=== PATIENT | male | born 1940 ===

== ENCOUNTER 2020-05-01 10:50 | Outpatient (REF) | payer MEDICARE, SELFPAY ==
--- NOTE | 2020-05-01 | US_ITS ---
EXAMINATION: US VENOUS ULTRASOUND WITH DOPPLER LOWER EXTREMITY, LEFT CLINICAL INFORMATION: Left lower extremity pain and edema. Assess for occult DVT. COMPARISON: None TECHNIQUE: Ultrasound of the deep veins is performed from the hip to the calf with compression sonography and color and pulse Doppler assessment. Spectral analysis with color-flow imaging is performed. FINDINGS: There is normal venous compression and respiratory variation and augmented flow. The visualized common femoral vein, superficial femoral vein, profunda femoral vein, popliteal vein, and the trifurcation region shows no evidence of deep venous thrombosis. No popliteal fossa cyst. US/US venous duplex LE LT IMPRESSION: No acute DVT demonstrated in the left lower extremity.
== END 2020-05-01 10:51 | disposition home or self-care (01) ==
LOC: HO.US 10:50
PROVIDERS: PCP Internal Medicine; Visit Provider Emergency Medicine
DX: R60.0 Localized edema (principal); M79.605 Pain in left leg
CPT/HCPCS: 93971

== ENCOUNTER 2020-09-22 10:42 | Day surgery (SDC) | payer MEDICARE, SELFPAY ==
[2020-09-17 10:53] VITALS: BMI 23.1
--- NOTE | 2020-09-17 16:52 | MHC.SHP ---
Pre-Procedural Eval Section A The patient is an INPATIENT: No The History & Physical has been completed within 30 days and I have reviewed it.: Yes Section B Chief Complaint: Cataract Left Eye Allergies: Allergies Allergy/AdvReac Type Severity Reaction Status Date / Time No Known Allergies Allergy Verified 09/17/20 10:51 Plan Diagnosis/Plan: Unchanged I have reviewed the history and physical and performed a pertinent physical examination on my patient. No changes have occurred unless specified.
--- NOTE | 2020-09-19 09:27 | HO.ANESPROP2 ---
Documented by User: Leesa Payne 09/19/20 09:27 HPI - Anesthesia Eval Consult details Narrative: 80yo M for Left Cataract Extraction IOL Insertion No prev cataract [facility] Past Medical History Medical History Arthritis Elevated cholesterol HTN (hypertension) S/P ORIF (open reduction internal fixation) fracture Social History Social History Smoking Status: Former smoker Smoking Quit Date: 2014 Use of substances other than those prescribed or required for medical reasons: No Advance Directives: No Advance Directives Information Provided: No Advance Directives on File: No Meds Allergies Allergy/AdvReac Type Severity Reaction Status Date / Time No Known Allergies Allergy Verified 09/17/20 10:51 Home Medications Medication Instructions Recorded Confirmed Last Taken Type atorvastatin 1 tab PO DAILY 09/17/20 09/17/20 Unknown History lisinopril-hydrochlorothiazide 1 tab PO DAILY 09/17/20 09/17/20 Unknown History tramadol 1 tab PO BID PRN 09/17/20 09/17/20 Unknown History Exam Exam Date and Time: September 19, 2020 0927 Height,Weight and Vital Signs: Height 5 ft 4 in Weight 61.235 kg Assessment and Plan Assessment Anesthesia Assessment: Chart Reviewed Documented by User: Bernice Johnson 09/22/20 12:35 [facility] Past Medical History Medical History Arthritis Elevated cholesterol HTN (hypertension) S/P ORIF (open reduction internal fixation) fracture Family History Family history of problems with anesthesia: No Surgical History History of Problems with Anesthesia: No Social History Social History Smoking Status: Former smoker Smoking Quit Date: 2014 Use of substances other than those prescribed or required for medical reasons: No Advance Directives: No Advance Directives Information Provided: No Advance Directives on File: No Meds Allergies Allergy/AdvReac Type Severity Reaction Status Date / Time No Known Allergies Allergy Verified 09/17/20 10:51 Home Medications Medication Instructions Recorded Confirmed Last Taken Type atorvastatin 1 tab PO DAILY 09/17/20 09/17/20 Unknown History lisinopril-hydrochlorothiazide 1 tab PO DAILY 09/17/20 09/17/20 Unknown History tramadol 1 tab PO BID PRN 09/17/20 09/17/20 Unknown History Exam Height,Weight and Vital Signs: Vital Signs Temp Pulse Resp BP Pulse Ox 09/22/20 12:11 97.5 F 52 18 181/74 H 97 Airway Mallampati Class: II TM Dist: >3cm Neck ROM: Full Denture: Upper and Lower Heart: RRR Lungs: CTAB Assessment and Plan Assessment Anesthesia Assessment: Anesthesia Plan Discussed and Chart Reviewed Final Anesthetic Review NPO: Yes ASA Class: II Final Preanesthetic Review: No Changes in Pt Med Stat, Meds/Allgs Chart Reviewed, Consent Obtained/Reviewed and Anes Risks/Benef Reviewed Patient Risk: Low Procedure Risk: Low Assessment/Block/Sedation in SS: Assess/Block/Sedation-SS Anesthetic Plan Anesthetic Plan: MAC: Disposition: Standard PACU
[2020-09-22 12:11] VITALS: BP 181/74; PULSE 52; RESP 18; TEMP 36.4; O2SAT 97
[2020-09-22] MEDS: Tetracaine HCl/PF 0.5% Oph Sol 4 ML DROPS 1 DROP EYE-LEFT (12:34)
[2020-09-22] MEDS: Lactated Ringers 500 ML 50 ML IV (12:34)
[2020-09-22] MEDS: Tropicamide 1 % Ophth Sol 3 ML BTL 1 DROP EYE-LEFT ×3 (12:36→12:42)
[2020-09-22] MEDS: Phenylephrine HCL 2.5% Oph SoL 2 ML BOTTLE 1 DROP EYE-LEFT ×3 (12:37→12:43)
--- NOTE | 2020-09-22 12:41 | P.PCNO_ITS ---
Ophthalmology Procedure Procedure Date of Service: 09/22/20 Ophthalmology Viscoelastic: Healon Duet Dual Pack Pro Ophthalmology Lenses: TECNIS [id number] (20.5) Procedure Notes: PREOPERATIVE DIAGNOSIS: Decreased visual acuity left eye secondary to cataract POSTOPERATIVE DIAGNOSIS: Same PROCEDURE: Left cataract extraction with intraocular lens insertion, Malyugin Ring SURGEON: Bear Mireles M.D. ANESTHESIA: Topical/MAC ESTIMATED BLOOD LOSS: None COMPLICATIONS: None After obtaining informed consent, the patient was brought to the operation room suite and placed in the supine position. After adequate sedation per anesthesia, topical drops of Tetracaine were given to the left eye. The eye was then prepped and draped in the usual sterile fashion. The operating room microscope was then positioned over the operative eye and a lid speculum placed. A paracentesis was created. Viscoelastic was then instilled into the anterior chamber. A three plane incision was then created temporally, utilizing a 2.85 mm keratome. Poor dilation required 0.5 ml of MPF Lidocaine followed by placement of a Malyugin Ring. Capsulotomy forceps were then utilized to create a circular tear capsulotomy. Hydrodissection and hydrodelineation were carried out until adequate mobilization of the nucleus occurred. Phacoemulsification was then utilized to remove the dense central nucleus followed by removal of the cortical material utilizing the automated aspiration irrigation unit. Viscoat elastic was instilled into the posterior capsular bag followed by placement of a posterior chamber intraocular lens without difficulty. Te Malyugin Ring was removed.The residual Viscoat elastic was then removed utilizing the automated IA machine. The wound was check and found to be watertight. The patient tolerated the procedure well and the lid speculum was removed. Intracameral injection of Vi gamox 0.1 mL followed by a subtenon injection of Kenalog-40 0.2 mL were administered. The patient will be seen in the a.m.
[2020-09-22 13:11] VITALS: BP 156/53; PULSE 53; RESP 16; TEMP 36.3; O2SAT 100
== END 2020-09-22 13:43 | disposition home or self-care (01) ==
PROVIDERS: PCP Internal Medicine; Visit Provider Ophthalmology
PROC: (CPT 66985; principal; 2020-09-22 13:00)
DX: H25.12 Age-related nuclear cataract, left eye (principal); H54.7 Unspecified visual loss; I10 Essential (primary) hypertension; Z79.899 Other long term (current) drug therapy; Z87.891 Personal history of nicotine dependence
CPT/HCPCS: 66982; J2250; J3300; V2632

== ENCOUNTER 2020-11-03 09:44 | Day surgery (SDC) | payer MEDICARE, SELFPAY ==
--- NOTE | 2020-10-29 12:30 | MHC.SHP ---
Pre-Procedural Eval Section A The patient is an INPATIENT: No The History & Physical has been completed within 30 days and I have reviewed it.: Yes Section B Chief Complaint: Right Eye Cataract Allergies: Allergies Allergy/AdvReac Type Severity Reaction Status Date / Time No Known Allergies Allergy Verified 09/22/20 12:45 Plan Diagnosis/Plan: Unchanged I have reviewed the history and physical and performed a pertinent physical examination on my patient. No changes have occurred unless specified.
--- NOTE | 2020-10-31 09:56 | HO.ANESPROP2 ---
Documented by User: Leesa Payne 10/31/20 09:57 HPI - Anesthesia Eval Consult details Narrative: 80yo M for Right Cataract Extraction IOL Insertion Left cataract 09/2020 with MAC: [facility] 2 PCP cleared [facility] Past Medical History Medical History Arthritis Elevated cholesterol HTN (hypertension) S/P ORIF (open reduction internal fixation) fracture Surgical History Surgical History History of cataract extraction Social History Social History Smoking Status: Former smoker Smoking Quit Date: 5 years ago Use of substances other than those prescribed or required for medical reasons: No Are you DNR?: No Advance Directives: No Advance Directives Information Provided: Yes Recently lost weight without trying: No Meds Allergies Allergy/AdvReac Type Severity Reaction Status Date / Time No Known Allergies Allergy Verified 09/22/20 12:45 Home Medications Medication Instructions Recorded Confirmed Last Taken Type atorvastatin 1 tab PO DAILY 09/17/20 09/17/20 Unknown History lisinopril-hydrochlorothiazide 1 tab PO DAILY 09/17/20 09/17/20 Unknown History tramadol 1 tab PO BID PRN 09/17/20 09/17/20 Unknown History Exam Exam Date and Time: October 31, 2020 0956 Assessment and Plan Assessment Anesthesia Assessment: Chart Reviewed Documented by User: Bernice Johnson 11/03/20 11:54 [facility] Past Medical History Medical History Arthritis Elevated cholesterol HTN (hypertension) S/P ORIF (open reduction internal fixation) fracture Family History Family history of problems with anesthesia: No Surgical History Surgical History History of cataract extraction History of Problems with Anesthesia: No Social History Social History (Reviewed 11/03/20 @ 11:05 by Bernice Cornell Smoking Status: Former smoker Smoking Quit Date: 5 years ago Use of substances other than those prescribed or required for medical reasons: No Are you DNR?: No Advance Directives: No Advance Directives Information Provided: Yes Recently lost weight without trying: No Meds Allergies Allergy/AdvReac Type Severity Reaction Status Date / Time No Known Allergies Allergy Verified 09/22/20 12:45 Home Medications Medication Instructions Recorded Confirmed Last Taken Type atorvastatin 1 tab PO DAILY 09/17/20 09/17/20 Unknown History lisinopril-hydrochlorothiazide 1 tab PO DAILY 09/17/20 09/17/20 Unknown History tramadol 1 tab PO BID PRN 09/17/20 09/17/20 Unknown History Exam Height,Weight and Vital Signs: Vital Signs Temp Pulse Resp BP Pulse Ox 11/03/20 11:17 98.5 F 62 16 177/50 H 98 Airway Mallampati Class: II TM Dist: >3cm Neck ROM: Full Denture: Upper and Lower Heart: RRR Lungs: CTAB Assessment and Plan Assessment Anesthesia Assessment: Anesthesia Plan Discussed and Chart Reviewed Final Anesthetic Review NPO: Yes ASA Class: II Final Preanesthetic Review: No Changes in Pt Med Stat, Meds/Allgs Chart Reviewed, Consent Obtained/Reviewed and Anes Risks/Benef Reviewed Patient Risk: Low Procedure Risk: Low Assessment/Block/Sedation in SS: Assess/Block/Sedation-SS Anesthetic Plan Anesthetic Plan: MAC: Disposition: Standard PACU
[2020-11-03 11:17] VITALS: BP 177/50; PULSE 62; RESP 16; TEMP 36.9; O2SAT 98; BMI 23.0
[2020-11-03] MEDS: Tetracaine HCl/PF 0.5% Oph Sol 4 ML DROPS 1 DROP EYE-RIGHT (11:26)
[2020-11-03] MEDS: Tropicamide 1 % Ophth Sol 3 ML BTL 1 DROP EYE-RIGHT ×3 (11:28→11:42)
[2020-11-03] MEDS: Phenylephrine HCL 2.5% Oph SoL 2 ML BOTTLE 1 DROP EYE-RIGHT ×3 (11:33→11:46)
[2020-11-03] MEDS: Lactated Ringers 500 ML 50 ML IV (11:51)
--- NOTE | 2020-11-03 12:45 | HO.PNOPHT ---
Ophthalmology Procedure Procedure Date of Service: 11/03/20 Ophthalmology Viscoelastic: Healon Duet Dual Pack Pro Ophthalmology Lenses: TECNIS [id number] (19.5) Procedure Notes: PREOPERATIVE DIAGNOSIS: Decreased visual acuity right eye secondary to cataract POSTOPERATIVE DIAGNOSIS: Same PROCEDURE: Right cataract extraction with intraocular lens insertion SURGEON: Bear Mireles M.D. ANESTHESIA: Topical/MAC ESTIMATED BLOOD LOSS: None COMPLICATIONS: None After obtaining informed consent, the patient was brought to the operating room suite and placed in the supine position. After adequate sedation per anesthesia, topical drops of Tetracaine were given to the right eye. The eye was then prepped and draped in the usual sterile fashion. The operating room microscope was then positioned over the operative eye and a lid speculum placed. A paracentesis was created. Viscoelastic was then instilled into the anterior chamber. A three plane incision was then created temporally, utilizing a 2.85 mm keratome. Capsulotomy forceps were then utilized to create a circular tear capsulotomy. Hydrodissection and hydrodelineation were carried out until adequate mobilization of the nucleus occurred. Phacoemulsification was then utilized to remove the dense central nucleus followed by removal of the cortical material utilizing the automated aspiration irrigation unit. Viscoelastic was instilled into the posterior capsular bag followed by placement of a posterior chamber intraocular lens without difficulty. The residual Viscoelastic was then removed utilizing the automated IA machine. The wound was checked and found to be watertight. The patient tolerated the procedure well and the lid speculum was removed. Intracameral injection of Vigamox 0.1 mL followed by a subtenon injection of Kenalog-40 0.2 mL were administered. The patient will be seen in the a.m.
[2020-11-03 12:47] VITALS: BP 159/54; PULSE 48; RESP 16; TEMP 36.8; O2SAT 97
== END 2020-11-03 13:29 | disposition home or self-care (01) ==
PROVIDERS: PCP Internal Medicine; Visit Provider Ophthalmology
PROC: (CPT 66985; principal; 2020-11-03 12:10)
DX: H25.11 Age-related nuclear cataract, right eye (principal); H52.4 Presbyopia; H40.013 Open angle with borderline findings, low risk, bilateral; Z96.1 Presence of intraocular lens; I10 Essential (primary) hypertension; Z79.899 Other long term (current) drug therapy; Z87.891 Personal history of nicotine dependence
CPT/HCPCS: 66984; J2250; J3010; J3300; V2632

== ENCOUNTER 2021-11-28 11:34 | Emergency (ER) | payer MEDICARE, SELFPAY ==
[2021-11-28] VITALS (8 sets, daily range): BP systolic 150–179; BP diastolic 52–67; PULSE 57–68; RESP 16–18; TEMP 36.8–37.1; O2SAT 97–98; BMI 21.0
--- NOTE | ~2021-11-28 | CT_ITS ---
EXAM: CT scan of the head and cervical spine. INDICATION: Reason for Exam fall TECHNIQUE: A noncontrast CT scan was performed from the skull base to the vertex. A noncontrast CT scan of the cervical spine was performed from the base of the skull through T1 at 2.5 mm and 1.25 mm collimation. Coronal and sagittal reformats were obtained at the acquisition workstation. This CT examination was performed using dose optimization techniques as appropriate, variously including the following: *Automated exposure control *Adjustment of mA and/or kV according to patient size (this includes techniques or standardized protocols for targeted exams where dose is matched to indication/reason for exam; i.e. extremities or head) *Use of iterative reconstruction technique DLP: 639 mGy-cm COMPARISON: 09/30/2014 FINDINGS: Head: There is no evidence of acute intracranial hemorrhage or territorial infarction. Robertson-white matter differentiation is preserved. No abnormal mass effect or midline shift. No extra-axial fluid collections. 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 Scattered periventricular and deep white matter hypodensities consistent with microangiopathy. The ventricles and sulcal spaces are proportional without hydrocephalus. Proportional prominence of the ventricles and sulcal spaces. No acute osseous or soft tissue abnormalities. The mastoid air cells and visualized portions of the paranasal sinuses are well aerated. Cervical Spine: The atlantooccipital and atlantoaxial articulations remain intact. Straightening of the normal cervical lordosis. Retrolisthesis likely degenerative 2 mm C3-C4 and minor anterolisthesis 1 mm C5-C6. The space narrowing noted throughout the mid cervical spine consistent advanced degenerative disc disease. Posterior elements appear intact but degenerated as well. Spinous processes intact. Minor scoliosis convex right. Extensive carotid bulb calcifications. No focal lesion. No evidence of acute fracture or subluxation. The vertebral body heights and disc spaces are otherwise maintained. There is no prevertebral soft tissue swelling. The thyroid gland and remaining cervical soft tissues are normal in appearance. The lung apices demonstrate no abnormalities. CT/CT cervical spine wo con IMPRESSION: No acute intracranial pathology. 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
--- NOTE | ~2021-11-28 | CT_ITS ---
EXAMINATION: CT CHEST WITHOUT IV CONTRAST CT ABDOMEN AND PELVIS WITHOUT IV CONTRAST CLINICAL INFORMATION: 81-year-old male with history of abdominal pain and bilateral rib pain after fall. COMPARISON: None TECHNIQUE: Noncontrast multidetector CT imaging examination of the chest, abdomen and pelvis was performed. Axial images are displayed at 0.6 mm and 5 mm slice thickness. Coronal and sagittal reformatted images were generated at the technologist's workstation and submitted for review. This CT examination was performed using dose optimization techniques as appropriate, variously including the following: *Automated exposure control *Adjustment of mA and/or kV according to patient size (this includes techniques or standardized protocols for targeted exams where dose is matched to indication/reason for exam; i.e. extremities or head) *Use of iterative reconstruction technique DLP: 628 mGy-cm FINDINGS: CHEST - LUNGS AND PLEURA: Trachea and central airways are widely patent and normal in caliber. Mild paraseptal emphysema of upper lobes and superior segment of left lower lobe. Mild centrilobular emphysema, as well. Mild, chronic scarring and intermixed calcifications at the lung apices. No pulmonary edema or consolidation. No pneumothorax or pleural effusion. MEDIASTINUM/LOWER NECK: The heart size is normal. Pulmonary arteries are normal in caliber. No pericardial effusion. Thoracic aorta atherosclerosis without aneurysm. The esophagus and thyroid gland are unremarkable. No pneumomediastinum. LYMPHATICS: No pathologic sized axillary, hilar or mediastinal lymph nodes. 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 Old, healed fractures of right anterior third rib and left posterolateral fifth rib. Minimal contour deformity of the right anterior fifth rib is of uncertain chronicity. There appears to be acute, minimally displaced fracture of the right anterior sixth and seventh ribs. Minimal posterior cortical buckling of the anterior right eighth and ninth ribs. Also, there appear to be acute, minimal fracture deformities of left anterior sixth and seventh ribs. The thoracic vertebra have well preserved height and alignment. Mild multilevel discovertebral degenerative change of the spine. ABDOMEN AND PELVIS - HEPATOBILIARY: Liver has normal size and contour. No acute findings. No noncontrast imaging evidence of liver laceration. No perihepatic fluid. Small, 0.6 cm cyst in the lateral hepatic segment. No dilated bile ducts. Gallbladder is unremarkable. PANCREAS: Mild diffuse atrophy of the pancreas. No edema, mass or pancreatic ductal dilatation. SPLEEN: Normal. ADRENAL GLANDS: Normal. KIDNEYS AND URETERS: 0.5 cm calyceal stone of the right lower pole is 8 cm deep from the skin surface at the posterior axillary line and has density of approximately 800 HU. The left kidney is unremarkable. No hydronephrosis. BOWEL AND PERITONEUM: No dilated bowel loops. No focal bowel wall thickening, mesenteric fat stranding or free fluid. No pneumoperitoneum. ABDOMINAL WALL: No abdominal wall hematoma. Mild protrusion of extraperitoneal fat into the left inguinal canal. VESSELS: Atherosclerotic calcification of the abdominal aorta, proximal SMA and renal arteries. The densely calcified plaque of the SMA and renal arteries appears to cause severe stenosis, although evaluation is limited for a noncontrast examination. No retroperitoneal hematoma. LYMPH NODES: No pathologic sized lymph nodes in the abdomen or pelvis. No inguinal lymphadenopathy. BLADDER AND PELVIC VISCERA: Urinary bladder wall is diffusely, mildly thickened and this could represent detrusor muscle hypertrophy. No focal mass. No bladder calculi. Prostate gland measures approximately 4 x 2.8 x 3.7 cm. MUSCULOSKELETAL: Chondrocalcinosis of the degenerated lumbar spine, pubic symphysis and left hip. 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 No evidence of hardware loosening. The visualized pelvic bones and proximal femurs are intact. CT/CT abdomen pelvis wo con IMPRESSION: * Mild pulmonary emphysema. * There are several acute fractures of right and left anterior ribs as well as a few old healed rib fractures. * 0.5 cm nonobstructing stone in the lower pole of the right kidney. * No evidence of hepatic or splenic injury. * Atherosclerotic disease of abdominal aorta, proximal SMA and renal arteries. No aortic aneurysm.
--- NOTE | 2021-11-28 11:49 | ECG_ITS ---
Test Reason : FALL Blood Pressure : / mmHG Vent. Rate : 055 BPM Atrial Rate : 055 BPM P-R Int : 138 ms QRS Dur : 084 ms QT Int : 450 ms P-R-T Axes : 041 011 059 degrees QTc Int : 430 ms Sinus bradycardia Otherwise normal ECG When compared to the previous EKG of No significant changes seen Referred By: Shanice Thomas Electronically Signed By:Les Carlson
--- NOTE | 2021-11-28 12:06 | ED.FALL ---
HPI - Fall General Chief Complaint: Fall Stated Complaint: fall last night - rib pain Time Seen by Provider: 11/28/21 11:41 Source: patient and EMS Mode of arrival: EMS History of Present Illness HPI Narrative: 81-year-old male with a past medical history of arthritis, HLD, HTN, presenting to the ED complaining of bilateral rib, abdominal, and back pain s/p mechanical fall last night. Patient admits to having a couple beers and then falling, denies symptoms prior to fall including CP/SOB, headache, lightheadedness/dizziness. Unknown head trauma or LOC. patient is poor historian. Denies nausea/vomiting or taking anticoagulation MD complaint: fall Onset (ago): hour(s) Fall from: standing Fall witnessed: no Related Data Home Medications Medication Instructions Recorded Confirmed atorvastatin 40 mg tablet 1 tab PO DAILY 09/17/20 09/17/20 lisinopril 20 1 tab PO DAILY 09/17/20 09/17/20 mg-hydrochlorothiazide 12.5 mg tablet tramadol 50 mg tablet 1 tab PO BID PRN 09/17/20 09/17/20 Allergies Allergy/AdvReac Type Severity Reaction Status Date / Time No Known Allergies Allergy Verified 09/22/20 12:45 Review of Systems Review of Systems: Constitutional: No Fever, No Chills, No Night Sweats, No Fatigue, No Malaise ENT/Mouth: No Ear Pain, No Nasal Congestion, No sore throat, No Rhinorrhea, No Swallowing Difficulty Eyes: No Eye Pain, No Swelling, No Redness, No Vision Changes Cardiovascular: + Chest Wall Pain, No SOB, No Edema, No Palpitations Respiratory: No Cough, No Dyspnea Gastrointestinal: No Nausea, No Vomiting, No Diarrhea, No Constipation, No Abdominal pain Genitourinary: No Dysuria, No Urinary Frequency, No Hematuria, No Urinary Incontinence/retention,No Flank Pain Musculoskeletal: No joint pain, No Myalgias, No Joint Swelling Skin: No Skin Lesions, No rash Neuro: No Weakness, No Numbness, No Paresthesias, Unknown Loss of Consciousness, No Dizziness, No Headache Yes all other systems are reviewed and are negative [facility] Past Medical History Attestation statement: The following information was validated with the patient. Medical History Arthritis Elevated cholesterol HTN (hypertension) Surgical History History of cataract extraction S/P ORIF (open reduction internal fixation) fracture Social History Social History Advance Directives: No Advance Directives Information Provided: Yes Physical Exam Vital Signs: Vital Signs: Last Vital Signs Temp 98.7 F 11/28/21 12:22 Pulse 67 11/28/21 12:41 Resp 18 11/28/21 12:22 BP 171/57 H 11/28/21 12:41 Pulse Ox 98 11/28/21 12:22 BMI result Body Mass Index 21.0 Const: General: cooperative and no acute distress Orientation/consciousness: patient oriented x3 Limitations: no limitations HEENT: Head: Yes normal to inspection, Yes atraumatic, No Mcclure's sign and No raccoon eyes Ears: hearing grossly normal bilaterally General nose exam: Normal external nose present Face and sinus: Yes normal facial exam Throat: Yes posterior oropharynx normal Eyes: General: appearance normal, both eyes and all related structures Pupils: Equal, round and reactive pupils present EOM: EOMs intact bilaterally Neck: Other: No midline cervical spinous tenderness/step-off or deformity Neck: Yes normal visual inspection and Yes no meningeal signs Chest: Other: Bilateral lower anterior lateral chest wall tenderness, no flail chest. No ecchymosis/erythema. Chest palpation & inspection: tenderness Resp: Effort & Inspection: normal respiratory effort and no respiratory distress Auscultation: clear to auscultation bilaterally, no rales, no rhonchi and no wheezes Cardio: Rate: regular rate Heart sounds: S1 normal heart sound present and S2 normal heart sound present GI: Inspection: Yes normal to inspection Palpation (GI): Soft to palpation, Tenderness to palpation present (GI) in the LUQ and in the RUQ, no guarding and not rigid : General: Yes no CVA tenderness Back/Spine/Pelvis: Other: No midline thoracic/lumbar spinous tenderness/step-off or deformity Back: no CVA tenderness Skin: Rashes: no rashes Wounds: no wounds Neuro: General: patient oriented x3, gait normal, tone normal, moves all extremities, no meningeal signs, no focal motor deficits and CN's II-XI intact bilaterally Cranial nerves: Yes CN's II-XII intact bilaterally, Yes Equal, round and reactive pupils present and Yes Bilaterally intact EOM present Cognition (Neuro): normal cognition Gait exam (Neuro): Normal gait present Motor exam (neuro): 5/5 motor strength present throughout Extrem: Other: Pelvis stable General: Yes normal to inspection and Yes full ROM Course Course Course Narrative: -1308--no leukocytosis. Troponin elevated to 42.5 > will obtain 3hr repeat -Ethanol 95 -COVID-19 positive 1434--CT head/brain wo con/CT cervical spine wo con IMPRESSION: No acute intracranial pathology. 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 CT chest wo con/CT abdomen pelvis wo con IMPRESSION: *? Mild pulmonary emphysema. *? There are several acute fractures of right and left anterior ribs as well as a few old healed rib fractures. *? 0.5 cm nonobstructing stone in the lower pole of the right kidney.? *? No evidence of hepatic or splenic injury. *? Atherosclerotic disease of abdominal aorta, proximal SMA and renal arteries. No aortic aneurysm. 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 Old, healed fractures of right anterior third rib and left posterolateral fifth rib. Minimal contour deformity of the right anterior fifth rib is of uncertain chronicity. There appears to be acute, minimally displaced fracture of the right anterior sixth and seventh ribs. Minimal posterior cortical buckling of the anterior right eighth and ninth ribs. Also, there appear to be acute, minimal fracture deformities of left anterior sixth and seventh ribs. The thoracic vertebra have well preserved height and alignment. Mild multilevel discovertebral degenerative change of the spine.] >1440--plan for trauma transfer. [facility] consulted -1450--spoke to trauma surgeon Dr. Hernandes at [facility], accepted transfer direct admission to surgical floor ? MDM - Fall MDM Narrative Medical decision making narrative: 81-year-old male with a past medical history of arthritis, HLD, HTN, presenting to the ED complaining of bilateral rib, abdominal, and back pain s/p mechanical fall last night. On exam vital signs stable, NAD, A&O x3 however poor historian, no midline spinous tenderness throughout, no focal neuro deficits. Concern for ICH/fractures vs intra-abdominal injury. Rule out metabolic/infectious etiologies plan: EKG, labs, UA, CT head/C-spine/chest/abdomen/pelvis, orthostatics, re-evaluated Differential Diagnosis Differential diagnosis: Likely fracture, compression fracture, concussion with loss of consciousness and concussion without loss of consciousness Medical Records Attestation: I reviewed the patient's medical records. Lab Data Attestation: I reviewed the patient's lab results. Result diagrams: 11/28/21 12:11/28/21 12: Labs: Lab Results 11/28/21 11/28/21 11/28/21 Range/Units 12: 12: 12: WBC 5.0 (4.8-10.8) X10*3/uL RBC 3.92 L (4.60-5.80) X10*6/uL Hgb 12.9 L (14.0-18.0) g/dl Hct 36.7 L (42.0-52.0) % MCV 93.6 (80.0-98.0) fL MCH 32.9 (27.0-33.0) pg MCHC 35.1 (31.0-36.0) g/dl RDW 12.8 (11.0-16.0) % Plt Count 163 (160-400) X10*3/uL MPV 10.8 (9.4-12.4) fL Immature Gran % (Auto) 0.4 (0.0-0.4) % Neut % (Auto) 66.6 (45-73) % Lymph % (Auto) 21.3 (20-40) % [place] % (Auto) 9.7 (2-11) % Eos % (Auto) 1.4 (0-4) % Baso % (Auto) 0.6 (0-2) % Lymph # (Auto) 1.1 L (1.2-4.9) X10*3/uL [place] # (Auto) 0.5 (0.1-1.2) X10*3/uL Eos # (Auto) 0.1 (0.0-0.4) X10*3/uL Baso # (Auto) 0.0 (0.0-0.2) X10*3/uL Abs Immat Gran (auto) 0.02 (0.00-0.03) X10*3/uL Absolute Neuts (auto) 3.3 (2.0-8.3) x10*3/uL Absolute Nucleated RBC 0.000 (0.0-0.012) X10*3/uL Nucleated RBC % (auto) 0.0 (0.0-0.2) /100WBC PT 11.1 (9.9-13.0) SEC INR 1.0 (0.9-1.1) APTT 32.1 (24.1-38.0) SEC Sodium 141 (135-145) mmol/L Potassium 3.9 (3.3-5.1) mmol/L Chloride 108 (96-108) mmol/L Carbon Dioxide 24 (22-29) mmol/L Anion Gap 13 (12-20) BUN 6 L (9-16) mg/dL Creatinine 0.85 (0.5-1.4) mg/dL Estim Creat Clear Calc 60.8 Estimated GFR > 60 Random Glucose 170 H (60-115) mg/dL Calcium 9.2 (8.4-10.2) mg/dL Magnesium 1.9 (1.6-2.6) mg/dL Total Bilirubin 0.6 (0.0-1.0) mg/dL Direct Bilirubin 0.2 (0.0-0.5) mg/dL AST 17 (5-37) U/L ALT 13 (0-40) U/L Alkaline Phosphatase 67 (39-117) U/L Troponin I High Sens (<3.5-35.0) ng/L Total Protein 6.6 (6.5-8.0) g/dL Albumin 3.9 (3.5-5.0) g/dL Ethyl Alcohol mg/dL COVID-19 ([facility]) (Negative) COVID-19 Clin Com 11/28/21 11/28/21 11/28/21 Range/Units 12:27 12:27 12:27 WBC (4.8-10.8) X10*3/uL RBC (4.60-5.80) X10*6/uL Hgb (14.0-18.0) g/dl Hct (42.0-52.0) % MCV (80.0-98.0) fL MCH (27.0-33.0) pg MCHC (31.0-36.0) g/dl RDW (11.0-16.0) % Plt Count (160-400) X10*3/uL MPV (9.4-12.4) fL Immature Gran % (Auto) (0.0-0.4) % Neut % (Auto) (45-73) % Lymph % (Auto) (20-40) % [place] % (Auto) (2-11) % Eos % (Auto) (0-4) % Baso % (Auto) (0-2) % Lymph # (Auto) (1.2-4.9) X10*3/uL [place] # (Auto) (0.1-1.2) X10*3/uL Eos # (Auto) (0.0-0.4) X10*3/uL Baso # (Auto) (0.0-0.2) X10*3/uL Abs Immat Gran (auto) (0.00-0.03) X10*3/uL Absolute Neuts (auto) (2.0-8.3) x10*3/uL Absolute Nucleated RBC (0.0-0.012) X10*3/uL Nucleated RBC % (auto) (0.0-0.2) /100WBC PT (9.9-13.0) SEC INR (0.9-1.1) APTT (24.1-38.0) SEC Sodium (135-145) mmol/L Potassium (3.3-5.1) mmol/L Chloride (96-108) mmol/L Carbon Dioxide (22-29) mmol/L Anion Gap (12-20) BUN (9-16) mg/dL Creatinine (0.5-1.4) mg/dL Estim Creat Clear Calc Estimated GFR Random Glucose (60-115) mg/dL Calcium (8.4-10.2) mg/dL Magnesium (1.6-2.6) mg/dL Total Bilirubin (0.0-1.0) mg/dL Direct Bilirubin (0.0-0.5) mg/dL AST (5-37) U/L ALT (0-40) U/L Alkaline Phosphatase (39-117) U/L Troponin I High Sens 42.5 H (<3.5-35.0) ng/L Total Protein (6.5-8.0) g/dL Albumin (3.5-5.0) g/dL Ethyl Alcohol 95 mg/dL COVID-19 ([facility]) Positive A (Negative) COVID-19 Clin Com See Note Critical Care Time Critical Care Time Critical Care Time: Yes Total Critical Care Time: 40 Attestation: I have personally provided critical care time exclusive of time spent on separately billable procedures. Time includes review of lab data, radiology results, discussion with consultants, and monitoring for potential decompensation. Intervention performed as documented. Discharge Plan Discharge Clinical Impression: Multiple fractures of ribs of both sides, COVID-19, Fall Patient Disposition: [facility] Hospital Transfer Details: [facility] Trauma Prescriptions: No Action atorvastatin 40 mg tablet 1 tab PO DAILY 0RF lisinopril-hydrochlorothiazide 20-12.5 mg tablet 1 tab PO DAILY 0RF tramadol 50 mg tablet 1 tab PO BID PRN (Reason: pain) 0RF
[2021-11-28 12:31] LABS: MANUAL DIFF FLAG NO
[2021-11-28 12:36] LABS: Basophils Percent Auto 0.6 % (0-2); Eosinophils Absolute Auto 0.1 X10*3/uL (0.0-0.4); Eosinophils Percent Auto 1.4 % (0-4); Hematocrit 36.7 % (42.0-52.0); Hemoglobin 12.9 g/dl (14.0-18.0); Imm Gran Abs Auto 0.02 X10*3/uL (0.00-0.03); Imm Gran Pct Auto 0.4 % (0.0-0.4); Lymphocytes Absolute Auto 1.1 X10*3/uL (1.2-4.9); Lymphocytes Percent Auto 21.3 % (20-40); Mean Corpuscular HGB Conc 35.1 g/dl (31.0-36.0); Mean Corpuscular Hemoglobin 32.9 pg (27.0-33.0); Mean Corpuscular Volume 93.6 fL (80.0-98.0); Mean Platelet Volume 10.8 fL (9.4-12.4); Monocytes Absolute Auto 0.5 X10*3/uL (0.1-1.2); Monocytes Percent Auto 9.7 % (2-11); Neutrophils Absolute Auto 3.3 x10*3/uL (2.0-8.3); Neutrophils Percent Auto 66.6 % (45-73); Platelet Count 163 X10*3/uL (160-400); Red Blood Count 3.92 X10*6/uL (4.60-5.80); Red Cell Distribution Width 12.8 % (11.0-16.0)
[2021-11-28 12:40] LABS: COVID-19 Test Positive (Negative); IDNOW Serial# 9DB6401D
[2021-11-28 12:45] LABS: Prothrombin Time 11.1 SEC (9.9-13.0)
[2021-11-28 12:48] LABS: Partial Thromboplastin Time 32.1 SEC (24.1-38.0)
[2021-11-28 12:49] LABS: Ethanol 95 mg/dL
[2021-11-28 12:52] LABS: Alanine Aminotransferase 13 U/L (0-40); Albumin Level 3.9 g/dL (3.5-5.0); Alkaline Phosphatase 67 U/L (39-117); Anion Gap 13 (12-20); Aspartate Amino Transferase 17 U/L (5-37); Bilirubin Direct 0.2 mg/dL (0.0-0.5); Bilirubin Total 0.6 mg/dL (0.0-1.0); Blood Urea Nitrogen 6 mg/dL (9-16); Calcium 9.2 mg/dL (8.4-10.2); Carbon Dioxide 24 mmol/L (22-29); Chloride 108 mmol/L (96-108); Creatinine Clr Calc Pharmacy 60.8; Estimated Glomerular Filt Rate > 60; Glucose Random 170 mg/dL (60-115); Magnesium 1.9 mg/dL (1.6-2.6); Potassium 3.9 mmol/L (3.3-5.1); Sodium 141 mmol/L (135-145); Total Protein 6.6 g/dL (6.5-8.0)
[2021-11-28 12:54] LABS: Troponin-I High Sensitivity 42.5 ng/L (<3.5-35.0)
--- NOTE | 2021-11-28 15:29 | PC.NURSE ---
pt accepted [place] [id number] room [id number] nurse - nurse [phone]
[2021-11-28] MEDS: 0.9 % Sodium Chloride 1,000 ML 999 ML IV (15:30)
[2021-11-28 15:40] LABS: Appearance Urine CLEAR; Color Urine YELLOW; Glucose Urine UA NEG (NEG); Leukocyte Esterase Urine NEG (NEG); Nitrite Urine NEG (NEG); Specific Gravity - Urine <= 1.005 (1.005-1.025); Urine Blood NEG (NEG); Urine Ketones NEG (NEG); Urine Protein NEG (NEG-TRACE)
[2021-11-28 15:52] LABS: Amphetamine Screen Urine Not Detected (Not Detect); Barbiturates, Urine Not Detected (Not Detect); Benzodiazepines Screen Urine Not Detected (Not Detect); Cannabinoid Screen Urine Not Detected (Not Detect); Cocaine Screen Urine Not Detected (Not Detect); Fentanyl, urine Not Detected (Not Detect); Opiate Screen Urine Not Detected (Not Detect); Phencyclidine Screen Urine Not Detected (Not Detect)
[2021-11-28 15:57] LABS: Troponin-I High Sensitivity 37.4 ng/L (<3.5-35.0)
== END 2021-11-28 17:14 | disposition short-term general hospital (02) ==
PROVIDERS: Physician Assistant; Emergency Provider Emergency Medicine; PCP Internal Medicine
DX: S22.43XA Multiple fractures of ribs, bilateral, initial encounter for closed fracture (principal); U07.1 COVID-19; S09.90XA Unspecified injury of head, initial encounter; F10.129 Alcohol abuse with intoxication, unspecified; M54.2 Cervicalgia; W01.0XXA Fall on same level from slipping, tripping and stumbling without subsequent striking against object, initial encounter; R51.9 Headache, unspecified; Y90.4 Blood alcohol level of 80-99 mg/100 ml; M54.6 Pain in thoracic spine; Y93.9 Activity, unspecified; Y92.9 Unspecified place or not applicable; Y99.9 Unspecified external cause status; Z79.899 Other long term (current) drug therapy
CPT/HCPCS: 36415; 70450; 71250; 72125; 74176; 80048; 80076; 80307; 81003; 82077; 83735; 84484; 85025; 85610; 85730; 87635; 93005; 99285

== ENCOUNTER 2022-03-01 13:07 | Outpatient (REF) | payer MEDICARE, SELFPAY ==
--- NOTE | ~2022-03-01 | US_ITS ---
EXAMINATION: US VENOUS ULTRASOUND WITH DOPPLER LOWER EXTREMITY, RIGHT CLINICAL INFORMATION: Right leg swelling COMPARISON: None TECHNIQUE: Ultrasound of the deep veins is performed from the hip to the calf with compression sonography and color and pulse Doppler assessment. Spectral analysis with color-flow imaging is performed. FINDINGS: There is normal venous compression and respiratory variation and augmented flow. The visualized common femoral vein, superficial femoral vein, profunda femoral vein, popliteal vein, and the trifurcation region shows no evidence of deep venous thrombosis. There is no significant popliteal fossa cyst. A prominent right groin lymph node present measuring 3.9 x 1.0 x 2.4 cm. This has a normal fatty isamar. If the patient's symptoms persist, followup ultrasound in 5 days 7 days might be of value to exclude proximal propagation from a non-visualized calf vein. US/US venous duplex LE RT IMPRESSION: No DVT demonstrated in the right lower extremity.
== END 2022-03-01 13:08 | disposition home or self-care (01) ==
LOC: HO.US 13:07
PROVIDERS: PCP Internal Medicine; Visit Provider Family Medicine
DX: M79.604 Pain in right leg (principal); R60.0 Localized edema; M79.89 Other specified soft tissue disorders
CPT/HCPCS: 93971

== ENCOUNTER → 2022-06-10 10:51 | Outpatient (BNVA) | payer MEDICARE, SELFPAY | PROVIDERS: PCP Internal Medicine; Visit Provider Surgery Vascular Surgery | DX: I83.11 Varicose veins of right lower extremity with inflammation (principal); I10 Essential (primary) hypertension; E78.00 Pure hypercholesterolemia, unspecified | CPT/HCPCS: 99212 ==

== ENCOUNTER 2022-07-21 10:11 | Outpatient (REF) | payer MEDICARE, SELFPAY ==
--- NOTE | ~2022-07-21 | US_ITS ---
EXAMINATION: US LOWER EXTREMITY VENOUS (REFLUX EXAM), BILATERAL CLINICAL INDICATION: Chronic venous insufficiency with lower extremity swelling COMPARISON: None. TECHNIQUE: Color flow triplex imaging and compression Doppler was performed to evaluate both the deep and the superficial systems bilaterally. To evaluate the superficial system, the examination was performed in the upright position. Color-flow Doppler ultrasound and compression ultrasound were utilized. In addition, maneuvers were utilized to demonstrate reflux. FINDINGS: 1. DEEP VENOUS ULTRASOUND OF THE RIGHT LOWER EXTREMITY: Common Femoral Vein: Compressible, normal respiratory variation and augmented flow. Femoral Vein: Compressible, normal color flow and augmentation. Popliteal Vein: Compressible, normal augmentation. Deep Reflux: There is no evidence of reflux in the deep system in either the common femoral vein or the popliteal vein. There is no evidence of a Palumbo's cyst. 2. SUPERFICIAL ULTRASOUND WITH DOPPLER OF RIGHT LOWER EXTREMITY: GREAT SAPHENOUS VEIN: Saphenofemoral Junction: 0.5 cm; Reflux: 0 ms Proximal Thigh: 0.3 cm; Reflux: 0 ms Mid Thigh: 0.1 cm; Reflux: 0 ms Above Knee: 0.1 cm; Reflux: 0 ms At Knee: 0.1 cm; Reflux: 0 ms Below Knee: 0.1 cm; Reflux: 0 ms Mid Calf: 0.1 cm; Reflux: 0 ms Ankle: 0.1 cm; Reflux: 0 ms DUPLICATED MEDIAL GREAT SAPHENOUS VEIN: Diameter: None Imaged Reflux: NA DUPLICATED LATERAL GREAT SAPHENOUS VEIN: Diameter: 0.3 cm Reflux: None SMALL SAPHENOUS VEIN: Proximal: 0.1 cm; Reflux: 0 ms Distal: 0.1 cm; Reflux: 0 ms VEIN OF GIACOMINI: None Imaged. PERFORATORS: Location: None Imaged Size: NA Reflux: NA VARICOSITIES: Location: None Imaged Size: NA Reflux: NA 3. DEEP VENOUS ULTRASOUND OF THE LEFT LOWER EXTREMITY: Common Femoral Vein: Compressible, normal respiratory variation and augmented flow. Femoral Vein: Compressible, normal color flow and augmentation. Popliteal Vein: Compressible, normal augmentation. Deep Reflux: There is no evidence of reflux in the deep system in either the common femoral vein or the popliteal vein. There is no evidence of a Palumbo's cyst. 4. SUPERFICIAL ULTRASOUND WITH DOPPLER OF LEFT LOWER EXTREMITY: GREAT SAPHENOUS VEIN: Saphenofemoral Junction: 0.4 cm; Reflux: 0 ms Proximal Thigh: 0.1 cm; Reflux: 0 ms Mid Thigh: 0.1 cm; Reflux: 0 ms Above Knee: 0.2 cm; Reflux: 0 ms At Knee: 0.2 cm; Reflux: 0 ms Below Knee: 0.2 cm; Reflux: 0 ms Mid Calf: 0.1 cm; Reflux: 0 ms Ankle: 0.2 cm; Reflux: 0 ms DUPLICATED MEDIAL GREAT SAPHENOUS VEIN: Diameter: None Imaged Reflux: NA DUPLICATED LATERAL GREAT SAPHENOUS VEIN: Diameter: 0.4 cm Reflux: None SMALL SAPHENOUS VEIN: Proximal: 0.1 cm; Reflux: 0 ms Distal: 0.1 cm; Reflux: 0 ms VEIN OF GIACOMINI: None Imaged. PERFORATORS: Location: None Imaged Size: NA Reflux: NA VARICOSITIES: Location: None Imaged Size: NA Reflux: NA US/US venous duplex LE BI IMPRESSION: Right: Normal examination. No significant reflux in the great saphenous or small saphenous veins Left: Normal examination. No significant reflux in the great saphenous or small saphenous veins
== END 2022-07-21 10:12 | disposition home or self-care (01) ==
LOC: HO.US 10:11
PROVIDERS: PCP Internal Medicine; Visit Provider Surgery Vascular Surgery
DX: I83.11 Varicose veins of right lower extremity with inflammation (principal)
CPT/HCPCS: 93970

== ENCOUNTER 2022-09-06 08:30 | Emergency (ER) | payer OTHER, SELFPAY ==
[2022-09-06 08:36] VITALS: BP 158/58; PULSE 60; O2SAT 99
[2022-09-06 08:42] VITALS: BP 166/71; PULSE 70; RESP 16; TEMP 36.8; O2SAT 99; BMI 23.1
--- NOTE | 2022-09-06 10:15 | ED_ITS ---
HPI - General Adult General Chief complaint: Skin/Abscess/Foreign Body Stated complaint: SKIN RASH R SIDE OF BODY ALL WEEKEND Time Seen by Provider: 09/06/22 09:16 Source: patient Mode of arrival: ambulatory Limitations: no limitations History of Present Illness HPI narrative: 82-year-old male presents to ED for HE right-sided rash for the past 2 weeks. Patient denies any lip swelling, chest pain, shortness of breath, rash being vesicular, fever, chills, recent long travel, watery eyes, abdominal pain, diarrhea, chest pain, shortness of breath, or visual changes. Related Data Home Medications Medication Instructions Recorded Confirmed atorvastatin 40 mg tablet 1 tab PO DAILY 09/17/20 09/17/20 lisinopril 20 1 tab PO DAILY 09/17/20 09/17/20 mg-hydrochlorothiazide 12.5 mg tablet betamethasone dipropionate 0.05 % topical 06/10/22 topical ointment Previous Rx's Medication Instructions Recorded diphenhydramine HCl 25 mg capsule 25 mg PO TID PRN itching 7 days 09/06/22 (Benadryl) #21 caps famotidine 20 mg tablet (Pepcid) 20 mg PO BID 7 days #14 tabs 09/06/22 triamcinolone acetonide 0.5 % 1 appl topical BID 2 weeks #15 09/06/22 topical ointment grams Allergies Allergy/AdvReac Type Severity Reaction Status Date / Time No Known Allergies Allergy Verified 06/10/22 10:55 Review of Systems Review of Systems: Itchy rash that Yes all other systems are reviewed and are negative PMFSH Past Medical History Medical History Arthritis Elevated cholesterol HTN (hypertension) Surgical History History of cataract extraction S/P ORIF (open reduction internal fixation) fracture Social History Social History Advance Directives: No Advance Directives Information Provided: Yes Physical Exam ED Vital Signs: Vital Signs - 24 hr 09/06/22 08:42 Temperature 98.3 F Pulse Rate 70 Respiratory Rate 16 Blood Pressure 166/71 H Pulse Oximetry 99 Oxygen Delivery Method Room Air BMI result Body Mass Index 23.1 Const General: cooperative, healthy appearing, comfortable, no acute distress, well developed, alert, awake and Physically active Orientation/consciousness: oriented to person, oriented to place, oriented to time and patient oriented x3 HENMT Other: Negative for swelling of lips, tongue, or uvula Head: Yes normal to inspection, Yes No palpable skull fracture present, Yes normocephalic and Yes atraumatic Eyes General: appearance normal, both eyes and all related structures Neck Neck: Yes normal visual inspection, Yes full ROM, Yes no lymphadenopathy, Yes no meningeal signs, Yes trachea midline, Yes supple, No anterior neck swelling and No tender Chest Chest palpation & inspection: normal inspection of the chest and normal palpation of entire chest wall Chest/axillae images: 1. Severe contact dermatitis rash Resp Effort & Inspection: normal respiratory effort and able to speak in complete sentences Auscultation: clear to auscultation bilaterally Cardio Jugular venous distension: no JVD GI Inspection: Yes normal to inspection and No abdominal wall ecchymosis Palpation (GI): not soft, not firm, nontender, no guarding and not rigid General: No CVA tenderness and Yes no CVA tenderness Back/Spine/Pelvis Back: no CVA tenderness, No CVA tenderness and No back tenderness Back/spine/pelvis image: 1. Chronic severe dermatitis rash Skin Other: Severe dermatitis rash Full body images: 1. Severe dermatitis rash 2. Severe contact dermatitis rash Neuro General: oriented to person, oriented to place, oriented to time, patient oriented x3, gait normal, tone normal, moves all extremities, Normal light touch and pain sensation, no meningeal signs, no focal motor deficits, CN's II-XI intact bilaterally and normal sensation to monofilament Extrem Other: Dermatitis rash General: Yes normal to inspection and Yes full ROM Psych Appearance: grossly normal, well kempt and not disheveled Course Course Course Narrative: Itchy rash for the past 2 weeks. Reevaluation(s) Reevaluation #1: History physical exam indicate eczema versus severe dermatitis rash. Negative for signs of angioedema. History physical exam does not indicate cellulitis or fungal rash. History and physical exam does not indicate Jan Alfredo syndrome. Patient stable well appearing. Time: 10:19 Medical Decision Making Medical Decision Making MDM Narrative: 82-year-old male with itchy rash for the past 2 weeks. Negative signs for angioedema. Denies any chest pain shortness of breath or fever or chills. Diagnosis severe eczema versus contact dermatitis. Will discharge with Benadryl, Pepcid and steroid cream. Patient already on prednisone with no relief Differential Diagnosis Differential Diagnoses: The differential diagnosis associated with the presentation includes (Cellulitis, eczema, dermatitis, fungal rash,) Prescription Management I considered prescription management with: Other (Steroid cream, Benadryl, and Pepcid) Discharge Plan Discharge Clinical Impression: Dermatitis Patient Disposition: Home, Self-Care Instructions: Dermatitis (ED), Cold Compress or Soak (ED) Additional Instructions: Para eczema versus dermatitis de contacto severa. Ser? dado de elise con crema de esteroides y pastillas para ayudar con la picaz?n. Mireille un seguimiento con el proveedor de atenci?n primaria para derivarlo a un dermat?logo. Regrese a la roxane de urgencias por cualquier hinchaz?n de los labios, hinchaz?n de la lengua, dificultad para respirar, dolor de pecho, sarpullido que empeora, fiebre, escalofr?os, incapacidad para alimentos s?lidos/l?quidos, sarpullido que empeora o cualquier otro s?ntoma preocupante. [facility]. [phone] [facility], [id number] Prescriptions: New triamcinolone acetonide 0.5 % ointment 1 appl topical BID 14 Days Qty: 15 0RF Rx Instructions: do not take with any other steroid cream famotidine [Pepcid] 20 mg tablet 20 mg PO BID 7 Days Qty: 14 0RF diphenhydramine HCl [Benadryl] 25 mg capsule 25 mg PO TID PRN (Reason: itching) 7 Days Qty: 21 0RF Rx Instructions: side effect is drowsiness. No Action atorvastatin 40 mg tablet 1 tab PO DAILY lisinopril-hydrochlorothiazide 20-12.5 mg tablet 1 tab PO DAILY betamethasone dipropionate 0.05 % ointment topical Interventions: ED Discharge Assessment Last Done: 09/06/22 10:33 Discharge Date/Time: 09/06/22 10:34 Print Language: Guinean
== END 2022-09-06 10:34 | disposition home or self-care (01) ==
PROVIDERS: Emergency Provider Emergency Medicine; PCP Internal Medicine
DX: L30.9 Dermatitis, unspecified (principal); I10 Essential (primary) hypertension; E78.5 Hyperlipidemia, unspecified; Z79.02 Long term (current) use of antithrombotics/antiplatelets; Z79.899 Other long term (current) drug therapy
CPT/HCPCS: 99282; 99283

== ENCOUNTER 2022-10-29 08:16 | Emergency (ER) | payer OTHER, SELFPAY ==
--- NOTE | ~2022-10-29 | US_ITS ---
EXAMINATION: US VENOUS ULTRASOUND WITH DOPPLER LOWER EXTREMITY, LEFT CLINICAL INFORMATION: Swelling. COMPARISON: None available. TECHNIQUE: Ultrasound of the deep veins is performed from the hip to the calf with compression sonography and color and pulse Doppler assessment. Spectral analysis with color-flow imaging is performed. FINDINGS: There is normal venous compression and respiratory variation and augmented flow. The visualized common femoral vein, superficial femoral vein, profunda femoral vein, popliteal vein, and the trifurcation region shows no evidence of deep venous thrombosis. There is no significant popliteal fossa cyst. There is mild calf edema. If the patient's symptoms persist, followup ultrasound in 5 days 7 days might be of value to exclude proximal propagation from a non-visualized calf vein. US/US venous duplex LE LT IMPRESSION: No DVT demonstrated in the left lower extremity. There is mild calf edema
[2022-10-29 08:21] VITALS: BP 110/82; BP 178/47; PULSE 68; PULSE 76; RESP 17; TEMP 36.9; O2SAT 96; O2SAT 98; BMI 23.0
--- NOTE | 2022-10-29 09:05 | ED.GENADULT ---
HPI - General Adult General Chief complaint: Skin/Abscess/Foreign Body Stated complaint: Rash/pain/itching on legs per EMS Time Seen by Provider: 10/29/22 08:59 Source: patient and family Limitations: no limitations History of Present Illness HPI narrative: Patient presents with complaining of a rash to the lower and upper extremities. Patient has been evaluated in the past for this with minimal relief with medications prescribed. Patient has longstanding history of hypertension hypercholesterolemia. Patient's states blood pressure medication has recently changed and seems at the rash has worsened since. On the last visit patient was diagnosed with dermatitis question eczema. In prescribed oral diphenhydramine in topical steroid cream with minimal relief. Patient had a duplex of the bilateral lower extremities back in July 2022 that were negative for DVT at that time. Patient has a history of varicose veins in the right and been seen by vascular surgery. Patient denies any pain shortness of breath fever chills. Symptoms mild to moderate. Related Data Home Medications Medication Instructions Recorded Confirmed atorvastatin 40 mg tablet 1 tab PO DAILY 09/17/20 09/17/20 lisinopril 20 1 tab PO DAILY 09/17/20 09/17/20 mg-hydrochlorothiazide 12.5 mg tablet betamethasone dipropionate 0.05 % topical 06/10/22 topical ointment Previous Rx's Medication Instructions Recorded diphenhydramine HCl 25 mg capsule 25 mg PO TID PRN itching 7 days 09/06/22 (Benadryl) #21 caps famotidine 20 mg tablet (Pepcid) 20 mg PO BID 7 days #14 tabs 09/06/22 triamcinolone acetonide 0.5 % 1 appl topical BID 2 weeks #15 09/06/22 topical ointment grams dexamethasone 4 mg tablet 4 mg PO BID 5 days #10 tabs 10/29/22 hydroxyzine pamoate 25 mg capsule 25 mg PO TID PRN itching #20 caps 10/29/22 Allergies Allergy/AdvReac Type Severity Reaction Status Date / Time No Known Allergies Allergy Verified 06/10/22 10:55 Review of Systems Review of Systems: Constitutional : No Weight loss, No Fever, No Chills, No Night Sweats, No Fatigue, No Malaise ENT/Mouth : No Hearing loss, No Ear Pain, No Nasal Congestion, No Sinus Pain Eyes: No Eye Pain, No Swelling, No Redness Cardiovascular : No Chest Pain, No SOB, No Dyspnea on Exertion Respiratory : No Cough, No Sputum, No Wheezing, No Smoke Exposure, No Dyspnea Gastrointestinal : No Nausea, No Vomiting, No Diarrhea, no abdominal pain Musculoskeletal : Positive rash lower and upper extremities. Neuro : No Weakness, No Numbness, No Paresthesias, No Loss of Consciousness, No Dizziness, No Headache Psych : No Anxiety/Panic, No Depression, No SI/HI/AH/VH, No Social Issues, Heme/Lymph: No Bruising, No Bleeding,No Lymphadenopathy Endocrine : No Polyuria, No Polydipsia, No Temperature Intolerance [facility] Past Medical History Attestation statement: The following information was validated with the patient. Medical History Arthritis Elevated cholesterol HTN (hypertension) Surgical History History of cataract extraction S/P ORIF (open reduction internal fixation) fracture Social History Social History Advance Directives: No Advance Directives Information Provided: Yes Physical Exam ED Vital Signs: Vital Signs - 24 hr 10/29/22 08:21 Temperature 98.4 F Pulse Rate 68 Respiratory Rate 17 Blood Pressure 178/47 H Pulse Oximetry 96 Oxygen Delivery Method Room Air BMI result Body Mass Index 23.0 vital signs have been reviewed as normal and appeared to be correct. Blood pressure normal. Heart rate normal. Respiration rate normal. Temperature normal. Oxygen saturation normal. Appearance: Alert. Oriented X3. No acute distress. Head: Normal external exam. Normocephalic. Atraumatic. Eyes: PERRLA. EOMI. Conjunctiva and sclera normal. Eyelids normal. ENT: Pharynx normal. Uvula midline. Moist mucous membranes. Neck: Soft full range of motion, no JVD CVS: Heart regular rate and rhythm no murmurs and rubs Respiratory: Breath sounds are clear to auscultation bilaterally. No accessory muscle use noted. Abdomen: Soft nontender no rebound or guarding positive bowel sounds Back: No CVA tenderness. Full range of motion noted. Skin: Maculopapular rash to the lower extremities in upper extremities. Some excoriation and erythema noted. No lymphangitis purulent or pustulant discharge. Sensations intact pulses are intact Extremities: Bilateral lower leg edema left greater than right. Nontender full range of motion of lower extremities. 1+ pulses bilateral lower extremities Neuro: Oriented X 3. No motor deficit. No sensory deficit. Reflexes normal. Course Course Course Narrative: The left leg DVT Right leg venous stasis Contact dermatitis Urticaria Allergic reaction Medications reaction At this time will check a CBC CMP duplex of the left lower extremity. Symptoms seem consistent with potentially topical dermatitis versus a medication reaction. 25 mg diphenhydramine 40 mg prednisone 10:31 a.m. Duplex it of the left lower extremities negative for DVT Lab results were reviewed with and patient. Patient advised to have kidney function test repeated and to call PCP today to plan for that. Case discussed with Dr. Jim who agrees with treatment and plan Symptoms seem secondary to dermatitis. Will place patient on short course of Decadron that will start tomorrow and Atarax for itching. Also recommend patient follow-up with Dermatology Medications Administered Discontinued Medications Generic Name Dose Route Start Last Admin Trade Name Freq PRN Reason Stop Dose Admin Diphenhydramine HCl 25 mg 10/29/22 09:12 10/29/22 09:25 Diphenhydramine Hcl 25 Mg Capsule PO 10/29/22 09:13 25 mg ONCE ONE Administration Prednisone 40 mg 10/29/22 09:12 10/29/22 09:25 Prednisone 20 Mg Tablet PO 10/29/22 09:13 40 mg ONCE ONE Administration Medical Decision Making Lab Data 10/29/22 09:11 10/29/22 09:11 Labs: Lab Results 10/29/22 10/29/22 Range/Units 09:11 09:11 WBC 5.2 (4.8-10.8) X10*3/uL RBC 3.53 L (4.60-5.80) X10*6/uL Hgb 11.3 L (14.0-18.0) g/dl Hct 34.4 L (42.0-52.0) % MCV 97.5 (80.0-98.0) fL MCH 32.0 (27.0-33.0) pg MCHC 32.8 (31.0-36.0) g/dl RDW 12.9 (11.0-16.0) % Plt Count 221 D (160-400) X10*3/uL MPV 10.8 (9.4-12.4) fL Immature Gran % (Auto) 0.2 (0.0-0.4) % Neut % (Auto) 58.7 (45-73) % Lymph % (Auto) 18.2 L (20-40) % [place] % (Auto) 10.0 (2-11) % Eos % (Auto) 12.3 H (0-4) % Baso % (Auto) 0.6 (0-2) % Lymph # (Auto) 1.0 L (1.2-4.9) X10*3/uL [place] # (Auto) 0.5 (0.1-1.2) X10*3/uL Eos # (Auto) 0.6 H (0.0-0.4) X10*3/uL Baso # (Auto) 0.0 (0.0-0.2) X10*3/uL Abs Immat Gran (auto) 0.01 (0.00-0.03) X10*3/uL Absolute Neuts (auto) 3.1 (2.0-8.3) x10*3/uL Absolute Nucleated RBC 0.000 (0.0-0.012) X10*3/uL Nucleated RBC % (auto) 0.0 (0.0-0.2) /100WBC Sodium 141 (135-145) mmol/L Potassium 4.4 (3.3-5.1) mmol/L Chloride 107 (96-108) mmol/L Carbon Dioxide 27 (22-29) mmol/L Anion Gap 11 L (12-20) BUN 24 H (9-16) mg/dL Creatinine 1.56 H (0.5-1.4) mg/dL Estim Creat Clear Calc 31.6 Estimated GFR 43 Random Glucose 160 H (60-115) mg/dL Calcium 8.8 (8.4-10.2) mg/dL Total Bilirubin 0.4 (0.0-1.0) mg/dL AST 14 (5-37) U/L ALT 14 (0-40) U/L Alkaline Phosphatase 94 (39-117) U/L Total Protein 6.2 L (6.5-8.0) g/dL Albumin 3.9 (3.5-5.0) g/dL Radiology Impression Radiologist Impression: 3 Tank Zelaya [facility] Find Patient My List THOMAS To Be Seen ED [facility]/Mary BishopsnahanCarmita [facility] Bed 1 - EMC1 Skin/Abscess/Foreign Body 28 F Ready for Discharge 4 1h 13m REG ER I-Signed Franco Jim Michael Cameron, James B Cyst? 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 BeverlyReese Fly EM Bed 4 - EMC4 General Medical 64 M Ready for Discharge 4 1h 29m REG ER I-Signed Franco Jim Michael Cameron, James B Lower back/Pain when breathing Dante Khan [facility] Bed 5 - EMC5 Skin/Abscess/Foreign Body 82 M With Doctor 4 1h 58m REG ER Draft Franco Jim Michael Cameron, James B Rash/pain/itching on legs per EMS Carmella Bedolla M Pivot EX2 - PVE02 Urogenital-Female 89 F With Doctor 3 1h 25m REG ER Draft Franco Jim Michael Cameron, James B UTI Ultrasound - US venous duplex LE LT Dante Khan 82 M 1940 Allergy/Adv: No Known Allergies ACTIVITY DATE EXAM STATUS AUTHOR 10/29/22 09:26 Signed Yanna,Sha Imaging Reports [facility] [place], [place] [address]Xuklklzins ReportSigned Patient: Dante KhanMR#: [id number]: 1940cct:[id number]/Sex: 82 / MADM Date: 10/29/22Loc: EDAttending Dr: Ordering Physician: Tank Zelaya Date of Service: 10/29/22 Procedure(s): US venous duplex LE LT Accession Number(s): [id number] cc: Tank Zelaya ~ EXAMINATION: US VENOUS ULTRASOUND WITH DOPPLER LOWER EXTREMITY, LEFT CLINICAL INFORMATION: Swelling. COMPARISON: None available. TECHNIQUE: Ultrasound of the deep veins is performed from the hip to the calf with compression sonography and color and pulse Doppler assessment. Spectral analysis with color-flow imaging is performed. FINDINGS: There is normal venous compression and respiratory variation and augmented flow. The visualized common femoral vein, superficial femoral vein, profunda femoral vein, popliteal vein, and the trifurcation region shows no evidence of deep venous thrombosis. There is no significant popliteal fossa cyst. There is mild calf edema. If the patient's symptoms persist, followup ultrasound in 5 days 7 days might be of value to exclude proximal propagation from a non-visualized calf vein. US/US venous duplex LE LT IMPRESSION: No DVT demonstrated in the left lower extremity. 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 extremities. extremities. prednisone moderate. leg left. pending chills. daughter affect Discharge Plan Discharge Clinical Impression: Dermatitis Patient Disposition: Home, Self-Care Instructions: Dermatitis (ED) Additional Instructions: It is important you call PCP today for follow-up blood test to evaluate kidney function as your kidney function is slightly elevated today. Medications as directed free of symptoms of dermatitis. Follow-up with Dermatology as recommended Return if symptoms worsen Prescriptions: New dexamethasone 4 mg tablet 4 mg PO BID 5 Days Qty: 10 0RF Rx Instructions: Start this medication 10/30/2022 hydroxyzine pamoate 25 mg capsule 25 mg PO TID PRN (Reason: itching) Qty: 20 0RF No Action atorvastatin 40 mg tablet 1 tab PO DAILY lisinopril-hydrochlorothiazide 20-12.5 mg tablet 1 tab PO DAILY triamcinolone acetonide 0.5 % ointment 1 appl topical BID 14 Days Qty: 15 0RF Rx Instructions: do not take with any other steroid cream famotidine [Pepcid] 20 mg tablet 20 mg PO BID 7 Days Qty: 14 0RF diphenhydramine HCl [Benadryl] 25 mg capsule 25 mg PO TID PRN (Reason: itching) 7 Days Qty: 21 0RF Rx Instructions: side effect is drowsiness. betamethasone dipropionate 0.05 % ointment topical Print Language: Slovenian
--- NOTE | 2022-10-29 09:13 | PC.NURSE ---
pt w b/l lower leg rash worse on thighs, b/l foot/ankle swelling worse on l, c/o itchiness, alert, aware of care plan
[2022-10-29 09:15] LABS: MANUAL DIFF FLAG NO
[2022-10-29 09:16] LABS: Basophils Percent Auto 0.6 % (0-2); Eosinophils Absolute Auto 0.6 X10*3/uL (0.0-0.4); Eosinophils Percent Auto 12.3 % (0-4); Hematocrit 34.4 % (42.0-52.0); Hemoglobin 11.3 g/dl (14.0-18.0); Imm Gran Abs Auto 0.01 X10*3/uL (0.00-0.03); Imm Gran Pct Auto 0.2 % (0.0-0.4); Lymphocytes Percent Auto 18.2 % (20-40); Mean Corpuscular HGB Conc 32.8 g/dl (31.0-36.0); Mean Corpuscular Volume 97.5 fL (80.0-98.0); Mean Platelet Volume 10.8 fL (9.4-12.4); Monocytes Absolute Auto 0.5 X10*3/uL (0.1-1.2); Neutrophils Absolute Auto 3.1 x10*3/uL (2.0-8.3); Neutrophils Percent Auto 58.7 % (45-73); Platelet Count 221 X10*3/uL (160-400); Red Blood Count 3.53 X10*6/uL (4.60-5.80); Red Cell Distribution Width 12.9 % (11.0-16.0); White Blood Count 5.2 X10*3/uL (4.8-10.8)
[2022-10-29] MEDS: predniSONE 20 MG TABLET 40 MG PO (09:25)
[2022-10-29] MEDS: diphenhydrAMINE HCL 25 MG CAPSULE PO (09:25)
[2022-10-29 09:47] LABS: Alanine Aminotransferase 14 U/L (0-40); Albumin Level 3.9 g/dL (3.5-5.0); Alkaline Phosphatase 94 U/L (39-117); Anion Gap 11 (12-20); Aspartate Amino Transferase 14 U/L (5-37); Bilirubin Total 0.4 mg/dL (0.0-1.0); Blood Urea Nitrogen 24 mg/dL (9-16); Calcium 8.8 mg/dL (8.4-10.2); Carbon Dioxide 27 mmol/L (22-29); Chloride 107 mmol/L (96-108); Creatinine Clr Calc Pharmacy 31.6; Estimated Glomerular Filt Rate 43; Glucose Random 160 mg/dL (60-115); Potassium 4.4 mmol/L (3.3-5.1); Sodium 141 mmol/L (135-145); Total Protein 6.2 g/dL (6.5-8.0)
== END 2022-10-29 10:50 | disposition home or self-care (01) ==
PROVIDERS: Physician Assistant; Emergency Provider Emergency Medicine; PCP Internal Medicine
DX: L30.9 Dermatitis, unspecified (principal); R60.0 Localized edema; I10 Essential (primary) hypertension; E78.00 Pure hypercholesterolemia, unspecified; I83.11 Varicose veins of right lower extremity with inflammation; Z79.02 Long term (current) use of antithrombotics/antiplatelets
CPT/HCPCS: 36415; 80053; 85025; 93971; 99282; 99284

== ENCOUNTER 2023-02-21 12:50 | Outpatient (AMB) | payer OTHER, SELFPAY ==
--- NOTE | 2023-02-21 13:22 | A.OFFPC_ITS ---
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 Accompanied by: Self / Same As Patient Allergies No Known Allergies Allergy (Verified 02/21/23 14:23) Medication List - Last Reconciled 02/21/23 by Evan Ford MD atorvastatin 40 mg PO DAILY betamethasone dipropionate 0.05% topical diphenhydramine HCl (Benadryl) 25 mg PO TID PRN 7 days famotidine (Pepcid) 20 mg PO BID 7 days furosemide 20 mg PO DAILY hydroxyzine pamoate 25 mg PO TID PRN losartan 100 mg PO DAILY triamcinolone acetonide 0.5% 1 appl topical BID 2 weeks Tobacco use date assessed: 02/21/23 Fall risk assessment: No Falls in past year Last assessed Fall Risk: 02/21/23 Dental Screening Dental Screen Date: 02/21/23 Did you have a dental visit in the last 12 months?: No Did you have a dental problem in the last 6 months where you did not have access to dental care?: No Was dental information given to patient?: No HPI New patient-High BP HPI Details Patient comes in today to establish care - is a new patient to the practice He reportedly has had elevated/high blood pressure readings over the past couple of years now and that they have never been properly controlled States that he currently feels okay and denies any headaches or dizziness although his family feels that his cognition and memory seem to have changed/declined significantly lately and they would like for him to get checked out further Denies any chest pains, no SOB No nausea/vomiting, no abdominal pain No change in bowel habits noted Patient needs his topical steroid cream for his recurrent dermatitis refilled [facility] Medical History (Updated 06/28/23 @ 12:50 by Evan Ford MD) Hearing loss of both ears Chronic kidney disease, stage III (moderate) GERD without esophagitis Benign essential hypertension Pure hypercholesterolemia Varicose veins of right lower extremity with inflammation Arthritis HTN (hypertension) Surgical History History of cataract extraction S/P ORIF (open reduction internal fixation) fracture Social History Housing: Apartment Patient Tobacco Use Status: Never used Tobacco e-Cigarette/Vaping Use: Never Used service: No Current occupational status: retired Cognitive needs: No Hearing needs: No Vision needs: No Questionnaire PHQ-9 Over the last 2 weeks, how often have you been bothered by any of the following problems? 1. Little interest or pleasure in doing things: not at all 2. Feeling down, depressed, or hopeless: not at all 3. Trouble falling or staying asleep, or sleeping too much: not at all 4. Feeling tired or having little energy: not at all 5. Poor appetite or overeating: not at all 6. Feeling bad about yourself - or that you are a failure or have let yourself or your family down: not at all 7. Trouble concentrating on things, such as reading the newspaper or watching television: not at all 8. Moving or speaking so slowly that other people could have noticed. Or the opposite - being so fidgety or restless that you have been moving around a lot more than usual: not at all 9. Thoughts that you would be better off or of hurting yourself in some way: not at all Total score: 0 Depression Screening Interpretation: Negative 14530 - PHQ-9 Billing: Yes Source: Developed by Drs. Justo Wilder, Terrie Sheridan, Ray Clinton and colleagues, with an educational isaac from [employer]. Thrive Questionnaire Date Thrive assessed: 02/21/23 I am a: Patient What is your living situation today?: I have a steady place to live Within the past 12 months, did the food you bought not last and you didn't have the money to get more?: Never true Within the past 12 months, did you worry whether your food would run out before you got money to buy more?: Never true Do you have trouble paying for medicines?: No Do you have trouble getting transportation to medical appointments?: No Do you have trouble paying your heating and electricity bill?: No Do you have trouble taking care of your child, family member or friend?: No Do you have trouble with day-to-day activities such as bathing, preparing meals, shopping, managing finances, etc.?: No Are you currently unemployed and looking for a job?: No Are you interested in more education?: No Please select the resources that you would like help with: None Currently or been in a relationship where the following occur: no concerns reported AUDIT C Alcohol Use Questionnaire (AUDIT-C) 1. How often do you have a drink containing alcohol?: Never Total Score: 0 Score Reviewed/Action Taken: Yes JARVIS-7 AMB Questionnaire JARVIS-7 Date JARVIS - 7 assessed: 02/21/23 Feeling nervous, anxious, or on edge: 0 = Not at all Not being able to stop or control worryin = Not at all Worrying too much about different things: 0 = Not at all Trouble relaxin = Not at all Being so restless that it is hard to sit still: 0 = Not at all Becoming easily annoyed or irritable: 0 = Not at all Feeling afraid as if something awful might happen: 0 = Not at all Total JARVIS-7 score (0-4 normal; 5-9 mild; 10-14 moderate; 15-21 severe): 0 Source: Developed by Drs. Justo Wilder, Terrie Sheridan, Ray Clinton and colleagues, with an educational isaac from [employer]. Review of Systems Const Denies chills, Denies fatigue, Denies fever(s) and Denies headache(s) Eyes Denies blurry vision ENT Denies dysphagia, Denies dizziness, Denies otalgia, Denies headache(s), Denies neck pain, Denies odynophagia and Denies sore throat Card Denies chest pain, Denies palpitations and Denies dyspnea Resp Denies cough and Denies dyspnea GI Denies abdominal pain, Denies constipation, Denies dysphagia, Denies heartburn, Denies diarrhea, Denies nausea, Denies odynophagia and Denies vomiting Denies dysuria, Denies nocturia and Denies urinary frequency Musc Denies neck pain Skin/Breast Denies rash Neuro Reports confusion (at times), Denies dizziness, Denies headache(s) and Reports memory loss (on and off lately) Psych Reports confusion (at times) and Reports memory loss (on and off lately) Endo Denies fatigue and Denies palpitations Physical exam (Primary Care) Vital Signs: Last Vital Signs Pulse 71 02/21/23 13:23 BP 118/80 02/21/23 13:23 Pulse Ox 96 02/21/23 13:23 Oxygen Delivery Method Room Air 02/21/23 13:23 BMI result Body Mass Index 22.9 Tobacco/Smoking Status: Tobacco use Status Tobacco use date assessed 02/21/23 02/21/23 13:34 Patient Tobacco Use Status Never used Tobacco 02/21/23 13:34 e-Cigarette/Vaping Use Never Used 02/21/23 13:34 PHQ-9: PHQ-9 Score PHQ-9: Total score 0 02/21/23 14:30 Depression Screening Interpretation: Negative Thrive Assessment: Date of Thrive Assessment Date Thrive assessed 02/21/23 02/21/23 13:34 Currently or been in a relationship where the following occur: no concerns reported Const General: no acute distress, alert and confusion (at times) Orientation/consciousness: confusion (at times) HENMT Ears: TM's normal bilaterally and EAC's normal Throat: Yes posterior oropharynx normal and Yes tonsils normal (no TP congestion) Neck Neck: Yes no lymphadenopathy and Yes supple Resp Auscultation: clear to auscultation bilaterally, no rales and no wheezes Cardio Rate: regular rate Rhythm: regular rhythm Heart sounds: no murmurs GI Palpation (GI): Soft to palpation and nontender Auscultation: normal bowel sounds Skin Rashes: no rashes Neuro General: confusion (at times) Extrem General: Yes no clubbing, cyanosis or edema Assessment and Plan Assessment & Plan (1) Pure hypercholesterolemia: Code(s): E78.00 - Pure hypercholesterolemia, unspecified Plan: Reinforced low cholesterol diet Continue Atorvastatin 40 mg QD Will recheck his labs and fasting lipids REINIER for follow up (2) Benign essential hypertension: Code(s): I10 - Essential (primary) hypertension Plan: Reinforced low sodium diet - goal is systolic BP of at least 130 to 140 mm or less His BP in the office today appears well-controlled Continue Losartan 100 mg QD and Furosemide 20 mg QD (3) Chronic kidney disease, stage III (moderate): Code(s): N18.30 - Chronic kidney disease, stage 3 unspecified Qualifiers: Chronic kidney disease stage 3 subtype: stage 3b (GFR 30-44) Qualified Code(s): N18.32 - Chronic kidney disease, stage 3b Plan: His GFR was at 43 when last checked in October 2022 Will send patient for repeat labs REINIER for follow up (4) GERD without esophagitis: Code(s): K21.9 - Gastro-esophageal reflux disease without esophagitis Plan: Discussed dietary restrictions in GERD Continue Famotidine 20 mg BID PRN (5) Dermatitis: Code(s): L30.9 - Dermatitis, unspecified Plan: Continue Triamcinolone acetonide 0.5% cream apply to rash BID PRN - Rx refilled (6) Cognitive decline: Code(s): R41.89 - Other symptoms and signs involving cognitive functions and awareness Plan: Will refer patient to neurology for further evaluation and management (7) Varicose veins of right lower extremity with inflammation: Code(s): I83.11 - Varicose veins of right lower extremity with inflammation Plan: Follow up with vascular surgery as scheduled (8) Hearing loss of both ears: Code(s): H91.93 - Unspecified hearing loss, bilateral Qualifiers: Hearing loss type: unspecified Qualified Code(s): H91.93 - Unspecified hearing loss, bilateral Plan: He was seen by Dr. Tomas for this a couple of months ago and was recommended to use hearing aids in both ears Follow up with ENT as scheduled Plan Follow up in 3 months Orders: Orders Complete Blood Count Auto Diff 02/21/23 I10 - Essential (primary) hypertension Lipid Panel 02/21/23 E78.00 - Pure hypercholesterolemia, unspecified Vitamin B12 and Folate 02/21/23 E53.8 - Deficiency of other specified B group vitamins Comprehensive [place]. Panel Fast 02/21/23 E78.00 - Pure hypercholesterolemia, unspecified TSH reflex Free T4 02/21/23 E78.00 - Pure hypercholesterolemia, unspecified UA CC w/rflx Micro + Cult 02/21/23 R30.0 - Dysuria Vitamin D 25-OH Total 02/21/23 E55.9 - Vitamin D deficiency, unspecified Hemoglobin A1c 02/21/23 R73.9 - Hyperglycemia, unspecified Referrals Neurology Referral R41.89 - Other symptoms and signs involving cognitive functions and awareness Medications: Changed From betamethasone dipropionate 0.05% topical To betamethasone dipropionate 0.05% 1 appl topical BID PRN 15 grams 1RF rash Coding Level of Care Code New Pt Level 4 (05673) Diagnoses Pure hypercholesterolemia E78.00 Benign essential hypertension I10 Stage 3b chronic kidney disease N18.32 Chronic kidney disease stage 3 subtype: stage 3b (GFR 30-44) GERD without esophagitis K21.9 Dermatitis L30.9 Cognitive decline R41.89 Varicose veins of right lower extremity with inflammation I83.11 Bilateral hearing loss, unspecified hearing loss type H91.93 Hearing loss type: unspecified
[2023-02-21 13:23] VITALS: BP 118/80; PULSE 71; O2SAT 96; BMI 22.9
== END 2023-02-21 14:36 | disposition home or self-care (01) ==
PROVIDERS: Visit Provider Internal Medicine
DX: I12.9 Hypertensive chronic kidney disease with stage 1 through stage 4 chronic kidney disease, or unspecified chronic kidney disease (principal); N18.32 Chronic kidney disease, stage 3b; E78.00 Pure hypercholesterolemia, unspecified; K21.9 Gastro-esophageal reflux disease without esophagitis; L30.9 Dermatitis, unspecified; R41.89 Other symptoms and signs involving cognitive functions and awareness; I83.11 Varicose veins of right lower extremity with inflammation; H91.93 Unspecified hearing loss, bilateral
CPT/HCPCS: 99204

== ENCOUNTER 2023-08-02 11:25 | Outpatient (AMB) | payer OTHER, SELFPAY ==
[2023-08-02 12:39] VITALS: BP 132/80; PULSE 57; O2SAT 98; BMI 24.3
--- NOTE | 2023-08-02 12:39 | A.OFFPC_ITS ---
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 Accompanied by: Spouse Allergies No Known Allergies Allergy (Verified 02/01/24 11:19) Medication List - Last Reconciled 08/02/23 by Evan Ford MD atorvastatin 40 mg PO DAILY betamethasone dipropionate 0.05% 1 appl topical BID PRN diphenhydramine HCl (Benadryl) 25 mg PO TID PRN 7 days famotidine (Pepcid) 20 mg PO BID 7 days furosemide 20 mg PO DAILY 90 days hydroxyzine pamoate 25 mg PO TID PRN losartan 100 mg PO DAILY 90 days triamcinolone acetonide 0.5% 1 appl topical BID 2 weeks Tobacco use date assessed: 08/02/23 Fall risk assessment: No Falls in past year Last assessed Fall Risk: 08/02/23 Dental Screening Dental Screen Date: 08/02/23 Did you have a dental visit in the last 12 months?: No Did you have a dental problem in the last 6 months where you did not have access to dental care?: No Was dental information given to patient?: No HPI PE HPI Details Patient comes in today for his annual physical examination States that he feels okay He denies any headaches or dizziness Denies any chest pains, no SOB No nausea/vomiting, no abdominal pain No change in bowel habits noted Denies any acute urinary symptoms He is unclear whether he ever had a screening colonoscopy done (thinks he did not); family is also unclear if he had one done in the past or not [facility] Medical History Hearing loss of both ears Chronic kidney disease, stage III (moderate) GERD without esophagitis Benign essential hypertension Pure hypercholesterolemia Varicose veins of right lower extremity with inflammation Arthritis HTN (hypertension) Surgical History History of cataract extraction S/P ORIF (open reduction internal fixation) fracture Family History Other Family history non-contributory Social History Housing: Apartment Patient Tobacco Use Status: Never used Tobacco e-Cigarette/Vaping Use: Never Used service: No Current occupational status: retired Cognitive needs: No Hearing needs: No Vision needs: No Questionnaire PHQ-9 Over the last 2 weeks, how often have you been bothered by any of the following problems? 1. Little interest or pleasure in doing things: not at all 2. Feeling down, depressed, or hopeless: not at all 3. Trouble falling or staying asleep, or sleeping too much: not at all 4. Feeling tired or having little energy: not at all 5. Poor appetite or overeating: not at all 6. Feeling bad about yourself - or that you are a failure or have let yourself or your family down: not at all 7. Trouble concentrating on things, such as reading the newspaper or watching television: not at all 8. Moving or speaking so slowly that other people could have noticed. Or the opposite - being so fidgety or restless that you have been moving around a lot more than usual: not at all 9. Thoughts that you would be better off or of hurting yourself in some way: not at all Total score: 0 Depression Screening Interpretation: Negative Depression Screening Done: Yes 86189 - PHQ-9 Billing: Yes Source: Developed by Drs. Justo Wilder, Terrie Sheridan, Ray Clinton and colleagues, with an educational isaac from [employer]. Thrive Questionnaire Date Thrive assessed: 08/02/23 I am a: Patient What is your living situation today?: I have a steady place to live Within the past 12 months, did the food you bought not last and you didn't have the money to get more?: Never true Within the past 12 months, did you worry whether your food would run out before you got money to buy more?: Never true Do you have trouble paying for medicines?: No Do you have trouble getting transportation to medical appointments?: No Do you have trouble paying your heating and electricity bill?: No Do you have trouble taking care of your child, family member or friend?: No Do you have trouble with day-to-day activities such as bathing, preparing meals, shopping, managing finances, etc.?: No Are you currently unemployed and looking for a job?: No Are you interested in more education?: No Please select the resources that you would like help with: None Currently or been in a relationship where the following occur: no concerns reported THRIVE Score: 0 AUDIT C Alcohol Use Questionnaire (AUDIT-C) 1. How often do you have a drink containing alcohol?: Never 3. How often do you have six or more drinks on one occasion?: Never Total Score: 0 Score Reviewed/Action Taken: Yes JARVIS-7 AMB Questionnaire JARVIS-7 Date JARVIS - 7 assessed: 08/02/23 Feeling nervous, anxious, or on edge: 0 = Not at all Not being able to stop or control worryin = Not at all Worrying too much about different things: 0 = Not at all Trouble relaxin = Not at all Being so restless that it is hard to sit still: 0 = Not at all Becoming easily annoyed or irritable: 0 = Not at all Feeling afraid as if something awful might happen: 0 = Not at all Total JARVIS-7 score (0-4 normal; 5-9 mild; 10-14 moderate; 15-21 severe): 0 Source: Developed by Drs. Justo Wilder, Terrie Sheridan, Ray Clinton and colleagues, with an educational isaac from [employer]. Review of Systems Const Denies chills, Denies fatigue, Denies fever(s), Denies headache(s), Denies malaise and Denies weakness Eyes Denies blurry vision, Denies change in vision, Denies irritation and Denies itchy eyes ENT Denies dysphagia, Denies dizziness, Denies otalgia, Denies headache(s), Denies nasal congestion, Denies neck pain, Denies odynophagia and Denies sore throat Card Denies chest pain, Denies rapid heart rate, Denies irregular heart rhythm, Denies palpitations and Denies dyspnea Resp Denies chest congestion, Denies cough, Denies dyspnea and Denies wheezing GI Denies abdominal pain, Denies bloating, Denies constipation, Denies dysphagia, Denies heartburn, Denies diarrhea, Denies nausea, Denies odynophagia and Denies vomiting Denies hematuria, Denies difficulty urinating, Denies dysuria, Denies urinary frequency and Denies urinary urgency Musc Denies back pain, Denies arthralgias, Denies joint swelling, Denies muscle weakness and Denies neck pain Skin/Breast Denies change in pigmentation, Denies lesions, Denies rash and Denies unusual bruising Neuro Details: family feels that his cognitive and memory recall have been slowly declining over the past few years Denies behavioral changes, Denies dizziness, Denies headache(s), Reports memory loss, Denies paresthesias and Denies weakness Psych Denies behavioral changes and Reports memory loss Endo Denies fatigue and Denies palpitations Aller/Immun Denies itchy eyes and Denies wheezing Physical exam (Primary Care) Vital Signs: Last Vital Signs Pulse 57 08/02/23 12:39 BP 132/80 08/02/23 12:39 Pulse Ox 98 08/02/23 12:39 Oxygen Delivery Method Room Air 08/02/23 12:39 BMI result Body Mass Index 24.3 Tobacco/Smoking Status: Tobacco use Status Tobacco use date assessed 08/02/23 08/02/23 12:44 Patient Tobacco Use Status Never used Tobacco 08/02/23 12:44 e-Cigarette/Vaping Use Never Used 08/02/23 12:44 PHQ-9: PHQ-9 Score PHQ-9: Total score 0 08/02/23 13:26 Depression Screening Interpretation: Negative Thrive Assessment: Date of Thrive Assessment Date Thrive assessed 08/02/23 08/02/23 12:44 Currently or been in a relationship where the following occur: no concerns reported Const General: no acute distress, alert and awake Orientation/consciousness: patient oriented x3 HENMT Head: Yes normocephalic and Yes atraumatic Ears: external ears normal, TM's normal bilaterally and EAC's normal General nose exam: No nasal discharge present Face and sinus: Yes normal facial exam and Yes sinuses nontender Teeth and gingiva: dentition normal Throat: Yes posterior oropharynx normal and Yes tonsils normal (no TP congesti on) Eyes Eyelids: Yes eyelids normal Conjunctivae: conjunctivae normal Pupils: Equal, round and reactive pupils present EOM: EOMs intact bilaterally Neck Neck: Yes no lymphadenopathy and Yes supple Thyroid: Thyroid normal Resp Auscultation: clear to auscultation bilaterally, no rales and no wheezes Cardio Rate: regular rate Rhythm: regular rhythm Heart sounds: no murmurs GI Palpation (GI): Soft to palpation, nontender and No hepatosplenomegaly present Auscultation: normal bowel sounds General: Yes no CVA tenderness Back/Spine/Pelvis Back: no CVA tenderness Thoracic/Lumbar Spine: thoracic and lumbar spine normal to inspection Skin Lesions: no lesions Rashes: no rashes Neuro General: patient oriented x3, moves all extremities, no focal motor deficits and CN's II-XI intact bilaterally Cranial nerves: Yes Equal, round and reactive pupils present Cognition (Neuro): normal cognition Gait exam (Neuro): Normal gait present Extrem Other: (+) healed scar with extensive scarring on the left forearm; the left hand is permanently maimed and contracted, with the hand in an opened and contracted position with no functionality present General: Yes no clubbing, cyanosis or edema Assessment and Plan Assessment & Plan (1) Annual physical exam: Code(s): Z00.00 - Encounter for general adult medical examination without abnormal findings Plan: Check labs He has not had any follow up labs done since October 2022 He is unclear whether he ever had a screening colonoscopy done in the past (thinks he did not); family is also unclear if he had one done previously At his current age, colonoscopy would be riskier than usual and it would be preferable to avoid this unless there is a clear need to get this done; have discussed that as he has never had an actual colonoscopy done, he should at least try to get a Cologuard test done once and if this comes out negative, he should not need to have this repeated again in a few years, based on his age (2) Pure hypercholesterolemia: Code(s): E78.00 - Pure hypercholesterolemia, unspecified Plan: Will recheck his fasting lipids REINIER for follow up Reinforced low cholesterol diet Continue Atorvastatin 40 mg QD Will recheck his labs and fasting lipids in 4 months for follow up - is again advised that if his cholesterol numbers are still high, we will need to consider increasing his Atorvastatin dosage (3) Benign essential hypertension: Code(s): I10 - Essential (primary) hypertension Plan: Reinforced low sodium diet - goal is systolic BP of at least 130 to 140 mm or less Continue Losartan 100 mg QD and Furosemide 20 mg QD (4) Chronic kidney disease, stage III (moderate): Code(s): N18.30 - Chronic kidney disease, stage 3 unspecified Qualifiers: Chronic kidney disease stage 3 subtype: stage 3b (GFR 30-44) Qualified Code(s): N18.32 - Chronic kidney disease, stage 3b Plan: His GFR was at 43 when previously checked in October 2022 Will continue to monitor his renal function regularly (5) GERD without esophagitis: Code(s): K21.9 - Gastro-esophageal reflux disease without esophagitis Plan: Reinforced dietary restrictions in GERD Continue Famotidine 20 mg BID PRN (6) Dermatitis: Code(s): L30.9 - Dermatitis, unspecified Plan: Continue Triamcinolone acetonide 0.5% cream apply to rash BID PRN (7) Cognitive decline: Code(s): R41.89 - Other symptoms and signs involving cognitive functions and awareness Plan: He was referred to neurology for further evaluation and management last year but it looks like he was never seen and evaluated Patient asked to have this out on hold for now (8) Varicose veins of right lower extremity with inflammation: Code(s): I83.11 - Varicose veins of right lower extremity with inflammation Plan: Follow up with vascular surgery as scheduled (9) Hearing loss of both ears: Code(s): H91.93 - Unspecified hearing loss, bilateral Qualifiers: Hearing loss type: unspecified Qualified Code(s): H91.93 - Unspecified hearing loss, bilateral Plan: He was seen by Dr. Tomas for this last year and was recommended to use hearing aids in both ears Follow up with ENT as scheduled (10) Colon cancer screening: Code(s): Z12.11 - Encounter for screening for malignant neoplasm of colon Plan: Patient is unclear whether he ever had a screening colonoscopy done in the past (thinks he did not); family is also unclear if he had one done previously At his current age, a colonoscopy would be riskier than usual and it would be preferable to avoid this unless there is a clear need to get this done; have discussed that as he has never had an actual colonoscopy done, he should at least try to get a Cologuard test done once (ordered) and if this comes out negative, he should not need to have this repeated again in a few years, based on his age Plan Follow up in 4 months Orders: Orders Complete Blood Count Auto Diff 08/02/23 D64.9 - Anemia, unspecified, Z00.00 - Encounter for general adult medical examination without abnormal findings Lipid Panel 08/02/23 E78.00 - Pure hypercholesterolemia, unspecified, Z00.00 - Encounter for general adult medical examination without abnormal findings TSH reflex Free T4 08/02/23 E78.00 - Pure hypercholesterolemia, unspecified, Z00.00 - Encounter for general adult medical examination without abnormal findings UA CC w/rflx Micro + Cult 08/02/23 R30.0 - Dysuria, Z00.00 - Encounter for general adult medical examination without abnormal findings Vitamin D 25-OH Total 08/02/23 E55.9 - Vitamin D deficiency, unspecified, Z00.00 - Encounter for general adult medical examination without abnormal findings Vitamin B12 and Folate 08/02/23 E53.8 - Deficiency of other specified B group vitamins, Z00.00 - Encounter for general adult medical examination without abnormal findings Prostate Specific Antigen 08/02/23 N40.0 - Benign prostatic hyperplasia without lower urinary tract symptoms, Z00.00 - Encounter for general adult medical examination without abnormal findings Hemoglobin A1c 08/02/23 Z00.00 - Encounter for general adult medical examination without abnormal findings, R73.01 - Impaired fasting glucose Comprehensive [place]. Panel Fast 08/02/23 E78.00 - Pure hypercholesterolemia, unspecified, Z00.00 - Encounter for general adult medical examination without abnormal findings Referrals Cologuard Test Z12.11 - Encounter for screening for malignant neoplasm of colon, Z12.12 - Encounter for screening for malignant neoplasm of rectum Coding Level of Care Code Est Pt Prev Care >65y(93150) Diagnoses Annual physical exam Z00.00 Pure hypercholesterolemia E78.00 Benign essential hypertension I10 Stage 3b chronic kidney disease N18.32 Chronic kidney disease stage 3 subtype: stage 3b (GFR 30-44) GERD without esophagitis K21.9 Dermatitis L30.9 Cognitive decline R41.89 Varicose veins of right lower extremity with inflammation I83.11 Bilateral hearing loss, unspecified hearing loss type H91.93 Hearing loss type: unspecified Colon cancer screening Z12.11
== END 2023-08-02 13:38 | disposition home or self-care (01) ==
PROVIDERS: PCP Internal Medicine; Visit Provider Internal Medicine
DX: Z00.00 Encounter for general adult medical examination without abnormal findings (principal); E78.00 Pure hypercholesterolemia, unspecified; I10 Essential (primary) hypertension; N18.32 Chronic kidney disease, stage 3b; K21.9 Gastro-esophageal reflux disease without esophagitis; L30.9 Dermatitis, unspecified; R41.89 Other symptoms and signs involving cognitive functions and awareness; I83.11 Varicose veins of right lower extremity with inflammation; H91.93 Unspecified hearing loss, bilateral; Z12.11 Encounter for screening for malignant neoplasm of colon
CPT/HCPCS: 99499

== ENCOUNTER 2023-08-24 07:54 | Outpatient (REF) | payer OTHER, SELFPAY ==
[2023-08-24 08:13] LABS: MANUAL DIFF FLAG NO
[2023-08-24 08:45] LABS: Basophils Absolute Auto 0.1 X10*3/uL (0.0-0.2); Basophils Percent Auto 1.1 % (0-2); Eosinophils Absolute Auto 0.2 X10*3/uL (0.0-0.4); Eosinophils Percent Auto 4.3 % (0-4); Hematocrit 40.1 % (42.0-52.0); Hemoglobin 13.7 g/dl (14.0-18.0); Imm Gran Abs Auto 0.01 X10*3/uL (0.00-0.03); Imm Gran Pct Auto 0.2 % (0.0-0.4); Lymphocytes Absolute Auto 1.3 X10*3/uL (1.2-4.9); Lymphocytes Percent Auto 29.3 % (20-40); Mean Corpuscular HGB Conc 34.2 g/dl (31.0-36.0); Mean Corpuscular Hemoglobin 31.1 pg (27.0-33.0); Mean Corpuscular Volume 90.9 fL (80.0-98.0); Mean Platelet Volume 11.8 fL (9.4-12.4); Monocytes Absolute Auto 0.3 X10*3/uL (0.1-1.2); Monocytes Percent Auto 7.3 % (2-11); Neutrophils Absolute Auto 2.5 x10*3/uL (2.0-8.3); Neutrophils Percent Auto 57.8 % (45-73); Platelet Count 190 X10*3/uL (160-400); Red Blood Count 4.41 X10*6/uL (4.60-5.80); Red Cell Distribution Width 12.8 % (11.0-16.0); White Blood Count 4.4 X10*3/uL (4.8-10.8)
[2023-08-24 08:49] LABS: Appearance Urine Clear; Color Urine Yellow; Glucose Urine UA Negative (Negative); Leukocyte Esterase Urine Small (1+) (Negative); Nitrite Urine Negative (Negative); PH 5.5 (5.0-9.0); UMIC TRIGGER UACC YES; Urine Blood Negative (Negative); Urine Ketones Negative (Negative); Urine Protein Negative (Neg-Trace)
[2023-08-24 09:00] LABS: Bacteria Urine None Seen (None Seen); Hyaline Casts Urine 0-2 /LPF (0-2); RBC Urine 0-2 /HPF (0-2); Squamous Epithelial Cell Urine 0-2 /HPF (0-2); UACC Culture Trigger YES
[2023-08-24 09:08] LABS: Estimated Average Glucose 117 mg/dL; Hemoglobin A1c % 5.7 % (<6.0)
[2023-08-24 09:19] LABS: Alanine Aminotransferase 11 U/L (0-40); Albumin Level 4.4 g/dL (3.5-5.0); Alkaline Phosphatase 127 U/L (39-117); Anion Gap 13 (12-20); Aspartate Amino Transferase 17 U/L (5-37); Bilirubin Total 0.6 mg/dL (0.0-1.0); Blood Urea Nitrogen 18 mg/dL (9-16); Calcium 9.3 mg/dL (8.4-10.2); Carbon Dioxide 27 mmol/L (22-29); Chloride 110 mmol/L (96-108); Cholesterol 220 mg/dL (<200); Estimated Glomerular Filt Rate 53; Glucose Fasting 117 mg/dL (60-99); HDL Cholesterol 49 mg/dL (>40); LDL Cholesterol Calculated 154 mg/dL (<100); Potassium 3.6 mmol/L (3.3-5.1); Sodium 146 mmol/L (135-145); Total Protein 7.7 g/dL (6.5-8.0); Triglycerides 89 mg/dL (<150)
[2023-08-24 09:36] LABS: TSH reflex Free T4 3.44 uIU/mL (0.32-4.0); Vitamin D 25-OH Total 14.5 ng/mL (>30)
[2023-08-24 09:52] LABS: Folate 6.3 ng/mL (> or = 4.0); Prostate Specific Antigen 26.26 ng/mL (<0.05-4.0); Vitamin B12 315 pg/mL (200-900)
== END 2023-08-24 07:55 | disposition home or self-care (01) ==
LOC: HO.LAB 07:54
PROVIDERS: PCP Internal Medicine; Visit Provider Internal Medicine
DX: Z00.00 Encounter for general adult medical examination without abnormal findings (principal); I10 Essential (primary) hypertension; R73.01 Impaired fasting glucose; N40.0 Benign prostatic hyperplasia without lower urinary tract symptoms; E78.00 Pure hypercholesterolemia, unspecified; E55.9 Vitamin D deficiency, unspecified; E53.8 Deficiency of other specified B group vitamins; Z12.5 Encounter for screening for malignant neoplasm of prostate
CPT/HCPCS: 36415; 80053; 80061; 81001; 82306; 82607; 82746; 83036; 84153; 84443; 85025; 87086

== ENCOUNTER 2023-12-01 09:20 | Outpatient (AMB) | payer OTHER, SELFPAY ==
--- NOTE | 2023-12-01 09:23 | A.OFFPC_ITS ---
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 Accompanied by: Self / Same As Patient Allergies No Known Allergies Allergy (Verified 12/01/23 10:14) Medication List - Last Reconciled 12/01/23 by Evan Ford MD atorvastatin 40 mg PO DAILY betamethasone dipropionate 0.05% 1 appl topical BID PRN diphenhydramine HCl (Benadryl) 25 mg PO TID PRN 7 days famotidine (Pepcid) 20 mg PO BID 7 days furosemide 20 mg PO DAILY 90 days hydroxyzine pamoate 25 mg PO TID PRN losartan 100 mg PO DAILY 90 days triamcinolone acetonide 0.5% 1 appl topical BID 2 weeks Tobacco use date assessed: 08/02/23 Fall risk assessment: No Falls in past year Last assessed Fall Risk: 12/01/23 Dental Screening Dental Screen Date: 08/02/23 HPI hyperlipidemia, HTN, CKD HPI Details Patient comes in today for his follow up visit States that he feels okay He denies any headaches or dizziness Denies any chest pains, no SOB No nausea/vomiting, no abdominal pain No change in bowel habits noted Had some follow up labs done back in August 2023 and he would like to know how he did on his labs back then [facility] Medical History Hearing loss of both ears Chronic kidney disease, stage III (moderate) GERD without esophagitis Benign essential hypertension Pure hypercholesterolemia Varicose veins of right lower extremity with inflammation Arthritis HTN (hypertension) Surgical History History of cataract extraction S/P ORIF (open reduction internal fixation) fracture Family History (Updated 12/01/23 @ 10:19 by Evan Ford MD) Other Family history non-contributory Social History Housing: Apartment Patient Tobacco Use Status: Never used Tobacco e-Cigarette/Vaping Use: Never Used service: No Current occupational status: retired Cognitive needs: No Hearing needs: No Vision needs: No Questionnaire PHQ-9 Over the last 2 weeks, how often have you been bothered by any of the following problems? Depression Screening Interpretation: Negative Depression Screening Done: Yes Source: Developed by Drs. Justo Wilder, Terrie Sheridan, Ray Clinton and colleagues, with an educational isaac from [employer]. Thrive Questionnaire Date Thrive assessed: 08/02/23 Currently or been in a relationship where the following occur: no concerns repo rted THRIVE Score: 0 JARVIS-7 AMB Questionnaire JARVIS-7 Date JARVIS - 7 assessed: 08/02/23 Source: Developed by Drs. Justo Wilder, Terrie Sheridan, Ray Clinton and colleagues, with an educational isaac from [employer]. Review of Systems Const Denies chills, Denies fatigue, Denies fever(s) and Denies headache(s) ENT Denies dysphagia, Denies dizziness, Denies otalgia, Denies headache(s), Denies neck pain, Denies odynophagia and Denies sore throat Card Denies chest pain, Denies palpitations and Denies dyspnea Resp Denies cough and Denies dyspnea GI Denies abdominal pain, Denies constipation, Denies dysphagia, Denies heartburn, Denies diarrhea, Denies nausea, Denies odynophagia and Denies vomiting Denies dysuria, Denies nocturia and Denies urinary frequency Musc Denies back pain and Denies neck pain Skin/Breast Denies rash Neuro Denies dizziness and Denies headache(s) Endo Denies fatigue and Denies palpitations Physical exam (Primary Care) Vital Signs: Last Vital Signs Pulse 53 12/01/23 09:24 BP 156/80 H 12/01/23 09:24 Pulse Ox 98 12/01/23 09:24 Oxygen Delivery Method Room Air 12/01/23 09:24 BMI result Body Mass Index 24.4 Tobacco/Smoking Status: Tobacco use Status Tobacco use date assessed 08/02/23 12/01/23 09:25 Patient Tobacco Use Status Never used Tobacco 12/01/23 09:25 e-Cigarette/Vaping Use Never Used 12/01/23 09:25 Depression Screening Interpretation: Negative Thrive Assessment: Date of Thrive Assessment Date Thrive assessed 08/02/23 12/01/23 09:25 Currently or been in a relationship where the following occur: no concerns reported Const General: no acute distress and alert HENMT Ears: TM's normal bilaterally and EAC's normal Throat: Yes posterior oropharynx normal and Yes tonsils normal (no TP congestion) Neck Neck: Yes no lymphadenopathy and Yes supple Thyroid: Thyroid normal Resp Auscultation: clear to auscultation bilaterally, no rales and no wheezes Cardio Rate: regular rate Rhythm: regular rhythm Heart sounds: no murmurs GI Palpation (GI): Soft to palpation and nontender Auscultation: normal bowel sounds General: Yes no CVA tenderness Back/Spine/Pelvis Back: no CVA tenderness Skin Rashes: no rashes Extrem General: Yes no clubbing, cyanosis or edema Results Reviewed Results Reviewed: Laboratory Tests 08/24/23 08/24/23 08:05 08:11 WBC 4.4 L Hgb 13.7 L D Hct 40.1 L Plt Count 190 Sodium 146 H Potassium 3.6 Creatinine 1.30 Estimated GFR 53 Fasting Glucose 117 H Hemoglobin A1c % 5.7 Calcium 9.3 AST 17 ALT 11 Triglycerides 89 Cholesterol 220 H LDL Cholesterol, Calc 154 H HDL Cholesterol 49 Prostate Specific Ag 26.26 H Vitamin B12 315 25-OH Vitamin D Total 14.5 L TSH 3.44 Ur Specific [place] 1.020 Urine Protein Negative Urine Glucose (UA) Negative Urine Blood Negative Urine Nitrite Negative Ur Leukocyte Esterase Small (1+) H Assessment and Plan Assessment & Plan (1) Elevated PSA, greater than or equal to 20 ng/ml: Code(s): R97.20 - Elevated prostate specific antigen [PSA] Plan: Will refer him to urology for further evaluation and management (2) Pure hypercholesterolemia: Code(s): E78.00 - Pure hypercholesterolemia, unspecified Plan: Results of his labs done back in August 2023 reviewed and discussed with patient - is advised that his cholesterol levels were still elevated back then Reinforced low cholesterol diet Continue Atorvastatin 40 mg QD Will recheck his labs and fasting lipids in 4 months for follow up and is advi sed that if his cholesterol numbers are still high, we will need to consider increasing his Atorvastatin dosage (3) Benign essential hypertension: Code(s): I10 - Essential (primary) hypertension Plan: Reinforced low sodium diet - goal is systolic BP of at least 130 to 140 mm or less Continue Losartan 100 mg QD and Furosemide 20 mg QD (4) Chronic kidney disease, stage III (moderate): Code(s): N18.30 - Chronic kidney disease, stage 3 unspecified Qualifiers: Chronic kidney disease stage 3 subtype: stage 3b (GFR 30-44) Qualified Code(s): N18.32 - Chronic kidney disease, stage 3b Plan: His GFR appears to have improved to 53 back in August 2023; was at 43 when pr eviously checked in October 2022 Will continue to monitor his renal function regularly (5) GERD without esophagitis: Code(s): K21.9 - Gastro-esophageal reflux disease without esophagitis Plan: Reinforced dietary restrictions in GERD Continue Famotidine 20 mg BID PRN (6) Dermatitis: Code(s): L30.9 - Dermatitis, unspecified Plan: Continue Triamcinolone acetonide 0.5% cream apply to rash BID PRN (7) Cognitive decline: Code(s): R41.89 - Other symptoms and signs involving cognitive functions and awareness Plan: He was referred to neurology for further evaluation and management last year but it looks like he was never seen and evaluated (8) Varicose veins of right lower extremity with inflammation: Code(s): I83.11 - Varicose veins of right lower extremity with inflammation Plan: Follow up with vascular surgery as scheduled (9) Hearing loss of both ears: Code(s): H91.93 - Unspecified hearing loss, bilateral Qualifiers: Hearing loss type: unspecified Qualified Code(s): H91.93 - Unspecified hearing loss, bilateral Plan: He was seen by Dr. Tomas for this last year and was recommended to use hearing aids in both ears Follow up with ENT as scheduled Plan Follow up in 4 months Orders: Orders Complete Blood Count Auto Diff 4 Months D64.9 - Anemia, unspecified Comprehensive [place]. Panel Fast 4 Months E78.00 - Pure hypercholesterolemia, unspecified Lipid Panel 4 Months E78.00 - Pure hypercholesterolemia, unspecified Referrals Urology Referral R97.20 - Elevated prostate specific antigen [PSA] Coding Level of Care Code Est Pt Level 4 (31190) Complex EM visit Add On G2211 Diagnoses Elevated PSA, greater than or equal to 20 ng/ml R97.20 Pure hypercholesterolemia E78.00 Benign essential hypertension I10 Stage 3b chronic kidney disease N18.32 Chronic kidney disease stage 3 subtype: stage 3b (GFR 30-44) GERD without esophagitis K21.9 Dermatitis L30.9 Cognitive decline R41.89 Varicose veins of right lower extremity with inflammation I83.11 Bilateral hearing loss, unspecified hearing loss type H91.93 Hearing loss type: unspecified
[2023-12-01 09:24] VITALS: BP 156/80; PULSE 53; O2SAT 98; BMI 24.4
== END 2023-12-01 10:18 | disposition home or self-care (01) ==
PROVIDERS: PCP Internal Medicine; Visit Provider Internal Medicine
DX: I12.9 Hypertensive chronic kidney disease with stage 1 through stage 4 chronic kidney disease, or unspecified chronic kidney disease (principal); N18.32 Chronic kidney disease, stage 3b; R97.20 Elevated prostate specific antigen [PSA]; E78.00 Pure hypercholesterolemia, unspecified; K21.9 Gastro-esophageal reflux disease without esophagitis; L30.9 Dermatitis, unspecified; R41.89 Other symptoms and signs involving cognitive functions and awareness; I83.11 Varicose veins of right lower extremity with inflammation; H91.93 Unspecified hearing loss, bilateral
CPT/HCPCS: 99214; G2211

== ENCOUNTER 2024-02-01 10:50 | Outpatient (AMB) | payer OTHER, SELFPAY ==
--- NOTE | 2024-02-01 11:16 | MHC.OFFVIS ---
Intake Visit Reasons: elevated PSA Intake Note: New patient is present for Elevated PSA Patient had PSA lab Aug 2023 26.26 Patient's Bun/Creatinine was elevated as well Attraction Attendant Required: No Allergies No Known Allergies Allergy (Verified 02/01/24 11:19) HPI Comments Details: Dante is a pleasant male. He is a patient of Dr. Ford. He seen for the following urologic conditions - elevated PSA Discussion about significance of elevated PSA with patient today Recommend OCTAVIO OCTAVIO offered but refused by patient He understands that we cannot be held responsible for any delay in diagnosis and treatment of potential prostate cancer Initiate finasteride 4 month follow-up PSA check with nurse practitioner and possible discussion for prostate biopsy [facility] Medical History Hearing loss of both ears Chronic kidney disease, stage III (moderate) GERD without esophagitis Benign essential hypertension Pure hypercholesterolemia Varicose veins of right lower extremity with inflammation Arthritis HTN (hypertension) Surgical History History of cataract extraction S/P ORIF (open reduction internal fixation) fracture Family History Other Family history non-contributory Social History Housing: Apartment Patient Tobacco Use Status: Never used Tobacco e-Cigarette/Vaping Use: Never Used service: No Current occupational status: retired Cognitive needs: No Hearing needs: No Vision needs: No Review of Systems Const Denies chills and Denies fever(s) Card Reports no additional complaints and Denies syncope Resp Denies cough GI Denies abdominal pain and Denies heartburn Reports as per HPI and Denies change in libido Neuro Denies syncope Psych Denies change in libido Endo Denies change in libido Physical Exam Const General: cooperative, healthy appearing, comfortable and no acute distress Orientation/consciousness: patient oriented x3 HEENT Face and sinus: Yes normal facial exam Mouth: moist mucous membranes Neck Neck: Yes normal visual inspection, Yes full ROM and Yes trachea midline Chest Chest palpation & inspection: normal inspection of the chest Resp Effort & Inspection: normal respiratory effort, able to speak in complete sentences and no respiratory distress GI Inspection: Yes normal to inspection Back/Spine/Pelvis Cervical Spine: normal cervical lordosis Thoracic/Lumbar Spine: thoracic and lumbar spine normal to inspection Skin General skin exam: no rashes or lesions noted Neuro General: patient oriented x3, gait normal, tone normal and moves all extremities Extrem General: Yes normal to inspection and Yes capillary refill normal Assessment & Plan Assessment & Plan (1) Elevated PSA, greater than or equal to 20 ng/ml: Code(s): R97.20 - Elevated prostate specific antigen [PSA] Category: Medical Plan Four month follow-up Stat finasteride Orders: Orders PSA,Total (Free>4and<10) 4 Months R97.20 - Elevated prostate specific antigen [PSA] Medications: New finasteride 5 mg PO DAILY 90 days 90 tabs 1RF N13.8 - Other obstructive and reflux uropathy, N40.1 - Benign prostatic hyperplasia with lower urinary tract symptoms, R33.9 - Retention of urine, unspecified, R97.20 - Elevated prostate specific antigen [PSA] Patient Instructions: Imaging studies, laboratory and physical exam results were discussed and reviewed in detail. No major barriers to patient understanding were identified. An opportunity to ask questions regarding the treatment plan was provided. All questions were answered. The patient expressed understanding and agreement with the above treatment plan. The patient is aware they should contact our office by phone for worsening of their current condition or the appearance of new urologic symptoms. Compliance is encouraged with any medications and followup testing that is ordered. It is a privilege to participate in the urologic care of your patient. If you have any questions or concerns regarding treatment for the above conditions, or other urologic issues, please do not hesitate to contact me. The office telephone contact is [phone]. This note is constructed using voice recognition software. While every effort has been made to ensure accuracy a p manager errors may have been included. Yours sincerely, Dr Jerson Jordan MD, [facility] - Urology Providers of Expert, Compassionate Care for the Genitourinary System Coding Level of Care Code New Pt Level 4 (30957) Diagnoses Elevated PSA, greater than or equal to 20 ng/ml R97.20
== END 2024-02-01 11:34 | disposition home or self-care (01) ==
PROVIDERS: PCP Internal Medicine; Visit Provider Urology
DX: R97.20 Elevated prostate specific antigen [PSA] (principal)
CPT/HCPCS: 99204

== ENCOUNTER → 2024-02-01 10:50 | Outpatient (BNVA) | payer OTHER, SELFPAY | PROVIDERS: PCP Internal Medicine; Visit Provider Urology | DX: R97.20 Elevated prostate specific antigen [PSA] (principal) | CPT/HCPCS: 99202 ==

== ENCOUNTER 2024-03-22 08:58 | Emergency (ER) | payer OTHER, SELFPAY ==
--- NOTE | ~2024-03-22 | XR_ITS ---
EXAMINATION: XR LUMBOSACRAL SPINE CLINICAL INFORMATION: Back pain COMPARISON: CT abdomen and pelvis 11/28/2021 TECHNIQUE: Three views of the lumbosacral spine. FINDINGS: There is mild biconvex thoracolumbar scoliosis. Degenerative changes are present in the spine most marked at L4-L5. Partially visualized degenerative changes are seen in the lower thoracic spine. No fractures or bony destructive lesions. A right total hip prosthesis is present. Extensive vascular calcifications are seen in the aorta as well as the origins of the SMA and celiac. Similar findings can be seen on the prior CT scan. XR/XR lumbar spine 2-3V IMPRESSION: Mild biconvex thoracolumbar scoliosis with associated degenerative changes as described above. Electronically signed by: Jan Flores MD 03/22/2024 12:18 PM EDT
--- NOTE | ~2024-03-22 | CT_ITS ---
EXAMINATION: CT CERVICAL SPINE WITHOUT CONTRAST CLINICAL INFORMATION: Neck pain COMPARISON: CT cervical spine 09/28/2021 TECHNIQUE: Contiguous axial imaging was performed from the upper chest through the skull base without intravenous administration of contrast. Coronal and sagittal reformats were obtained at the acquisition workstation. This CT examination was performed using dose optimization techniques as appropriate, variously including the following: *Automated exposure control *Adjustment of mA and/or kV according to patient size (this includes techniques or standardized protocols for targeted exams where dose is matched to indication/reason for exam; i.e. extremities or head) *Use of iterative reconstruction technique DLP: 280 mGy-cm FINDINGS: The atlantooccipital and atlantoaxial articulations remain well aligned. Degenerative changes at the atlantodental articulations. The cervical vertebral bodies demonstrate normal height. 4 mm retrolisthesis of C3 over C4. Minimal anterolisthesis of C7 over T1. Multilevel cervical spondylosis with marginal osteophytes, end plate sclerosis and intervertebral disc space narrowing ,most pronounced at C3-C4 and C4-C5. Multilevel facet arthropathy with severe left facet arthropathy at C4-C5 through C7-T1. No evidence of acute fracture or subluxation. There is no prevertebral soft tissue swelling. The thyroid gland and remaining cervical soft tissues are within normal limits. The lung apices demonstrate biapical scarring, right greater than left. CT/CT cervical spine wo IV con IMPRESSION: No acute fracture involving the cervical spine. Advanced multilevel cervical spondylosis as detailed. Electronically signed by: Nicholas Rico MD 03/22/2024 12:24 PM EDT
[2024-03-22 09:13] VITALS: BP 136/68; BP 153/61; PULSE 88; PULSE 89; RESP 16; TEMP 37.1; O2SAT 98; BMI 22.2
[2024-03-22 09:17] VITALS: BP 153/61; PULSE 88; RESP 16; TEMP 37.1; O2SAT 98
--- NOTE | 2024-03-22 09:20 | PC.NURSE ---
Pt comes to ED today with c/o back pain x3 days. Pain 10/10 and is causing him to have difficulty sleeping. Pt states he has been taking Tylenol with no relief. VSS, afebrile, A&Ox3
[2024-03-22] MEDS: Cyclobenzaprine HCl 10 MG TABLET PO (10:04)
[2024-03-22] MEDS: Acetaminophen 325 MG TABLET 975 MG PO (10:04)
--- NOTE | 2024-03-22 11:14 | ED.BACK ---
HPI - Back Pain/Injury General Chief Complaint: Back Pain/Injury Stated Complaint: BACK PAIN X3W PER EMS Time Seen by Provider: 03/22/24 09:05 Source: patient, EMS, RN notes reviewed and old records reviewed Mode of arrival: EMS History of Present Illness ED Provider: Shanice Thomas PA-C HPI Narrative: 83-year-old male with past medical history of CKD, GERD, HTN, arthritis, HLD, presenting to the ED complaining of acute on chronic neck and low back pain x1 month. Reports intermittent radiation down bilateral LE. Denies known injury/trauma or fall, numbness/tingling, weakness, incontinence/retention, headache abdominal pain, hematuria/dysuria. Has been taking OTC medications without relief Related Data Home Medications ?Medication ?Instructions ?Recorded ?Confirmed atorvastatin 40 mg tablet 40 mg PO DAILY 02/21/23 12/01/23 Previous Rx's ?Medication ?Instructions ?Recorded diphenhydramine HCl 25 mg capsule 25 mg PO TID PRN itching 7 days 09/06/22 (Benadryl) #21 caps famotidine 20 mg tablet (Pepcid) 20 mg PO BID 7 days #14 tabs 09/06/22 triamcinolone acetonide 0.5 % 1 appl topical BID 2 weeks #15 09/06/22 topical ointment grams losartan 100 mg tablet 100 mg PO DAILY 90 days #90 tabs 01/11/24 finasteride 5 mg tablet 5 mg PO DAILY 90 days #90 tabs 02/01/24 furosemide 20 mg tablet 20 mg PO DAILY 90 days #90 tabs 02/08/24 hydroxyzine pamoate 25 mg capsule 25 mg PO TID PRN itching #90 caps 03/07/24 betamethasone dipropionate 0.05 % 1 appl topical BID PRN rash #15 03/18/24 topical ointment grams acetaminophen 500 mg tablet 500 mg PO Q6H PRN fever or pain 03/22/24 (Tylenol Extra Strength) #14 tabs cyclobenzaprine 5 mg tablet 5 mg PO Q8H PRN pain (scale score 03/22/24 7-10) 5 days #14 tabs lidocaine 5 % topical patch 1 patch topical DAILY PRN pain #30 03/22/24 (Lidoderm) ea Allergies Allergy/AdvReac Type Severity Reaction Status Date / Time No Known Allergies Allergy Verified 03/22/24 09:16 Review of Systems Review of Systems: Yes all other systems are reviewed and are negative Constitutional: Constitutional: Reports as per HPI Neurologic: Denies Sensory deficit (Neuro) COUNTS INCLUDE 234 BEDS AT THE [facility] Past Medical History Attestation statement: The following information was validated with the patient. Source: old records reviewed Medical History Hearing loss of both ears Chronic kidney disease, stage III (moderate) GERD without esophagitis Benign essential hypertension Pure hypercholesterolemia Varicose veins of right lower extremity with inflammation Arthritis HTN (hypertension) Surgical History History of cataract extraction S/P ORIF (open reduction internal fixation) fracture Family History Family History Other Family history non-contributory Social History Social History Housing: Apartment Patient Tobacco Use Status: Never used Tobacco Smoked in Last 30 Days: No e-Cigarette/Vaping Use: Never Used Use of substances other than those prescribed or required for medical reasons: No Advance Directives: No Advance Directives Information Provided: No Do you have a plan to hurt others: No Plan service: No Current occupational status: retired Cognitive needs: No Hearing needs: No Vision needs: No Physical Exam Vital Signs: Vital Signs: Last Vital Signs Temp 98 F 03/22/24 13:10 Pulse 88 03/22/24 13:10 Resp 16 03/22/24 13:10 BP 148/52 H 03/22/24 13:10 Pulse Ox 98 03/22/24 13:10 O2 Del Method Room Air 03/22/24 13:10 BMI result Body Mass Index 22.2 Const: General: cooperative, healthy appearing and no acute distress Orientation/consciousness: patient oriented x3 Limitations: no limitations HEENT: Head: Yes normal to inspection and Yes atraumatic Ears: hearing grossly normal bilaterally General nose exam: Normal external nose present Face and sinus: Yes normal facial exam Eyes: General: appearance normal, both eyes and all related structures EOM: EOMs intact bilaterally Neck: Other: No midline cervical spinous tenderness. No reproducible neck tenderness or trapezius muscle tenderness Neck: Yes normal visual inspection, Yes no meningeal signs, Yes supple and No anterior neck swelling Resp: Effort & Inspection: normal respiratory effort and no respiratory distress Auscultation: clear to auscultation bilaterally Cardio: Rate: regular rate Heart sounds: S1 normal heart sound present and S2 normal heart sound present GI: Inspection: Yes normal to inspection Palpation (GI): Soft to palpation, nontender, no guarding and not rigid : General: Yes no CVA tenderness Back/Spine/Pelvis: Other: No midline cervical/thoracic/lumbar spinous tenderness/step-off or deformity. + left-sided lower lumbar MSK reproducible tenderness. No rash/erythema or ecchymosis Back: no CVA tenderness Skin: Rashes: no rashes Wounds: no wounds Neuro: Other: Strength intact throughout. No saddle anesthesia. Sensation intact to light touch. Neurovascular intact distally General: patient oriented x3, tone normal, moves all extremities and no meningeal signs Cranial nerves: Yes CN's II-XII intact bilaterally Motor exam (neuro): 5/5 motor strength present throughout Sensory Exam: No Sensory deficit (Neuro) Extrem: General: Yes normal to inspection and Yes no pedal edema Course Course Course Narrative: XR lumbar spine 2-3V IMPRESSION: Mild biconvex thoracolumbar scoliosis with associated degenerative changes as described above. CT cervical spine wo IV con IMPRESSION: No acute fracture involving the cervical spine. Advanced multilevel cervical spondylosis as detailed. > patient reports symptomatic improvement in the emergency department, is ambulating with steady gait. Requesting discharge at this time. Results discussed with patient including worrisome signs and symptoms and strict return precautions, and when to return to the emergency department. They verbalized understanding and feel safe for discharge at this time. Medications Administered Discontinued Medications Generic Name Dose Route Start Last Admin Trade Name Freq PRN Reason Stop Dose Admin Acetaminophen 975 mg 03/22/24 09:24 03/22/24 10:04 Acetaminophen 325 Mg Tablet PO 03/22/24 09:25 975 mg ONCE ONE Administration Cyclobenzaprine HCl 10 mg 03/22/24 09:24 03/22/24 10:04 Cyclobenzaprine Hcl 10 Mg Tablet PO 03/22/24 09:25 10 mg ONCE ONE Administration Medical Decision Making Medical Decision Making MDM Narrative: 83-year-old male with past medical history of CKD, GERD, HTN, arthritis, HLD, presenting to the ED complaining of acute on chronic neck and low back pain x1 month. On exam vital signs stable, NAD, nontoxic appearing, no midline spinous tenderness throughout. Physical exam as above. No red flag symptoms or focal weakness. Concern for osteoarthritis vs MSK pain/strain vs sciatica vs herniated disc. Low suspicion of cauda equina, cord compression, epidural abscess, pyelo/stone or cervical dissection Plan: X-ray, CT, UA, pain control, re-evaluate Please refer to course for remaining clinical decision making, interpretation of labs/imaging results, and discussions with consultants and/or family members. Differential Diagnosis Differential Diagnoses: The differential diagnosis associated with the presentation includes As above Admission/Observation Consideration of admission/observation: Escalation of care including admission/observation considered Lab Data MDM Lab Attestation statement: I reviewed the patient's lab results. Independent Interpretation I performed an independent interpretation of an: Plain X-Ray and CT Scan Radiology Impression Discussion of test interpretation with radiology: I have reviewed the radiologist's reading. Independent Historian Clinical information obtained from an independent historian. History obtained from or confirmed by: EMS External Record Review External record reviewed: Inpatient record, Office record, Outpatient record, Prior outpatient labs, Prior outpatient radiology, Primary care record and Outside ED record Tests considered The following testing was considered but not selected: As above Prescription Management I considered prescription management with: Pain Medication Chronic Conditions Patient?s care impacted by: Hypertension Discharge Plan Discharge Clinical Impression: Degenerative arthritis, Back pain, Neck pain Patient Disposition: Home, Self-Care Instructions: Chronic Back Pain (DC) Additional Instructions: Your CT scan and x-ray showed degenerative disc disease arthritis Please have close follow-up with your primary care doctor Flexeril is a muscle relaxer, take at night as it makes you drowsy, do not drive, drink alcohol, or operate machinery while taking it Lidoderm patches are numbing patches, apply to painful area In addition take Tylenol at home If symptoms persist or worsen, pain becomes unbearable, you developed urinary retention or incontinence, or weakness return to the ED Prescriptions: New acetaminophen [Tylenol Extra Strength] 500 mg tablet 500 mg PO Q6H PRN (Reason: fever or pain) Qty: 14 0RF lidocaine [Lidoderm] 5 % adhesive patch,medicated 1 patch topical DAILY MDD remove after 12 hours PRN (Reason: pain) Qty: 30 0RF Rx Instructions: leave on most painful area for up to 12 hrs cyclobenzaprine 5 mg tablet 5 mg PO Q8H PRN (Reason: pain (scale score 7-10)) 5 Days Qty: 14 0RF No Action losartan 100 mg tablet 100 mg PO DAILY 90 Days Qty: 90 1RF furosemide 20 mg tablet 20 mg PO DAILY 90 Days Qty: 90 1RF hydroxyzine pamoate 25 mg capsule 25 mg PO TID PRN (Reason: itching) Qty: 90 0RF betamethasone dipropionate 0.05 % ointment 1 appl topical BID PRN (Reason: rash) Qty: 15 1RF atorvastatin 40 mg tablet 40 mg PO DAILY triamcinolone acetonide 0.5 % ointment 1 appl topical BID 14 Days Qty: 15 0RF Rx Instructions: do not take with any other steroid cream famotidine [Pepcid] 20 mg tablet 20 mg PO BID 7 Days Qty: 14 0RF diphenhydramine HCl [Benadryl] 25 mg capsule 25 mg PO TID PRN (Reason: itching) 7 Days Qty: 21 0RF Rx Instructions: side effect is drowsiness. finasteride 5 mg tablet 5 mg PO DAILY 90 Days Qty: 90 1RF Referrals: Evan Ford MD [Primary Care Provider] - 5 days Interventions: ED Discharge Assessment Last Done: 03/22/24 13:10 Discharge Date/Time: 03/22/24 13:11 Print Language: Yakut
[2024-03-22 12:28] VITALS: BP 140/57; PULSE 80; RESP 16; TEMP 37.1; O2SAT 98
[2024-03-22 13:10] VITALS: BP 148/52; PULSE 88; RESP 16; TEMP 36.6; O2SAT 98
== END 2024-03-22 13:11 | disposition home or self-care (01) ==
PROVIDERS: Emergency Provider Emergency Medicine; PCP Internal Medicine
DX: M15.9 Polyosteoarthritis, unspecified (principal); M54.2 Cervicalgia; M54.50 Low back pain, unspecified; I12.9 Hypertensive chronic kidney disease with stage 1 through stage 4 chronic kidney disease, or unspecified chronic kidney disease; N18.30 Chronic kidney disease, stage 3 unspecified; E78.00 Pure hypercholesterolemia, unspecified; Z79.02 Long term (current) use of antithrombotics/antiplatelets; Z79.899 Other long term (current) drug therapy
CPT/HCPCS: 72100; 72125; 99284

== ENCOUNTER 2024-03-31 15:05 | Observation (INO) | payer OTHER, SELFPAY ==
--- NOTE | ~2024-03-31 | CT_ITS ---
EXAMINATION: CT ABDOMEN AND PELVIS WITHOUT CONTRAST CLINICAL INFORMATION: Back and right flank pain COMPARISON: CT abdomen and pelvis 11/28/2021 TECHNIQUE: Multidetector volumetric imaging was performed from the superior aspect of the liver through the pubic symphysis. Sagittal and coronal reformatted images were obtained on the technologist's workstation. This CT examination was performed using dose optimization techniques as appropriate, variously including the following: *Automated exposure control *Adjustment of mA and/or kV according to patient size (this includes techniques or standardized protocols for targeted exams where dose is matched to indication/reason for exam; i.e. extremities or head) *Use of iterative reconstruction technique DLP: 309 mGy-cm FINDINGS: LUNG BASES: The visualized lung bases are unremarkable. LIVER, GALLBLADDER, AND BILIARY TREE: The liver is normal in size, shape, and attenuation. No focal hepatic lesion or biliary ductal dilatation is present. The gallbladder is unremarkable with no evidence of radiopaque gallstones, gallbladder wall thickening, or obvious pericholecystic inflammatory changes. PANCREAS: Unremarkable. SPLEEN: Unremarkable. ADRENAL GLANDS: Unremarkable. KIDNEYS AND URETERS: The right kidney is significantly smaller than the left.. There is a nonobstructing pole 6 mm calculus. This measures about 630 Hounsfield units and is 6.3 cm from the posterior axillary line. No hydronephrosis, hydroureter, or additional calculi seen. No perinephric stranding. No renal masses. BLADDER: Unremarkable. GASTROINTESTINAL TRACT: The small and large bowel are unremarkable. The appendix is unremarkable. ABDOMINAL WALL: No significant hernia is appreciated. LYMPH NODES: There is new retroperitoneal lymphadenopathy seen since the prior study with para-aortic and aortocaval and bilateral iliac nodes. The largest nodes measure about 1.2 cm, but they are all new when compared to prior (see saved cardoso images). VASCULAR: Extensive atherosclerotic change present in the aorta. There are bilateral renal artery stenoses present as calcium fills much of the proximal lumen bilaterally. Probable marked stenoses involving the celiac and SMA ostia as well. A fusiform right hypogastric aneurysm has increased from 0.9 cm PELVIC VISCERA: Mild to moderate BPH. Seminal vesicles appear normal. OSSEOUS STRUCTURES: Right total hip prosthesis is present along with plate and screw laterally the cerclage suture. Mild to moderate degenerative changes are seen in the spine. Mild right convex thoracolumbar scoliosis. CT/CT abdomen pelvis wo IV con IMPRESSION: 1. New retroperitoneal lymphadenopathy. 2. Nonobstructing 6 mm right renal calculus. 3. 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 4. 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 5. Other incidental findings as described above. Fleischner guidelines were followed. Electronically signed by: Jan Flores MD 03/31/2024 07:01 PM EDT
[2024-03-31 15:17] VITALS: BP 132/64; BP 151/55; PULSE 73; PULSE 90; RESP 18; TEMP 36.7; O2SAT 97; O2SAT 98; BMI 22.6
--- NOTE | 2024-03-31 16:15 | PC.NURSE ---
sitting on side of bed for comfort
--- NOTE | 2024-03-31 16:56 | ED_ITS ---
HPI - Back Pain/Injury General Chief Complaint: Back Pain/Injury Stated Complaint: LOWER BACK PAIN Time Seen by Provider: 03/31/24 16:51 Source: patient, EMS and old records reviewed Mode of arrival: EMS Limitations: no limitations History of Present Illness ED Provider: DR. Mccurdy HPI Narrative: 83-year-old male with past medical history of CKD, GERD, HTN, arthritis, HLD, presenting to the ED by EMS complaining of acute on chronic neck and low back pain x1 month. Patient had a prior ED evaluation for similar presentation 9 days ago that revealed degenerative change on the lumbar spine x-ray Patient was discharged on Tylenol, Lidoderm 5%, cyclobenzaprine , patient also had head CT in 2021 without aortic aneurysm, no fall or back injury, no heavy lifting, no weakness, no numbness, no urinary or stool incontinence. No urinary frequency, no dysuria, no hematuria. No dizziness, no chest pain, no LOC, no abdominal pain, no rectal bleeding, no blood in the urine , not taking anticoagulation. Related Data Home Medications ?Medication ?Instructions ?Recorded ?Confirmed atorvastatin 40 mg tablet 40 mg PO DAILY 02/21/23 12/01/23 Previous Rx's ?Medication ?Instructions ?Recorded diphenhydramine HCl 25 mg capsule 25 mg PO TID PRN itching 7 days 09/06/22 (Benadryl) #21 caps famotidine 20 mg tablet (Pepcid) 20 mg PO BID 7 days #14 tabs 09/06/22 triamcinolone acetonide 0.5 % 1 appl topical BID 2 weeks #15 09/06/22 topical ointment grams finasteride 5 mg tablet 5 mg PO DAILY 90 days #90 tabs 02/01/24 furosemide 20 mg tablet 20 mg PO DAILY 90 days #90 tabs 02/08/24 betamethasone dipropionate 0.05 % 1 appl topical BID PRN rash #15 03/18/24 topical ointment grams acetaminophen 500 mg tablet 500 mg PO Q6H PRN fever or pain 03/22/24 (Tylenol Extra Strength) #14 tabs cyclobenzaprine 5 mg tablet 5 mg PO Q8H PRN pain (scale score 03/22/24 7-10) 5 days #14 tabs lidocaine 5 % topical patch 1 patch topical DAILY PRN pain #30 03/22/24 (Lidoderm) ea hydroxyzine pamoate 25 mg capsule 25 mg PO TID PRN itching #90 caps 03/26/24 losartan 100 mg tablet 100 mg PO DAILY 90 days #90 tabs 03/28/24 acetaminophen 500 mg tablet 500 mg PO Q6H PRN pain #20 tabs 03/31/24 (Tylenol Extra Strength) cyclobenzaprine 10 mg tablet 10 mg PO TID PRN muscle spasm #20 03/31/24 tabs lidocaine 5 % topical patch 1 patch topical DAILY #15 ea 03/31/24 (Lidoderm) Allergies Allergy/AdvReac Type Severity Reaction Status Date / Time No Known Allergies Allergy Verified 03/31/24 15:20 Review of Systems 2 Review of Systems: All other systems are reviewed and are negative Constitutional: Reports as per HPI and Reports no additional constitutional complaints Eyes: Reports as per HPI and Reports no additional eye complaints Reports system reviewed and no additional complaints, except as documented Cardiovascular: Reports as per HPI and Reports no additional cardiovascular complaints Respiratory: Reports as per HPI and Reports no additional respiratory complaints Gastrointestinal: Reports as per HPI and Reports no additional gastrointestinal complaints Genitourinary: Reports no additional female genitourinary complaints Musculoskeletal: Reports no additional musculoskeletal complaints Skin/Breast: Reports system reviewed and no additional complaints, except as docu Psychiatric: Reports no additional psychiatric complaints Endocrine: Reports no additional endocrine complaints Hematologic/Lymphatic: Reports no additional hematologic/lymphatic complaints Allergic/Immunologic: Reports no additional allergic/immunologic complaints Reports system reviewed and no additional complaints, except as documented and Reports Abnormal speech present [facility] Past Medical History Medical History Hearing loss of both ears Chronic kidney disease, stage III (moderate) GERD without esophagitis Benign essential hypertension Pure hypercholesterolemia Varicose veins of right lower extremity with inflammation Arthritis HTN (hypertension) Surgical History History of cataract extraction S/P ORIF (open reduction internal fixation) fracture Family History Family History Other Family history non-contributory Social History Social History Housing: Apartment Patient Tobacco Use Status: Never used Tobacco Smoked in Last 30 Days: No e-Cigarette/Vaping Use: Never Used Advance Directives: No Advance Directives Information Provided: No service: No Current occupational status: retired Cognitive needs: No Hearing needs: No Vision needs: No Physical Exam 2 Vital Signs: Vital Signs: Last Vital Signs Temp 98.1 F 03/31/24 15:17 Pulse 73 03/31/24 18:15 Resp 18 03/31/24 18:15 BP 157/38 H 03/31/24 18:15 Pulse Ox 98 03/31/24 18:15 O2 Del Method Room Air 03/31/24 18:15 BMI result Body Mass Index 22.6 Vital signs have been reviewed and appear to be correct. Blood pressure elevated. Heart rate normal. Respiratory rate normal. Temperature normal. Oxygen saturation normal. Appearance: Alert. Oriented X3. No acute distress. Head: Normal external exam. Normocephalic. Atraumatic. No Mcclure signs noted. No raccoon eyes noted Eyes: PERRLA. EOMI. Conjunctiva and sclera normal. Eyelids normal. ENT: TM's Normal. Pharynx normal. Uvula midline. Moist mucous membranes. No trismus noted. No drooling noted. No muffled voice noted. Neck: Normal inspection. Neck supple. FROM. No adenopathy. Thyroid Normal. No meningeal signs. No neck mass noted. CVS: Normal heart rate and rhythm. Heart sound normal. No murmurs noted. Pulses normal throughout. Respiratory: No respiratory distress. Painless inspiration. Breath sounds normal. No wheezes/rales/rhonchi noted. Chest nontender. No accessory muscle usage noted or decreased air movement noted. Abdomen: Soft and nontender. Bowel sounds normal in all 4 quadrants. No distention noted. No organomegaly noted. No visible injury noted. Rectal exam: Brown stool mixed with mucus bloody stool, guaiac positive. Back: No CVA tenderness. Full range of motion noted. Skin: Skin warm and dry. Normal skin color. Normal skin turgor. No rashes/lesions/lacerations noted. Extremities: No lower extremity edema. Extremities exhibit normal range of motion. Extremities nontender. Neuro: Oriented X 3. Cranial nerve exam: II-XII are grossly intact No motor deficit. No sensory deficit. Reflexes normal. Course Reevaluation(s) Reevaluation #1: 84-year-old with chronic back pain x-ray is showing degenerative arthritis and scoliosis of the lumbar spine, no history of trauma or injury, patient did well with Tylenol, lidocaine ( Lidoderm ) and cyclobenzaprine. will represcribe, bed rest, heating pad. CT abdomen and pelvis showed no kidney stone, no AAA, no any other intra- abdominal emergency. Incidental finding of severe anemia compared with baseline hemoglobin 6 months ago, despite patient declined visible bleeding patient was positive for blood in the stool. also CT of the abdomen pelvis is showing retroperitoneal lymphadenopathy. No chest pain, hemodynamically stable. Time: 20:00 Medications Administered Discontinued Medications Generic Name Dose Route Start Last Admin Trade Name Freq PRN Reason Stop Dose Admin Oxycodone HCl 5 mg 03/31/24 18:14 03/31/24 19:18 Oxycodone Hcl Immed Release 5 Mg Tablet PO 03/31/24 18:15 5 mg ONCE ONE Administration Medical Decision Making Differential Diagnosis Differential Diagnoses: The differential diagnosis associated with the presentation includes ( Cauda equina syndrome, lumbar radiculopathy, obstructive uropathy, UTI, pyelonephritis, arthritis, electrolyte derangement, severe anemia , acute on chronic kidney injury, muscular pain, GI bleed.) Admission/Observation Consideration of admission/observation: Escalation of care including admission/observation considered Lab Data MDM Lab Attestation statement: I reviewed the patient's lab results. 03/31/24 17:23 03/31/24 17:23 Labs: Lab Results 03/31/24 03/31/24 Range/Units 17:23 18:17 WBC 4.9 (4.8-10.8) X10*3/uL RBC 3.13 L D (4.60-5.80) X10*6/uL Hgb 9.5 L D (14.0-18.0) g/dl Hct 27.6 L D (42.0-52.0) % MCV 88.2 (80.0-98.0) fL MCH 30.4 (27.0-33.0) pg MCHC 34.4 (31.0-36.0) g/dl RDW 14.4 (11.0-16.0) % Plt Count 150 L (160-400) X10*3/uL MPV 11.3 (9.4-12.4) fL Immature Gran % (Auto) Cancelled Neut % (Auto) Cancelled Lymph % (Auto) Cancelled [place] % (Auto) Cancelled Eos % (Auto) Cancelled Baso % (Auto) Cancelled Lymph # (Auto) Cancelled [place] # (Auto) Cancelled Eos # (Auto) Cancelled Baso # (Auto) Cancelled Abs Immat Gran (auto) Cancelled Absolute Neuts (auto) Cancelled Absolute Nucleated RBC 0.040 H (0.0-0.012) X10*3/uL Nucleated RBC % (auto) 0.8 H (0.0-0.2) /100WBC Neutrophils % (Manual) 72 (45-73) % Band Neutrophils % 3 (3-5) % Lymphocytes % (Manual) 18 L (20-40) % Monocytes % (Manual) 1 L (2-11) % Eosinophils % (Manual) 1 (0-4) % Basophils % (Manual) 2 (0-2) % Metamyelocytes % 1 % Myelocytes % 2 % Abs Neuts (Manual) 3.7 (2.0-8.3) X10*3/uL Lymphocytes # (Manual) 0.9 L (1.2-4.9) X10*3/uL Basophils # (Manual) 0.1 (0.0-0.2) X10*3/uL Myelocytes # 0.1 X10*/uL Nucleated RBCs 2 H (0-0) /100WBC Platelet Estimate NORMAL (NORMAL) Plt Morphology Comment NORMAL RBC Morphology NOTED Polychromasia 1+ (0-2) /OIF Ovalocytes 1+ (5-14) /OIF Rouleaux PRESENT Schistocytes 1+ (0-2) /OIF Sodium 134 L (135-145) mmol/L Potassium 4.1 (3.3-5.1) mmol/L Chloride 101 (96-108) mmol/L Carbon Dioxide 22 (22-29) mmol/L Anion Gap 15 (12-20) BUN 15 (9-16) mg/dL Creatinine 1.19 (0.5-1.4) mg/dL Estim Creat Clear Calc 40.0 Estimated GFR 59 Random Glucose 144 H (60-115) mg/dL Calcium 9.5 (8.4-10.2) mg/dL Urine Color Dark Yellow Urine Appearance Clear Urine pH 5.5 (5.0-9.0) Ur Specific [place] 1.020 (1.005-1.025) Urine Protein 30 (1+) H (Neg-Trace) mg/dL Urine Glucose (UA) Negative (Negative) mg/dL Urine Ketones 15 (Negative) mg/dL Urine Blood Negative (Negative) Urine Nitrite Negative (Negative) Ur Leukocyte Esterase Trace H (Negative) Urine RBC 0-2 (0-2) /HPF Urine WBC 0-5 (0-5) /HPF Ur Squamous Epith Cells 0-2 (0-2) /HPF Urine Bacteria None Seen (None Seen) Hyaline Casts 6-10 (0-2) /LPF Stool Occult Blood POSITIVE (NEGATIVE) Independent Interpretation I performed an independent interpretation of an: CT Scan ( abdomen pelvis:) Radiology Impression Discussion of test interpretation with radiology: I have reviewed the radiologist's reading. Chronic Conditions Patient?s care impacted by: Other ( [facility]) Discharge Plan Discharge Clinical Impression: Degenerative arthritis of lumbar spine, Back pain, Severe anemia, Rectal bleed Instructions: Osteoarthritis (ED) Prescriptions: New lidocaine [Lidoderm] 5 % adhesive patch,medicated 1 patch topical DAILY Qty: 15 0RF Rx Instructions: leave on most painful area for up to 12 hrs acetaminophen [Tylenol Extra Strength] 500 mg tablet 500 mg PO Q6H PRN (Reason: pain) Qty: 20 0RF cyclobenzaprine 10 mg tablet 10 mg PO TID PRN (Reason: muscle spasm) Qty: 20 0RF No Action furosemide 20 mg tablet 20 mg PO DAILY 90 Days Qty: 90 1RF betamethasone dipropionate 0.05 % ointment 1 appl topical BID PRN (Reason: rash) Qty: 15 1RF hydroxyzine pamoate 25 mg capsule 25 mg PO TID PRN (Reason: itching) Qty: 90 0RF losartan 100 mg tablet 100 mg PO DAILY 90 Days Qty: 90 1RF atorvastatin 40 mg tablet 40 mg PO DAILY triamcinolone acetonide 0.5 % ointment 1 appl topical BID 14 Days Qty: 15 0RF Rx Instructions: do not take with any other steroid cream famotidine [Pepcid] 20 mg tablet 20 mg PO BID 7 Days Qty: 14 0RF diphenhydramine HCl [Benadryl] 25 mg capsule 25 mg PO TID PRN (Reason: itching) 7 Days Qty: 21 0RF Rx Instructions: side effect is drowsiness. acetaminophen [Tylenol Extra Strength] 500 mg tablet 500 mg PO Q6H PRN (Reason: fever or pain) Qty: 14 0RF lidocaine [Lidoderm] 5 % adhesive patch,medicated 1 patch topical DAILY MDD remove after 12 hours PRN (Reason: pain) Qty: 30 0RF Rx Instructions: leave on most painful area for up to 12 hrs cyclobenzaprine 5 mg tablet 5 mg PO Q8H PRN (Reason: pain (scale score 7-10)) 5 Days Qty: 14 0RF finasteride 5 mg tablet 5 mg PO DAILY 90 Days Qty: 90 1RF Print Language: Pakistani
[2024-03-31 17:36] LABS: Hematocrit 27.6 % (42.0-52.0); Hemoglobin 9.5 g/dl (14.0-18.0); Mean Corpuscular HGB Conc 34.4 g/dl (31.0-36.0); Mean Corpuscular Hemoglobin 30.4 pg (27.0-33.0); Mean Corpuscular Volume 88.2 fL (80.0-98.0); Mean Platelet Volume 11.3 fL (9.4-12.4); NRBC Pct Auto 0.8 /100WBC (0.0-0.2); Platelet Count 150 X10*3/uL (160-400); Red Blood Count 3.13 X10*6/uL (4.60-5.80); Red Cell Distribution Width 14.4 % (11.0-16.0); White Blood Count 4.9 X10*3/uL (4.8-10.8)
[2024-03-31 17:42] LABS: Anion Gap 15 (12-20); Blood Urea Nitrogen 15 mg/dL (9-16); Calcium 9.5 mg/dL (8.4-10.2); Carbon Dioxide 22 mmol/L (22-29); Chloride 101 mmol/L (96-108); Estimated Glomerular Filt Rate 59; Glucose Random 144 mg/dL (60-115); Potassium 4.1 mmol/L (3.3-5.1); Sodium 134 mmol/L (135-145)
[2024-03-31 18:11] LABS: Band Neutrophils Percent 3 % (3-5); Basophils Abs Manual 0.1 X10*3/uL (0.0-0.2); Basophils Percent Manual 2 % (0-2); Eosinophils Percent Manual 1 % (0-4); Lymphocytes Absolute Manual 0.9 X10*3/uL (1.2-4.9); Lymphocytes Percent Manual 18 % (20-40); Metamyelocytes Percent 1 %; Monocytes Percent Manual 1 % (2-11); Myelocytes Absolute 0.1 X10*/uL; Myelocytes Percent 2 %; Neutrophils Absolute Manual 3.7 X10*3/uL (2.0-8.3); Neutrophils Percent Manual 72 % (45-73); Nucleated Red Blood Cells 2 /100WBC (0-0)
[2024-03-31 18:15] VITALS: BP 157/38; PULSE 73; RESP 18; O2SAT 98
[2024-03-31 18:19] LABS: RBC Morphology NOTED
[2024-03-31 18:20] LABS: Ovalocytes 1+ (5-14) /OIF; Polychromasia 1+ (0-2) /OIF; Schistocytes 1+ (0-2) /OIF
[2024-03-31 18:24] LABS: Platelet Estimate NORMAL (NORMAL); Platelet Morphology Comment NORMAL; Rouleau PRESENT
[2024-03-31 18:30] LABS: Appearance Urine Clear; Color Urine Dark Yellow; Glucose Urine UA Negative (Negative); Leukocyte Esterase Urine Trace (Negative); Nitrite Urine Negative (Negative); PH 5.5 (5.0-9.0); UMIC TRIGGER UACC YES; Urine Blood Negative (Negative); Urine Ketones 15 mg/dL (Negative); Urine Protein 30 (1+) mg/dL (Neg-Trace)
[2024-03-31 18:52] LABS: Bacteria Urine None Seen (None Seen); RBC Urine 0-2 /HPF (0-2); Squamous Epithelial Cell Urine 0-2 /HPF (0-2); WBC Urine 0-5 /HPF (0-5)
[2024-03-31] MEDS: oxyCODONE HCl Immed Release 5 MG TABLET PO (19:18)
[2024-03-31 20:17] LABS: OBS1 POSITIVE (NEGATIVE)
[2024-03-31 20:18] LABS: OBS Int Ctl Valid YES
--- NOTE | 2024-03-31 21:27 | P.HPHOSP_ITS ---
History of Present Illness Date of Service: 03/31/24 Chief Complaint: Weakness, back pain This is a 84-year-old male with pertinent history of hypertension, CKD stage 3, mixed hyperlipidemia, gastroesophageal reflux disease, BPH, hypertension who presents to the emergency department for evaluation of weakness and low back pain. Patient states he was seen in the ER 9 days ago for low back pain and discharged home. INTERNET MARKETING DIRECTOR at bedside states that the patient continues to complain of low back pain. Also has been weak with easy fatigability. Also with poor p.o. intake. Unclear if patient is having dark stools or blood in stools. No fever, chills, chest discomfort, palpitations, shortness of breath, abdominal pain, changes in urinary habits. Patient is Korean speaking and history obtained with the help of vibratory pile driver. In the emergency department, hemoglobin was found to be low at 9.5. Stool occult positive blood. Imaging with new retroperitoneal lymphadenopathy. Review of Systems 2 Constitutional: Constitutional: Reports fatigue, Reports malaise, Reports poor appetite and Reports weakness Cardiovascular: Cardiovascular: Reports no additional cardiovascular complaints Respiratory: Respiratory: Reports no additional respiratory complaints Gastrointestinal: Gastrointestinal: Reports no additional gastrointestinal complaints Genitourinary: Genitourinary: Reports no additional male genitourinary complaints Neurologic: Reports weakness Endocrine: Endocrine: Reports fatigue [facility] Medical History Hearing loss of both ears Chronic kidney disease, stage III (moderate) GERD without esophagitis Benign essential hypertension Pure hypercholesterolemia Varicose veins of right lower extremity with inflammation Arthritis HTN (hypertension) Family History Other Family history non-contributory Surgical History History of cataract extraction S/P ORIF (open reduction internal fixation) fracture Social History Housing: Apartment Patient Tobacco Use Status: Never used Tobacco Smoked in Last 30 Days: No e-Cigarette/Vaping Use: Never Used Advance Directives: No Advance Directives Information Provided: No service: No Current occupational status: retired Cognitive needs: No Hearing needs: No Vision needs: No Meds Allergies Allergy/AdvReac Type Severity Reaction Status Date / Time No Known Allergies Allergy Verified 03/31/24 15:20 Home Medications ?Medication ?Instructions ?Recorded ?Confirmed ?Last Taken ?Type atorvastatin 40 mg tablet 40 mg PO DAILY 02/21/23 12/01/23 Unknown History Physical Exam 2 Vital Signs and Narrative: Vital Signs: Last Vital Signs Temp 98.1 F 03/31/24 15:17 Pulse 73 03/31/24 18:15 Resp 18 03/31/24 18:15 BP 157/38 H 03/31/24 18:15 Pulse Ox 98 03/31/24 18:15 O2 Del Method Room Air 03/31/24 18:15 BMI result Body Mass Index 22.6 Elderly male lying in bed in no distress Neck supple, no JVD Regular rate and rhythm, S1-S2 heard Regular breath sounds bilaterally, no wheezing or crackles appreciated Abdomen soft nontender, no guarding, no rigidity Patient is awake, alert and oriented to self, place, time and person ; no focal motor deficit Psych: Normal mood No pedal edema Results Labs 03/31/24 17:23 03/31/24 17:23 Labs: Laboratory Results - last 24 hr 03/31/24 03/31/24 17:23 18:17 MCV 88.2 MCH 30.4 MCHC 34.4 RDW 14.4 Plt Count 150 L MPV 11.3 Immature Gran % (Auto) Cancelled Neut % (Auto) Cancelled Lymph % (Auto) Cancelled [place] % (Auto) Cancelled Eos % (Auto) Cancelled Baso % (Auto) Cancelled Lymph # (Auto) Cancelled [place] # (Auto) Cancelled Eos # (Auto) Cancelled Baso # (Auto) Cancelled Abs Immat Gran (auto) Cancelled Absolute Neuts (auto) Cancelled Absolute Nucleated RBC 0.040 H Nucleated RBC % (auto) 0.8 H Neutrophils % (Manual) 72 Band Neutrophils % 3 Lymphocytes % (Manual) 18 L Monocytes % (Manual) 1 L Eosinophils % (Manual) 1 Basophils % (Manual) 2 Metamyelocytes % 1 Myelocytes % 2 Abs Neuts (Manual) 3.7 Lymphocytes # (Manual) 0.9 L Basophils # (Manual) 0.1 Myelocytes # 0.1 Nucleated RBCs 2 H Platelet Estimate NORMAL Plt Morphology Comment NORMAL RBC Morphology NOTED Polychromasia 1+ (0-2) Ovalocytes 1+ (5-14) Rouleaux PRESENT Schistocytes 1+ (0-2) Anion Gap 15 Estim Creat Clear Calc 40.0 Estimated GFR 59 Random Glucose 144 H Calcium 9.5 Urine Color Dark Yellow Urine Appearance Clear Urine pH 5.5 Ur Specific [place] 1.020 Urine Protein 30 (1+) H Urine Glucose (UA) Negative Urine Ketones 15 Urine Blood Negative Urine Nitrite Negative Ur Leukocyte Esterase Trace H Urine RBC 0-2 Urine WBC 0-5 Ur Squamous Epith Cells 0-2 Urine Bacteria None Seen Hyaline Casts 6-10 Stool Occult Blood POSITIVE Imaging Radiologist's Impressions: Impressions Abdomen/Pelvis CT 03/31/24 17:00 IMPRESSION: 1. New retroperitoneal lymphadenopathy. 2. Nonobstructing 6 mm right renal calculus. 3. 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 4. 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 5. Other incidental findings as described above. Fleischner guidelines were followed. Electronically signed by: Jan Flores MD 03/31/2024 07:01 PM EDT RP Assessment and Plan (1) Anemia: Status: Acute (2) Generalized weakness: Status: Acute Plan This is a 84-year-old male with pertinent history of hypertension, CKD stage 3, mixed hyperlipidemia, gastroesophageal reflux disease, BPH, hypertension who presents to the emergency department for evaluation of weakness and low back pain. #. Acute normocytic anemia: Hemoglobin dropped 4 points from around 6 months ago. Stool occult positive for blood. Will admit patient with cardiac monitoring and initiate IV Protonix. GI consult if H&H drops further #. Generalized weakness: Likely in the setting of above. PT to evaluate and treat #. Back pain: Has degenerative arthritis and new retroperitoneal lymphadenopathy on imaging. Outpatient follow-up, may require further imaging. Conservative management. Also has extensive atherosclerotic disease, defer antiplatelet agent in the setting of likely GI bleed as above #. Mixed hyperlipidemia: On statin #. Gastroesophageal reflux disease: Initiated IV Protonix as above #. BPH: On finasteride Med rec pending DVT prophylaxis: Mechanical Full code. Discussed with patient at bedside Quality Stroke Does the patient have a stroke diagnosis?: No VTE Prior VTE?: No VTE Risk Level:: Medical - moderate - high VTE Device Contraindication: N/A - Device Ordered VTE Drug Contraindication: Treatment Not Indicated
[2024-03-31] MEDS: Pantoprazole Sodium 40 MG/10 ML VIAL 80 MG IVPUSH (22:03)
--- NOTE | 2024-03-31 22:24 | PC.NURSE ---
22 iv to R. forearm. pt medicated per sep. pt requested food, had one small bite, chewed multiple times and stated cannot swallow it. spit out food. made aware. to keep npo now and plan for speech eval. pt is axox4 speaking full clear sentences. reports 9/10 back pain, MD aware. daughter at bedside. call hernandez within reach.
[2024-03-31 23:49] VITALS: BP 156/60; PULSE 67; RESP 16; TEMP 36.7; O2SAT 95
[2024-04-01] VITALS (8 sets, daily range): BP systolic 145–170; BP diastolic 55–70; PULSE 76–110; RESP 14–21; TEMP 36.5–38; O2SAT 88–99
[2024-04-01] MEDS: Lidocaine 4 % Patch ADH..PATCH 1 PATCH TRANSDERMA ×2 (00:21→10:28)
[2024-04-01] MEDS: 0.9 % Sodium Chloride 500 ML IV (00:23)
[2024-04-01] MEDS: Morphine Sulfate 2 MG/ML CARTRIDGE IVPUSH ×2 (00:23→04:02)
--- NOTE | 2024-04-01 05:20 | PC.NURSE ---
patient previously medicated per the MAR w/ prn pain medication d/t 04/12 back pain. remains on 2L nasal cannula, removed and was found to be 86% - back to 97% on 2L.
[2024-04-01 05:48] LABS: Hemoglobin 8.5 g/dl (14.0-18.0); Mean Corpuscular Hemoglobin 30.1 pg (27.0-33.0); Mean Corpuscular Volume 88.7 fL (80.0-98.0); Mean Platelet Volume 11.4 fL (9.4-12.4); Platelet Count 136 X10*3/uL (160-400); Red Blood Count 2.82 X10*6/uL (4.60-5.80); Red Cell Distribution Width 14.1 % (11.0-16.0); White Blood Count 3.7 X10*3/uL (4.8-10.8)
[2024-04-01 05:54] LABS: NRBC Pct Auto 1.4 /100WBC (0.0-0.2)
[2024-04-01] MEDS: Pantoprazole Sodium 40 MG/10 ML VIAL IVPUSH ×2 (05:57→16:21)
[2024-04-01 06:05] LABS: Anion Gap 15 (12-20); Blood Urea Nitrogen 13 mg/dL (9-16); Carbon Dioxide 21 mmol/L (22-29); Chloride 105 mmol/L (96-108); Creatinine Clr Calc Pharmacy 47.6; Estimated Glomerular Filt Rate > 60; Glucose Random 91 mg/dL (60-115); Potassium 3.9 mmol/L (3.3-5.1); Sodium 137 mmol/L (135-145)
--- NOTE | 2024-04-01 06:05 | PC.NURSE ---
patient aware of awaiting swallow eval by speech therapy and remaining npo at this time.
[2024-04-01 07:25] LABS: Band Neutrophils Percent 10 % (3-5); Basophils Percent Manual 1 % (0-2); Lymphocytes Absolute Manual 0.7 X10*3/uL (1.2-4.9); Lymphocytes Percent Manual 19 % (20-40); Metamyelocytes Absolute 0.1 X10*3/uL; Metamyelocytes Percent 4 %; Monocytes Absolute Manual 0.2 X10*3/uL (0.1-1.2); Monocytes Percent Manual 5 % (2-11); Myelocytes Percent 1 %; Neutrophils Absolute Manual 2.6 X10*3/uL (2.0-8.3); Neutrophils Percent Manual 60 % (45-73); Nucleated Red Blood Cells 1 /100WBC (0-0)
[2024-04-01 07:30] LABS: Hypochromasia 1+ (5-14) /OIF; Platelet Estimate DECREASED (NORMAL); Platelet Morphology Comment NORMAL; Polychromasia 1+ (0-2) /OIF; RBC Morphology NOTED; Schistocytes 1+ (0-2) /OIF
--- NOTE | 2024-04-01 08:20 | PM.GICN ---
History of Present Illness Data of Consult Service Date: 04/01/24 Requesting physician: Rosi Redmond Primary Care Provider: Unknown Physician HPI Reason for consult: weakness, anemia, heme pos 84 year old Yoruba speaking male (can converse in Indonesian) with hypertension, CKD stage 3, mixed hyperlipidemia, gastroesophageal reflux disease, BPH seen at [facility] ED on 03/31/24 for evaluation of weakness and low back pain. Patient stated he was seen in the ER 9 days ago for low back pain and discharged home. History obtained with the help o [facility] behavioral interventionist, Camryn. Pt also complained of feeling weak with easy fatigability and decreased p.o. intake (has been taking soups) and wt loss. Patient complains of dysphagia to solids and liquids for the past 1 month and denies heartburn or abdominal pain. Sometimes he has to regurgitate the food for relief of dysphagia. Patient denies recent change in bowel habits and unclear if he is having dark stools or blood in stools. No fever, chills, chest discomfort, palpitations, shortness of breath, abdominal pain, changes in urinary habits. Pt denies smoking or ETOH or drug abuse. Pt lives with a partner and has 4 children. He denies having an EGD or colonoscopy in the past. In the emergency department, hemoglobin was found to be low at 9.5. Stool occult positive blood. 03/30/[address] SCAN SHOWED: 1. New retroperitoneal lymphadenopathy. 2. Nonobstructing 6 mm right renal calculus. 3. 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 4. 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 5. Other incidental findings as described above. 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 Chronic kidney disease, stage III (moderate) GERD without esophagitis Benign essential hypertension Pure hypercholesterolemia Varicose veins of right lower extremity with inflammation Arthritis HTN (hypertension) Family History Family History Other Family history non-contributory Surgical History Surgical History History of cataract extraction S/P ORIF (open reduction internal fixation) fracture Social History Social History Household Members: Other Housing: [facility] Housing Other:: [facility] Are you a primary career services representative to a significant other at home: No Do you presently have visiting nurse or other home services: No Patient Tobacco Use Status: Former Tobacco user Tobacco use type: Cigarette e-Cigarette/Vaping Use: Never Used Advance Directives Date on File: 05/02/24 service: No Current occupational status: retired Cognitive needs: No Hearing needs: No Vision needs: No Meds Allergies Allergy/AdvReac Type Severity Reaction Status Date / Time No Known Allergies Allergy Verified 05/04/24 15:42 Active Medications: Current Medications Acetaminophen (Acetaminophen 325 Mg Tablet) 650 mg PO Q6H PRN PRN Reason: Pain, Mild (Pain Scale 1-3), fever or headache Calcium Carbonate (Calcium Carbonate 750 Mg Tab.Chew) 750 mg PO Q4H PRN PRN Reason: Heartburn Lidocaine (Lidocaine 4 % Patch Adh..Patch) 1 patch TRANSDERMA DAILY [facility]; Protocol Last Admin: 04/01/24 00:21 Dose: 1 patch Magnesium Hydroxide (Milk Of Magnesia 30 Ml Oral.Susp) 30 ml PO DAILY PRN PRN Reason: Constipation Melatonin (Melatonin 3 Mg Tablet) 6 mg PO BEDTIME PRN PRN Reason: Insomnia Morphine Sulfate (Morphine Sulfate 2 Mg/Ml Cartridge) 2 mg IVPUSH Q4H PRN; Protocol PRN Reason: Pain, Severe (Pain Scale 7-10) Last Admin: 04/01/24 04:02 Dose: 2 mg Ondansetron HCl (Ondansetron Hcl 4 Mg/2 Ml Vial) 4 mg IVPUSH Q8H PRN PRN Reason: Nausea and Vomiting Pantoprazole Sodium (Pantoprazole Sodium 40 Mg/10 Ml Vial) 40 mg IVPUSH BID@0630,1630 [facility] Last Admin: 04/01/24 05:57 Dose: 40 mg Sodium Chloride (0.9 % Sodium Chloride Flush 3 Ml Syringe) 3 ml IVFLUSH QSHIFT [facility] Last Admin: 04/01/24 00:23 Dose: Not Given Home Medications ?Medication ?Instructions ?Recorded ?Confirmed ?Last Taken ?Type furosemide 20 mg tablet 20 mg PO DAILY 04/14/24 05/02/24 Unknown History lidocaine 5 % topical patch 1 patch topical DAILY Pain 04/14/24 05/02/24 Unknown History (Lidoderm) omeprazole 20 mg capsule,delayed 40 mg PO DAILY@0630 04/14/24 05/02/24 Unknown History release acetaminophen 325 mg tablet 650 mg PO Q4H PRN Pain/Discomfort 05/02/24 05/02/24 Unknown History (Tylenol) acetaminophen 650 mg rectal 650 mg ME Q4H PRN Pain/Fever 05/02/24 05/02/24 Unknown History suppository bisacodyl 10 mg rectal suppository 10 mg ME DAILY PRN bowel movement 05/02/24 05/02/24 Unknown History cyclobenzaprine 10 mg tablet 10 mg PO Q8H PRN muscle spasm 05/02/24 05/02/24 Unknown History diclofenac sodium 1 % topical gel 1 g topical BID 05/02/24 05/02/24 Unknown History diphenhydramine HCl 25 mg capsule 25 mg PO Q8H PRN itching 05/02/24 05/02/24 Unknown History (Benadryl) famotidine 20 mg tablet 20 mg PO DAILY@1200 05/02/24 05/02/24 Unknown History finasteride 5 mg tablet 5 mg PO DAILY 05/02/24 05/02/24 Unknown History magnesium hydroxide 400 mg/5 mL 30 ml PO DAILY PRN Bowel Movement 05/02/24 05/02/24 Unknown History oral suspension (Milk of Magnesia) mirtazapine 15 mg tablet 15 mg PO DAILY 05/02/24 05/02/24 Unknown History multivitamin with minerals 1 tab PO DAILY 05/02/24 05/02/24 Unknown History (Multiple Vitamin-Minerals tablet) naloxone 0.4 mg/mL injection 0.4 mg subcut Q3M PRN Opioid 05/02/24 05/02/24 Unknown History solution Overdose ondansetron HCl 4 mg tablet 4 mg PO DAILY Nausea/Vomiting 05/02/24 05/02/24 Unknown History sennosides 8.6 mg tablet (senna) 17.2 mg PO BEDTIME 05/02/24 05/02/24 Unknown History sodium phosphates 19 gram-7 118 ml ME DAILY PRN Constipation 05/02/24 05/02/24 Unknown History gram/118 mL enema (Fleet Enema) Physical Exam Vital Signs: Vital Signs: Last Vital Signs Temp 98.6 F 04/01/24 05:33 Pulse 76 04/01/24 05:33 Resp 16 04/01/24 05:33 BP 145/55 H 04/01/24 05:33 Pulse Ox 99 04/01/24 05:33 O2 Del Method Nasal Cannula 04/01/24 05:33 O2 Flow Rate 2 04/01/24 05:33 BMI result Body Mass Index 22.6 Appearing in no acute distress lung sounds are clear to auscultation heart regular rate rhythm, clear S1, S2 positive bowel sounds, abdomen is soft, nontender neuro patient is alert x3, no focal deficits Results Labs 04/02/24 07:29 04/03/24 08:54 Labs: Short CBC 03/31/24 04/01/24 Range/Units 17:23 05:01 WBC 4.9 3.7 L (4.8-10.8) X10*3/uL Hgb 9.5 L D 8.5 L (14.0-18.0) g/dl Hct 27.6 L D 25.0 L (42.0-52.0) % Plt Count 150 L 136 L (160-400) X10*3/uL BMP 03/31/24 04/01/24 17:23 05:01 Sodium 134 L 137 Potassium 4.1 3.9 Chloride 101 105 Carbon Dioxide 22 21 L BUN 15 13 Creatinine 1.19 1.00 Calcium 9.5 9.0 Urine 03/31/24 Range/Units 18:17 Urine Color Dark Yellow Urine Appearance Clear Urine pH 5.5 (5.0-9.0) Ur Specific [place] 1.020 (1.005-1.025) Urine Protein 30 (1+) H (Neg-Trace) mg/dL Urine Glucose (UA) Negative (Negative) mg/dL Assessment and Plan (1) Anemia: Status: Inactive (2) Generalized weakness: Status: Resolved Plan 84 year old Yoruba speaking male (can converse in Indonesian) with hypertension, CKD stage 3, mixed hyperlipidemia, gastroesophageal reflux disease, BPH admitted to [facility] on 03/31/24 with weakness and low back pain. Patient complains of dysphagia to solids and liquids for the past 1 month and denies heartburn or abdominal pain. Sometimes he has to regurgitate the food for relief of dysphagia. He denies having an EGD or colonoscopy in the past. In the emergency department, hemoglobin was found to be low at 9.5. Stool occult positive blood. Abd CT scan showed new retroperitoneal lymphadenopathy Of note stool Cologuard test was negative in 08/23/2023 RECOMMENDATIONS:. 1. Agree with IV PPI and antiemetics 2. Check iron studes and daily CBC. 3. Pt was advised further evaluation with an EGD and colonoscopy. He agreed to having the EGD and wants to hold off on the colonoscopy. Pt will be scheduled for an EGD with possible dilation. Procedures Date of Service Date of Service: 06/19/24
--- NOTE | 2024-04-01 10:26 | HO.PM.IMPN ---
Subjective Subjective Date of Service: 04/01/24 Review of Systems Follow up weakness, anemia chronic back pain no abdominal pain, nausea or vomiting Physical Exam Vital Signs: Vital Signs: Last Vital Signs Temp 97.8 F 04/01/24 08:28 Pulse 79 04/01/24 08:28 Resp 14 04/01/24 08:28 BP 162/61 H 04/01/24 08:28 Pulse Ox 99 04/01/24 08:28 O2 Del Method Nasal Cannula 04/01/24 08:28 O2 Flow Rate 2 04/01/24 08:28 BMI result Body Mass Index 22.6 Appearing in no acute distress lung sounds are clear to auscultation heart regular rate rhythm, clear S1, S2 positive bowel sounds, abdomen is soft, nontender neuro patient is alert x3, no focal deficits Objective Data Active Medications Acetaminophen (Acetaminophen 325 Mg Tablet) 650 mg PO Q6H PRN PRN Reason: Pain, Mild (Pain Scale 1-3), fever or headache Calcium Carbonate (Calcium Carbonate 750 Mg Tab.Chew) 750 mg PO Q4H PRN PRN Reason: Heartburn Lidocaine (Lidocaine 4 % Patch Adh..Patch) 1 patch TRANSDERMA DAILY [facility]; Protocol Last Admin: 04/01/24 00:21 Dose: 1 patch Documented By: IRMA Magnesium Hydroxide (Milk Of Magnesia 30 Ml Oral.Susp) 30 ml PO DAILY PRN PRN Reason: Constipation Melatonin (Melatonin 3 Mg Tablet) 6 mg PO BEDTIME PRN PRN Reason: Insomnia Morphine Sulfate (Morphine Sulfate 2 Mg/Ml Cartridge) 2 mg IVPUSH Q4H PRN; Protocol PRN Reason: Pain, Severe (Pain Scale 7-10) Last Admin: 04/01/24 04:02 Dose: 2 mg Documented By: SIERRA Ondansetron HCl (Ondansetron Hcl 4 Mg/2 Ml Vial) 4 mg IVPUSH Q8H PRN PRN Reason: Nausea and Vomiting Pantoprazole Sodium (Pantoprazole Sodium 40 Mg/10 Ml Vial) 40 mg IVPUSH BID@0630,1630 [facility] Last Admin: 04/01/24 05:57 Dose: 40 mg Documented By: SIERRA Sodium Chloride (0.9 % Sodium Chloride Flush 3 Ml Syringe) 3 ml IVFLUSH QSHIFT [facility] Last Admin: 04/01/24 00:23 Dose: Not Given Documented By: IRMA Non-Admin Reason: IV Running Labs 04/01/24 05:01 04/01/24 05:01 Labs: Laboratory Results - last 24 hr 03/31/24 03/31/24 04/01/24 17:23 18:17 05:01 MCV 88.2 88.7 MCH 30.4 30.1 MCHC 34.4 34.0 RDW 14.4 14.1 Plt Count 150 L 136 L MPV 11.3 11.4 Immature Gran % (Auto) Cancelled Cancelled Neut % (Auto) Cancelled Cancelled Lymph % (Auto) Cancelled Cancelled Sampson % (Auto) Cancelled Cancelled Eos % (Auto) Cancelled Cancelled Baso % (Auto) Cancelled Cancelled Lymph # (Auto) Cancelled Cancelled Sampson # (Auto) Cancelled Cancelled Eos # (Auto) Cancelled Cancelled Baso # (Auto) Cancelled Cancelled Abs Immat Gran (auto) Cancelled Cancelled Absolute Neuts (auto) Cancelled Cancelled Absolute Nucleated RBC 0.040 H 0.050 H Nucleated RBC % (auto) 0.8 H 1.4 H Neutrophils % (Manual) 72 60 Band Neutrophils % 3 10 H Lymphocytes % (Manual) 18 L 19 L Monocytes % (Manual) 1 L 5 Eosinophils % (Manual) 1 Basophils % (Manual) 2 1 Metamyelocytes % 1 4 Myelocytes % 2 1 Abs Neuts (Manual) 3.7 2.6 Lymphocytes # (Manual) 0.9 L 0.7 L Monocytes # (Manual) 0.2 Basophils # (Manual) 0.1 Metamyelocytes # 0.1 Myelocytes # 0.1 Nucleated RBCs 2 H 1 H Platelet Estimate NORMAL DECREASED Plt Morphology Comment NORMAL NORMAL RBC Morphology NOTED NOTED Polychromasia 1+ (0-2) 1+ (0-2) Hypochromasia 1+ (5-14) Ovalocytes 1+ (5-14) Rouleaux PRESENT Schistocytes 1+ (0-2) 1+ (0-2) Anion Gap 15 15 Estim Creat Clear Calc 40.0 47.6 Estimated GFR 59 > 60 Random Glucose 144 H 91 Calcium 9.5 9.0 Urine Color Dark Yellow Urine Appearance Clear Urine pH 5.5 Ur Specific [place] 1.020 Urine Protein 30 (1+) H Urine Glucose (UA) Negative Urine Ketones 15 Urine Blood Negative Urine Nitrite Negative Ur Leukocyte Esterase Trace H Urine RBC 0-2 Urine WBC 0-5 Ur Squamous Epith Cells 0-2 Urine Bacteria None Seen Hyaline Casts 6-10 Stool Occult Blood POSITIVE Assessment and Plan (1) Generalized weakness: Status: Acute (2) Rectal bleed: Status: Acute (3) Severe anemia: Status: Acute Plan This is a 84-year-old male with pertinent history of hypertension, CKD stage 3, mixed hyperlipidemia, gastroesophageal reflux disease, BPH, hypertension who presents to the emergency department for evaluation of weakness and low back pain. Acute normocytic anemia Hemoglobin dropped 4 points from around 6 months ago. Stool occult positive for blood. IV Protonix. GI consult> EGD, NPO after midnight Also has extensive atherosclerotic disease, defer antiplatelet agent in the setting of likely GI bleed as above Generalized weakness: Likely in the setting of above. PT to evaluate and treat Back pain Has degenerative arthritis and new retroperitoneal lymphadenopathy on imaging. Outpatient follow-up, may require further imaging. Conservative management. Mixed hyperlipidemia On statin Gastroesophageal reflux disease IV Protonix as above BPH On finasteride Med rec pending DVT prophylaxis: Mechanical attending Dr. Leach Full code. Quality Stroke Does the patient have a stroke diagnosis?: No VTE Prior VTE?: No VTE Risk Level:: Medical - moderate - high VTE Device Contraindication: N/A - Device Ordered VTE Drug Contraindication: Treatment Not Indicated
[2024-04-01] MEDS: 0.9 % Sodium Chloride Flush 3 ML SYRINGE IVFLUSH ×2 (10:29→16:21)
--- NOTE | 2024-04-01 11:36 | PHA.MEDREC ---
Pharmacy Consult ? Medication Reconciliation Pharmacy has completed the medication reconciliation. Spoke with patient and over the phone to confirm medications. He reports he takes hydroxyzine BID scheduled.
--- NOTE | 2024-04-01 15:23 | PC.NURSE ---
ambulated independently to the bathroom with steady gait
[2024-04-02] VITALS (10 sets, daily range): BP systolic 103–162; BP diastolic 54–72; PULSE 77–97; RESP 15–20; TEMP 36.3–37.1; O2SAT 92–99
[2024-04-02] MEDS: 0.9 % Sodium Chloride Flush 3 ML SYRINGE IVFLUSH ×3 (00:50→21:20)
[2024-04-02] MEDS: Pantoprazole Sodium 40 MG/10 ML VIAL IVPUSH (05:42)
[2024-04-02 07:46] LABS: Hematocrit 26.9 % (42.0-52.0); Hemoglobin 9.3 g/dl (14.0-18.0); Mean Corpuscular HGB Conc 34.6 g/dl (31.0-36.0); Mean Corpuscular Hemoglobin 30.4 pg (27.0-33.0); Mean Corpuscular Volume 87.9 fL (80.0-98.0); Mean Platelet Volume 11.3 fL (9.4-12.4); Platelet Count 120 X10*3/uL (160-400); Red Blood Count 3.06 X10*6/uL (4.60-5.80); Red Cell Distribution Width 14.4 % (11.0-16.0); White Blood Count 4.7 X10*3/uL (4.8-10.8)
[2024-04-02 07:47] LABS: NRBC Pct Auto 1.1 /100WBC (0.0-0.2)
[2024-04-02 08:02] LABS: INTERNATIONAL NORM RATIO 1.3 (0.9-1.1)
[2024-04-02 08:06] LABS: Alanine Aminotransferase 14 U/L (0-40); Albumin Level 3.3 g/dL (3.5-5.0); Alkaline Phosphatase 494 U/L (39-117); Anion Gap 17 (12-20); Aspartate Amino Transferase 232 U/L (5-37); Bilirubin Total 1.1 mg/dL (0.0-1.0); Blood Urea Nitrogen 12 mg/dL (9-16); Carbon Dioxide 21 mmol/L (22-29); Chloride 103 mmol/L (96-108); Creatinine Clr Calc Pharmacy 45.8; Estimated Glomerular Filt Rate > 60; Glucose Random 111 mg/dL (60-115); Iron 119 mcg/dL (45-160); Percent Iron Saturation 67 % (15-50); Sodium 137 mmol/L (135-145); Total Iron Binding Capacity 177 mcg/dL (228-428); Total Protein 6.3 g/dL (6.5-8.0); Unsaturated Iron Binding 58 ug/dL
[2024-04-02 08:51] LABS: Ferritin 24206 ng/mL (20-250)
--- NOTE | 2024-04-02 09:23 | MHC.CM.PN ---
CHANEL 04/02. This CM met with pt with the assistance of a deckhand maintenance. Pt self-care, lives with a friend, uses a cane, and has [employer] services 16.5hrs/week. Pt educated on HCP, declined at this time. Pt will need assistance with transportation home at discharge. PCP: Dr. Neena Maguire
[2024-04-02] MEDS: Lidocaine 4 % Patch ADH..PATCH 1 PATCH TRANSDERMA (09:47)
--- NOTE | 2024-04-02 10:41 | MHC.SLORD ---
Speech Language Pathology Order Status: Pt NPO for GI procedure, ST to evaluate when indicated, RN consulted.
--- NOTE | 2024-04-02 11:00 | HO.PM.IMPN ---
Subjective Subjective Date of Service: 04/02/24 Review of Systems Follow up weakness, anemia chronic back pain no abdominal pain, nausea or vomiting Physical Exam Vital Signs: Vital Signs: Last Vital Signs Temp 98.1 F 04/02/24 07:37 Pulse 93 04/02/24 07:37 Resp 20 04/02/24 07:37 BP 137/63 04/02/24 07:37 Pulse Ox 94 04/02/24 07:37 O2 Del Method Room Air 04/02/24 07:37 O2 Flow Rate 2 04/01/24 12:31 BMI result Body Mass Index 22.6 Appearing in no acute distress lung sounds are clear to auscultation heart regular rate rhythm, clear S1, S2 positive bowel sounds, abdomen is soft, nontender neuro patient is alert x3, no focal deficits Objective Data Active Medications Acetaminophen (Acetaminophen 325 Mg Tablet) 650 mg PO Q6H PRN PRN Reason: Pain, Mild (Pain Scale 1-3), fever or headache Calcium Carbonate (Calcium Carbonate 750 Mg Tab.Chew) 750 mg PO Q4H PRN PRN Reason: Heartburn Lidocaine (Lidocaine 4 % Patch Adh..Patch) 1 patch TRANSDERMA DAILY [facility]; Protocol Last Admin: 04/02/24 09:47 Dose: 1 patch Documented By: RADHA Magnesium Hydroxide (Milk Of Magnesia 30 Ml Oral.Susp) 30 ml PO DAILY PRN PRN Reason: Constipation Melatonin (Melatonin 3 Mg Tablet) 6 mg PO BEDTIME PRN PRN Reason: Insomnia Morphine Sulfate (Morphine Sulfate 2 Mg/Ml Cartridge) 2 mg IVPUSH Q4H PRN; Protocol PRN Reason: Pain, Severe (Pain Scale 7-10) Last Admin: 04/01/24 04:02 Dose: 2 mg Documented By: SIERRA Ondansetron HCl (Ondansetron Hcl 4 Mg/2 Ml Vial) 4 mg IVPUSH Q8H PRN PRN Reason: Nausea and Vomiting Pantoprazole Sodium (Pantoprazole Sodium 40 Mg/10 Ml Vial) 40 mg IVPUSH BID@0630,1630 [facility] Last Admin: 04/02/24 05:42 Dose: 40 mg Documented By: ANTOIC Sodium Chloride (0.9 % Sodium Chloride Flush 3 Ml Syringe) 3 ml IVFLUSH QSHIFT [facility] Last Admin: 04/02/24 09:48 Dose: 3 ml Documented By: ALEKSANDERAC Labs 04/02/24 07:29 04/02/24 07:29 Labs: Laboratory Results - last 24 hr 03/31/24 04/02/24 17:23 07:29 MCV 87.9 MCH 30.4 MCHC 34.6 RDW 14.4 Plt Count 120 L MPV 11.3 Absolute Nucleated RBC 0.050 H Nucleated RBC % (auto) 1.1 H Smear Path Review SEE NOTE PT 15.0 H INR 1.3 H Anion Gap 17 Estim Creat Clear Calc 45.8 Estimated GFR > 60 Random Glucose 111 Calcium 9.0 Iron 119 TIBC 177 L % Saturation 67 H Unsat Iron Binding 58 Ferritin 54190 H Total Bilirubin 1.1 H AST 232 H ALT 14 Alkaline Phosphatase 494 H Total Protein 6.3 L Albumin 3.3 L Assessment and Plan (1) Generalized weakness: Status: Acute (2) Rectal bleed: Status: Acute (3) Severe anemia: Status: Acute Plan This is a 84-year-old male with pertinent history of hypertension, CKD stage 3, mixed hyperlipidemia, gastroesophageal reflux disease, BPH, hypertension who presents to the emergency department for evaluation of weakness and low back pain. Acute normocytic anemia Hemoglobin dropped 4 points from around 6 months ago. Stool occult positive for blood. IV Protonix. GI consult> EGD today Also has extensive atherosclerotic disease, defer antiplatelet agent in the setting of likely GI bleed as above Generalized weakness: Likely in the setting of above. PT to evaluate and treat Back pain Has degenerative arthritis and new retroperitoneal lymphadenopathy on imaging. Outpatient follow-up, may require further imaging. Conservative management. Mixed hyperlipidemia On statin Gastroesophageal reflux disease IV Protonix as above BPH On finasteride DVT prophylaxis: Mechanical attending Dr. Leach Full code. Quality Stroke Does the patient have a stroke diagnosis?: No VTE Prior VTE?: No VTE Risk Level:: Medical - moderate - high VTE Device Contraindication: N/A - Device Ordered VTE Drug Contraindication: Treatment Not Indicated
--- NOTE | 2024-04-02 15:20 | HO.ANESPROP2 ---
HPI - Anesthesia Eval Consult details Narrative: For EGD PMFSH Active Problems Active Problems: All Active Problems Generalized weakness (Acute) Anemia (Acute) Rectal bleed (Acute) Severe anemia (Acute) Back pain (Acute) Degenerative arthritis of lumbar spine (Acute) Colon cancer screening (Acute) Elevated PSA, greater than or equal to 20 ng/ml (Acute) Annual physical exam (Acute) Hearing loss of both ears (Acute) Chronic kidney disease, stage III (moderate) (Acute) Varicose veins of right lower extremity with inflammation (Acute) GERD without esophagitis (Acute) Benign essential hypertension (Acute) Pure hypercholesterolemia (Acute) Cognitive decline (Acute) COVID-19 (Acute) Past Medical History Medical History Hearing loss of both ears Chronic kidney disease, stage III (moderate) GERD without esophagitis Benign essential hypertension Pure hypercholesterolemia Varicose veins of right lower extremity with inflammation Arthritis HTN (hypertension) Family History Family History Other Family history non-contributory Family history of problems with anesthesia: No Surgical History Surgical History History of cataract extraction S/P ORIF (open reduction internal fixation) fracture History of Problems with Anesthesia: No Social History Social History Household Members: Friend(s) Housing: Apartment Are you a primary childcare aide to a significant other at home: No Do you presently have visiting nurse or other home services: Yes ([employer] services) Patient Tobacco Use Status: Former Tobacco user Tobacco use type: Cigarette e-Cigarette/Vaping Use: Never Used service: No Current occupational status: retired Cognitive needs: No Hearing needs: No Vision needs: No Meds Allergies Allergy/AdvReac Type Severity Reaction Status Date / Time No Known Allergies Allergy Verified 03/31/24 15:20 Active Medications: Current Medications Acetaminophen (Acetaminophen 325 Mg Tablet) 650 mg PO Q6H PRN PRN Reason: Pain, Mild (Pain Scale 1-3), fever or headache Calcium Carbonate (Calcium Carbonate 750 Mg Tab.Chew) 750 mg PO Q4H PRN PRN Reason: Heartburn Finasteride (Finasteride 5 Mg Tablet) 5 mg PO DAILY [facility] Furosemide (Furosemide 20 Mg Tablet) 20 mg PO DAILY [facility]; Protocol Hydroxyzine HCl (Hydroxyzine Hcl 25 Mg Tablet) 25 mg PO BID [facility] Lidocaine (Lidocaine 4 % Patch Adh..Patch) 1 patch TRANSDERMA DAILY [facility]; Protocol Last Admin: 04/02/24 09:47 Dose: 1 patch Losartan Potassium (Losartan Potassium 50 Mg Tablet) 100 mg PO DAILY [facility]; Protocol Magnesium Hydroxide (Milk Of Magnesia 30 Ml Oral.Susp) 30 ml PO DAILY PRN PRN Reason: Constipation Melatonin (Melatonin 3 Mg Tablet) 6 mg PO BEDTIME PRN PRN Reason: Insomnia Morphine Sulfate (Morphine Sulfate 2 Mg/Ml Cartridge) 2 mg IVPUSH Q4H PRN; Protocol PRN Reason: Pain, Severe (Pain Scale 7-10) Last Admin: 04/01/24 04:02 Dose: 2 mg Ondansetron HCl (Ondansetron Hcl 4 Mg/2 Ml Vial) 4 mg IVPUSH Q8H PRN PRN Reason: Nausea and Vomiting Pantoprazole Sodium (Pantoprazole Sodium 40 Mg/10 Ml Vial) 40 mg IVPUSH BID@0630,1630 [facility] Last Admin: 04/02/24 05:42 Dose: 40 mg Sodium Chloride (0.9 % Sodium Chloride Flush 3 Ml Syringe) 3 [facility] Last Admin: 04/02/24 09:48 Dose: 3 ml Home Medications ?Medication ?Instructions ?Recorded ?Confirmed ?Last Taken ?Type hydroxyzine pamoate 25 mg capsule 25 mg PO BID itching 04/01/24 04/01/24 Unknown History Exam Height,Weight and Vital Signs: Height 5 ft 4 in Weight 59.6 kg Last Vital Signs Temp 98.1 F 04/02/24 13:55 Pulse 87 04/02/24 13:55 Resp 16 04/02/24 13:55 BP 155/62 H 04/02/24 13:55 Pulse Ox 93 04/02/24 13:55 O2 Del Method Room Air 04/02/24 13:55 O2 Flow Rate 2 04/01/24 12:31 Pertinent Lab Results Pertinent Lab Results: Laboratory Tests 03/31/24 03/31/24 04/01/24 17:23 18:17 05:01 WBC 4.9 3.7 L RBC 3.13 L D 2.82 L Hgb 9.5 L D 8.5 L Hct 27.6 L D 25.0 L MCV 88.2 88.7 MCH 30.4 30.1 MCHC 34.4 34.0 RDW 14.4 14.1 Plt Count 150 L 136 L MPV 11.3 11.4 Immature Gran % (Auto) Cancelled Cancelled Neut % (Auto) Cancelled Cancelled Lymph % (Auto) Cancelled Cancelled Burt % (Auto) Cancelled Cancelled Eos % (Auto) Cancelled Cancelled Baso % (Auto) Cancelled Cancelled Lymph # (Auto) Cancelled Cancelled Burt # (Auto) Cancelled Cancelled Eos # (Auto) Cancelled Cancelled Baso # (Auto) Cancelled Cancelled Abs Immat Gran (auto) Cancelled Cancelled Absolute Neuts (auto) Cancelled Cancelled Absolute Nucleated RBC 0.040 H 0.050 H Nucleated RBC % (auto) 0.8 H 1.4 H Neutrophils % (Manual) 72 60 Band Neutrophils % 3 10 H Lymphocytes % (Manual) 18 L 19 L Monocytes % (Manual) 1 L 5 Eosinophils % (Manual) 1 Basophils % (Manual) 2 1 Metamyelocytes % 1 4 Myelocytes % 2 1 Abs Neuts (Manual) 3.7 2.6 Lymphocytes # (Manual) 0.9 L 0.7 L Monocytes # (Manual) 0.2 Basophils # (Manual) 0.1 Metamyelocytes # 0.1 Myelocytes # 0.1 Nucleated RBCs 2 H 1 H Platelet Estimate NORMAL DECREASED Plt Morphology Comment NORMAL NORMAL RBC Morphology NOTED NOTED Polychromasia 1+ (0-2) 1+ (0-2) Hypochromasia 1+ (5-14) Ovalocytes 1+ (5-14) Rouleaux PRESENT Schistocytes 1+ (0-2) 1+ (0-2) Smear Path Review SEE NOTE PT INR Sodium 134 L 137 Potassium 4.1 3.9 Chloride 101 105 Carbon Dioxide 22 21 L Anion Gap 15 15 BUN 15 13 Creatinine 1.19 1.00 Estim Creat Clear Calc 40.0 47.6 Estimated GFR 59 > 60 Random Glucose 144 H 91 Calcium 9.5 9.0 Iron TIBC % Saturation Unsat Iron Binding Ferritin Total Bilirubin AST ALT Alkaline Phosphatase Total Protein Albumin Urine Color Dark Yellow Urine Appearance Clear Urine pH 5.5 Ur Specific [place] 1.020 Urine Protein 30 (1+) H Urine Glucose (UA) Negative Urine Ketones 15 Urine Blood Negative Urine Nitrite Negative Ur Leukocyte Esterase Trace H Urine RBC 0-2 Urine WBC 0-5 Ur Squamous Epith Cells 0-2 Urine Bacteria None Seen Hyaline Casts 6-10 Stool Occult Blood POSITIVE 04/02/24 07:29 WBC 4.7 L RBC 3.06 L Hgb 9.3 L Hct 26.9 L MCV 87.9 MCH 30.4 MCHC 34.6 RDW 14.4 Plt Count 120 L MPV 11.3 Immature Gran % (Auto) Neut % (Auto) Lymph % (Auto) Burt % (Auto) Eos % (Auto) Baso % (Auto) Lymph # (Auto) Burt # (Auto) Eos # (Auto) Baso # (Auto) Abs Immat Gran (auto) Absolute Neuts (auto) Absolute Nucleated RBC 0.050 H Nucleated RBC % (auto) 1.1 H Neutrophils % (Manual) Band Neutrophils % Lymphocytes % (Manual) Monocytes % (Manual) Eosinophils % (Manual) Basophils % (Manual) Metamyelocytes % Myelocytes % Abs Neuts (Manual) Lymphocytes # (Manual) Monocytes # (Manual) Basophils # (Manual) Metamyelocytes # Myelocytes # Nucleated RBCs Platelet Estimate Plt Morphology Comment RBC Morphology Polychromasia Hypochromasia Ovalocytes Rouleaux Schistocytes Smear Path Review PT 15.0 H INR 1.3 H Sodium 137 Potassium 4.0 Chloride 103 Carbon Dioxide 21 L Anion Gap 17 BUN 12 Creatinine 1.04 Estim Creat Clear Calc 45.8 Estimated GFR > 60 Random Glucose 111 Calcium 9.0 Iron 119 TIBC 177 L % Saturation 67 H Unsat Iron Binding 58 Ferritin 78601 H Total Bilirubin 1.1 H AST 232 H ALT 14 Alkaline Phosphatase 494 H Total Protein 6.3 L Albumin 3.3 L Urine Color Urine Appearance Urine pH Ur Specific [place] Urine Protein Urine Glucose (UA) Urine Ketones Urine Blood Urine Nitrite Ur Leukocyte Esterase Urine RBC Urine WBC Ur Squamous Epith Cells Urine Bacteria Hyaline Casts Stool Occult Blood Airway Mallampati Class: II TM Dist: >3cm Neck ROM: Full Denture: Upper and Lower Heart: ok Lungs: Spo2 89-91% on room air, 97% on 2L NC. Chest is CTA. No CXR in chart. Abd CT showed clear lung bases. Assessment and Plan Assessment Anesthesia Assessment: Anesthesia Plan Discussed and Chart Reviewed Final Anesthetic Review Family History of Problems with Anesthesia: No History of Problems with Anesthesia: No NPO: Yes ASA Class: IV Final Preanesthetic Review: No Changes in Pt Med Stat, Meds/Allgs Chart Reviewed, Consent Obtained/Reviewed and Anes Risks/Benef Reviewed Patient Risk: High Procedure Risk: Intermediate Anesthetic Plan Anesthetic Plan: Agree w/ Assess. and Plan and TIVA Disposition: Standard PACU
--- NOTE | 2024-04-02 15:59 | MHC.SHP ---
Pre-Procedural Eval Section A - 24 Hr Update-Section A only Date of Service: 04/02/24 The patient is an INPATIENT: Yes Changes since office visit: Yes New Medical Problems, Yes Changes in Medication and Yes Patient answered all questions; No Cold of Flu in the past 2 weeks The patient has been examined within 24 hours of the surgical procedure. The History & Physical has been completed within 30 days and I have reviewed it.: Yes Section B - Complete if H&P > 30 days Chief Complaint: low back pain Allergies: Allergies Allergy/AdvReac Type Severity Reaction Status Date / Time No Known Allergies Allergy Verified 03/31/24 15:20 Plan Diagnosis/Plan: Unchanged I have reviewed the history and physical and performed a pertinent physical examination on my patient. No changes have occurred unless specified. Time Spent With Patient Time: Total time managing care of this patient today ____ minutes.
--- NOTE | 2024-04-02 16:34 | W.PM.OPN ---
Operative Note Operative Note Date of Service: 04/02/24 Narrative: FLEXIBLE TRANSORAL UPPER GASTROINTESTINAL ENDOSCOPY WITH BIOPSIES AND ESOPHAGEAL BALLOON DILATION Pre-op diagnosis: Dysphagia, anemia Post-op diagnosis: Dysphagia, Gastritis, Endoscopist:? Elmer Marr MD Anesthesia:?MAC UPPER ENDOSCOPY Consent: Indications for the procedure and potential complications of bleeding, perforation, reaction to medications and missed diagnosis were discussed with the patient's daughter and HCP (Rosi - [phone]) and informed verbal consent was obtained over the telephone. Instrument: Olympus GIF H 190 mid size upper endoscope Monitoring: Vital signs and clinical assessment, continuous EKG monitoring, Pulse oximetry, Carbon Dioxide monitoring and blood pressure monitoring were done throughout the procedure. Procedure: The patient was placed in the left lateral decubitis position and pre-procedure medications were administered and a bite block was placed. The endoscope was inserted into the mouth and advanced under direct vision to the third part of duodenum. A careful inspection was made as the upper endoscope was withdrawn including a retroflexed examination of the proximal stomach; Findings and interventions are described below. Findings: Larynx: Normal Esophagus: GE junction at 36 cms. Mildly tortuous esophagus without stricture or ring. Empiric balloon dilation of distal esophagus was performed with a 19 mm (51 F) CRE balloon x 60 seconds Stomach: Moderate diffuse gastric erythema - biopsies were obtained from the gastric body and antrum Grade 2 flap valve on retroflexed examination of the cardia. Duodenum: Normal bulb and descending duodenum. Biopsies were obtained from 3rd part of the duodenum to check for celiac sprue Intervention: Biopsies as noted above Impression and Post Procedure Diagnosis: Endoscopy Findings: ESOPHAGUS: Mildly tortuous esophagus without stricture or ring. Empiric balloon dilation of distal esophagus was performed to 51 F STOMACH: Moderate diffuse gastric erythema - biopsies were obtained from the gastric body and antrum. DUODENUM: Normal - biopsied to check for celiac sprue Plan: 1. Follow CBC 2. Resume a soft diet 3. Order placed for genetic testing for hemochromatosis given elevated ferritin level 4. No clear etiology found for dysphagia - pt may have esophageal motility disorder A barium swallow can be considered for further evaluation if dysphagia persists. Above findings were reviewed with the patient and his daughter BIOPSIES SHOWED: A. Small bowel, biopsy: Duodenal mucosa with increased intraepithelial lymphocytes and preserved villous architecture. See comment. B. Stomach, antrum, biopsy: - Antral-type mucosa with moderate chronic, focally active, inflammation and intestinal metaplasia; negative for dysplasia. - Positive for H. pylori. C. Stomach, body, biopsy: - Oxyntic mucosa with moderate chronic inactive inflammation, atrophy and intestinal metaplasia; negative for dysplasia. - Positive for H. pylori. COMMENT: The findings in the duodenum may be, at least in part, secondary to the H. pylori infection. The differential diagnosis, however, is broad and also includes medication/drugs (e.g. NSAIDs), gluten sensitivity/celiac disease, bacterial overgrowth, tropical sprue, immunodeficiency syndromes (e.g. IgA deficiency, CVID), autoimmune enteropathy, Crohns and collagen vascular disease, among others. Please correlate with clinical and other laboratory findings
[2024-04-02] MEDS: hydrOXYzine HCL 25 MG TABLET PO (21:16)
[2024-04-03] VITALS: BP 130/58; PULSE 93; RESP 20; TEMP 36.7; O2SAT 92
[2024-04-03 03:14] VITALS: BP 141/63; PULSE 97; RESP 18; TEMP 37.2; O2SAT 95
[2024-04-03] MEDS: Pantoprazole Sodium 40 MG/10 ML VIAL IVPUSH (06:30)
[2024-04-03 07:56] VITALS: BP 155/67; PULSE 88; RESP 20; TEMP 36.1; O2SAT 100
[2024-04-03] MEDS: Losartan Potassium 50 MG TABLET 100 MG PO (08:09)
[2024-04-03] MEDS: Furosemide 20 MG TABLET PO (08:09)
[2024-04-03] MEDS: Finasteride 5 MG TABLET PO (08:10)
[2024-04-03] MEDS: Lidocaine 4 % Patch ADH..PATCH 1 PATCH TRANSDERMA (08:10)
[2024-04-03] MEDS: hydrOXYzine HCL 25 MG TABLET PO (08:10)
[2024-04-03] MEDS: Acetaminophen 325 MG TABLET 650 MG PO (08:12)
[2024-04-03] MEDS: 0.9 % Sodium Chloride Flush 3 ML SYRINGE IVFLUSH (08:14)
[2024-04-03 08:35] LABS: HBS Num1 2.23 mIU/mL (0-7.99); HBc Num1 0.04 S/CO (0.00-0.79); HBsAGNum1 0.24 S/CO (0.00-0.99); Hepatitis B Core Antibody Nonreactive (Nonreactive); Hepatitis B Surface Antigen Negative (Negative); ~HepC Num1 0.17 S/CO (0.00-0.79); ~Hepatitis B Surface Antibody NONREACTIVE (Nonreactive); ~Hepatitis C Antibody Nonreactive (Nonreactive)
--- NOTE | 2024-04-03 09:04 | PM.DS ---
DS: Providers Provider Date of Service: 04/03/24 Date of admission: 03/31/24 21:26 Primary care physician: Neena Maguire MD Consults: 04/01/24 07:35 Consult to Gastroenterology Routine Consulting Provider: Elmer Marr Reason for consultation: drop in HH, weakness, heme pos DS: Diagnosis Discharge Diagnosis (1) Generalized weakness: Status: Acute (2) Rectal bleed: Status: Acute (3) Severe anemia: Status: Acute DS: Summary Hospital Course Hospital Course: History and physical as per admitting provider. This is a 84-year-old male with pertinent history of hypertension, CKD stage 3, mixed hyperlipidemia, gastroesophageal reflux disease, BPH, hypertension who presents to the emergency department for evaluation of weakness and low back pain. Patient states he was seen in the ER 9 days ago for low back pain and discharged home. IT SYSTEMS ANALYST CONSULTANT at bedside states that the patient continues to complain of low back pain. Also has been weak with easy fatigability. Also with poor p.o. intake. Unclear if patient is having dark stools or blood in stools. No fever, chills, chest discomfort, palpitations, shortness of breath, abdominal pain, changes in urinary habits. Patient is Stateless speaking and history obtained with the help of digital ad trafficker. In the emergency department, hemoglobin was found to be low at 9.5. Stool occult positive blood. Imaging with new retroperitoneal lymphadenopathy. 84-year-old man treated for acute normocytic anemia. He had a 4 point drop of his hemoglobin in 6 months. Stool occult was positive. He was started on IV Protonix. He was seen by Gastroenterology and underwent endoscopy. He was noted to have mild tortuous esophagus without stricture, empiric balloon dilation and distal esophagus was performed. He also had moderate diffuse gastric erythema, biopsies obtained, normal bulb and descending duodenum. Plan is to treat with PPI. Orders placed for genetic testing for hemochromatosis given elevated ferritin levels. Plan is to send patient home and he can follow up with his primary care provider or senior pensions administrator. He also had generalized weakness likely in the setting of anemia. He was seen evaluated by Physical therapy who recommended home with physical therapy. History of chronic back pain with degenerative arthritis, outpatient follow-up, conservative management Hyperlipidemia. Continue statin Alcohol abuse. Discussed importance of alcohol cessation. Did have some mild elevation in his LFTs but trended down. Time Attestation Discharge Coordination Time (in mins): 35 Quality: Safe Use of Opioids Does Pt have an Active Cancer Diagnosis on the Problem List?: No Quality: Stroke Does the patient have a stroke diagnosis?: No Physical Exam Vital Signs: Vital Signs: Last Vital Signs Temp 96.9 F 04/03/24 07:56 Pulse 88 04/03/24 07:56 Resp 20 04/03/24 07:56 BP 155/67 H 04/03/24 07:56 Pulse Ox 100 04/03/24 07:56 O2 Del Method Room Air 04/03/24 07:56 O2 Flow Rate 3 04/02/24 16:55 BMI result Body Mass Index 22.6 Appearing in no acute distress head is normocephalic atraumatic eyes pupils are PERRLA sclera is anicteric mouth throat mucous membranes are intact and moist neck is supple no lymphadenopathy, no JVD noted lung sounds are clear to auscultation heart regular rate rhythm, clear S1, S2 positive bowel sounds, abdomen is soft, nontender neuro patient is alert x3, no focal deficits DS: Data Data Completed and Pending Pending studies at discharge: Pending at discharge 04/02/24 16:21 Surgical [PTH] Routine Labs on day of discharge: Laboratory Results - last 24 hr 03/31/24 04/03/24 17:23 06:02 Smear Path Review SEE NOTE Hep Bs Antigen Negative Hep Bs Antibody NONREACTIVE Hep B Core Total Ab Nonreactive Hepatitis C Ab (EIA) Nonreactive Discharge Plan Discharge Anticipated Discharge Date/Time: 04/03/24 09:02 Patient Disposition: Home Health Service Discharge Diagnosis: Acute normocytic anemia Generalized weakness Elevated ferritin Referrals: Elmer Marr MD [Physician] - None Discharge Medications: New lidocaine [Lidoderm] 5 % adhesive patch,medicated 1 patch topical DAILY Qty: 15 0RF Rx Instructions: leave on most painful area for up to 12 hrs acetaminophen [Tylenol Extra Strength] 500 mg tablet 500 mg PO Q6H PRN (Reason: pain) Qty: 20 0RF cyclobenzaprine 10 mg tablet 10 mg PO TID PRN (Reason: muscle spasm) Qty: 20 0RF omeprazole 20 mg capsule,delayed release(DR/EC) 20 mg PO DAILY Qty: 30 0RF Continued furosemide 20 mg tablet 20 mg PO DAILY 90 Days Qty: 90 1RF losartan 100 mg tablet 100 mg PO DAILY 90 Days Qty: 90 1RF diphenhydramine HCl [Benadryl] 25 mg capsule 25 mg PO TID PRN (Reason: itching) 7 Days Qty: 21 0RF Rx Instructions: side effect is drowsiness. hydroxyzine pamoate 25 mg capsule 25 mg PO BID finasteride 5 mg tablet 5 mg PO DAILY 90 Days Qty: 90 1RF Discharge Orders: Discharge Order (Routine); Ordered 04/03/24 Ordered By: Rosi Redmond Diet: Advance to usual diet Activity on Discharge: As tolerated Stand Alone Forms: Patient Portal Discharge page Print Language: Stateless Care Plan Goals: Follow-up with primary care provider for results of hemochromatosis labs Stopped drinking alcohol Health Concerns: Acute normocytic anemia Generalized weakness Elevated ferritin Alcohol abuse Plan of Treatment: Follow-up with primary care provider as needed Take all medications as prescribed Assessment: See discharge summary Patient Instructions: Osteoarthritis (ED)
[2024-04-03 09:20] LABS: Alanine Aminotransferase 11 U/L (0-40); Albumin Level 3.1 g/dL (3.5-5.0); Alkaline Phosphatase 402 U/L (39-117); Anion Gap 17 (12-20); Aspartate Amino Transferase 91 U/L (5-37); Bilirubin Direct 0.5 mg/dL (0.0-0.5); Bilirubin Total 1.1 mg/dL (0.0-1.0); Blood Urea Nitrogen 13 mg/dL (9-16); Carbon Dioxide 19 mmol/L (22-29); Chloride 105 mmol/L (96-108); Creatinine Clr Calc Pharmacy 50.7; Estimated Glomerular Filt Rate > 60; Glucose Random 165 mg/dL (60-115); Potassium 3.7 mmol/L (3.3-5.1); Sodium 137 mmol/L (135-145); Total Protein 5.9 g/dL (6.5-8.0)
--- NOTE | 2024-04-03 09:30 | P.F2F_ITS ---
Service Date Service Date: 04/03/24 Encounter Date of encounter: 04/03/24 Reasons for Services Signs and symptoms assessed: Anemia Weakness Reason for retirement: CV/CP assess and/or care Reason for physical therapy: home safety and mobility Homebound: Leaving the home is medically contraindicated at this time without the asist of a device and/or another person due th the listed conditions above and below. Reason homebound: weakness related to hospital stay Certification: Based on the above findings, I certify that this patient is confined to the home and needs intermittent retirement care, physical therapy and/or speech ther apy, or continues to need occupational therapy. The patient is under my care, and I have initiated the establishment of the plan of care. The patient will be followed by a physician who will periodically review the plan of care. Time Spent With Patient Time: Total time managing care of this patient today ____ minutes.
--- NOTE | 2024-04-03 10:22 | HO.POSTANES ---
Post Anesthesia Evaluation Post Anesthesia Evaluation Date of Service: 04/02/24 Vital Signs: Vital Signs Temp Pulse Resp BP Pulse Ox O2 Del Method 04/03/24 07:56 96.9 F 88 20 155/67 H 100 Room Air 04/03/24 03:14 98.9 F 97 18 141/63 H 95 Room Air 04/03/24 00:00 98.0 F 93 20 130/58 L 92 Room Air Anesthesia: Monitored Mental Status: Awake Pain Control: Satisfactory Nausea/Vomiting: None Hydration: Adequate Anesthesia-Related Issues: No Anes. Related Issues
--- NOTE | 2024-04-03 10:22 | MHC.CM.PN ---
Pt is medically cleared for discharge home with new [facility] services, pt will transport [place] via [facility].
[2024-04-09 12:04] LABS: Mitochondrial Antibodies NEGATIVE (NEGATIVE)
== END 2024-04-03 10:45 | disposition home health service (06) ==
LOC: HO.ED 21:25 → HO.EDOVER 21:34 → HO.IMC 04-01 17:27
PROVIDERS: Internal Medicine Gastroenterology; Admitting Provider Student in an Organized Health Care Education/Training Program; Emergency Provider Emergency Medicine; PCP Internal Medicine; Visit Provider Nurse Practitioner Acute Care
PROC: 0DJ08ZZ Inspection of Upper Intestinal Tract, Via Natural or Artificial Opening Endoscopic (ICD-10-PCS; CPT 43235; principal; 2024-04-02 15:10)
DX: D64.9 Anemia, unspecified (principal); R53.1 Weakness; K25.9 Gastric ulcer, unspecified as acute or chronic, without hemorrhage or perforation; R19.5 Other fecal abnormalities; R79.89 Other specified abnormal findings of blood chemistry; M54.50 Low back pain, unspecified; I12.9 Hypertensive chronic kidney disease with stage 1 through stage 4 chronic kidney disease, or unspecified chronic kidney disease; N18.30 Chronic kidney disease, stage 3 unspecified; E78.2 Mixed hyperlipidemia; K21.9 Gastro-esophageal reflux disease without esophagitis; R13.10 Dysphagia, unspecified; M47.9 Spondylosis, unspecified; Z79.899 Other long term (current) drug therapy
CPT/HCPCS: 43239; 43249; 36415; 74176; 80048; 80053; 80076; 81001; 81256; 82272; 82728; 83540; 85007; 85027; 85610; 86381; 86704; 86706; 86803; 87340; 88305; 88313; 88342; 96361; 96374; 96375; 96376; 97161; 99222; 99285; C1726; J2270; J2470; J2704

== ENCOUNTER → 2024-03-31 21:26 | Outpatient (BNV) | payer OTHER, SELFPAY | PROVIDERS: Admitting Provider Student in an Organized Health Care Education/Training Program; Emergency Provider Emergency Medicine; PCP Internal Medicine; Visit Provider Internal Medicine Gastroenterology | DX: R13.10 Dysphagia, unspecified (principal); D64.9 Anemia, unspecified; K29.70 Gastritis, unspecified, without bleeding | CPT/HCPCS: 43239; 43249 ==

== ENCOUNTER → 2024-03-31 21:26 | Outpatient (BNV) | payer OTHER, SELFPAY | PROVIDERS: Admitting Provider Student in an Organized Health Care Education/Training Program; Emergency Provider Emergency Medicine; Visit Provider Student in an Organized Health Care Education/Training Program | DX: K62.5 Hemorrhage of anus and rectum (principal); D62 Acute posthemorrhagic anemia; R53.1 Weakness | CPT/HCPCS: 99222; 99232; 99239; G0180 ==

== ENCOUNTER 2024-04-04 12:56 | Inpatient (IN) | payer OTHER, SELFPAY ==
--- NOTE | ~2024-04-04 | US_ITS ---
EXAMINATION: US RETROPERITONEAL LIMITED (RENAL ONLY) CLINICAL INFORMATION: Acute kidney injury (BRENDA). COMPARISON: CT abdomen and pelvis 03/31/2024. TECHNIQUE: Real-time imaging of the kidneys. FINDINGS: RIGHT KIDNEY: 6.8 x 4.9 x 3.9 cm (SAG x AP x TRV). The kidney is normal in contour. Echogenic renal cortex suggest chronic medical renal disease. No calculi or focal parenchymal lesions. No hydronephrosis. Small atrophic right kidney. LEFT KIDNEY: 9.9 x 5.1 x 4.4 cm (SAG x AP x TRV). The kidney is normal in size, contour, and echogenicity. Renal cortical thickness is normal. No calculi or focal parenchymal lesions. No hydronephrosis. US/US renal BI IMPRESSION: * Small atrophic right kidney. * Echogenic right renal cortex suggest chronic medical renal disease, commonly sequela of chronic renal artery stenosis or congenital developmental. * No ultrasound evidence of renal obstruction or hydronephrosis. Electronically signed by: Manoj Mei MD 05/17/2024 07:54 AM EST
[2024-04-04 12:59] VITALS: BP 118/58; PULSE 90; O2SAT 98; BMI 21.6
--- NOTE | 2024-04-04 13:03 | ED.GENADULT ---
HPI - General Adult General Chief complaint: Recheck/Abnormal Lab/Rx Stated complaint: ABN LAB RESULTS,LOW BACK PAIN PER EMS Source: patient Mode of arrival: ambulatory Limitations: no limitations History of Present Illness HPI narrative: This is an 84-year-old man with a past medical history of hypertension, hyperlipidemia, CKD, GERD, BPH, back pain (degenerative arthritis/retroperitoneal lymphadenopathy), recent admission 03/31-04/03 for anemia with positive stool occult blood status post endoscopy 04/02 demonstrating moderate diffuse gastric erythema who presents by EMS for evaluation of abnormal blood work. EMS states that patient was recently here for a GI bleed and had an endoscopy. EMS states that patient was notified today low hemoglobin of 8.6 and was recommended to come to the emergency room. EMS reports that patient has been complaining of lower back pain for the last month. EMS states that patient vomited once this morning. EMS states no hematemesis or bloody stools. Patient states having lower back pain. He states that he was feeling sick earlier this morning held with nausea and vomited once, but states that this has since resolved. He states no hematemesis. He states no abdominal pain, melena or hematochezia. He States no lightheadedness, palpitations or syncope. He states no chest pain or difficulty breathing. He states his low back pain is unchanged. He states no radiation of his pain into his legs. He states no lower extremity paresthesias. He states no incontinence of urine or stool. He states no obstipation or urinary retention. Related Data Home Medications ?Medication ?Instructions ?Recorded ?Confirmed hydroxyzine pamoate 25 mg capsule 25 mg PO BID itching 04/01/24 04/01/24 Previous Rx's ?Medication ?Instructions ?Recorded diphenhydramine HCl 25 mg capsule 25 mg PO TID PRN itching 7 days 09/06/22 (Benadryl) #21 caps finasteride 5 mg tablet 5 mg PO DAILY 90 days #90 tabs 02/01/24 furosemide 20 mg tablet 20 mg PO DAILY 90 days #90 tabs 02/08/24 losartan 100 mg tablet 100 mg PO DAILY 90 days #90 tabs 03/28/24 acetaminophen 500 mg tablet 500 mg PO Q6H PRN pain #20 tabs 03/31/24 (Tylenol Extra Strength) cyclobenzaprine 10 mg tablet 10 mg PO TID PRN muscle spasm #20 03/31/24 tabs lidocaine 5 % topical patch 1 patch topical DAILY #15 ea 03/31/24 (Lidoderm) omeprazole 20 mg capsule,delayed 20 mg PO DAILY #30 caps 04/03/24 release Allergies Allergy/AdvReac Type Severity Reaction Status Date / Time No Known Allergies Allergy Verified 04/04/24 12:59 Review of Systems Review of Systems: ROS as per HPI [facility] Past Medical History Medical History Hearing loss of both ears Chronic kidney disease, stage III (moderate) GERD without esophagitis Benign essential hypertension Pure hypercholesterolemia Varicose veins of right lower extremity with inflammation Arthritis HTN (hypertension) Surgical History History of cataract extraction S/P ORIF (open reduction internal fixation) fracture Family History Family History Other Family history non-contributory Social History Social History Household Members: Friend(s) Housing: Apartment Are you a primary child care centre director to a significant other at home: No Do you presently have visiting nurse or other home services: Yes (EDUCATION COORDINATOR services) Patient Tobacco Use Status: Former Tobacco user Tobacco use type: Cigarette Smoked in Last 30 Days: No e-Cigarette/Vaping Use: Never Used Use of substances other than those prescribed or required for medical reasons: No Advance Directives: No Do you have a plan to hurt others: No Plan service: No Current occupational status: retired Cognitive needs: No Hearing needs: No Vision needs: No Physical Exam ED Vital Signs: Vital Signs - 24 hr 04/04/24 13:07 Temperature 98.3 F Pulse Rate 86 Respiratory Rate 16 Blood Pressure 133/57 L Pulse Oximetry 97 Oxygen Delivery Method Room Air BMI result Body Mass Index 21.6 Gen: NAD, AOx3 HEENT: NCAT, EOMI, normal conjunctiva CV: RRR Pulm: CTAB, no increased work of breathing GI: Soft, NTND, no rebound, guarding or rigidity MSK: No midline vertebral tenderness to palpation, palpable step-offs or overlying skin changes Neuro: Grossly non focal, equal strength in bilateral lower extremities, sensation intact to light touch in bilateral lower extremities Medications Administered Generic Name Dose Route Start Last Admin Trade Name Jerad PRN Reason Stop Dose Admin Lactated Ringer's 1,000 mls @ 999 mls/hr 04/04/24 13:50 04/04/24 13:55 Lr IV 04/04/24 14:50 999 mls/hr .Q1H1M ONE Administration Medical Decision Making Medical Decision Making [facility] Narrative: Differential diagnosis includes, but is not limited to back pain secondary to retroperitoneal lymphadenopathy, lumbar strain, herniated disc, upper GI bleed, gastritis, gastroenteritis, chronic anemia, electrolyte abnormality, acute kidney injury, dehydration. Patient is afebrile and hemodynamically stable on room air. Exam is benign and reassuring. Patient has no focal neurological deficits to suggest need for emergent MRI given low clinical suspicion for cauda equina or other emergent process such as epidural abscess or osteomyelitis. I reviewed and interpreted labs, which is notable for pancytopenia with stable chronic anemia with hemoglobin of 8.9 (previous 9.3 on 04/02/2024), WBC 3.5 (previous 4.7) Plt 100 (previous 120), BUN 23 and Cr 3.40 (previous 13 and 0.94). Patient is provided 1 L IV LR. There is no indication for transfusion of PRBC at this time given that hemoglobin is not less than 7.0. I discussed patient's case and management with admitting hospitalist, Dr. London, and patient is admitted in stable condition for further workup and management. Admission/Observation Consideration of admission/observation: Escalation of care including admission/observation considered Consult Healthcare Provider Management of the patient was discussed with: Hospitalist Lab Data [facility] Lab Attestation statement: I reviewed the patient's lab results. 04/04/24 13:20 04/04/24 13:20 Labs: Lab Results 04/04/24 04/04/24 Range/Units 13:20 13:24 WBC 3.5 L (4.8-10.8) X10*3/uL RBC 2.96 L (4.60-5.80) X10*6/uL Hgb 8.9 L (14.0-18.0) g/dl Hct 26.3 L (42.0-52.0) % MCV 88.9 (80.0-98.0) fL MCH 30.1 (27.0-33.0) pg MCHC 33.8 (31.0-36.0) g/dl RDW 14.6 (11.0-16.0) % Plt Count 100 L (160-400) X10*3/uL MPV 12.2 (9.4-12.4) fL Immature Gran % (Auto) 4.5 H (0.0-0.4) % Neut % (Auto) 63.2 (45-73) % Lymph % (Auto) 21.3 (20-40) % [place] % (Auto) 8.5 (2-11) % Eos % (Auto) 1.4 (0-4) % Baso % (Auto) 1.1 (0-2) % Lymph # (Auto) 0.8 L (1.2-4.9) X10*3/uL [place] # (Auto) 0.3 (0.1-1.2) X10*3/uL Eos # (Auto) 0.1 (0.0-0.4) X10*3/uL Baso # (Auto) 0.0 (0.0-0.2) X10*3/uL Abs Immat Gran (auto) 0.16 H (0.00-0.03) X10*3/uL Absolute Neuts (auto) 2.2 (2.0-8.3) x10*3/uL Absolute Nucleated RBC 0.060 H (0.0-0.012) X10*3/uL Nucleated RBC % (auto) 1.7 H (0.0-0.2) /100WBC Sodium 138 (135-145) mmol/L Potassium 4.4 (3.3-5.1) mmol/L Chloride 104 (96-108) mmol/L Carbon Dioxide 19 L (22-29) mmol/L Anion Gap 19 (12-20) BUN 23 H (9-16) mg/dL Creatinine 3.40 H (0.5-1.4) mg/dL Estim Creat Clear Calc 13.5 Estimated GFR 17 Random Glucose 117 H (60-115) mg/dL Calcium 9.0 (8.4-10.2) mg/dL Blood Type A Negative Antibody Screen NEGATIVE Discharge Plan Discharge Clinical Impression: Anemia, Acute kidney injury Patient Disposition: Admitted As Inpatient Print Language: Nigerien
--- NOTE | 2024-04-04 13:05 | PC.NURSE ---
renuka from home after having endoscopy on 03/31. pt found to have GI bleed during endoscopy. pt received lab results [employer] - stating that H&H was low. specifics in ED triage comment. pt c/o nausea vomiting x this am. denies visual blood in stool/vomit. pt denies any dizziness/lightheadedness. pt also c/o lower back pain/weakness. upon ED arrival - a&ox4. vss and up to date. nsr on the elevator repairer. pt has no complaints aside from c/o lower back pain d/t previous disc dislocation. pt verbalizes slight weakness recently. 20gIV placed in the right wrist/forearm. patent/intact. no sob/wob noted. respirations even/unlabored. plan of care ongoing. call hernandez placed within reach.
[2024-04-04 13:07] VITALS: BP 133/57; PULSE 86; RESP 16; TEMP 36.8; O2SAT 97
[2024-04-04 13:24] LABS: MANUAL DIFF FLAG NO
[2024-04-04 13:26] LABS: Basophils Percent Auto 1.1 % (0-2); Eosinophils Absolute Auto 0.1 X10*3/uL (0.0-0.4); Eosinophils Percent Auto 1.4 % (0-4); Hematocrit 26.3 % (42.0-52.0); Hemoglobin 8.9 g/dl (14.0-18.0); Imm Gran Abs Auto 0.16 X10*3/uL (0.00-0.03); Imm Gran Pct Auto 4.5 % (0.0-0.4); Lymphocytes Absolute Auto 0.8 X10*3/uL (1.2-4.9); Lymphocytes Percent Auto 21.3 % (20-40); Mean Corpuscular HGB Conc 33.8 g/dl (31.0-36.0); Mean Corpuscular Hemoglobin 30.1 pg (27.0-33.0); Mean Corpuscular Volume 88.9 fL (80.0-98.0); Mean Platelet Volume 12.2 fL (9.4-12.4); Monocytes Absolute Auto 0.3 X10*3/uL (0.1-1.2); Monocytes Percent Auto 8.5 % (2-11); NRBC Pct Auto 1.7 /100WBC (0.0-0.2); Neutrophils Absolute Auto 2.2 x10*3/uL (2.0-8.3); Neutrophils Percent Auto 63.2 % (45-73); Platelet Count 100 X10*3/uL (160-400); Red Blood Count 2.96 X10*6/uL (4.60-5.80); Red Cell Distribution Width 14.6 % (11.0-16.0); White Blood Count 3.5 X10*3/uL (4.8-10.8)
[2024-04-04 13:40] LABS: Anion Gap 19 (12-20); Blood Urea Nitrogen 23 mg/dL (9-16); Carbon Dioxide 19 mmol/L (22-29); Chloride 104 mmol/L (96-108); Creatinine Clr Calc Pharmacy 13.5; Estimated Glomerular Filt Rate 17; Glucose Random 117 mg/dL (60-115); Potassium 4.4 mmol/L (3.3-5.1); Sodium 138 mmol/L (135-145)
[2024-04-04] MEDS: Lactated Ringers 1,000 ML 999 ML IV (13:55)
--- NOTE | 2024-04-04 13:56 | PC.NURSE ---
IVF infusing per provider order. respirations remain even/unlabored. plan of care ongoing.
--- NOTE | 2024-04-04 13:58 | MHC.CM.ED ---
Patient dc'd from [facility] on 04[place]03. [facility] was supposed to start service. However patient returned to ER. Return referral made in [facility] so [facility] can follow for d/c needs.
--- NOTE | 2024-04-04 14:41 | P.HPHOSP_ITS ---
History of Present Illness Date of Service: 04/04/24 Attending physician on admission: Jaleel London Chief Complaint: Back pain Pt is an 84-year-old primarily [place] Islander-speaking male with a PMH significant for?HTN, HLD, CKD 3, BPH, chronic back pain with degenerative arthritis, and GERD who presents to the ED from home with back pain. Patient was just discharged from the hospital yesterday after being admitted on 03/31 for generalized weakness in the setting of acute normocytic anemia with stool positive for occult blood. Experienced a 4 point drop in hemoglobin in the past 6 months. Was seen by GI and underwent endoscopy which found mild tortuous esophagitis without stricture; empirirc balloon dilation was performed. Was also found to have moderate diffuse gastric erythema and treated with PPI. Also noted to have elevated ferritin and orders were placed for testing for hemochromatosis. Pt is a rather poor historian and it is unclear exactly what prompted re-presentation today, though he believes his partner called EMS due to continued back pain. Reports lower back pain has been ongoing x1 month, seemingly at current baseline without worsening in the past 2 days. Patient denies fall at home or known trauma to the area. Denies numbness or tingling in extremities. Patient states since discharge has only eaten a little which he vomited back up. Denies abdominal pain or hematemesis. Also reports drinking very little and only urinating once since he has been home. Reports continued weakness, ambulates at home with use of walker and/or cane. Denies chest pain/pressure, palpitations. No shortness a breath or difficulty breathing. In the ED pt with slightly soft BP of 133/57, vitals otherwise WNL. Labs were significant for pancytopenia of WBCs 3.5, H&H 9.8/26.3, platelets 100, similar to previous. BUN elevated at 23 in creatinine 3.40 (elevated from 0.94 yesterday). Pt was treated with 1L IVF. Pt will be admitted to the hospital for treatment and further evaluation of BRENDA likely secondary to dehydration from reduced p.o. intake, GI losses from vomiting, and continue diuretic use. Review of Systems 2 Review of Systems: Lower back pain x1 month Generalized weakness N/V x2 episodes Reduced p.o. intake Reduced urination No diarrhea or abdominal pain Denies chest pain/pressure, palpitations No fever, chills Denies hematemesis, hemoptysis, hematochezia, melena [facility] Medical History Hearing loss of both ears Chronic kidney disease, stage III (moderate) GERD without esophagitis Benign essential hypertension Pure hypercholesterolemia Varicose veins of right lower extremity with inflammation Arthritis HTN (hypertension) Family History Other Family history non-contributory Surgical History History of cataract extraction S/P ORIF (open reduction internal fixation) fracture Social History Household Members: Friend(s) Housing: Apartment Are you a primary manager medicare to a significant other at home: No Do you presently have visiting nurse or other home services: Yes (COVERER services) Patient Tobacco Use Status: Former Tobacco user Tobacco use type: Cigarette Smoked in Last 30 Days: No e-Cigarette/Vaping Use: Never Used Use of substances other than those prescribed or required for medical reasons: No Advance Directives: No Do you have a plan to hurt others: No Plan Nutrition Risks: No Nutritional Risk service: No Current occupational status: retired Cognitive needs: No Hearing needs: No Vision needs: No Meds Allergies Allergy/AdvReac Type Severity Reaction Status Date / Time No Known Allergies Allergy Verified 04/04/24 12:59 Active Medications: Current Medications Lactated Ringer's (Lr) 1,000 mls @ 999 mls/hr IV .Q1H1M ONE Stop: 04/04/24 14:50 Last Admin: 04/04/24 13:55 Dose: 999 mls/hr Home Medications ?Medication ?Instructions ?Recorded ?Confirmed ?Last Taken ?Type hydroxyzine pamoate 25 mg capsule 25 mg PO BID itching 04/01/24 04/04/24 Unknown History Physical Exam 2 Vital Signs and Narrative: Vital Signs: Last Vital Signs Temp 98.3 F 04/04/24 13:07 Pulse 86 04/04/24 13:07 Resp 16 04/04/24 13:07 BP 133/57 L 04/04/24 13:07 Pulse Ox 97 04/04/24 13:07 O2 Del Method Room Air 04/04/24 13:07 BMI result Body Mass Index 21.6 General: AOx3, frail-looking, in no acute distress Resp: CTA bilaterally CVS: S1, S2, RRR GI: +BS, NT, no distention Skin: Warm, dry Neuro: Cranial nerves II-XII grossly intact bilaterally. Motor grossly intact bilaterally. Global generalized weakness, especially in lower extremities bilaterally Extremities: No edema. Chronic left hand contracture. Psych: Appropriate affect Results Labs 04/04/24 13:20 04/04/24 13:20 Labs: Laboratory Results - last 24 hr 04/04/24 04/04/24 13:20 13:24 MCV 88.9 MCH 30.1 MCHC 33.8 RDW 14.6 Plt Count 100 L MPV 12.2 Immature Gran % (Auto) 4.5 H Neut % (Auto) 63.2 Lymph % (Auto) 21.3 [place] % (Auto) 8.5 Eos % (Auto) 1.4 Baso % (Auto) 1.1 Lymph # (Auto) 0.8 L [place] # (Auto) 0.3 Eos # (Auto) 0.1 Baso # (Auto) 0.0 Abs Immat Gran (auto) 0.16 H Absolute Neuts (auto) 2.2 Absolute Nucleated RBC 0.060 H Nucleated RBC % (auto) 1.7 H Anion Gap 19 Estim Creat Clear Calc 13.5 Estimated GFR 17 Random Glucose 117 H Calcium 9.0 Blood Type A Negative Antibody Screen NEGATIVE Assessment and Plan (1) Acute kidney injury: Status: Acute Plan Pt is an 84-year-old primarily [place] Islander-speaking male with a PMH significant for?HTN, HLD, CKD 3, BPH, chronic back pain with degenerative arthritis, and GERD who presents to the ED from home with back pain. Patient was just discharged from the hospital yesterday after being admitted on 03/31 for generalized weakness in the setting of acute normocytic anemia with stool positive for occult blood. Pt will be admitted to the hospital for treatment and further evaluation of BRENDA likely secondary to dehydration from reduced p.o. intake, GI losses from vomiting, and continue diuretic use. BRENDA Creatinine 3.40, elevated from 0.94 yesterday Likely multifactorial: dehydration due to reduced p.o. intake, vomiting, and continuing home Lasix Received 1L IVF in the ED Will place on maintenance fluids Bladder scan, straight cath as necessary Hold losartan, Lasix Will check urine creatinine, microalbumin, urine protein to creatinine ratio, and UA Follow creatinine Lower back pain with generalized weakness Ongoing x1 month CT of cervical spine and x-ray of lumbar spine on 03/22 showing new retroperitoneal lymphadenopathy, as well as degenerative arthritis Acetaminophen, cyclobenzaprine lidocaine patch PT consult for possible STR placement; pt discharged previously on home services Pancytopenia WBCs 3 point, H&H 25643, platelets 100 Stable, similar to previous on 03/31 Denies any acute bleeding: No hemoptysis, hematochezia Follow CBC HTN Hold losartan, Lasix due to BRENDA Resume as warranted Atherosclerotic disease CT from 03/22 showed extensive atherosclerotic disease, 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 London DVT Prophylaxis: Heparin Pt will require a hospitalization of at least two nights for treatment of?BRENDA likely secondary to dehydration from reduced p.o. intake, GI losses from vomiting, and continued diuretic use that will require IVF and close monitoring of labs. Quality Stroke Does the patient have a stroke diagnosis?: No VTE Prior VTE?: No VTE Risk Level:: Medical - moderate - high VTE Device Contraindication: Treatment Not Indicated VTE Drug Contraindication: N/A - Med Ordered
--- NOTE | 2024-04-04 15:15 | PHA.MEDREC ---
Addendum entered by Reese Ortega RPh 04/04/24 15:21: MED REC CHECKED BY [facility] Original Note: Pharmacy Consult ? Medication Reconciliation Pharmacy has completed the medication reconciliation. Utilized Discharge Packet from 04/03/24. I tried talking to patient about some medications and patient was confused and was not able to answer what I was asking him.
--- NOTE | 2024-04-04 15:20 | PC.NURSE ---
admitting provider's bedside speaking w/ pt in regards to plan of care at this time. pt aware of plan of care in regards to being admitted. ambulation trial assessed - 2:1 assist needed to get out bed/use walker. once pt was up on feet, he was able to ambulate independently. stand by assist needed as pt was c/o lower back pain/feeling weak. pt repositioned back into bed to promote comfort. no sob/wob noted. respirations even/unlabored. plan of care ongoing. call hernandez placed within reach.
--- NOTE | 2024-04-04 15:36 | PC.NURSE ---
bladder scan performed - no anatomy/amount of urine noted to be found on scan. provider notified/aware.
[2024-04-04] MEDS: Lactated Ringers 1,000 ML 100 ML IVCONT (16:14)
[2024-04-04] MEDS: Heparin Sodium,Porcine 5,000 UNIT/ML VIAL 5000 UNIT SUBCUT (16:17)
[2024-04-04 16:21] VITALS: BP 166/70; PULSE 86; RESP 16; TEMP 37.1; O2SAT 96
[2024-04-04 17:48] VITALS: BMI 22.0
[2024-04-04 17:54] VITALS: BMI 21.9
[2024-04-04] MEDS: Acetaminophen 325 MG TABLET 650 MG PO (18:01)
[2024-04-04 18:51] VITALS: BP 148/72; PULSE 95; RESP 16; TEMP 36.8; O2SAT 95
[2024-04-04 19:56] LABS: Appearance Urine Cloudy; Color Urine Dark Yellow; Glucose Urine UA Negative (Negative); Leukocyte Esterase Urine Moderate (2+) (Negative); Nitrite Urine Negative (Negative); PH 5.5 (5.0-9.0); Specific Gravity - Urine 1.015 (1.005-1.025); UMIC TRIGGER UACC YES; Urine Blood Trace (Negative); Urine Ketones Trace mg/dL (Negative); Urine Protein 100 (2+) mg/dL (Neg-Trace)
[2024-04-04 20:25] LABS: Creatinine Urine 100.03 mg/dL; Microalbum/Creatinine Ratio Ur 109.9 ug/mg cr (<30); Protein/Creatinine Ratio, Ur 0.88 (<0.2); Total Protein Urine Random 88 mg/dL (<12)
[2024-04-04] MEDS: hydrOXYzine HCL 25 MG TABLET PO (20:25)
[2024-04-04] MEDS: Cyclobenzaprine HCl 10 MG TABLET PO (20:25)
[2024-04-04 21:16] LABS: Bacteria Urine 1+ (None Seen); Granular Casts Urine Present; Hyaline Casts Urine >20 /LPF (0-2); RBC Urine 0-2 /HPF (0-2); UACC Culture Trigger YES
[2024-04-05] MEDS: 0.9 % Sodium Chloride Flush 3 ML SYRINGE IVFLUSH ×3 (00:47→16:02)
[2024-04-05] MEDS: Lactated Ringers 1,000 ML 100 ML IVCONT ×2 (02:06→13:53)
[2024-04-05] MEDS: Heparin Sodium,Porcine 5,000 UNIT/ML VIAL 5000 UNIT SUBCUT (03:38)
[2024-04-05 04:00] VITALS: BP 149/66; PULSE 87; RESP 16; TEMP 36.4; O2SAT 93
[2024-04-05] MEDS: Omeprazole 20 MG CAPSULE.DR PO (06:16)
[2024-04-05 07:06] LABS: Hematocrit 24.2 % (42.0-52.0); Hemoglobin 8.2 g/dl (14.0-18.0); Mean Corpuscular HGB Conc 33.9 g/dl (31.0-36.0); Mean Corpuscular Hemoglobin 30.4 pg (27.0-33.0); Mean Corpuscular Volume 89.6 fL (80.0-98.0); Mean Platelet Volume 12.4 fL (9.4-12.4); NRBC Pct Auto 0.8 /100WBC (0.0-0.2); Red Cell Distribution Width 14.9 % (11.0-16.0); White Blood Count 3.9 X10*3/uL (4.8-10.8)
[2024-04-05 07:07] LABS: Platelet Count 91 X10*3/uL (160-400)
[2024-04-05 07:18] LABS: Anion Gap 17 (12-20); Blood Urea Nitrogen 24 mg/dL (9-16); Calcium 8.8 mg/dL (8.4-10.2); Carbon Dioxide 21 mmol/L (22-29); Chloride 107 mmol/L (96-108); Cholesterol 128 mg/dL (<200); Creatinine Clr Calc Pharmacy 16.8; Estimated Glomerular Filt Rate 22; Glucose Random 91 mg/dL (60-115); HDL Cholesterol 27 mg/dL (>40); LDL Cholesterol Calculated 76 mg/dL (<100); Potassium 4.5 mmol/L (3.3-5.1); Sodium 140 mmol/L (135-145); Triglycerides 126 mg/dL (<150)
[2024-04-05] MEDS: Pantoprazole Sodium 40 MG/10 ML VIAL IVPUSH ×2 (07:58→16:02)
[2024-04-05] MEDS: Finasteride 5 MG TABLET PO (07:59)
[2024-04-05] MEDS: Lidocaine 4 % Patch ADH..PATCH 1 PATCH TRANSDERMA (07:59)
[2024-04-05] MEDS: hydrOXYzine HCL 25 MG TABLET PO ×2 (07:59→20:23)
[2024-04-05 08:00] VITALS: BP 150/65; PULSE 98; RESP 16; TEMP 36.9; O2SAT 94
[2024-04-05 08:01] LABS: Immature Retic Fraction 29.8 % (2.3-13.4); Retic HGB Equivalent 32.5 pg (30.0-35.0); Reticulocytes Absolute 0.053 X10*6/uL (0.026-0.095)
[2024-04-05 08:35] LABS: Lactate Dehydrogenase 8320 U/L (118-273)
[2024-04-05 08:59] LABS: Atypical Lymph Absolute Manual 0.1 x10*3/uL; Atypical Lymphs Percent Manual 3 % (0-6); Band Neutrophils Percent 10 % (3-5); Basophils Abs Manual 0.1 X10*3/uL (0.0-0.2); Basophils Percent Manual 2 % (0-2); Eosinophils Percent Manual 1 % (0-4); Lymphocytes Absolute Manual 0.5 X10*3/uL (1.2-4.9); Lymphocytes Percent Manual 12 % (20-40); Monocytes Absolute Manual 0.1 X10*3/uL (0.1-1.2); Monocytes Percent Manual 2 % (2-11); Myelocytes Percent 1 %; Neutrophils Absolute Manual 3.1 X10*3/uL (2.0-8.3); Neutrophils Percent Manual 69 % (45-73); Nucleated Red Blood Cells 3 /100WBC (0-0)
[2024-04-05 09:02] LABS: RBC Morphology NOTED
[2024-04-05 09:03] LABS: Polychromasia 1+ (0-2) /OIF; Schistocytes 1+ (0-2) /OIF; Spherocytes 2+ (3-5) /OIF
[2024-04-05 09:04] LABS: Platelet Estimate DECREASED (NORMAL); Platelet Morphology Comment NORMAL
--- NOTE | 2024-04-05 11:17 | P.CONNP_ITS ---
History of Present Illness Reason for Consult Consult date: 04/05/24 Chief Complaint Chief complaint: BRENDA History of Present Illness Narrative: Pt is an 84-year-old male (Slovenian-speaking) with a medical history of HTN, HLD, CKD 3, BPH, chronic back pain with degenerative arthritis, and GERD who presented to the ED from home with back pain. Patient was just discharged from the hospital yesterday after being admitted on 03/31 for generalized weakness in the setting of acute normocytic anemia with stool positive for occult blood. He returned the following day and is being treated for evaluation of BRENDA pt reports he vomited yesterday x1 after drinking coffee. He states he had poor fluid intake after his lsat discharge from the hospital. He reports he continued to take his regular home medications, including lasix and losartan. He also reports having to urinate only once prior to coming back to the hospital. He states his back pain is in the middle of his lower spine and has been ongoing for at least a few weeks now he denies increased back pain with urination he denies pain with urination, denies difficulty emptying his bladder states he is passing urine (urinal) Creatinine on arrival was 3.4, which increased from 0.94 the day prior. He has been receiving hydration and his creatinine has improved to 2.77 today anemia with thrombocytopenia schistocyte checked, were negative LDH elevated, haptoglobin pending renal ultrasound was done today, results pending Review of Systems Constitutional: Denies anorexia, Denies fever(s) and Denies weakness Cardiovascular: Denies no additional cardiovascular complaints and Denies dyspnea Respiratory: Reports no additional respiratory complaints, Reports cough and Denies dyspnea Gastrointestinal: Denies diarrhea Genitourinary: Denies hematuria, Denies difficulty urinating, Denies dysuria, Denies flank pain and Denies urinary frequency Musculoskeletal: Denies tingling Skin/Breast: Denies rash Denies focal weakness, Denies tingling, Denies tremor(s) and Denies weakness [facility] Past Medical History Medical History (Updated 04/05/24 @ 11:29 by Radha Dewey DNP, HIGH [employer] OPERATOR-BC) Hearing loss of both ears Chronic kidney disease, stage III (moderate) GERD without esophagitis Benign essential hypertension Pure hypercholesterolemia Varicose veins of right lower extremity with inflammation Arthritis HTN (hypertension) Family History Family History Other Family history non-contributory Surgical History Surgical History History of cataract extraction S/P ORIF (open reduction internal fixation) fracture Social History Social History Household Members: Friend(s) Housing: Apartment Are you a primary healthcare facility administrator to a significant other at home: No Do you presently have visiting nurse or other home services: Yes ([facility]) Patient Tobacco Use Status: Never used Tobacco Tobacco use type: Cigarette Smoked in Last 30 Days: No e-Cigarette/Vaping Use: Never Used Use of substances other than those prescribed or required for medical reasons: No Currently Displaying Signs/Symptoms of Drug Intoxication Withdrawal: No Have you been hit, kicked, punched, or otherwise hurt by someone within the past year? If so, by whom?: No Do you feel safe in your current relationship?: No Current Relationship Is there a partner from a previous relationship who is making you feel unsafe now?: No Are you made to feel afraid or neglected: No Advance Directives: No Do you have a plan to hurt others: No Plan Recently lost weight without trying: No How much weight loss: 2-13 pounds Eating poorly because of decreased appetite: No Nutrition screen score: 1 Nutrition Risks: No Nutritional Risk Poor oral hygiene: No service: No Current occupational status: retired Cognitive needs: No Hearing needs: No Vision needs: No Meds Allergies Allergy/AdvReac Type Severity Reaction Status Date / Time No Known Allergies Allergy Verified 04/04/24 12:59 Active Medications: Current Medications Acetaminophen (Acetaminophen 325 Mg Tablet) 650 mg PO Q6H PRN PRN Reason: Pain, Mild (Pain Scale 1-3), fever or headache Last Admin: 04/04/24 18:01 Dose: 650 mg Benzonatate (Benzonatate 100 Mg Capsule) 100 mg PO TID PRN PRN Reason: Cough Calcium Carbonate (Calcium Carbonate 750 Mg Tab.Chew) 750 mg PO Q4H PRN PRN Reason: Heartburn Cyclobenzaprine HCl (Cyclobenzaprine Hcl 10 Mg Tablet) 10 mg PO TID PRN PRN Reason: muscle spasm Last Admin: 10/02/24 20:25 Dose: 10 mg Diphenhydramine HCl (Diphenhydramine Hcl 25 Mg Capsule) 25 mg PO TID PRN PRN Reason: itching Finasteride (Finasteride 5 Mg Tablet) 5 mg PO DAILY [facility] Last Admin: 04/05/24 07:59 Dose: 5 mg Hydroxyzine HCl (Hydroxyzine Hcl 25 Mg Tablet) 25 mg PO BID [facility] Last Admin: 04/05/24 07:59 Dose: 25 mg Lactated Ringer's (Lr) 1,000 mls @ 100 mls/hr IVCONT .Q10H [facility] Last Admin: 04/05/24 02:06 Dose: 100 mls/hr Lidocaine (Lidocaine 4 % Patch Adh..Patch) 1 patch TRANSDERMA DAILY [facility] Last Admin: 04/05/24 07:59 Dose: 1 patch Magnesium Hydroxide (Milk Of Magnesia 30 Ml Oral.Susp) 30 ml PO DAILY PRN PRN Reason: Constipation Melatonin (Melatonin 3 Mg Tablet) 6 mg PO BEDTIME PRN PRN Reason: Insomnia Ondansetron HCl (Ondansetron Hcl 4 Mg/2 Ml Vial) 4 mg IVPUSH Q8H PRN PRN Reason: Nausea and Vomiting Pantoprazole Sodium (Pantoprazole Sodium 40 Mg/10 Ml Vial) 40 mg IVPUSH BID@0630,1630 [facility] Last Admin: 04/05/24 07:58 Dose: 40 mg Sodium Chloride (0.9 % Sodium Chloride Flush 3 Ml Syringe) 3 ml IVFLUSH QSHIFT [facility] Last Admin: 04/05/24 07:59 Dose: 3 ml Home Medications ?Medication ?Instructions ?Recorded ?Confirmed ?Last Taken ?Type hydroxyzine pamoate 25 mg capsule 25 mg PO BID itching 04/01/24 04/04/24 Unknown History Physical Exam Vital Signs: Last Vital Signs Temp 98.4 F 04/05/24 08:00 Pulse 98 04/05/24 08:00 Resp 16 04/05/24 08:00 BP 150/65 H 04/05/24 08:00 Pulse Ox 94 04/05/24 08:00 O2 Del Method Room Air 04/05/24 08:00 BMI result Body Mass Index 21.9 Const General: comfortable and no acute distress Orientation/consciousness: oriented to person, oriented to place and oriented to time Neck Neck: Yes no JVD Resp Effort & Inspection: able to speak in complete sentences Auscultation: clear to auscultation bilaterally Cardio Jugular venous distension: no JVD Rate: regular rate Rhythm: regular rhythm Heart sounds: S1 normal heart sound present and S2 normal heart sound present GI Palpation (GI): Soft to palpation Rectal Exam - Male: No tenderness General: Yes no CVA tenderness Back/Spine/Pelvis Back: no CVA tenderness Skin Rashes: no rashes Neuro General: oriented to person, oriented to place and oriented to time Extrem General: Yes normal to inspection, No edema and No pedal edema Results Lab Results 04/05/24 11:52 04/05/24 05:41 Lab results: Chemistry 04/04/24 04/05/24 13:20 05:41 Sodium 138 140 Potassium 4.4 4.5 Carbon Dioxide 19 L 21 L BUN 23 H 24 H Creatinine 3.40 H 2.77 H Calcium 9.0 8.8 Hematology 04/04/24 04/05/24 13:20 05:42 WBC 3.5 L 3.9 L Hgb 8.9 L 8.2 L Plt Count 100 L 91 L Urinalysis 04/04/24 19:40 Urine Color Dark Yellow Urine Appearance Cloudy Urine pH 5.5 Ur Specific [place] 1.015 Urine Protein 100 (2+) H Urine Glucose (UA) Negative Urine Ketones Trace Urine Blood Trace H Urine Nitrite Negative Ur Leukocyte Esterase Moderate (2+) H Urine RBC 0-2 Urine WBC 6-10 H Ur Squamous Epith Cells 11-20 Hyaline Casts >20 Urine Studies 04/04/24 19:40 Urine Creatinine 100.03 Assessment and Plan (1) Acute kidney injury: Status: Acute (2) Chronic kidney disease, stage III (moderate): Qualifiers: Chronic kidney disease stage 3 subtype: stage 3b (GFR 30-44) Qualified Code(s): N18.32 - Chronic kidney disease, stage 3b Status: Acute Plan BRENDA on CKD3, due to tubular injury from dehydration secondary to reduced PO intake, vomiting with continued use of diuretic and ARB. patient's renal function beginning to improve with hydration renal US pending- assess for obstruction CT scan was negative three days ago worsening anemia with thrombocytopenia negative schistocytes make HUS less likely LDH elevated, haptoglobin pending recommend continuing IV hydration of LR at 100mL/hr and oral hydration as tolerated recommend continuing to hold losartan and furosemide until creatinine improves recommend monitoring I&O recommend monitoring blood pressures recommend avoiding nephrotoxic substances/medications, including NSAIDs Discussed with Dr Soares. Procedures Date of Service Date of Service: 04/05/24
[2024-04-05 12:00] LABS: Hematocrit 26.5 % (42.0-52.0); Hemoglobin 8.5 g/dl (14.0-18.0)
[2024-04-05 12:25] LABS: Haptoglobin 197 mg/dL (40-268)
[2024-04-05 12:56] LABS: Vitamin B12 1024 pg/mL (200-900)
--- NOTE | 2024-04-05 12:59 | HO.PM.IMPN ---
Subjective Subjective Date of Service: 04/05/24 Interval History: brenda pancytopenia Review of Systems denies any new vomiting po intake improving Physical Exam Vital Signs: Vital Signs: Last Vital Signs Temp 98.4 F 04/05/24 08:00 Pulse 98 04/05/24 08:00 Resp 16 04/05/24 08:00 BP 150/65 H 04/05/24 08:00 Pulse Ox 94 04/05/24 08:00 O2 Del Method Room Air 04/05/24 08:00 BMI result Body Mass Index 21.9 General: AOx3,not in distress Resp: CTA bilaterally CVS: S1, S2, RRR GI: +BS, NT, no distention Skin: Warm, dry Neuro: nonfocal Extremities: No edema. Psych: Appropriate affect Objective Data Active Medications Acetaminophen (Acetaminophen 325 Mg Tablet) 650 mg PO Q6H PRN PRN Reason: Pain, Mild (Pain Scale 1-3), fever or headache Last Admin: 04/04/24 18:01 Dose: 650 mg Documented By: ONEL Benzonatate (Benzonatate 100 Mg Capsule) 100 mg PO TID PRN PRN Reason: Cough Calcium Carbonate (Calcium Carbonate 750 Mg Tab.Chew) 750 mg PO Q4H PRN PRN Reason: Heartburn Cyclobenzaprine HCl (Cyclobenzaprine Hcl 10 Mg Tablet) 10 mg PO TID PRN PRN Reason: muscle spasm Last Admin: 04/04/24 20:25 Dose: 10 mg Documented By: KIM Diphenhydramine HCl (Diphenhydramine Hcl 25 Mg Capsule) 25 mg PO TID PRN PRN Reason: itching Finasteride (Finasteride 5 Mg Tablet) 5 mg PO DAILY [facility] Last Admin: 04/05/24 07:59 Dose: 5 mg Documented By: ONEL Hydroxyzine HCl (Hydroxyzine Hcl 25 Mg Tablet) 25 mg PO BID [facility] Last Admin: 04/05/24 07:59 Dose: 25 mg Documented By: ONEL Lactated Ringer's (Lr) 1,000 mls @ 100 mls/hr IVCONT .Q10H [facility] Last Admin: 04/05/24 02:06 Dose: 100 mls/hr Documented By: KIM Lidocaine (Lidocaine 4 % Patch Adh..Patch) 1 patch TRANSDERMA DAILY [facility] Last Admin: 04/05/24 07:59 Dose: 1 patch Documented By: ONEL Magnesium Hydroxide (Milk Of Magnesia 30 Ml Oral.Susp) 30 ml PO DAILY PRN PRN Reason: Constipation Melatonin (Melatonin 3 Mg Tablet) 6 mg PO BEDTIME PRN PRN Reason: Insomnia Ondansetron HCl (Ondansetron Hcl 4 Mg/2 Ml Vial) 4 mg IVPUSH Q8H PRN PRN Reason: Nausea and Vomiting Pantoprazole Sodium (Pantoprazole Sodium 40 Mg/10 Ml Vial) 40 mg IVPUSH BID@0630,1630 [facility] Last Admin: 04/05/24 07:58 Dose: 40 mg Documented By: ONEL Sodium Chloride (0.9 % Sodium Chloride Flush 3 Ml Syringe) 3 ml IVFLUSH QSHIFT [facility] Last Admin: 04/05/24 07:59 Dose: 3 ml Documented By: ONEL Labs 04/05/24 11:52 04/05/24 05:41 Labs: Laboratory Results - last 24 hr 04/04/24 04/04/24 04/04/24 13:20 13:24 19:40 MCV 88.9 MCH 30.1 MCHC 33.8 RDW 14.6 Plt Count 100 L MPV 12.2 Immature Gran % (Auto) 4.5 H Neut % (Auto) 63.2 Lymph % (Auto) 21.3 [place] % (Auto) 8.5 Eos % (Auto) 1.4 Baso % (Auto) 1.1 Lymph # (Auto) 0.8 L [place] # (Auto) 0.3 Eos # (Auto) 0.1 Baso # (Auto) 0.0 Abs Immat Gran (auto) 0.16 H Absolute Neuts (auto) 2.2 Absolute Nucleated RBC 0.060 H Nucleated RBC % (auto) 1.7 H Neutrophils % (Manual) Band Neutrophils % Lymphocytes % (Manual) Atypical Lymphs % (Man) Monocytes % (Manual) Eosinophils % (Manual) Basophils % (Manual) Myelocytes % Abs Neuts (Manual) Lymphocytes # (Manual) Atyp Lymphs # (Manual) Monocytes # (Manual) Basophils # (Manual) Nucleated RBCs Platelet Estimate Plt Morphology Comment RBC Morphology Polychromasia Spherocytes Schistocytes Smear Path Review Absolute Retic Percent Retic Immature Retic Fraction Retic Hgb Equivalent Anion Gap 19 Estim Creat Clear Calc 13.5 Estimated GFR 17 Random Glucose 117 H Haptoglobin Calcium 9.0 Lactate Dehydrogenase Triglycerides Cholesterol LDL Cholesterol, Calc HDL Cholesterol Vitamin B12 Folate Urine Color Dark Yellow Urine Appearance Cloudy Urine pH 5.5 Ur Specific [place] 1.015 Urine Protein 100 (2+) H Urine Glucose (UA) Negative Urine Ketones Trace Urine Blood Trace H Urine Nitrite Negative Ur Leukocyte Esterase Moderate (2+) H Urine RBC 0-2 Urine WBC 6-10 H Ur Squamous Epith Cells 11-20 Urine Bacteria 1+ Hyaline Casts >20 Granular Casts Present U Random Total Protein 88 H Urine Creatinine 100.03 Urine Microalbumin 110.0 Microalb/Creat Ratio 109.9 H Protein/Creatinin Ratio 0.88 H Blood Type A Negative Antibody Screen NEGATIVE 04/05/24 04/05/24 04/05/24 05:41 05:42 11:52 MCV 89.6 MCH 30.4 MCHC 33.9 RDW 14.9 Plt Count 91 L MPV 12.4 Immature Gran % (Auto) Neut % (Auto) Lymph % (Auto) [place] % (Auto) Eos % (Auto) Baso % (Auto) Lymph # (Auto) [place] # (Auto) Eos # (Auto) Baso # (Auto) Abs Immat Gran (auto) Absolute Neuts (auto) Absolute Nucleated RBC 0.030 H Nucleated RBC % (auto) 0.8 H Neutrophils % (Manual) 69 Band Neutrophils % 10 H Lymphocytes % (Manual) 12 L Atypical Lymphs % (Man) 3 Monocytes % (Manual) 2 Eosinophils % (Manual) 1 Basophils % (Manual) 2 Myelocytes % 1 Abs Neuts (Manual) 3.1 Lymphocytes # (Manual) 0.5 L Atyp Lymphs # (Manual) 0.1 Monocytes # (Manual) 0.1 Basophils # (Manual) 0.1 Nucleated RBCs 3 H Platelet Estimate DECREASED Plt Morphology Comment NORMAL RBC Morphology NOTED Polychromasia 1+ (0-2) Spherocytes 2+ (3-5) Schistocytes 1+ (0-2) Smear Path Review Absolute Retic 0.053 Percent Retic 2.0 H Immature Retic Fraction 29.8 H Retic Hgb Equivalent 32.5 Anion Gap 17 Estim Creat Clear Calc 16.8 Estimated GFR 22 Random Glucose 91 Haptoglobin 197 Calcium 8.8 Lactate Dehydrogenase 8320 H Triglycerides 126 Cholesterol 128 LDL Cholesterol, Calc 76 HDL Cholesterol 27 L Vitamin B12 1024 H Folate 5.0 Urine Color Urine Appearance Urine pH Ur Specific [place] Urine Protein Urine Glucose (UA) Urine Ketones Urine Blood Urine Nitrite Ur Leukocyte Esterase Urine RBC Urine WBC Ur Squamous Epith Cells Urine Bacteria Hyaline Casts Granular Casts U Random Total Protein Urine Creatinine Urine Microalbumin Microalb/Creat Ratio Protein/Creatinin Ratio Blood Type Antibody Screen Microbiology Microbiology Results: Microbiology 04/04/24 Unknown Urine Culture - Preliminary Urine clean catch - Clean Catch Midstream Culture too young to evaluate. Assessment and Plan (1) HTN (hypertension): Status: Acute (2) Acute kidney injury: Status: Acute (3) Anemia: Status: Acute Assessment and Plan: 84-year-old primarily Turkish-speaking male with a PMH significant for?HTN, HLD, CKD 3, BPH, chronic back pain with degenerative arthritis, and GERD who presents to the ED from home with back pain. Patient was just discharged from the hospital yesterday after being admitted on 03/31 for generalized weakness in the setting of acute normocytic anemia with stool positive for occult blood. Pt will be admitted to the hospital for treatment and further evaluation of BRENDA likely secondary to dehydration from reduced p.o. intake, GI losses from vomiting, and continue diuretic use. BRENDA-Likely multifactorial: dehydration due to reduced p.o. intake, vomiting, and continuing home Lasix Creatinine 3.40-trending down to 2.77 Hold losartan, Lasix has proteinuria/pyuria,microalbumin, urine protein to creatinine ratio elevated denies any urinary c/o plan: continue ivf , nephrology eval Lower back pain with generalized weakness,Ongoing x1 month. CT of cervical spine and x-ray of lumbar spine on 03/22 showing new retroperitoneal lymphadenopathy, as well as degenerative arthritis plan: continue Acetaminophen, cyclobenzaprine lidocaine patch PT consult for possible STR placement; pt discharged previously on home services. Pancytopenia somewhat worsenin ldh,ferritin elevated significantly ,haptoglobin levels normal. peripheral smear -1+ schistocytes elevated retic count 2% no new bleeding or vomiting moniter cbc hematology eval. 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 GERD Continue PPI BPH Continue finasteride Full Code DVT Prophylaxis: mech device . ongoing hospitalization need for treatment of?BRENDA likely secondary to dehydration from reduced p.o. intake, GI losses from vomiting, and continued diuretic use that will require IVF and close monitoring of labs. Quality Stroke Does the patient have a stroke diagnosis?: No VTE Prior VTE?: No VTE Risk Level:: Medical - moderate - high VTE Device Contraindication: Treatment Not Indicated VTE Drug Contraindication: N/A - Med Ordered
[2024-04-05 13:34] LABS: Platelet Count 85 X10*3/uL (160-400)
[2024-04-05 13:39] LABS: Alanine Aminotransferase 15 U/L (0-40); Albumin Level 3.1 g/dL (3.5-5.0); Alkaline Phosphatase 519 U/L (39-117); Aspartate Amino Transferase 277 U/L (5-37); Bilirubin Direct 0.5 mg/dL (0.0-0.5); Total Protein 5.8 g/dL (6.5-8.0)
--- NOTE | 2024-04-05 13:46 | P.CNHO_ITS ---
Subjective - Subjective Chief complaint: Consult for: Thrombocytopenia. Schistocytes Patient: new to practice Consult date: 04/05/24 Requesting Physician: Surya Primary Care Provider: Neena Maguire MD Family Provider: Neena Maguire MD Medical Summary: DIAGNOSIS: 1. ANEMIA. 2. THROMBOCYTOPENIA. 3. SCHISTOCYTES. HPI - Consult Narrative Reason for consult: Consult for: 1. Anemia. 2. Fragments on the smear. Narrative: Dante Hawley is a 84 year old gentleman, admitted on 04/04 with back pain. Patient was just discharged from the hospital on04/03, after being admitted on 03/31 for generalized weakness in the setting of acute normocytic anemia with stool positive for occult blood. He had a 4 point drop in hemoglobin in the past 6 months.Was seen by GI and underwent endoscopy which found mild tortuous esophagitis without stricture; empiric balloon dilation was performed. Was also found to have moderate diffuse gastric erythema and treated with PPI. He was noted to have elevated ferritin and orders were placed for testing for hemochromatosis. Pt is a rather poor historian and it is unclear exactly what prompted re- presentation, though he believes his partner called EMS due to continued back pain. Reports lower back pain has been ongoing x1 month, seemingly at current baseline without worsening in the past 2 days. He denies fall at home or known trauma to the area. Denies numbness or tingling in extremities. He has only eaten a little which he vomited back up. Denies abdominal pain or hematemesis. Also reports drinking very little and only urinating once since he has been home. Reports continued weakness, ambulates at home with use of walker and/or cane. Denies chest pain/pressure, palpitations. No shortness a breath or difficulty breathing. In the ED pt with slightly soft BP of 133/57, vitals otherwise WNL. Labs were significant for pancytopenia of WBCs 3.5, H&H 9.8/26.3, platelets 100, similar to previous. BUN elevated at 23 in creatinine 3.40 (elevated from 0.94 yesterday). Pt was treated with 1L IVF. BRENDA likely secondary to dehydration from reduced p.o. intake, GI losses from vomiting, and continue diuretic use. Review of Systems 2 Review of Systems: Lower back pain x1 month Generalized weakness N/V x2 episodes Reduced p.o. intake Reduced urination No diarrhea or abdominal pain Denies chest pain/pressure, palpitations No fever, chills Denies hematemesis, hemoptysis, hematochezia, melena REPLACED BY [facility] Medical History: B[place]ian-speaking male with a PMH significant for?HTN, HLD, CKD 3, BPH, chronic back pain with degenerative arthritis, and GERD Hearing loss of both ears Chronic kidney disease, stage III (moderate) GERD without esophagitis Benign essential hypertension Pure hypercholesterolemia Varicose veins of right lower extremity with inflammation Arthritis HTN (hypertension) Surgical History: History of cataract extraction S/P ORIF (open reduction internal fixation) fracture Family History: Other Family history non-contributory Social History: Household Members: Friend(s) Housing: Apartment Are you a primary patient care assistant to a significant other at home: No Do you presently have visiting nurse or other home services: Yes ([employer]) Patient Tobacco Use Status: Former Tobacco user Tobacco use type: Cigarette Review of Systems - Constitutional Reports system reviewed and no additional complaints, except as documented, Reports fatigue, Reports lack of energy, Reports weight loss, Denies fever(s) - Eyes Reports system reviewed and no additional complaints, except as documented - ENT Reports system reviewed and no additional complaints, except as documented - Cardiovascular Reports system reviewed and no additional complaints, except as documented - Respiratory Reports no additional respiratory complaints - Gastrointestinal Reports system reviewed and no additional complaints, except as documented - Genitourinary Genitourinary: Reports no additional male genitourinary complaints - Musculoskeletal Reports system reviewed and no additional complaints, except as documented - Integumentary/Breasts Skin/Breast: Reports no additional skin complaints - Neurologic Denies focal weakness, Denies tingling, Denies tremor(s), Denies weakness - Psychiatric Reports system reviewed and no additional complaints, except as documented - Endocrine Reports no additional endocrine complaints - Hematologic/Lymphatic Reports system reviewed and no additional complaints, except as documented - Allergic/Immunologic Reports system reviewed and no additional complaints, except as documented Oncology Screenings - ECOG Performance Status ECOG Performance Status: 2 REPLACED BY [facility] Medical History: Medical History (Last Updated 04/05/24 @ 11:29 by Radha Dewey, DNP, [employer]) Arthritis Benign essential hypertension Chronic kidney disease, stage III (moderate) GERD without esophagitis Hearing loss of both ears HTN (hypertension) Pure hypercholesterolemia Varicose veins of right lower extremity with inflammation Functional capacity: wheelchair bound Patient : No Family History: Family History (Last Reviewed 03/31/24 @ 22:13 by Emily Brandon MD) Other Family history non-contributory Surgical History: Surgical History (Last Reviewed 04/05/24 @ 10:29 by Sabrina Littlejohn PT) History of cataract extraction S/P ORIF (open reduction internal fixation) fracture Social History: Social History (Last Reviewed 03/31/24 @ 22:13 by Emily Brandon MD) Living Situation History: Household Members: Friend(s) Housing: Apartment Are you a primary patient care assistant to a significant other at home: No Do you presently have visiting nurse or other home services: Yes Do you presently have visiting nurse or other home services comment: [employer] Alcohol History Details: 1. How often do you have a drink containing alcohol?: a. Never 3. How often do you have six or more drinks on one occasion?: a. Never AUDIT-C Alcohol total score: 0 Currently Displaying Signs/Symptoms of Alcohol Withdrawal: No Tobacco History: Patient Tobacco Use Status: Never used Tobacco Tobacco use type: Cigarette Smoked in Last 30 Days: No e-Cigarette/Vaping Use: Never Used Substance Use History: Use of substances other than those prescribed or required for medical reasons : No Currently Displaying Signs/Symptoms of Drug Intoxication Withdrawal: No Domestic Abuse History: Have you been hit, kicked, punched, or otherwise hurt by someone within the past year? If so, by whom?: No Do you feel safe in your current relationship?: No Current Relationship Is there a partner from a previous relationship who is making you feel unsafe now?: No Are you made to feel afraid or neglected: No Advance Directives: Advance Directives: No Advance Directives Information Provided: Advance Directives Information Provided comment: Declined Homicidal Assessment: Do you have a plan to hurt others: No Plan Nutrition Assessment: Recently lost weight without trying: No How much weight loss: 2-13 pounds Eating poorly because of decreased appetite: No Nutrition screen score: 1 Nutrition Risks: No Nutritional Risk Patient : No Poor oral hygiene: No Occupation Assessmet: service: No Current occupational status: retired Home Medications and Allergies Current Medications: Current Medications Acetaminophen (Acetaminophen 325 Mg Tablet) 650 mg PO Q6H PRN PRN Reason: Pain, Mild (Pain Scale 1-3), fever or headache Last Admin: 04/04/24 18:01 Dose: 650 mg Benzonatate (Benzonatate 100 Mg Capsule) 100 mg PO TID PRN PRN Reason: Cough Calcium Carbonate (Calcium Carbonate 750 Mg Tab.Chew) 750 mg PO Q4H PRN PRN Reason: Heartburn Cyclobenzaprine HCl (Cyclobenzaprine Hcl 10 Mg Tablet) 10 mg PO TID PRN PRN Reason: muscle spasm Last Admin: 04/04/24 20:25 Dose: 10 mg Diphenhydramine HCl (Diphenhydramine Hcl 25 Mg Capsule) 25 mg PO TID PRN PRN Reason: itching Finasteride (Finasteride 5 Mg Tablet) 5 mg PO DAILY [facility] Last Admin: 04/05/24 07:59 Dose: 5 mg Hydroxyzine HCl (Hydroxyzine Hcl 25 Mg Tablet) 25 mg PO BID [facility] Last Admin: 04/05/24 07:59 Dose: 25 mg Lactated Ringer's (Lr) 1,000 mls @ 100 mls/hr IVCONT .Q10H [facility] Last Infusion: 04/05/24 13:35 Dose: Infused Lidocaine (Lidocaine 4 % Patch Adh..Patch) 1 patch TRANSDERMA DAILY [facility] Last Admin: 04/05/24 07:59 Dose: 1 patch Magnesium Hydroxide (Milk Of Magnesia 30 Ml Oral.Susp) 30 ml PO DAILY PRN PRN Reason: Constipation Melatonin (Melatonin 3 Mg Tablet) 6 mg PO BEDTIME PRN PRN Reason: Insomnia Ondansetron HCl (Ondansetron Hcl 4 Mg/2 Ml Vial) 4 mg IVPUSH Q8H PRN PRN Reason: Nausea and Vomiting Pantoprazole Sodium (Pantoprazole Sodium 40 Mg/10 Ml Vial) 40 mg IVPUSH BID@0630,1630 [facility] Last Admin: 04/05/24 07:58 Dose: 40 mg Sodium Chloride (0.9 % Sodium Chloride Flush 3 Ml Syringe) 3 ml IVFLUSH QSHIFT [facility] Last Admin: 04/05/24 07:59 Dose: 3 ml Home Medications ?Medication ?Instructions ?Recorded ?Confirmed ?Type hydroxyzine pamoate 25 mg capsule 25 mg PO BID itching 04/01/24 04/04/24 History Allergies Allergy/AdvReac Type Severity Reaction Status Date / Time No Known Allergies Allergy Verified 04/04/24 12:59 Physical Exam Vital signs: Vital Signs Temp 98.4 F 04/05/24 08:00 Pulse 98 04/05/24 08:00 Resp 16 04/05/24 08:00 BP 150/65 H 04/05/24 08:00 Pulse Ox 94 04/05/24 08:00 O2 Del Method Room Air 04/05/24 08:00 Intake & Output 04/04/24 04/05/24 04/05/24 18:59 06:59 18:59 Intake Total 1000 / 3200 2200 / 3200 1000 / 1000 Output Total 420 / 420 Balance 1000 / 2780 1780 / 2780 1000 / 1000 Urine Output (Average ml/kg/hr) 0.61 0.61 Intake: Intake, Oral Amount 1200 / 1200 Intake, IV Amount 1000 / 2000 1000 / 2000 1000 / 1000 Lactated Ringers 1,000 ml @ 999 1000 / 1000 mls/hr IV .Q1H1M ONE Rx#: [id number] Lactated Ringers 1,000 ml @ 100 1000 / 1000 1000 / 1000 mls/hr IVCONT .Q10H [facility] Rx#: [id number] Output: Output, Urine Amount 420 / 420 Other: Dinner % Eaten 50% Eating (Feeding) Ability Independent Number of Incontinent Voids 1 Urine pull up Urine Color Yellow Last Bowel Movement 04/02/24 Weight 57.8 kg Weight in Grams 03927 Weight 57.8 kg - Constitutional Present: mild distress - Routine HEENT Exam Head: Present: normal inspection, normocephalic Eye: Present: normal appearance ENT: Present: mucous membranes moist - Routine Neck Exam Present: supple - Routine Respiratory Exam Present: CTAB - Routine Cardiovascular Exam Cardiovascular: Present: RRR, S1, S2 - Routine Abdominal Exam Present: soft, nontender - Routine Extremities Exam Present: nontender - Routine Skin Exam Present: intact, normal turgor - Routine Neurological Exam Present: alert, oriented X3 - Detailed Neurological Exam: Coma Scale Eye Opening: Spontaneous (4) Verbal Response: Oriented (5) Motor Response: Obeys commands (6) Claudine Coma Scale Total: 15 - Routine Psychiatric Exam Present: normal affect Hem/Onc Consult Result - Labs CBC & Chem 7: 04/07/24 10:39 04/07/24 06:14 Labs: Short CBC 04/05/24 04/05/24 Range/Units 05:42 11:52 WBC 3.9 L (4.8-10.8) X10*3/uL Hgb 8.2 L 8.5 L (14.0-18.0) g/dl Hct 24.2 L 26.5 L (42.0-52.0) % Plt Count 91 L 85 L (160-400) X10*3/uL BMP 04/05/24 05:41 Sodium 140 Potassium 4.5 Chloride 107 Carbon Dioxide 21 L BUN 24 H Creatinine 2.77 H Calcium 8.8 Cardiac Enzymes 04/05/24 Range/Units 05:41 Total Creatine Kinase 2316 H (38-174) U/L Liver Function 04/05/24 Range/Units 05:41 Total Bilirubin 1.0 (0.0-1.0) mg/dL Direct Bilirubin 0.5 (0.0-0.5) mg/dL AST 277 H (5-37) U/L ALT 15 (0-40) U/L Alkaline Phosphatase 519 H (39-117) U/L Albumin 3.1 L (3.5-5.0) g/dL Urine 04/04/24 Range/Units 19:40 Urine Color Dark Yellow Urine Appearance Cloudy Urine pH 5.5 (5.0-9.0) Ur Specific [place] 1.015 (1.005-1.025) Urine Protein 100 (2+) H (Neg-Trace) mg/dL Urine Glucose (UA) Negative (Negative) mg/dL Assessment and Plan Patient Active problem list reviewed?: Yes (1) Schistocytes on peripheral blood smear Status: Acute Assessment and plan: 84-year-old gentleman, admitted with symptoms of back pain. This appears rather chronic. In addition he has been rather fatigued. DATABASE: 04/05 CBC: WBC 3.9, HGB 8.2, HCT 24.2, PLT 91. 04/04 CBC: WBC 3.2, HGB 8.9, HCT 26.3, PLT 100. Smear review: Polychromasia, spherocytosis, schistocytes, nucleated RBCs. Retic: 2, haptoglobin 197, LDH 8320. CPK: 2316. CT scan of the abdomen pelvis from 03/31 revealed: 1. New retroperitoneal lymphadenopathy. 2. Nonobstructing 6 mm right renal calculus. 3. 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 4. 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 These include: TTP (immune), E coli 057.H7, toxin mediated GOYAL U/S, drug induced(DITMA syndromes), complement mediated TMA, and disorders of vitamin B12 metabolism. In terms of infections associated with MAHA, these include: Gram-positive bacteria, chlamydia, C diff, Legionella. Viral: CMV, hepatitis, HIV, influenza, norovirus. Fungal: Aspergillus, Brianna and cryptococcus. Parasitic: Malaria and Babesia. D. IFFERENTIAL DIAGNOSIS: 1. HEMOLYTIC ANEMIA: Hemolytic screen is positive. 2. RHABDOMYOLYSIS: CPK has been elevated. In renal failure. 3. DIC: Related to infection versus malignancy. Elevated PT. 4. TTP/HUS: Has hemolytic anemia, kidney disease, no fever nor mental status changes, so does not fulfill the Pentad. 5. UNDERLYING MYELO INFILTRATIVE DISORDER: MDS versus MPN, versus lymphoma. Has nucleated RBCs, concern for bone marrow infiltration. With elevated LDH and new retroperitoneal adenopathy, lymphoma is likely. PLAN: I will proceed with further evaluation. Will check Jose test to look for autoimmune hemolytic anemia: Negative. Check DIC screen: PT/PTT: 14.6/INR 1.3,/32.4, fibrinogen >700, D-dimer: 2792. Check HIV. 04/06, LDH: 6083. Check [id number] activity and antibody, to completely rule out TTP. Will monitor his labs carefully. It continues to decline will proceed with a bone marrow exam for further evaluation. Will also discuss the feasibility of retroperitoneal lymph node core biopsy, with IR. Thank you for the consult, I will follow along with you, CC: Neena Maguire. - Time Spent With Patient Time Spent with Patient (in minutes): 30
[2024-04-05 14:48] LABS: INTERNATIONAL NORM RATIO 1.3 (0.9-1.1); Prothrombin Time 14.6 SEC (10.9-12.4)
[2024-04-05 14:50] LABS: D Dimer High Sensitivity 2792 NG/ML
[2024-04-05 14:51] LABS: Partial Thromboplastin Time 32.4 SEC (26.0-36.8)
[2024-04-05 15:14] VITALS: BP 146/80; PULSE 99; RESP 18; TEMP 36.5; O2SAT 97
--- NOTE | 2024-04-05 16:13 | MHC.CM.PN ---
CM met w/ patient at bed side, cancer registrar assisting. IMM delivered. Patient lives in an apt w/ a friend. Has a NETWORK INTERN 16.5 hrs/wk. Ambulates w/ a cane. PCP Neena Maguire MD Completed HCP naming friend, Camryn, [facility]. DP: PT rec home w/ services. [facility] has accepted. Will need shuttle for transport. CM will continue to follow.
[2024-04-05 20:00] VITALS: BP 171/72; PULSE 97; RESP 16; TEMP 37.1; O2SAT 94
[2024-04-05] MEDS: Acetaminophen 325 MG TABLET 650 MG PO (20:23)
[2024-04-05] MEDS: Cyclobenzaprine HCl 10 MG TABLET PO (20:23)
[2024-04-05] MEDS: Melatonin 3 MG TABLET 6 MG PO (20:23)
[2024-04-06] VITALS (8 sets, daily range): BP systolic 146–168; BP diastolic 65–77; PULSE 79–92; RESP 14–20; TEMP 36.2–36.9; O2SAT 92–95
[2024-04-06] MEDS: 0.9 % Sodium Chloride Flush 3 ML SYRINGE IVFLUSH (00:23)
[2024-04-06] MEDS: Lactated Ringers 1,000 ML 100 ML IVCONT ×3 (02:42→20:36)
[2024-04-06] MEDS: Pantoprazole Sodium 40 MG/10 ML VIAL IVPUSH ×2 (06:07→16:41)
[2024-04-06 06:59] LABS: Hematocrit 23.3 % (42.0-52.0); Hemoglobin 7.7 g/dl (14.0-18.0); Mean Corpuscular Hemoglobin 29.7 pg (27.0-33.0); Mean Platelet Volume 12.4 fL (9.4-12.4); NRBC Pct Auto 0.8 /100WBC (0.0-0.2); Red Blood Count 2.59 X10*6/uL (4.60-5.80); Red Cell Distribution Width 15.2 % (11.0-16.0); White Blood Count 3.8 X10*3/uL (4.8-10.8)
[2024-04-06 07:07] LABS: Platelet Count 91 X10*3/uL (160-400)
[2024-04-06 07:16] LABS: Anion Gap 15 (12-20); Blood Urea Nitrogen 20 mg/dL (9-16); Calcium 8.8 mg/dL (8.4-10.2); Carbon Dioxide 22 mmol/L (22-29); Chloride 108 mmol/L (96-108); Estimated Glomerular Filt Rate 48; Glucose Random 101 mg/dL (60-115); Sodium 141 mmol/L (135-145)
--- NOTE | 2024-04-06 07:38 | P.CNGI_ITS ---
History of Present Illness Data of Consult Service Date: 04/06/24 Requesting physician: Julissa Lopes Primary Care Provider: Neena Maguire MD [facility] Reason for consult: Anemia, elevated LFTs 84 year old Azerbaijani speaking male (can converse in Pashto) with hypertension, CKD stage 3, mixed hyperlipidemia, gastroesophageal reflux disease, BPH admitted to [facility] on 04/04/24 with back pain. History obtained with the help of and [facility] sewing machinist, Sharonda. Pt complains of decreased appetite, altered taste in his mouth and inability to take solid food Just too heavy He also complains of feeling weak with easy fatigability and decreased p.o. intake (has been taking soups), dysphagia to solids (states he is able to drink milk, juice and liquids) for the past month and wt loss (Review of records shows a 15 lb wt loss since 12/01/23 from 142 to 127 lbs) Sometimes he has to regurgitate the food for relief of dysphagia. Patient states since discharge has only eaten a little which he vomited back up. Pt denies abdominal pain, reports having diarrhea yesterday and no BM today He admits to wt loss Pt denies smoking or ETOH or drug abuse. Pt lives with a partner and has 4 children. He denies having a colonoscopy in the past (per daughter pt refused to have a colonoscopy in the past). Pt was recently hospitalized at [facility] from 03/31 to 04/03/24 with weakness low back pain, acute normocytic anemia with stool positive for occult blood. Labs showed a 4 point drop in hemoglobin over the past 6 months. EGD showed mildly tortuous esophagus without stricture and empiric balloon dilation was performed. He also had moderate diffuse gastric erythema and was treated with PPI. Labs showed marked elevation of ferritin and genetic testing for hemochromatosis is pending. Also reports drinking very little and only urinating once since he has been home. Reports continued weakness, ambulates at home with use of walker and/or cane. Denies chest pain/pressure, palpitations. No shortness a breath or difficulty breathing. In the ED pt with slightly soft BP of 133/57, vitals otherwise WNL. Labs were significant for pancytopenia of WBCs 3.5, H&H 9.8/26.3, platelets 100, similar to previous. BUN elevated at 23 in creatinine 3.40 (elevated from 0.94 yesterday). Pt was treated with 1L IVF and admitted to the hospital for treatment and further evaluation of BRENDA likely secondary to dehydration from reduced p.o. intake.. 03/30/[address] SCAN SHOWED: 1. New retroperitoneal lymphadenopathy. 2. Nonobstructing 6 mm right renal calculus. 3. 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 4. 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 5. Other incidental findings as described above. Review of Systems 2 Review of Systems: Yes all other systems are reviewed and are negative FORMERLY [facility], [facility] Past Medical History Medical History (Updated 04/06/24 @ 07:40 by Elmer Marr MD) Hearing loss of both ears Chronic kidney disease, stage III (moderate) GERD without esophagitis Benign essential hypertension Pure hypercholesterolemia Varicose veins of right lower extremity with inflammation Arthritis HTN (hypertension) Family History Family History Other Family history non-contributory Surgical History Surgical History (Updated 04/05/24 @ 13:47 by John Jones MD) History of cataract extraction S/P ORIF (open reduction internal fixation) fracture Social History Social History Household Members: Friend(s) Housing: Apartment Are you a primary career law clerk to a significant other at home: No Do you presently have visiting nurse or other home services: Yes ([employer] services) Patient Tobacco Use Status: Never used Tobacco Tobacco use type: Cigarette Smoked in Last 30 Days: No e-Cigarette/Vaping Use: Never Used Use of substances other than those prescribed or required for medical reasons: No Currently Displaying Signs/Symptoms of Drug Intoxication Withdrawal: No Have you been hit, kicked, punched, or otherwise hurt by someone within the past year? If so, by whom?: No Do you feel safe in your current relationship?: No Current Relationship Is there a partner from a previous relationship who is making you feel unsafe now?: No Are you made to feel afraid or neglected: No Advance Directives: No Do you have a plan to hurt others: No Plan Recently lost weight without trying: No How much weight loss: 2-13 pounds Eating poorly because of decreased appetite: No Nutrition screen score: 1 Nutrition Risks: No Nutritional Risk Poor oral hygiene: No service: No Current occupational status: retired Cognitive needs: No Hearing needs: No Vision needs: No Meds Allergies Allergy/AdvReac Type Severity Reaction Status Date / Time No Known Allergies Allergy Verified 04/04/24 12:59 Active Medications: Current Medications Acetaminophen (Acetaminophen 325 Mg Tablet) 650 mg PO Q6H PRN PRN Reason: Pain, Mild (Pain Scale 1-3), fever or headache Last Admin: 04/05/24 20:23 Dose: 650 mg Benzonatate (Benzonatate 100 Mg Capsule) 100 mg PO TID PRN PRN Reason: Cough Calcium Carbonate (Calcium Carbonate 750 Mg Tab.Chew) 750 mg PO Q4H PRN PRN Reason: Heartburn Cyclobenzaprine HCl (Cyclobenzaprine Hcl 10 Mg Tablet) 10 mg PO TID PRN PRN Reason: muscle spasm Last Admin: 04/05/24 20:23 Dose: 10 mg Diphenhydramine HCl (Diphenhydramine Hcl 25 Mg Capsule) 25 mg PO TID PRN PRN Reason: itching Finasteride (Finasteride 5 Mg Tablet) 5 mg PO DAILY [facility] Last Admin: 04/05/24 07:59 Dose: 5 mg Hydroxyzine HCl (Hydroxyzine Hcl 25 Mg Tablet) 25 mg PO BID [facility] Last Admin: 04/05/24 20:23 Dose: 25 mg Lactated Ringer's (Lr) 1,000 mls @ 100 mls/hr IVCONT .Q10H [facility] Last Admin: 04/06/24 02:42 Dose: 100 mls/hr Lidocaine (Lidocaine 4 % Patch Adh..Patch) 1 patch TRANSDERMA DAILY [facility] Last Admin: 04/05/24 07:59 Dose: 1 patch Magnesium Hydroxide (Milk Of Magnesia 30 Ml Oral.Susp) 30 ml PO DAILY PRN PRN Reason: Constipation Melatonin (Melatonin 3 Mg Tablet) 6 mg PO BEDTIME PRN PRN Reason: Insomnia Last Admin: 04/05/24 20:23 Dose: 6 mg Ondansetron HCl (Ondansetron Hcl 4 Mg/2 Ml Vial) 4 mg IVPUSH Q8H PRN PRN Reason: Nausea and Vomiting Pantoprazole Sodium (Pantoprazole Sodium 40 Mg/10 Ml Vial) 40 mg IVPUSH BID@0630,1630 [facility] Last Admin: 04/06/24 06:07 Dose: 40 mg Sodium Chloride (0.9 % Sodium Chloride Flush 3 Ml Syringe) 3 ml IVFLUSH QSHIFT [facility] Last Admin: 04/06/24 07:14 Dose: Not Given Home Medications ?Medication ?Instructions ?Recorded ?Confirmed ?Last Taken ?Type hydroxyzine pamoate 25 mg capsule 25 mg PO BID itching 04/01/24 04/04/24 Unknown History Physical Exam 2 Vital Signs: Vital Signs: Last Vital Signs Temp 98 F 04/06/24 06:54 Pulse 84 04/06/24 06:54 Resp 16 04/06/24 06:54 BP 152/74 H 04/06/24 06:54 Pulse Ox 92 04/06/24 06:54 O2 Del Method Room Air 04/06/24 06:54 BMI result Body Mass Index 21.9 General: AOx3,not in distress Resp: CTA bilaterally CVS: S1, S2, RRR GI: +BS, NT, no distention Skin: Warm, dry Neuro: nonfocal Extremities: No edema. Psych: Appropriate affect Results Labs 04/06/24 10:46 04/06/24 05:35 Labs: Short CBC 04/05/24 04/06/24 Range/Units 11:52 05:36 WBC 3.8 L (4.8-10.8) X10*3/uL Hgb 8.5 L 7.7 L (14.0-18.0) g/dl Hct 26.5 L 23.3 L (42.0-52.0) % Plt Count 85 L 91 L (160-400) X10*3/uL BMP 04/06/24 05:35 Sodium 141 Potassium 4.0 Chloride 108 Carbon Dioxide 22 BUN 20 H Creatinine 1.41 H Calcium 8.8 Cardiac Enzymes 04/05/24 Range/Units 05:41 Total Creatine Kinase 2316 H (38-174) U/L Liver Function 04/05/24 Range/Units 05:41 Total Bilirubin 1.0 (0.0-1.0) mg/dL Direct Bilirubin 0.5 (0.0-0.5) mg/dL AST 277 H (5-37) U/L ALT 15 (0-40) U/L Alkaline Phosphatase 519 H (39-117) U/L Albumin 3.1 L (3.5-5.0) g/dL Microbiology Microbiology Results: Microbiology 04/04/24 Unknown Urine clean catch - Clean Catch Midstream Urine Culture - Preliminary Culture too young to evaluate. Assessment and Plan (1) Anemia: Status: Acute (2) GERD without esophagitis: Status: Acute (3) Dysphagia: Status: Acute Plan 84 year old Azerbaijani speaking male (can converse in Pashto) with hypertension, CKD stage 3, mixed hyperlipidemia, gastroesophageal reflux disease, BPH admitted to [facility] on 04/04/24 with back pain. Pt complains of decreased appetite, altered taste in his mouth and inability to take solid food Just too heavy He also complains of feeling weak with easy fatigability and decreased p.o. intake (has been taking soups), dysphagia to solids (states he is able to drink milk, juice and liquids) for the past month and wt loss EGD showed mildly tortuous esophagus without stricture and empiric balloon dilation was performed. He also had moderate diffuse gastric erythema and was treated with PPI. Labs showed iron studies cw anemia of chronic disease, marked elevation of ferritin and genetic testing for hemochromatosis is pending. Gastric biopsies were positive for H Pylori He denies having a colonoscopy in the past (per daughter pt refused to have a colonoscopy in the past). Pt refused to have a colonoscopy during his last admission Of note stool Cologuard test was negative in 08/23/2023 RECOMMENDATIONS:. 1. Agree with IV PPI and antiemetics 2. Agree with Hematology consult to rule out hematologic source of anemia. 3. Barium swallow and evaluation by Speech pathologist to evaluate dysphagia symptoms. 4. Treatment of H Pylori infection can be initiated once pt is able to tolerate PO diet Procedures Date of Service Date of Service: 04/06/24
[2024-04-06] MEDS: Lidocaine 4 % Patch ADH..PATCH 1 PATCH TRANSDERMA (08:06)
[2024-04-06] MEDS: Finasteride 5 MG TABLET PO (08:06)
[2024-04-06] MEDS: hydrOXYzine HCL 25 MG TABLET PO ×2 (08:06→20:35)
[2024-04-06 08:13] LABS: Alanine Aminotransferase 13 U/L (0-40); Alkaline Phosphatase 507 U/L (39-117); Aspartate Amino Transferase 156 U/L (5-37); Bilirubin Direct 0.5 mg/dL (0.0-0.5); Total Protein 5.7 g/dL (6.5-8.0)
[2024-04-06 08:24] LABS: Lactate Dehydrogenase 6083 U/L (118-273)
--- NOTE | 2024-04-06 10:19 | P.PNNP_ITS ---
Subjective Subjective Date of Service: 04/06/24 Interval history: Pt is an 84-year-old male (Finnish-speaking) with a medical history of HTN, HLD, CKD 3, BPH, chronic back pain with degenerative arthritis, and GERD who presented to the ED from home with back pain. Patient was just discharged from the hospital yesterday after being admitted on 03/31 for generalized weakness in the setting of acute normocytic anemia with stool positive for occult blood. He returned the following day and is being treated for evaluation of BRENDA reports vomiting x1 and poor PO intake prior to admission He continues to take lasix and losartan at this time, only urinated x1 over period of 1 day before going to hospital He states his back pain is in the middle of his lower spine and has been ongoing for at least a few weeks now he denies increased back pain with urination he denies pain with urination, denies difficulty emptying his bladder states he is passing urine (urinal) Creatinine on arrival was 3.4, which increased from 0.94 the day prior. He has been receiving hydration and has been improving, today is 1.41 anemia with thrombocytopenia schistocyte checked, were negative LDH and CK elevated, haptoglobin normal CT scan from 03/31 shows new retroperitoneal lymphadenopathy renal ultrasound was done 04/05, results still pending CT from 03/31 showed non-obstructing right renal calculus without hydronephrosis/obstruction. Physical Exam 2 Vital Signs: Vital Signs: Last Vital Signs Temp 98 F 04/06/24 06:54 Pulse 84 04/06/24 06:54 Resp 16 04/06/24 06:54 BP 152/74 H 04/06/24 06:54 Pulse Ox 92 04/06/24 06:54 O2 Del Method Room Air 04/06/24 06:54 BMI result Body Mass Index 21.9 Const: General: comfortable and no acute distress O rientation/consciousness: oriented to person, oriented to place and oriented to time Neck: Neck: Yes no JVD Resp: Effort & Inspection: able to speak in complete sentences A uscultation: clear to auscultation bilaterally Cardio: Jugular venous distension: no JVD Rate: regular rate Rhythm: r egular rhythm Heart sounds: S1 normal heart sound present and S2 normal heart sound present GI: Palpation (GI): Soft to palpation Rectal Exam - Male: No tenderness : General: Yes no CVA tenderness Back/Spine/Pelvis: Back: no CVA tenderness Skin: Rashes: no rashes Neuro: General: oriented to person, oriented to place and oriented to time Extrem: General: Yes normal to inspection, No edema and No pedal edema Objective Data Labs 04/06/24 10:46 04/06/24 05:35 Labs: Laboratory Results - last 24 hr 04/04/24 04/05/24 04/05/24 13:24 05:41 11:52 WBC RBC Hgb 8.5 L Hct 26.5 L MCV MCH MCHC RDW Plt Count 85 L MPV Absolute Nucleated RBC Nucleated RBC % (auto) PT INR APTT D-Dimer High Sensitivty Sodium Potassium Chloride Carbon Dioxide Anion Gap BUN Creatinine Estim Creat Clear Calc Estimated GFR Random Glucose Haptoglobin 197 Calcium Total Bilirubin 1.0 Direct Bilirubin 0.5 AST 277 H ALT 15 Alkaline Phosphatase 519 H Lactate Dehydrogenase Total Creatine Kinase 2316 H Total Protein 5.8 L Albumin 3.1 L Vitamin B12 1024 H Folate 5.0 Blood Type A Negative Antibody Screen NEGATIVE BRENDA, Polyspecific NEGATIVE Positive BRENDA Work-up TNP 04/05/24 04/06/24 04/06/24 14:29 05:35 05:36 WBC 3.8 L RBC 2.59 L Hgb 7.7 L Hct 23.3 L MCV 90.0 MCH 29.7 MCHC 33.0 RDW 15.2 Plt Count 91 L MPV 12.4 Absolute Nucleated RBC 0.030 H Nucleated RBC % (auto) 0.8 H PT 14.6 H INR 1.3 H APTT 32.4 D-Dimer High Sensitivty 2792 Sodium 141 Potassium 4.0 Chloride 108 Carbon Dioxide 22 Anion Gap 15 BUN 20 H Creatinine 1.41 H Estim Creat Clear Calc 33.0 Estimated GFR 48 Random Glucose 101 Haptoglobin Calcium 8.8 Total Bilirubin 1.0 Direct Bilirubin 0.5 AST 156 H ALT 13 Alkaline Phosphatase 507 H Lactate Dehydrogenase 6083 H Total Creatine Kinase 1808 H Total Protein 5.7 L Albumin 3.0 L Vitamin B12 Folate Blood Type Antibody Screen BRENDA, Polyspecific Positive BRENDA Work-up Microbiology Microbiology Results: Microbiology 04/04/24 Unknown Urine clean catch - Clean Catch Midstream Urine Culture - Preliminary Culture too young to evaluate. Procedures Date of Service Date of Service: 04/06/24 Assessment & Plan Assessment and plan (1) Acute kidney injury: Status: Acute (2) Chronic kidney disease, stage III (moderate): Status: Acute (3) Benign essential hypertension: Status: Acute (4) Anemia: Status: Acute Plan BRENDA on CKD3, due to tubular injury from hypoperfusion secondary to reduced PO intake, vomiting with continued use of diuretic and ARB. patient's renal function continues to improve with hydration and holding diuretic/arb renal US pending- assess for obstruction CT scan was negative a few days prior to admission days ago worsening anemia with thrombocytopenia negative schistocytes make HUS less likely new retroperitoneal lymphadenopathy on recent CT raises concern for other hematologic process as underlying cause recommend continuing IV hydration of LR at 100mL/hr and oral hydration as tolerated recommend continuing to hold losartan and furosemide until creatinine improves recommend monitoring I&O recommend monitoring blood pressures recommend avoiding nephrotoxic substances/medications, including NSAIDs Discussed with Dr Time Spent With Patient Time: Total time managing care of this patient today ____ minutes. Progress Note: Quality Stroke Does the patient have a stroke diagnosis?: No
[2024-04-06 11:19] LABS: Hematocrit 22.9 % (42.0-52.0); Hemoglobin 7.6 g/dl (14.0-18.0)
--- NOTE | 2024-04-06 11:23 | MHC.CM.PN ---
Per MD rounds patient not medically cleared for dc. CM will continue to follow.
[2024-04-06] MEDS: Albumin Human 25 % 100 ML IV ×2 (11:59→20:35)
[2024-04-06 12:00] LABS: Adenovirus PCR Not Detected (Not Detect.); Bordetella parapertussis PCR Not Detected (Not Detect.); Bordetella pertussis PCR Not Detected (Not Detect.); Chlamydia pneumoniae PCR Not Detected (Not Detect.); Coronavirus 229E PCR Not Detected (Not Detect.); Coronavirus HKU1 PCR Not Detected (Not Detect.); Coronavirus NL63 PCR Not Detected (Not Detect.); Coronavirus OC43 PCR Not Detected (Not Detect.); Human metapneumovirus PCR Not Detected (Not Detect.); Influenza A PCR Not Detected (Not Detect.); Influenza B PCR Not Detected (Not Detect.); Mycoplasma pneumoniae PCR Not Detected (Not Detect.); Parainfluenza 1 PCR Not Detected (Not Detect.); Parainfluenza 2 PCR Not Detected (Not Detect.); Parainfluenza 3 PCR Not Detected (Not Detect.); Parainfluenza 4 PCR Not Detected (Not Detect.); RSV PCR Not Detected (Not Detect.); Rhino/Enterovirus PCR Not Detected (Not Detect.)
[2024-04-06 12:35] LABS: SARS-CoV-2 PCR Not Detected (Not Detect.)
[2024-04-06 12:52] LABS: Appearance Urine Clear; Color Urine Yellow; Glucose Urine UA Negative (Negative); Leukocyte Esterase Urine Negative (Negative); Nitrite Urine Negative (Negative); UMIC TRIGGER UA YES; Urine Blood Negative (Negative); Urine Ketones Negative (Negative); Urine Protein 30 (1+) mg/dL (Neg-Trace)
[2024-04-06 12:55] LABS: Bacteria Urine None Seen (None Seen); Hyaline Casts Urine 0-2 /LPF (0-2); RBC Urine 0-2 /HPF (0-2); Squamous Epithelial Cell Urine 0-2 /HPF (0-2); WBC Urine 0-5 /HPF (0-5)
--- NOTE | 2024-04-06 13:39 | MHC.CLN ---
NUTRITION CONSULT FOR HYPOALBUMINEMIA. ALBUMIN=3.0 04/06/24. CKD IS POSSIBLE CAUSAL OF LOW ALBUMIN. DIET=REGULAR. ENSURE TID PROVIDES ADDITIONAL 1050 KCALS, 60 G PROTEIN. PO INTAKE VARIABLE. NO SIGNIFICANT WEIGHT CHANGE X ONE YEAR. CONTINUE CURRENT DIET AND SUPPLEMENT.
--- NOTE | 2024-04-06 16:11 | HO.PM.IMPN ---
Subjective Subjective Date of Service: 04/06/24 Interval History: brenda ,pancytopenia Review of Systems denies any new vomiting or any new bleeding po intake improving Physical Exam Vital Signs: Vital Signs: Last Vital Signs Temp 98.4 F 04/06/24 15:18 Pulse 79 04/06/24 15:18 Resp 18 04/06/24 15:18 BP 151/77 H 04/06/24 15:18 Pulse Ox 92 04/06/24 15:18 O2 Del Method Room Air 04/06/24 15:18 BMI result Body Mass Index 21.9 General: AOx3,not in distress Resp: CTA bilaterally CVS: S1, S2, RRR GI: +BS, NT, no distention Skin: Warm, dry Neuro: nonfocal Extremities: No edema. Psych: Appropriate affect Objective Data Active Medications Acetaminophen (Acetaminophen 325 Mg Tablet) 650 mg PO Q6H PRN PRN Reason: Pain, Mild (Pain Scale 1-3), fever or headache Last Admin: 04/05/24 20:23 Dose: 650 mg Documented By: KIM Benzonatate (Benzonatate 100 Mg Capsule) 100 mg PO TID PRN PRN Reason: Cough Calcium Carbonate (Calcium Carbonate 750 Mg Tab.Chew) 750 mg PO Q4H PRN PRN Reason: Heartburn Cyclobenzaprine HCl (Cyclobenzaprine Hcl 10 Mg Tablet) 10 mg PO TID PRN PRN Reason: muscle spasm Last Admin: 04/05/24 20:23 Dose: 10 mg Documented By: KIM Diphenhydramine HCl (Diphenhydramine Hcl 25 Mg Capsule) 25 mg PO TID PRN PRN Reason: itching Finasteride (Finasteride 5 Mg Tablet) 5 mg PO DAILY [facility] Last Admin: 04/06/24 08:06 Dose: 5 mg Documented By: LJ Hydroxyzine HCl (Hydroxyzine Hcl 25 Mg Tablet) 25 mg PO BID [facility] Last Admin: 04/06/24 08:06 Dose: 25 mg Documented By: LJ Lactated Ringer's (Lr) 1,000 mls @ 100 mls/hr IVCONT .Q10H [facility] Last Admin: 04/06/24 11:59 Dose: 100 mls/hr Documented By: LJ Albumin Human (Kedbumin 25 %) 100 mls @ 100 mls/hr IV Q6H [facility] Stop: 04/07/24 06:44 Last Infusion: 04/06/24 13:15 Dose: Infused Documented By: LJ Sodium Chloride (Ns) 100 mls @ 100 mls/hr IV ONCE ONE Stop: 04/06/24 17:09 Lidocaine (Lidocaine 4 % Patch Adh..Patch) 1 patch TRANSDERMA DAILY [facility] Last Admin: 04/06/24 08:06 Dose: 1 patch Documented By: LJ Magnesium Hydroxide (Milk Of Magnesia 30 Ml Oral.Susp) 30 ml PO DAILY PRN PRN Reason: Constipation Melatonin (Melatonin 3 Mg Tablet) 6 mg PO BEDTIME PRN PRN Reason: Insomnia Last Admin: 04/05/24 20:23 Dose: 6 mg Documented By: KIM Ondansetron HCl (Ondansetron Hcl 4 Mg/2 Ml Vial) 4 mg IVPUSH Q8H PRN PRN Reason: Nausea and Vomiting Pantoprazole Sodium (Pantoprazole Sodium 40 Mg/10 Ml Vial) 40 mg IVPUSH BID@0630,1630 [facility] Last Admin: 04/06/24 06:07 Dose: 40 mg Documented By: KIM Sodium Chloride (0.9 % Sodium Chloride Flush 3 Ml Syringe) 3 ml IVFLUSH QSHIFT [facility] Last Admin: 04/06/24 14:59 Dose: Not Given Documented By: LJ Non-Admin Reason: IV Running Labs 04/06/24 10:46 04/06/24 05:35 Labs: Laboratory Results - last 24 hr 04/05/24 04/06/24 04/06/24 21:10 05:35 05:36 MCV 90.0 MCH 29.7 MCHC 33.0 RDW 15.2 Plt Count 91 L MPV 12.4 Absolute Nucleated RBC 0.030 H Nucleated RBC % (auto) 0.8 H Anion Gap 15 Estim Creat Clear Calc 33.0 Estimated GFR 48 Random Glucose 101 Calcium 8.8 Total Bilirubin 1.0 Direct Bilirubin 0.5 AST 156 H ALT 13 Alkaline Phosphatase 507 H Lactate Dehydrogenase 6083 H Total Creatine Kinase 1808 H Total Protein 5.7 L Albumin 3.0 L Urine Color Urine Appearance Urine pH Ur Specific [place] Urine Protein Urine Glucose (UA) Urine Ketones Urine Blood Urine Nitrite Ur Leukocyte Esterase Urine RBC Urine WBC Ur Squamous Epith Cells Urine Bacteria Hyaline Casts Respiratory Panel Trejo See Note Adenovirus (Rapid PCR) Not Detected B.pert (TEM-PCR) Not Detected B.parapertussis DNA PCR Not Detected C. pneumoniae DNA (PCR) Not Detected Coronavirus OC43 (PCR) Not Detected Coronavirus HKU1 (PCR) Not Detected Coronavirus 229E (PCR) Not Detected Coronavirus NL63 (PCR) Not Detected Human Metapneumovir PCR Not Detected Influenza A (RT-PCR) Not Detected Influenza B (RT-PCR) Not Detected M. pneumoniae (PCR) Not Detected Parainfluenza 1 (PCR) Not Detected Parainfluenza 2 (PCR) Not Detected Parainfluenza 3 (PCR) Not Detected Parainfluenza 4 (PCR) Not Detected RSV (PCR) Not Detected Entero/Rhino (PCR) Not Detected SARS-CoV-2 RNA (RT-PCR) Not Detected 04/06/24 12:33 MCV MCH MCHC RDW Plt Count MPV Absolute Nucleated RBC Nucleated RBC % (auto) Anion Gap Estim Creat Clear Calc Estimated GFR Random Glucose Calcium Total Bilirubin Direct Bilirubin AST ALT Alkaline Phosphatase Lactate Dehydrogenase Total Creatine Kinase Total Protein Albumin Urine Color Yellow Urine Appearance Clear Urine pH 7.0 Ur Specific [place] 1.010 Urine Protein 30 (1+) H Urine Glucose (UA) Negative Urine Ketones Negative Urine Blood Negative Urine Nitrite Negative Ur Leukocyte Esterase Negative Urine RBC 0-2 Urine WBC 0-5 Ur Squamous Epith Cells 0-2 Urine Bacteria None Seen Hyaline Casts 0-2 Respiratory Panel Trejo Adenovirus (Rapid PCR) B.pert (TEM-PCR) B.parapertussis DNA PCR C. pneumoniae DNA (PCR) Coronavirus OC43 (PCR) Coronavirus HKU1 (PCR) Coronavirus 229E (PCR) Coronavirus NL63 (PCR) Human Metapneumovir PCR Influenza A (RT-PCR) Influenza B (RT-PCR) M. pneumoniae (PCR) Parainfluenza 1 (PCR) Parainfluenza 2 (PCR) Parainfluenza 3 (PCR) Parainfluenza 4 (PCR) RSV (PCR) Entero/Rhino (PCR) SARS-CoV-2 RNA (RT-PCR) Microbiology Microbiology Results: Microbiology 04/04/24 Unknown Urine Culture - Final Urine clean catch - Clean Catch Midstream Assessment and Plan (1) HTN (hypertension): Status: Acute (2) Acute kidney injury: Status: Acute (3) Anemia: Status: Acute Assessment and Plan: 84-year-old primarily Angolan-speaking male with a PMH significant for?HTN, HLD, CKD 3, BPH, chronic back pain with degenerative arthritis, and GERD who presents to the ED from home with back pain. Patient was just discharged from the hospital yesterday after being admitted on 03/31 for generalized weakness in the setting of acute normocytic anemia with stool positive for occult blood. Pt will be admitted to the hospital for treatment and further evaluation of BRENDA likely secondary to dehydration from reduced p.o. intake, GI losses from vomiting, and continue diuretic use. BRENDA-Likely multifactorial: dehydration due to reduced p.o. intake, vomiting, and continuing home Lasix Creatinine 3.40- 2.77-1.41 Hold losartan, Lasix,has proteinuria/pyuria,microalbumin, urine protein to creatinine ratio elevated . plan: continue ivf nephro-less likely hus , seen by hematology: hiv ,[id number] activity and antibody, ldh improving as well as cpk will add 1 prbc h/h somewhat trending down (? dilaution), platelets stable in new retroperitoneal lymphadenopathy hematology following Lower back pain with generalized weakness,Ongoing x1 month. CT of cervical spine and x-ray of lumbar spine on 03/22 showing degenerative arthritis as well as new retroperitoneal lymphadenopathy. plan: continue Acetaminophen, cyclobenzaprine lidocaine patch PT consult for possible STR placement; pt discharged previously on home services. Pancytopenia h/h slightly down- hb/hct:7.6/22.9 ldh improving,haptoglobin levels normal. peripheral smear -1+ schistocytes elevated retic count no new bleeding or vomiting added 1 prbc. 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 ongoing hospitalization need for treatment of?BRENDA likely secondary to dehydration from reduced p.o. intake, GI losses from vomiting, and continued diuretic use that will require IVF and close monitoring of labs. Quality Stroke Does the patient have a stroke diagnosis?: No VTE Prior VTE?: No VTE Risk Level:: Medical - moderate - high VTE Device Contraindication: Treatment Not Indicated VTE Drug Contraindication: N/A - Med Ordered
[2024-04-06 16:20] LABS: Fibrinogen > 700 MG/DL (259-690)
[2024-04-06] MEDS: Acetaminophen 325 MG TABLET 650 MG PO (17:32)
[2024-04-07] MEDS: Albumin Human 25 % 100 ML IV ×2 (00:42→05:28)
[2024-04-07 03:58] VITALS: BP 168/70; PULSE 81; RESP 20; TEMP 36.8; O2SAT 93
[2024-04-07] MEDS: Pantoprazole Sodium 40 MG/10 ML VIAL IVPUSH ×2 (05:28→17:01)
[2024-04-07] MEDS: Acetaminophen 325 MG TABLET 650 MG PO (05:30)
[2024-04-07] MEDS: Lactated Ringers 1,000 ML 100 ML IVCONT (05:31)
[2024-04-07 06:38] LABS: Hematocrit 22.5 % (42.0-52.0); Hemoglobin 7.7 g/dl (14.0-18.0); Mean Corpuscular HGB Conc 34.2 g/dl (31.0-36.0); Mean Corpuscular Hemoglobin 30.3 pg (27.0-33.0); Mean Corpuscular Volume 88.6 fL (80.0-98.0); Mean Platelet Volume 12.3 fL (9.4-12.4); Red Blood Count 2.54 X10*6/uL (4.60-5.80); Red Cell Distribution Width 15.3 % (11.0-16.0); White Blood Count 2.8 X10*3/uL (4.8-10.8)
[2024-04-07 06:39] LABS: NRBC Pct Auto 1.8 /100WBC (0.0-0.2); Platelet Count 61 X10*3/uL (160-400)
[2024-04-07 06:58] LABS: Anion Gap 18 (12-20); Blood Urea Nitrogen 14 mg/dL (9-16); Calcium 9.2 mg/dL (8.4-10.2); Carbon Dioxide 18 mmol/L (22-29); Chloride 110 mmol/L (96-108); Creatinine Clr Calc Pharmacy 43.5; Estimated Glomerular Filt Rate > 60; Glucose Random 100 mg/dL (60-115); Potassium 3.8 mmol/L (3.3-5.1); Sodium 142 mmol/L (135-145)
[2024-04-07 07:00] LABS: Anion Gap 18 (12-20); Blood Urea Nitrogen 14 mg/dL (9-16); Calcium 9.3 mg/dL (8.4-10.2); Carbon Dioxide 19 mmol/L (22-29); Chloride 110 mmol/L (96-108); Creatinine Clr Calc Pharmacy 42.3; Estimated Glomerular Filt Rate > 60; Glucose Random 101 mg/dL (60-115); Potassium 3.9 mmol/L (3.3-5.1); Sodium 143 mmol/L (135-145)
[2024-04-07 07:15] VITALS: BP 153/62; PULSE 93; RESP 18; TEMP 36.8; O2SAT 95
[2024-04-07] MEDS: Lidocaine 4 % Patch ADH..PATCH 1 PATCH TRANSDERMA (08:14)
[2024-04-07] MEDS: hydrOXYzine HCL 25 MG TABLET PO ×2 (08:14→20:32)
[2024-04-07] MEDS: Finasteride 5 MG TABLET PO (08:14)
[2024-04-07 09:08] LABS: Alanine Aminotransferase 7 U/L (0-40); Alkaline Phosphatase 314 U/L (39-117); Aspartate Amino Transferase 75 U/L (5-37); Bilirubin Direct 0.6 mg/dL (0.0-0.5); Bilirubin Total 1.4 mg/dL (0.0-1.0); Lactate Dehydrogenase 2941 U/L (118-273)
--- NOTE | 2024-04-07 09:16 | PM.HEMONCPN ---
Medical Summary - Medical Summary Date of Service: 04/07/24 Chief complaint: dic/ttp Primary Care Provider: Neena Maguire MD Medical Summary: DIAGNOSIS: 1. ANEMIA. 2. THROMBOCYTOPENIA. 3. SCHISTOCYTES. He is being evaluated for dehydration and anemia with elevated D-Dimer possibly DIC or TTP Interval History Interval history: Dante Hawley is a 84 year old gentleman, admitted on 04/04 with back pain. Patient was just discharged from the hospital on04/03, after being admitted on 03/31 for generalized weakness in the setting of acute normocytic anemia with stool positive for occult blood. He had a 4 point drop in hemoglobin in the past 6 months.Was seen by GI and underwent endoscopy which found mild tortuous esophagitis without stricture; empiric balloon dilation was performed. Was also found to have moderate diffuse gastric erythema and treated with PPI. He was noted to have elevated ferritin and orders were placed for testing for hemochromatosis. Pt is a rather poor historian and it is unclear exactly what prompted re-presentation, though he believes his partner called EMS due to continued back pain. Reports lower back pain has been ongoing x1 month, seemingly at current baseline without worsening in the past 2 days. He denies fall at home or known trauma to the area. Denies numbness or tingling in extremities. He has only eaten a little which he vomited back up. Denies abdominal pain or hematemesis. Also reports drinking very little and only urinating once since he has been home. Reports continued weakness, ambulates at home with use of walker and/or cane. Denies chest pain/pressure, palpitations. No shortness a breath or difficulty breathing. In the ED pt with slightly soft BP of 133/57, vitals otherwise WNL. Labs were significant for pancytopenia of WBCs 3.5, H&H 9.8/26.3, platelets 100, similar to previous. BUN elevated at 23 in creatinine 3.40 (elevated from 0.94 yesterday). Pt was treated with 1L IVF. BRENDA likely secondary to dehydration from reduced p.o. intake, GI losses from vomiting, and continue diuretic use. Review of Systems Review of Systems: Lower back pain x1 month Generalized weakness N/V x2 episodes Reduced p.o. intake Reduced urination No diarrhea or abdominal pain Denies chest pain/pressure, palpitations No fever, chills Denies hematemesis, hemoptysis, hematochezia, melena [facility] Medical History: Slovak-speaking male with a PMH significant for?HTN, HLD, CKD 3, BPH, chronic back pain with degenerative arthritis, and GERD Hearing loss of both ears Chronic kidney disease, stage III (moderate) GERD without esophagitis Benign essential hypertension Pure hypercholesterolemia Varicose veins of right lower extremity with inflammation Arthritis HTN (hypertension) Surgical History: History of cataract extraction S/P ORIF (open reduction internal fixation) fracture Family History: Other Family history non-contributory Social History: Household Members: Friend(s) Housing: Apartment Are you a primary critical care physician to a significant other at home: No Do you presently have visiting nurse or other home services: Yes ([employer]) Patient Tobacco Use Status: Former Tobacco user Tobacco use type: Cigarette Review of Systems - Constitutional Reports anorexia - Eyes Reports sensitivity to light - ENT Reports hearing loss - Cardiovascular Reports fast heart rate - Respiratory Reports dyspnea on exertion - Gastrointestinal Reports dyspepsia - Neurologic Denies focal weakness, Denies tingling, Denies tremor(s), Denies weakness [facility] Medical History: Medical History (Last Updated 04/05/24 @ 11:29 by Radha Dewey, DNP, [employer]) Arthritis Benign essential hypertension Chronic kidney disease, stage III (moderate) GERD without esophagitis Hearing loss of both ears HTN (hypertension) Pure hypercholesterolemia Varicose veins of right lower extremity with inflammation Functional capacity: wheelchair bound Family History: Family History (Last Reviewed 03/31/24 @ 22:13 by Emily Brandon MD) Other Family history non-contributory Surgical History: Surgical History (Last Reviewed 04/05/24 @ 10:29 by Sabrina Littlejohn, PT) History of cataract extraction S/P ORIF (open reduction internal fixation) fracture Social History: Social History (Last Reviewed 03/31/24 @ 22:13 by Emily Brandon MD) Living Situation History: Household Members: Friend(s) Housing: Apartment Are you a primary critical care physician to a significant other at home: No Do you presently have visiting nurse or other home services: Yes Do you presently have visiting nurse or other home services comment: [employer] services Alcohol History Details: 1. How often do you have a drink containing alcohol?: a. Never 3. How often do you have six or more drinks on one occasion?: a. Never AUDIT-C Alcohol total score: 0 Currently Displaying Signs/Symptoms of Alcohol Withdrawal: No Tobacco History: Patient Tobacco Use Status: Never used Tobacco Tobacco use type: Cigarette Smoked in Last 30 Days: No e-Cigarette/Vaping Use: Never Used Substance Use History: Use of substances other than those prescribed or required for medical reasons: No Currently Displaying Signs/Symptoms of Drug Intoxication Withdrawal: No Domestic Abuse History: Have you been hit, kicked, punched, or otherwise hurt by someone within the past year? If so, by whom?: No Do you feel safe in your current relationship?: No Current Relationship Is there a partner from a previous relationship who is making you feel unsafe now?: No Are you made to feel afraid or neglected: No Advance Directives: Advance Directives: No Advance Directives Information Provided: Advance Directives Information Provided comment: Declined Homicidal Assessment: Do you have a plan to hurt others: No Plan Nutrition Assessment: Recently lost weight without trying: No How much weight loss: 2-13 pounds Eating poorly because of decreased appetite: No Nutrition screen score: 1 Nutrition Risks: No Nutritional Risk Patient : No Poor oral hygiene: No Occupation Assessmet: service: No Current occupational status: retired Home Medications and Allergies Current Medications: Current Medications Acetaminophen (Acetaminophen 325 Mg Tablet) 650 mg PO Q6H PRN PRN Reason: Pain, Mild (Pain Scale 1-3), fever or headache Last Admin: 04/07/24 05:30 Dose: 650 mg Benzonatate (Benzonatate 100 Mg Capsule) 100 mg PO TID PRN PRN Reason: Cough Calcium Carbonate (Calcium Carbonate 750 Mg Tab.Chew) 750 mg PO Q4H PRN PRN Reason: Heartburn Cyclobenzaprine HCl (Cyclobenzaprine Hcl 10 Mg Tablet) 10 mg PO TID PRN PRN Reason: muscle spasm Last Admin: 04/05/24 20:23 Dose: 10 mg Diphenhydramine HCl (Diphenhydramine Hcl 25 Mg Capsule) 25 mg PO TID PRN PRN Reason: itching Finasteride (Finasteride 5 Mg Tablet) 5 mg PO DAILY [facility] Last Admin: 04/07/24 08:14 Dose: 5 mg Hydroxyzine HCl (Hydroxyzine Hcl 25 Mg Tablet) 25 mg PO BID [facility] Last Admin: 04/07/24 08:14 Dose: 25 mg Sodium Chloride (Ns) 100 mls @ 100 mls/hr IV ONCE ONE Stop: 04/07/24 09:57 Lidocaine (Lidocaine 4 % Patch Adh..Patch) 1 patch TRANSDERMA DAILY [facility] Last Admin: 04/07/24 08:14 Dose: 1 patch Magnesium Hydroxide (Milk Of Magnesia 30 Ml Oral.Susp) 30 ml PO DAILY PRN PRN Reason: Constipation Melatonin (Melatonin 3 Mg Tablet) 6 mg PO BEDTIME PRN PRN Reason: Insomnia Last Admin: 04/05/24 20:23 Dose: 6 mg Ondansetron HCl (Ondansetron Hcl 4 Mg/2 Ml Vial) 4 mg IVPUSH Q8H PRN PRN Reason: Nausea and Vomiting Pantoprazole Sodium (Pantoprazole Sodium 40 Mg/10 Ml Vial) 40 mg IVPUSH BID@0630,1630 [facility] Last Admin: 04/07/24 05:28 Dose: 40 mg Sodium Chloride (0.9 % Sodium Chloride Flush 3 Ml Syringe) 3 ml IVFLUSH QSHIFT [facility] Last Admin: 04/07/24 08:17 Dose: Not Given Home Medications ?Medication ?Instructions ?Recorded ?Confirmed ?Type hydroxyzine pamoate 25 mg capsule 25 mg PO BID itching 04/01/24 04/04/24 History Allergies Allergy/AdvReac Type Severity Reaction Status Date / Time No Known Allergies Allergy Verified 04/04/24 12:59 Exam Vital signs: Vital Signs Temp 98.3 F 04/07/24 07:15 Pulse 93 04/07/24 07:15 Resp 18 04/07/24 07:15 BP 153/62 H 04/07/24 07:15 Pulse Ox 95 04/07/24 07:15 O2 Del Method Room Air 04/07/24 07:15 Intake & Output 04/06/24 04/07/24 04/07/24 18:59 06:59 18:59 Intake Total 761.667 / 3765.001 3003.334 / 3765.001 290 / 290 Output Total 200 / 1100 900 / 1100 Balance 561.667 / 2665.001 2103.334 / 2665.001 290 / 290 Urine Output (Average ml/kg/hr) 0.29 1.30 1.30 Intake: Intake, Oral Amount 120 / 720 600 / 720 Intake (Blood Product) Amount 0 / 350 350 / 350 Red Blood Cells (E0336) Unit 0 / 350 350 / 350 [id number] Intake, IV Amount 641.667 / 2695.001 2053.334 / 2695.001 290 / 290 0.9 % Sodium Chloride 100 ml @ 100 / 100 100 mls/hr IV ONCE ONE Rx#: [id number] Albumin Human 25 % 100 ml @ 100 100 / 300 200 / 300 100 / 100 mls/hr IV Q6H [facility] Rx#: [id number] Lactated Ringers 1,000 ml @ 100 541.667 / 2295.001 1753.334 / 2295.001 190 / 190 mls/hr IVCONT .Q10H [facility] Rx#: [id number] Output: Output, Urine Amount 200 / 1100 900 / 1100 Other: Breakfast % Eaten 25% Lunch % Eaten 25% Dinner % Eaten 25% Eating (Feeding) Ability 1:1 Feed Number of Bowel Movements 0 Urine [place] Urine Color Yellow Yellow Last Bowel Movement 04/05/24 04/05/24 04/05/24 Stool Amount Moderate Stool Color Brown Stool Consistency Watery Weight 57.8 kg BMI result Body Mass Index 21.9 - Constitutional Present: no acute distress, mild distress - Routine HEENT Exam Head: Present: atraumatic, normal inspection, normocephalic - Routine Neck Exam Present: full ROM - Routine Respiratory Exam Present: decreased breath sounds, CTAB - Routine Cardiovascular Exam Cardiovascular: Present: RRR, S1, S2 - Routine Abdominal Exam Present: diminished bowel sounds, soft, nontender - Routine Extremities Exam Present: nontender - Routine Skin Exam Present: intact, normal turgor - Routine Neurological Exam Present: alert, oriented X3 - Detailed Neurological Exam: Coma Scale Eye Opening: Spontaneous (4) Data - Labs CBC & Chem 7: 04/07/24 06:14 04/07/24 06:14 Labs: Laboratory Last Values WBC 2.8 X10*3/uL (4.8-10.8) L 04/07/24 06:14 RBC 2.54 X10*6/uL (4.60-5.80) L 04/07/24 06:14 Hgb 7.7 g/dl (14.0-18.0) L 04/07/24 06:14 Hct 22.5 % (42.0-52.0) L 04/07/24 06:14 MCV 88.6 fL (80.0-98.0) 04/07/24 06:14 MCH 30.3 pg (27.0-33.0) 04/07/24 06:14 MCHC 34.2 g/dl (31.0-36.0) 04/07/24 06:14 RDW 15.3 % (11.0-16.0) 04/07/24 06:14 Plt Count 61 X10*3/uL (160-400) L D 04/07/24 06:14 MPV 12.3 fL (9.4-12.4) 04/07/24 06:14 Immature Gran % (Auto) 4.5 % (0.0-0.4) H 04/04/24 13:20 Neut % (Auto) 63.2 % (45-73) 04/04/24 13:20 Lymph % (Auto) 21.3 % (20-40) 04/04/24 13:20 [place] % (Auto) 8.5 % (2-11) 04/04/24 13:20 Eos % (Auto) 1.4 % (0-4) 04/04/24 13:20 Baso % (Auto) 1.1 % (0-2) 04/04/24 13:20 Lymph # (Auto) 0.8 X10*3/uL (1.2-4.9) L 04/04/24 13:20 [place] # (Auto) 0.3 X10*3/uL (0.1-1.2) 04/04/24 13:20 Eos # (Auto) 0.1 X10*3/uL (0.0-0.4) 04/04/24 13:20 Baso # (Auto) 0.0 X10*3/uL (0.0-0.2) 04/04/24 13:20 Abs Immat Gran (auto) 0.16 X10*3/uL (0.00-0.03) H 04/04/24 13:20 Absolute Neuts (auto) 2.2 x10*3/uL (2.0-8.3) 04/04/24 13:20 Absolute Nucleated RBC 0.050 X10*3/uL (0.0-0.012) H 04/07/24 06:14 Nucleated RBC % (auto) 1.8 /100WBC (0.0-0.2) H 04/07/24 06:14 Neutrophils % (Manual) 69 % (45-73) 04/05/24 05:42 Band Neutrophils % 10 % (3-5) H 04/05/24 05:42 Lymphocytes % (Manual) 12 % (20-40) L 04/05/24 05:42 Atypical Lymphs % (Man) 3 % (0-6) 04/05/24 05:42 Monocytes % (Manual) 2 % (2-11) 04/05/24 05:42 Eosinophils % (Manual) 1 % (0-4) 04/05/24 05:42 Basophils % (Manual) 2 % (0-2) 04/05/24 05:42 Myelocytes % 1 % 04/05/24 05:42 Abs Neuts (Manual) 3.1 X10*3/uL (2.0-8.3) 04/05/24 05:42 Lymphocytes # (Manual) 0.5 X10*3/uL (1.2-4.9) L 04/05/24 05:42 Atyp Lymphs # (Manual) 0.1 x10*3/uL 04/05/24 05:42 Monocytes # (Manual) 0.1 X10*3/uL (0.1-1.2) 04/05/24 05:42 Basophils # (Manual) 0.1 X10*3/uL (0.0-0.2) 04/05/24 05:42 Nucleated RBCs 3 /100WBC (0-0) H 04/05/24 05:42 Platelet Estimate DECREASED (NORMAL) 04/05/24 05:42 Plt Morphology Comment NORMAL 04/05/24 05:42 RBC Morphology NOTED 04/05/24 05:42 Polychromasia 1+ (0-2) /OIF 04/05/24 05:42 Spherocytes 2+ (3-5) /OIF 04/05/24 05:42 Schistocytes 1+ (0-2) /OIF 04/05/24 05:42 Smear Path Review 04/04/24 13:20 Absolute Retic 0.053 X10*6/uL (0.026-0.095) 04/05/24 05:42 Percent Retic 2.0 % (0.5-1.8) H 04/05/24 05:42 Immature Retic Fraction 29.8 % (2.3-13.4) H 04/05/24 05:42 Retic Hgb Equivalent 32.5 pg (30.0-35.0) 04/05/24 05:42 Hold Purple Top SEE NOTE 04/06/24 15:58 PT 14.6 SEC (10.9-12.4) H 04/05/24 14:29 INR 1.3 (0.9-1.1) H 04/05/24 14:29 APTT 32.4 SEC (26.0-36.8) 04/05/24 14:29 Fibrinogen > 700 MG/DL (259-690) H 04/06/24 15:58 D-Dimer High Sensitivty 2792 NG/ML 04/05/24 14:29 Sodium 142 mmol/L (135-145) 04/07/24 06:14 Sodium 143 mmol/L (135-145) 04/07/24 06:14 Potassium 3.8 mmol/L (3.3-5.1) 04/07/24 06:14 Potassium 3.9 mmol/L (3.3-5.1) 04/07/24 06:14 Chloride 110 mmol/L (96-108) H 04/07/24 06:14 Chloride 110 mmol/L (96-108) H 04/07/24 06:14 Carbon Dioxide 18 mmol/L (22-29) L 04/07/24 06:14 Carbon Dioxide 19 mmol/L (22-29) L 04/07/24 06:14 Anion Gap 18 (12-20) 04/07/24 06:14 Anion Gap 18 (12-20) 04/07/24 06:14 BUN 14 mg/dL (9-16) 04/07/24 06:14 BUN 14 mg/dL (9-16) 04/07/24 06:14 Creatinine 1.07 mg/dL (0.5-1.4) 04/07/24 06:14 Creatinine 1.10 mg/dL (0.5-1.4) 04/07/24 06:14 Estim Creat Clear Calc 42.3 04/07/24 06:14 Estim Creat Clear Calc 43.5 04/07/24 06:14 Estimated GFR > 60 04/07/24 06:14 Estimated GFR > 60 04/07/24 06:14 Random Glucose 100 mg/dL (60-115) 04/07/24 06:14 Random Glucose 101 mg/dL (60-115) 04/07/24 06:14 Haptoglobin 197 mg/dL (40-268) 04/05/24 11:52 Calcium 9.2 mg/dL (8.4-10.2) 04/07/24 06:14 Calcium 9.3 mg/dL (8.4-10.2) 04/07/24 06:14 Total Bilirubin 1.4 mg/dL (0.0-1.0) H 04/07/24 06:14 Direct Bilirubin 0.6 mg/dL (0.0-0.5) H 04/07/24 06:14 AST 75 U/L (5-37) H 04/07/24 06:14 ALT 7 U/L (0-40) 04/07/24 06:14 Alkaline Phosphatase 314 U/L (39-117) H 04/07/24 06:14 Lactate Dehydrogenase 2941 U/L (118-273) H 04/07/24 06:14 Total Creatine Kinase 910 U/L (38-174) H 04/07/24 06:14 Total Protein 6.0 g/dL (6.5-8.0) L 04/07/24 06:14 Albumin 4.0 g/dL (3.5-5.0) 04/07/24 06:14 Triglycerides 126 mg/dL (<150) 04/05/24 05:41 Cholesterol 128 mg/dL (<200) 04/05/24 05:41 LDL Cholesterol, Calc 76 mg/dL (<100) 04/05/24 05:41 HDL Cholesterol 27 mg/dL (>40) L 04/05/24 05:41 Vitamin B12 1024 pg/mL (200-900) H 04/05/24 11:52 Folate 5.0 ng/mL (> or = 4.0) 04/05/24 11:52 Urine Color Yellow 04/06/24 12:33 Urine Appearance Clear 04/06/24 12:33 Urine pH 7.0 (5.0-9.0) 04/06/24 12:33 Ur Specific [place] 1.010 (1.005-1.025) 04/06/24 12:33 Urine Protein 30 (1+) mg/dL (Neg-Trace) H 04/06/24 12:33 Urine Glucose (UA) Negative mg/dL (Negative) 04/06/24 12:33 Urine Ketones Negative mg/dL (Negative) 04/06/24 12:33 Urine Blood Negative (Negative) 04/06/24 12:33 Urine Nitrite Negative (Negative) 04/06/24 12:33 Ur Leukocyte Esterase Negative (Negative) 04/06/24 12:33 Urine RBC 0-2 /HPF (0-2) 04/06/24 12:33 Urine WBC 0-5 /HPF (0-5) 04/06/24 12:33 Ur Squamous Epith Cells 0-2 /HPF (0-2) 04/06/24 12:33 Urine Bacteria None Seen (None Seen) 04/06/24 12:33 Hyaline Casts 0-2 /LPF (0-2) 04/06/24 12:33 Granular Casts Present 04/04/24 19:40 U Random Total Protein 88 mg/dL (<12) H 04/04/24 19:40 Urine Creatinine 100.03 mg/dL 04/04/24 19:40 Urine Microalbumin 110.0 mg/L 04/04/24 19:40 Microalb/Creat Ratio 109.9 ug/mg cr (<30) H 04/04/24 19:40 Protein/Creatinin Ratio 0.88 (<0.2) H 04/04/24 19:40 Respiratory Panel Trejo See Note 04/05/24 21:10 Adenovirus (Rapid PCR) Not Detected (Not Detect.) 04/05/24 21:10 B.pert (TEM-PCR) Not Detected (Not Detect.) 04/05/24 21:10 B.parapertussis DNA PCR Not Detected (Not Detect.) 04/05/24 21:10 C. pneumoniae DNA (PCR) Not Detected (Not Detect.) 04/05/24 21:10 Coronavirus OC43 (PCR) Not Detected (Not Detect.) 04/05/24 21:10 Coronavirus HKU1 (PCR) Not Detected (Not Detect.) 04/05/24 21:10 Coronavirus 229E (PCR) Not Detected (Not Detect.) 04/05/24 21:10 Coronavirus NL63 (PCR) Not Detected (Not Detect.) 04/05/24 21:10 Human Metapneumovir PCR Not Detected (Not Detect.) 04/05/24 21:10 Influenza A (RT-PCR) Not Detected (Not Detect.) 04/05/24 21:10 Influenza B (RT-PCR) Not Detected (Not Detect.) 04/05/24 21:10 M. pneumoniae (PCR) Not Detected (Not Detect.) 04/05/24 21:10 Parainfluenza 1 (PCR) Not Detected (Not Detect.) 04/05/24 21:10 Parainfluenza 2 (PCR) Not Detected (Not Detect.) 04/05/24 21:10 Parainfluenza 3 (PCR) Not Detected (Not Detect.) 04/05/24 21:10 Parainfluenza 4 (PCR) Not Detected (Not Detect.) 04/05/24 21:10 RSV (PCR) Not Detected (Not Detect.) 04/05/24 21:10 Entero/Rhino (PCR) Not Detected (Not Detect.) 04/05/24 21:10 SARS-CoV-2 RNA (RT-PCR) Not Detected (Not Detect.) 04/05/24 21:10 Blood Type A Negative 04/04/24 13:24 Antibody Screen NEGATIVE 04/04/24 13:24 BRENDA, Polyspecific NEGATIVE 04/04/24 13:24 Positive BRENDA Work-up TNP 04/04/24 13:24 Crossmatch See Detail 04/04/24 13:24 Assessment and Plan Patient Active problem list reviewed?: Yes (1) Anemia Status: Acute (2) Anemia Status: Acute Assessment and plan: The severe elevation of the alkaline phosphatase, ldh, and cpk are receeding rapidly. His renal function is improving with hydration. Renal is involved. His fibrinogen is over 700 and the inr is 1.3. The bilirubin is normal. However the d-dimer is 2792 with nucleated red cells in the peripheral blood and his hematocrit has fallen to 22.8% without bleeding. AT this point we ar waiting of the [id number] to evaluate for RRP. Recommend transfusing red cells land platelets as needed. If TTP is diagnosed will need to consider transfer for plasma exchange. - Time Spent With Patient Time Spent with Patient (in minutes): 20
[2024-04-07 09:43] VITALS: BP 142/66; PULSE 81; RESP 18; TEMP 36.8
[2024-04-07 10:48] LABS: Hematocrit 24.8 % (42.0-52.0); Hemoglobin 8.4 g/dl (14.0-18.0); Mean Corpuscular HGB Conc 33.9 g/dl (31.0-36.0); Mean Corpuscular Volume 88.6 fL (80.0-98.0); Mean Platelet Volume 10.7 fL (9.4-12.4); Red Cell Distribution Width 15.5 % (11.0-16.0); White Blood Count 2.9 X10*3/uL (4.8-10.8)
[2024-04-07 10:53] LABS: NRBC Pct Auto 1.4 /100WBC (0.0-0.2); Platelet Count 53 X10*3/uL (160-400)
--- NOTE | 2024-04-07 11:17 | P.PNIM_ITS ---
Subjective Subjective Date of Service: 04/07/24 Interval History: anemia/thrombocytopenia Review of Systems weakness somewhat improving no fevers no new bleeding episode encouraged for po intake Physical Exam 2 Vital Signs: Vital Signs: Last Vital Signs Temp 98.2 F 04/07/24 09:43 Pulse 81 04/07/24 09:43 Resp 18 04/07/24 09:43 BP 142/66 H 04/07/24 09:43 Pulse Ox 95 04/07/24 07:15 O2 Del Method Room Air 04/07/24 07:15 BMI result Body Mass Index 21.9 General: AOx3,not in distress Resp: CTA bilaterally CVS: S1, S2, RRR GI: +BS, NT, no distention Skin: Warm, dry Neuro: nonfocal Extremities: No edema. Psych: Appropriate affect Objective Data Active Medications Acetaminophen (Acetaminophen 325 Mg Tablet) 650 mg PO Q6H PRN PRN Reason: Pain, Mild (Pain Scale 1-3), fever or headache Last Admin: 04/07/24 05:30 Dose: 650 mg Documented By: KRYSTYNA Benzonatate (Benzonatate 100 Mg Capsule) 100 mg PO TID PRN PRN Reason: Cough Calcium Carbonate (Calcium Carbonate 750 Mg Tab.Chew) 750 mg PO Q4H PRN PRN Reason: Heartburn Cyclobenzaprine HCl (Cyclobenzaprine Hcl 10 Mg Tablet) 10 mg PO TID PRN PRN Reason: muscle spasm Last Admin: 04/05/24 20:23 Dose: 10 mg Documented By: KIM Diphenhydramine HCl (Diphenhydramine Hcl 25 Mg Capsule) 25 mg PO TID PRN PRN Reason: itching Finasteride (Finasteride 5 Mg Tablet) 5 mg PO DAILY [facility] Last Admin: 04/07/24 08:14 Dose: 5 mg Documented By: LAXMI Hydroxyzine HCl (Hydroxyzine Hcl 25 Mg Tablet) 25 mg PO BID [facility] Last Admin: 04/07/24 08:14 Dose: 25 mg Documented By: LAXMI Lidocaine (Lidocaine 4 % Patch Adh..Patch) 1 patch TRANSDERMA DAILY [facility] Last Admin: 04/07/24 08:14 Dose: 1 patch Documented By: LAXMI Magnesium Hydroxide (Milk Of Magnesia 30 Ml Oral.Susp) 30 ml PO DAILY PRN PRN Reason: Constipation Melatonin (Melatonin 3 Mg Tablet) 6 mg PO BEDTIME PRN PRN Reason: Insomnia Last Admin: 04/05/24 20:23 Dose: 6 mg Documented By: KIM Ondansetron HCl (Ondansetron Hcl 4 Mg/2 Ml Vial) 4 mg IVPUSH Q8H PRN PRN Reason: Nausea and Vomiting Pantoprazole Sodium (Pantoprazole Sodium 40 Mg/10 Ml Vial) 40 mg IVPUSH BID@0630,1630 [facility] Last Admin: 04/07/24 05:28 Dose: 40 mg Documented By: KRYSTYNA Sodium Chloride (0.9 % Sodium Chloride Flush 3 Ml Syringe) 3 ml IVFLUSH QSHIFT [facility] Last Admin: 04/07/24 08:17 Dose: Not Given Documented By: LAXMI Non-Admin Reason: IV Running Labs 04/07/24 10:39 04/07/24 06:14 Labs: Laboratory Results - last 24 hr 04/04/24 04/05/24 04/06/24 13:24 21:10 12:33 MCV MCH MCHC RDW Plt Count MPV Absolute Nucleated RBC Nucleated RBC % (auto) Hold Purple Top Fibrinogen Anion Gap Estim Creat Clear Calc Estimated GFR Random Glucose Calcium Total Bilirubin Direct Bilirubin AST ALT Alkaline Phosphatase Lactate Dehydrogenase Total Creatine Kinase Total Protein Albumin Urine Color Yellow Urine Appearance Clear Urine pH 7.0 Ur Specific [place] 1.010 Urine Protein 30 (1+) H Urine Glucose (UA) Negative Urine Ketones Negative Urine Blood Negative Urine Nitrite Negative Ur Leukocyte Esterase Negative Urine RBC 0-2 Urine WBC 0-5 Ur Squamous Epith Cells 0-2 Urine Bacteria None Seen Hyaline Casts 0-2 Respiratory Panel Trejo See Note Adenovirus (Rapid PCR) Not Detected B.pert (TEM-PCR) Not Detected B.parapertussis DNA PCR Not Detected C. pneumoniae DNA (PCR) Not Detected Coronavirus OC43 (PCR) Not Detected Coronavirus HKU1 (PCR) Not Detected Coronavirus 229E (PCR) Not Detected Coronavirus NL63 (PCR) Not Detected Human Metapneumovir PCR Not Detected Influenza A (RT-PCR) Not Detected Influenza B (RT-PCR) Not Detected M. pneumoniae (PCR) Not Detected Parainfluenza 1 (PCR) Not Detected Parainfluenza 2 (PCR) Not Detected Parainfluenza 3 (PCR) Not Detected Parainfluenza 4 (PCR) Not Detected RSV (PCR) Not Detected Entero/Rhino (PCR) Not Detected SARS-CoV-2 RNA (RT-PCR) Not Detected Blood Type A Negative Antibody Screen NEGATIVE BRENDA, Polyspecific NEGATIVE Positive BRENDA Work-up TNP Crossmatch See Detail 04/06/24 04/07/24 04/07/24 15:58 06:14 06:14 MCV 88.6 MCH 30.3 MCHC 34.2 RDW 15.3 Plt Count 61 L D MPV 12.3 Absolute Nucleated RBC 0.050 H Nucleated RBC % (auto) 1.8 H Hold Purple Top SEE NOTE Fibrinogen > 700 H Anion Gap 18 18 Estim Creat Clear Calc 42.3 Estimated GFR Random Glucose Calcium Total Bilirubin Direct Bilirubin AST ALT Alkaline Phosphatase Lactate Dehydrogenase Total Creatine Kinase Total Protein Albumin Urine Color Urine Appearance Urine pH Ur Specific [place] Urine Protein Urine Glucose (UA) Urine Ketones Urine Blood Urine Nitrite Ur Leukocyte Esterase Urine RBC Urine WBC Ur Squamous Epith Cells Urine Bacteria Hyaline Casts Respiratory Panel Trejo Adenovirus (Rapid PCR) B.pert (TEM-PCR) B.parapertussis DNA PCR C. pneumoniae DNA (PCR) Coronavirus OC43 (PCR) Coronavirus HKU1 (PCR) Coronavirus 229E (PCR) Coronavirus NL63 (PCR) Human Metapneumovir PCR Influenza A (RT-PCR) Influenza B (RT-PCR) M. pneumoniae (PCR) Parainfluenza 1 (PCR) Parainfluenza 2 (PCR) Parainfluenza 3 (PCR) Parainfluenza 4 (PCR) RSV (PCR) Entero/Rhino (PCR) SARS-CoV-2 RNA (RT-PCR) Blood Type Antibody Screen BRENDA, Polyspecific Positive BRENDA Work-up Crossmatch 04/07/24 04/07/24 04/07/24 06:14 06:14 06:14 MCV MCH MCHC RDW Plt Count MPV Absolute Nucleated RBC Nucleated RBC % (auto) Hold Purple Top Fibrinogen Anion Gap Estim Creat Clear Calc 43.5 Estimated GFR > 60 > 60 Random Glucose 101 100 Calcium 9.3 Total Bilirubin Direct Bilirubin AST ALT Alkaline Phosphatase Lactate Dehydrogenase Total Creatine Kinase Total Protein Albumin Urine Color Urine Appearance Urine pH Ur Specific [place] Urine Protein Urine Glucose (UA) Urine Ketones Urine Blood Urine Nitrite Ur Leukocyte Esterase Urine RBC Urine WBC Ur Squamous Epith Cells Urine Bacteria Hyaline Casts Respiratory Panel Trejo Adenovirus (Rapid PCR) B.pert (TEM-PCR) B.parapertussis DNA PCR C. pneumoniae DNA (PCR) Coronavirus OC43 (PCR) Coronavirus HKU1 (PCR) Coronavirus 229E (PCR) Coronavirus NL63 (PCR) Human Metapneumovir PCR Influenza A (RT-PCR) Influenza B (RT-PCR) M. pneumoniae (PCR) Parainfluenza 1 (PCR) Parainfluenza 2 (PCR) Parainfluenza 3 (PCR) Parainfluenza 4 (PCR) RSV (PCR) Entero/Rhino (PCR) SARS-CoV-2 RNA (RT-PCR) Blood Type Antibody Screen BRENDA, Polyspecific Positive BRENDA Work-up Crossmatch 04/07/24 04/07/24 06:14 10:39 MCV 88.6 MCH 30.0 MCHC 33.9 RDW 15.5 Plt Count 53 L MPV 10.7 Absolute Nucleated RBC 0.040 H Nucleated RBC % (auto) 1.4 H Hold Purple Top Fibrinogen Anion Gap Estim Creat Clear Calc Estimated GFR Random Glucose Calcium 9.2 Total Bilirubin 1.4 H Direct Bilirubin 0.6 H AST 75 H ALT 7 Alkaline Phosphatase 314 H Lactate Dehydrogenase 2941 H Total Creatine Kinase 910 H Total Protein 6.0 L Albumin 4.0 Urine Color Urine Appearance Urine pH Ur Specific [place] Urine Protein Urine Glucose (UA) Urine Ketones Urine Blood Urine Nitrite Ur Leukocyte Esterase Urine RBC Urine WBC Ur Squamous Epith Cells Urine Bacteria Hyaline Casts Respiratory Panel Trejo Adenovirus (Rapid PCR) B.pert (TEM-PCR) B.parapertussis DNA PCR C. pneumoniae DNA (PCR) Coronavirus OC43 (PCR) Coronavirus HKU1 (PCR) Coronavirus 229E (PCR) Coronavirus NL63 (PCR) Human Metapneumovir PCR Influenza A (RT-PCR) Influenza B (RT-PCR) M. pneumoniae (PCR) Parainfluenza 1 (PCR) Parainfluenza 2 (PCR) Parainfluenza 3 (PCR) Parainfluenza 4 (PCR) RSV (PCR) Entero/Rhino (PCR) SARS-CoV-2 RNA (RT-PCR) Blood Type Antibody Screen BRENDA, Polyspecific Positive BRENDA Work-up Crossmatch Microbiology Microbiology Results: Microbiology 04/04/24 Unknown Urine Culture - Final Urine clean catch - Clean Catch Midstream Assessment and Plan (1) Dysphagia: Status: Acute (2) Pancytopenia: Status: Acute Plan 84-year-old primarily Vietnamese-speaking male with a PMH significant for?HTN, HLD, CKD 3, BPH, chronic back pain with degenerative arthritis, and GERD who presents to the ED from home with back pain. Patient was just discharged from the hospital yesterday after being admitted on 03/31 for generalized weakness in the setting of acute normocytic anemia with stool positive for occult blood. Pt will be admitted to the hospital for treatment and further evaluation of BRENDA likely secondary to dehydration from reduced p.o. intake, GI losses from vomiting, and continue diuretic use. BRENDA-Likely multifactorial: dehydration due to reduced p.o. intake, vomiting, and continuing home Lasix Creatinine 3.40- 2.77-1.41 has proteinuria/pyuria,microalbumin, urine protein to creatinine ratio elevated . rhabdomylsis -has muscle pains which are improving plan: brenda improved ,hold ivf andhold lasix,losartan.avoid nephrotoxins nephro-less likely hus ,moniter renal function Rhabdomylysis : improved significantly stop fluids encouraged for po intake and hydration. seen by hematology: ct abd new retroperitoneal lymphadenopathy(03/31/24) hiv ,[id number] activity and antibody, ldh improving as well as cpk s/p 1 prbc (04/06/24) h/h similar(? dilutional0 ,platelets stable in 60's plan: stop fluids check h/h added another prbc as we heam recomendations, no platlets transfusion need unless platlets 20 or below. hematology following Lower back pain with generalized weakness,Ongoing x1 month. CT of cervical spine and x-ray of lumbar spine on 03/22 showing degenerative arthritis as well as new retroperitoneal lymphadenopathy. plan: continue Acetaminophen, cyclobenzaprine lidocaine patch PT consult for possible STR placement; pt discharged previously on home services. Pancytopenia h/h as above b12 , folate levels seems fine . ldh improving,haptoglobin levels normal. peripheral smear -1+ schistocytes elevated retic count no new bleeding or vomiting s/p 1 prbc yesterday,1 prbc added today. h/h trending down ,lft's somewhat trending down-Gi eval eval noted -continue ppi,colonscopy outpatient ,rec hematology follow up for hematologic abnormalities as above. 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 ongoing hospitalization need for treatment of?BRENDA likely secondary to dehydration from reduced p.o. intake, GI losses from vomiting, and monitering renal function/electrolytes and close monitoring of labs Quality Stroke Does the patient have a stroke diagnosis?: No VTE Prior VTE?: No VTE Risk Level:: Medical - moderate - high VTE Device Contraindication: Treatment Not Indicated VTE Drug Contraindication: N/A - Med Ordered
[2024-04-07 15:17] VITALS: BP 178/68; PULSE 79; RESP 18; TEMP 36.7; O2SAT 94
[2024-04-07] MEDS: 0.9 % Sodium Chloride Flush 3 ML SYRINGE IVFLUSH (17:01)
[2024-04-07 20:00] VITALS: BP 168/74; PULSE 83; RESP 20; TEMP 37.9; O2SAT 92
[2024-04-08 00:20] VITALS: TEMP 36.8
[2024-04-08] MEDS: Acetaminophen 325 MG TABLET 650 MG PO ×2 (00:22→16:35)
[2024-04-08] MEDS: 0.9 % Sodium Chloride Flush 3 ML SYRINGE IVFLUSH ×2 (00:26→08:53)
[2024-04-08 03:41] VITALS: BP 159/72; PULSE 77; RESP 18; TEMP 36.3; O2SAT 93
[2024-04-08] MEDS: Pantoprazole Sodium 40 MG/10 ML VIAL IVPUSH (06:20)
[2024-04-08 07:16] VITALS: BP 151/68; PULSE 76; RESP 18; TEMP 36.4; O2SAT 93
[2024-04-08] MEDS: Lidocaine 4 % Patch ADH..PATCH 1 PATCH TRANSDERMA (08:53)
[2024-04-08] MEDS: Finasteride 5 MG TABLET PO (08:53)
[2024-04-08] MEDS: hydrOXYzine HCL 25 MG TABLET PO ×2 (08:53→20:48)
--- NOTE | 2024-04-08 09:19 | P.PNHO-ONC_ITS ---
Medical Summary - Medical Summary Date of Service: 04/08/24 Chief complaint: dic/ttp Primary Care Provider: Neena Maguire MD Medical Summary: DIAGNOSIS: 1. ANEMIA. 2. THROMBOCYTOPENIA. 3. SCHISTOCYTES. He has remained stable overnight without bleeding. He is eating and drinking. He is alert and oriented and free of pain. Interval History Interval history: Dante Hawley is a 84 year old gentleman, admitted on 04/04 with back pain. Patient was just discharged from the hospital on04/03, after being admitted on 03/31 for generalized weakness in the setting of acute normocytic anemia with stool positive for occult blood. He had a 4 point drop in hemoglobin in the past 6 months.Was seen by GI and underwent endoscopy which found mild tortuous esophagitis without stricture; empiric balloon dilation was performed. Was also found to have moderate diffuse gastric erythema and treated with PPI. He was noted to have elevated ferritin and orders were placed for testing for hemochromatosis. Pt is a rather poor historian and it is unclear exactly what prompted re- presentation, though he believes his partner called EMS due to continued back pain. Reports lower back pain has been ongoing x1 month, seemingly at current baseline without worsening in the past 2 days. He denies fall at home or known trauma to the area. Denies numbness or tingling in extremities. He has only eaten a little which he vomited back up. Denies abdominal pain or hematemesis. Also reports drinking very little and only urinating once since he has been home. Reports continued weakness, ambulates at home with use of walker and/or cane. Denies chest pain/pressure, palpitations. No shortness a breath or difficulty breathing. In the ED pt with slightly soft BP of 133/57, vitals otherwise WNL. Labs were significant for pancytopenia of WBCs 3.5, H&H 9.8/26.3, platelets 100, similar to previous. BUN elevated at 23 in creatinine 3.40 (elevated from 0.94 yesterday). Pt was treated with 1L IVF. BRENDA likely secondary to dehydration from reduced p.o. intake, GI losses from vomiting, and continue diuretic use. Review of Systems 2 Review of Systems: Lower back pain x1 month Generalized weakness N/V x2 episodes Reduced p.o. intake Reduced urination No diarrhea or abdominal pain Denies chest pain/pressure, palpitations No fever, chills Denies hematemesis, hemoptysis, hematochezia, melena [facility] Medical History: Kosovan-speaking male with a PMH significant for?HTN, HLD, CKD 3, BPH, chronic back pain with degenerative arthritis, and GERD Hearing loss of both ears Chronic kidney disease, stage III (moderate) GERD without esophagitis Benign essential hypertension Pure hypercholesterolemia Varicose veins of right lower extremity with inflammation Arthritis HTN (hypertension) Surgical History: History of cataract extraction S/P ORIF (open reduction internal fixation) fracture Family History: Other Family history non-contributory Social History: Household Members: Friend(s) Housing: Apartment Are you a primary child care sitter to a significant other at home: No Do you presently have visiting nurse or other home services: Yes ([employer]) Patient Tobacco Use Status: Former Tobacco user Tobacco use type: Cigarette Review of Systems - Constitutional Reports anorexia - ENT Reports other - Cardiovascular Reports fast heart rate - Respiratory Reports dyspnea on exertion - Gastrointestinal Reports abdominal pain - Neurologic Denies focal weakness, Denies tingling, Denies tremor(s), Denies weakness [facility] Medical History: Medical History (Last Updated 04/05/24 @ 11:29 by Radha Dewey, DNP, [employer]) Arthritis Benign essential hypertension Chronic kidney disease, stage III (moderate) GERD without esophagitis Hearing loss of both ears HTN (hypertension) Pure hypercholesterolemia Varicose veins of right lower extremity with inflammation Functional capacity: wheelchair bound Family History: Family History (Last Reviewed 03/31/24 @ 22:13 by Emily Brandon MD) Other Family history non-contributory Surgical History: Surgical History (Last Reviewed 04/05/24 @ 10:29 by Sabrina Littlejohn, PT) History of cataract extraction S/P ORIF (open reduction internal fixation) fracture Social History: Social History (Last Reviewed 03/31/24 @ 22:13 by Emily Brandon MD) Living Situation History: Household Members: Friend(s) Housing: Apartment Are you a primary child care sitter to a significant other at home: No Do you presently have visiting nurse or other home services: Yes Do you presently have visiting nurse or other home services comment: [employer] Alcohol History Details: 1. How often do you have a drink containing alcohol?: a. Never 3. How often do you have six or more drinks on one occasion?: a. Never AUDIT-C Alcohol total score: 0 Currently Displaying Signs/Symptoms of Alcohol Withdrawal: No Tobacco History: Patient Tobacco Use Status: Never used Tobacco Tobacco use type: Cigarette Smoked in Last 30 Days: No e-Cigarette/Vaping Use: Never Used Substance Use History: Use of substances other than those prescribed or required for medical reasons : No Currently Displaying Signs/Symptoms of Drug Intoxication Withdrawal: No Domestic Abuse History: Have you been hit, kicked, punched, or otherwise hurt by someone within the past year? If so, by whom?: No Do you feel safe in your current relationship?: No Current Relationship Is there a partner from a previous relationship who is making you feel unsafe now?: No Are you made to feel afraid or neglected: No Advance Directives: Advance Directives: No Advance Directives Information Provided: Advance Directives Information Provided comment: Declined Homicidal Assessment: Do you have a plan to hurt others: No Plan Nutrition Assessment: Recently lost weight without trying: No How much weight loss: 2-13 pounds Eating poorly because of decreased appetite: No Nutrition screen score: 1 Nutrition Risks: No Nutritional Risk Patient : No Poor oral hygiene: No Occupation Assessmet: service: No Current occupational status: retired Home Medications and Allergies Current Medications: Current Medications Acetaminophen (Acetaminophen 325 Mg Tablet) 650 mg PO Q6H PRN PRN Reason: Pain, Mild (Pain Scale 1-3), fever or headache Last Admin: 04/08/24 00:22 Dose: 650 mg Benzonatate (Benzonatate 100 Mg Capsule) 100 mg PO TID PRN PRN Reason: Cough Calcium Carbonate (Calcium Carbonate 750 Mg Tab.Chew) 750 mg PO Q4H PRN PRN Reason: Heartburn Cyclobenzaprine HCl (Cyclobenzaprine Hcl 10 Mg Tablet) 10 mg PO TID PRN PRN Reason: muscle spasm Last Admin: 04/05/24 20:23 Dose: 10 mg Diphenhydramine HCl (Diphenhydramine Hcl 25 Mg Capsule) 25 mg PO TID PRN PRN Reason: itching Finasteride (Finasteride 5 Mg Tablet) 5 mg PO DAILY [facility] Last Admin: 04/08/24 08:53 Dose: 5 mg Hydroxyzine HCl (Hydroxyzine Hcl 25 Mg Tablet) 25 mg PO BID [facility] Last Admin: 04/08/24 08:53 Dose: 25 mg Lidocaine (Lidocaine 4 % Patch Adh..Patch) 1 patch TRANSDERMA DAILY [facility] Last Admin: 04/08/24 08:53 Dose: 1 patch Magnesium Hydroxide (Milk Of Magnesia 30 Ml Oral.Susp) 30 ml PO DAILY PRN PRN Reason: Constipation Melatonin (Melatonin 3 Mg Tablet) 6 mg PO BEDTIME PRN PRN Reason: Insomnia Last Admin: 04/05/24 20:23 Dose: 6 mg Ondansetron HCl (Ondansetron Hcl 4 Mg/2 Ml Vial) 4 mg IVPUSH Q8H PRN PRN Reason: Nausea and Vomiting Sodium Chloride (0.9 % Sodium Chloride Flush 3 Ml Syringe) 3 ml IVFLUSH QSHIFT [facility] Last Admin: 04/08/24 08:53 Dose: 3 ml Home Medications ?Medication ?Instructions ?Recorded ?Confirmed ?Type hydroxyzine pamoate 25 mg capsule 25 mg PO BID itching 04/01/24 04/04/24 History Allergies Allergy/AdvReac Type Severity Reaction Status Date / Time No Known Allergies Allergy Verified 04/04/24 12:59 Exam Vital signs: Vital Signs Temp 97.5 F 04/08/24 07:16 Pulse 76 04/08/24 07:16 Resp 18 04/08/24 07:16 BP 151/68 H 04/08/24 07:16 Pulse Ox 93 04/08/24 07:16 O2 Del Method Room Air 04/08/24 07:16 Intake & Output 04/07/24 04/08/24 04/08/24 18:59 06:59 18:59 Intake Total 1580 / 1700 120 / 1700 Output Total 100 / 500 400 / 500 125 / 125 Balance 1480 / 1200 -280 / 1200 -125 / -125 Urine Output (Average ml/kg/hr) 0.14 0.58 0.18 Intake: Intake, Oral Amount 840 / 960 120 / 960 Intake (Blood Product) Amount 350 / 350 Red Blood Cells (E0336) Unit 350 / 350 [id number] Intake, IV Amount 390 / 390 0.9 % Sodium Chloride 100 ml @ 100 / 100 100 mls/hr IV ONCE ONE Rx#: [id number] Albumin Human 25 % 100 ml @ 100 100 / 100 mls/hr IV Q6H [facility] Rx#: [id number] Lactated Ringers 1,000 ml @ 100 190 / 190 mls/hr IVCONT .Q10H [facility] Rx#: [id number] Output: Output, Urine Amount 100 / 500 400 / 500 125 / 125 Other: Breakfast % Eaten 50% Lunch % Eaten 50% Dinner % Eaten 0% Eating (Feeding) Ability Independent Number of Unmeasured Voids 2 Number of Bowel Movements 0 Urine Urinal Urinal Urinal Urine Color Mathias Last Bowel Movement 04/07/24 Stool Bathroom Stool Amount Moderate Stool Color Brown Stool Consistency Formed Weight 57.8 kg BMI result Body Mass Index 21.9 - Constitutional Present: no acute distress, mild distress - Routine HEENT Exam Head: Present: atraumatic, normal inspection, normocephalic - Routine Neck Exam Present: full ROM - Routine Respiratory Exam Present: decreased breath sounds, CTAB - Routine Cardiovascular Exam Cardiovascular: Present: RRR, S1, S2 - Routine Abdominal Exam Present: diminished bowel sounds, soft, nontender - Routine Extremities Exam Present: nontender - Routine Skin Exam Present: intact, normal turgor - Routine Neurological Exam Present: alert, oriented X3 - Detailed Neurological Exam: Coma Scale Eye Opening: Spontaneous (4) Data - Labs CBC & Chem 7: 04/07/24 10:39 04/07/24 06:14 Assessment and Plan Patient Active problem list reviewed?: Yes (1) Anemia Status: Acute (2) Anemia Status: Acute Assessment and plan: The severe elevation of the alkaline phosphatase, ldh, and cpk are receeding rapidly. His renal function is improving with hydration. Renal is involved. His fibrinogen is over 700 and the inr is 1.3. The bilirubin is normal. However the d-dimer is 2792 with nucleated red cells in the peripheral blood and his hematocrit has fallen to 22.8% without bleeding. AT this point we ar waiting of the [id number] to evaluate for RRP. Recommend transfusing red cells land platelets as needed. If TTP is diagnosed will need to consider transfer for plasma exchange. (3) Pancytopenia Status: Acute Assessment and plan: There is no blood work available today. He should have labs tomorrow including fibrinogen, d-dimer, pt, ptt, cbc cpk, ldh and liver functins. He remains stable. The TTP LABS ARE STILL PENDING. - Time Spent With Patient Time Spent with Patient (in minutes): 15
--- NOTE | 2024-04-08 10:58 | P.PNIM_ITS ---
Subjective Subjective Date of Service: 04/08/24 Interval History: generlaised weak,rhabdo, pancytopenia Review of Systems says somewhat improivng moving better no abd pain Physical Exam 2 Vital Signs: Vital Signs: Last Vital Signs Temp 97.5 F 04/08/24 07:16 Pulse 76 04/08/24 07:16 Resp 18 04/08/24 07:16 BP 151/68 H 04/08/24 07:16 Pulse Ox 93 04/08/24 07:16 O2 Del Method Room Air 04/08/24 07:16 BMI result Body Mass Index 21.9 General: AOx3,not in distress Resp: CTA bilaterally CVS: S1, S2, RRR GI: +BS, NT, no distention Skin: Warm, dry Neuro: nonfocal Extremities: No edema. Psych: Appropriate affect Objective Data Active Medications Acetaminophen (Acetaminophen 325 Mg Tablet) 650 mg PO Q6H PRN PRN Reason: Pain, Mild (Pain Scale 1-3), fever or headache Last Admin: 04/08/24 00:22 Dose: 650 mg Documented By: STANLEY Benzonatate (Benzonatate 100 Mg Capsule) 100 mg PO TID PRN PRN Reason: Cough Calcium Carbonate (Calcium Carbonate 750 Mg Tab.Chew) 750 mg PO Q4H PRN PRN Reason: Heartburn Cyclobenzaprine HCl (Cyclobenzaprine Hcl 10 Mg Tablet) 10 mg PO TID PRN PRN Reason: muscle spasm Last Admin: 04/05/24 20:23 Dose: 10 mg Documented By: KIM Diphenhydramine HCl (Diphenhydramine Hcl 25 Mg Capsule) 25 mg PO TID PRN PRN Reason: itching Finasteride (Finasteride 5 Mg Tablet) [address] [facility] Last Admin: 04/08/24 08:53 Dose: 5 mg Documented By: CRISTINA Hydroxyzine HCl (Hydroxyzine Hcl 25 Mg Tablet) [address] [facility] Last Admin: 04/08/24 08:53 Dose: 25 mg Documented By: CRISTINA Lidocaine (Lidocaine 4 % Patch Adh..Patch) [address] [facility] Last Admin: 04/08/24 08:53 Dose: 1 patch Documented By: CRISTINA Magnesium Hydroxide (Milk Of Magnesia 30 Ml Oral.Susp) 30 ml PO DAILY PRN PRN Reason: Constipation Melatonin (Melatonin 3 Mg Tablet) 6 mg PO BEDTIME PRN PRN Reason: Insomnia Last Admin: 04/05/24 20:23 Dose: 6 mg Documented By: KIM Ondansetron HCl (Ondansetron Hcl 4 Mg/2 Ml Vial) 4 mg IVPUSH Q8H PRN PRN Reason: Nausea and Vomiting Sodium Chloride (0.9 % Sodium Chloride Flush 3 Ml Syringe) [address] [facility] Last Admin: 04/08/24 08:53 Dose: 3 ml Documented By: CRISTINA Labs 04/08/24 11:55 04/08/24 11:55 Labs: Laboratory Results - last 24 hr 04/04/24 13:24 Crossmatch See Detail Assessment and Plan (1) Dysphagia: Status: Acute (2) Pancytopenia: Status: Acute Plan 84-year-old primarily Danish-speaking male with a PMH significant for?HTN, HLD, CKD 3, BPH, chronic back pain with degenerative arthritis, and GERD who presents to the ED from home with back pain. Patient was just discharged from the hospital yesterday after being admitted on 03/31 for generalized weakness in the setting of acute normocytic anemia with stool positive for occult blood. Pt will be admitted to the hospital for treatment and further evaluation of BRENDA likely secondary to dehydration from reduced p.o. intake, GI losses from vomiting, and continue diuretic use. BRENDA-Likely multifactorial: dehydration due to reduced p.o. intake, vomiting, and lasix,rhabdomylsis. improved with hydration moniter renal function/electrolytes closely plan: brenda improved ,hold ivf andhold lasix,losartan.avoid nephrotoxins nephro-less likely hus ,moniter renal function Rhabdomylysis : improved significantly po intake and hydration-free water 300 mlq6hr moniter cpk. Lower back pain with generalized weakness,Ongoing x1 month. CT of cervical spine and x-ray of lumbar spine on 03/22 showing degenerative arthritis as well as new retroperitoneal lymphadenopathy. plan: continue Acetaminophen, cyclobenzaprine lidocaine patch PT consult noted, encouraged for ambulation. Pancytopenia h/h as above b12 , folate levels seems fine . ldh improving,haptoglobin levels normal. peripheral smear -1+ schistocytes elevated retic count ct abd new retroperitoneal lymphadenopathy(03/31/24) hiv ,[id number] activity and antibody. ldh improving as well as cpk hepaitis b,c screen-negative s/p 2 prbc during this admission h/h stable in 10 range,platlets similar 61 (yesterday) no gross bleeding hematology following HTN Hold losartan, Lasix due to BRENDA Resume as warranted. Atherosclerotic disease CT from 03/22 showed extensive atherosclerotic disease, including bilateral renal artery stenosis and celiac and SMA stenosis Currently not on a statin (elevated lft's/rhabo) and deferred antiplatlets ( please see h&P dr holly 03/31) due to gi bleed ,also has now pancytopenia GERD Continue PPI BPH Continue finasteride Full Code DVT Prophylaxis: mech device . ongoing hospitalization need for treatment of?BRENDA likely secondary to dehydration from reduced p.o. intake, GI losses from vomiting, and monitering renal function/electrolytes ,Pancytopenia workup and close monitoring of labs. Quality Stroke Does the patient have a stroke diagnosis?: No VTE Prior VTE?: No VTE Risk Level:: Medical - moderate - high VTE Device Contraindication: Treatment Not Indicated VTE Drug Contraindication: N/A - Med Ordered
[2024-04-08 12:07] LABS: Hematocrit 30.2 % (42.0-52.0); Hemoglobin 10.3 g/dl (14.0-18.0); Mean Corpuscular HGB Conc 34.1 g/dl (31.0-36.0); Mean Corpuscular Hemoglobin 30.1 pg (27.0-33.0); Mean Corpuscular Volume 88.3 fL (80.0-98.0); Mean Platelet Volume 12.3 fL (9.4-12.4); NRBC Pct Auto 1.3 /100WBC (0.0-0.2); Platelet Count 61 X10*3/uL (160-400); Red Blood Count 3.42 X10*6/uL (4.60-5.80); Red Cell Distribution Width 15.2 % (11.0-16.0); White Blood Count 3.1 X10*3/uL (4.8-10.8)
[2024-04-08 12:25] LABS: Alanine Aminotransferase 11 U/L (0-40); Albumin Level 4.1 g/dL (3.5-5.0); Alkaline Phosphatase 344 U/L (39-117); Anion Gap 18 (12-20); Aspartate Amino Transferase 78 U/L (5-37); Bilirubin Total 1.4 mg/dL (0.0-1.0); Blood Urea Nitrogen 14 mg/dL (9-16); Calcium 9.9 mg/dL (8.4-10.2); Carbon Dioxide 19 mmol/L (22-29); Chloride 108 mmol/L (96-108); Creatinine Clr Calc Pharmacy 45.2; Estimated Glomerular Filt Rate > 60; Glucose Random 150 mg/dL (60-115); Potassium 3.6 mmol/L (3.3-5.1); Sodium 141 mmol/L (135-145); Total Protein 6.6 g/dL (6.5-8.0)
[2024-04-08 12:26] LABS: Alanine Aminotransferase 11 U/L (0-40); Albumin Level 4.1 g/dL (3.5-5.0); Alkaline Phosphatase 343 U/L (39-117); Anion Gap 18 (12-20); Aspartate Amino Transferase 78 U/L (5-37); Bilirubin Total 1.3 mg/dL (0.0-1.0); Blood Urea Nitrogen 14 mg/dL (9-16); Carbon Dioxide 20 mmol/L (22-29); Chloride 108 mmol/L (96-108); Creatinine Clr Calc Pharmacy 45.2; Estimated Glomerular Filt Rate > 60; Glucose Random 150 mg/dL (60-115); Potassium 3.6 mmol/L (3.3-5.1); Sodium 142 mmol/L (135-145); Total Protein 6.7 g/dL (6.5-8.0)
[2024-04-08 15:18] VITALS: BP 168/70; PULSE 88; RESP 18; TEMP 37.5; O2SAT 93
[2024-04-08] MEDS: amLODIPine Besylate 2.5 MG TABLET PO (16:49)
[2024-04-08 17:44] VITALS: BP 162/74; TEMP 37.3
[2024-04-08 19:54] VITALS: BP 172/74; PULSE 82; RESP 14; TEMP 36.3; O2SAT 91
[2024-04-09] MEDS: 0.9 % Sodium Chloride Flush 3 ML SYRINGE IVFLUSH ×4 (01:12→20:59)
[2024-04-09 04:00] VITALS: BP 165/75; PULSE 93; RESP 15; TEMP 36.6; O2SAT 94
[2024-04-09 04:22] LABS: HIV AB/AG Nonreactive (Nonreactive); HIV Num 1 0.06 S/CO (0.00-0.99)
[2024-04-09 05:26] LABS: Hematocrit 28.5 % (42.0-52.0); Hemoglobin 9.9 g/dl (14.0-18.0); Mean Corpuscular HGB Conc 34.7 g/dl (31.0-36.0); Mean Corpuscular Hemoglobin 30.2 pg (27.0-33.0); Mean Corpuscular Volume 86.9 fL (80.0-98.0); Mean Platelet Volume 11.7 fL (9.4-12.4); Red Blood Count 3.28 X10*6/uL (4.60-5.80); White Blood Count 2.9 X10*3/uL (4.8-10.8)
[2024-04-09 05:28] LABS: Platelet Count 55 X10*3/uL (160-400)
[2024-04-09 05:32] LABS: Ammonia 26 umol/L (13-55)
[2024-04-09 05:40] LABS: Alanine Aminotransferase 12 U/L (0-40); Albumin Level 3.9 g/dL (3.5-5.0); Alkaline Phosphatase 325 U/L (39-117); Anion Gap 15 (12-20); Aspartate Amino Transferase 74 U/L (5-37); Bilirubin Total 1.2 mg/dL (0.0-1.0); Blood Urea Nitrogen 11 mg/dL (9-16); Calcium 9.6 mg/dL (8.4-10.2); Carbon Dioxide 21 mmol/L (22-29); Chloride 109 mmol/L (96-108); Creatinine Clr Calc Pharmacy 52.3; Estimated Glomerular Filt Rate > 60; Glucose Random 122 mg/dL (60-115); Potassium 3.5 mmol/L (3.3-5.1); Sodium 141 mmol/L (135-145); Total Protein 6.4 g/dL (6.5-8.0)
[2024-04-09 08:00] VITALS: BP 166/77; PULSE 90; RESP 16; TEMP 36.7; O2SAT 96
[2024-04-09] MEDS: Lidocaine 4 % Patch ADH..PATCH 1 PATCH TRANSDERMA (09:10)
[2024-04-09] MEDS: hydrOXYzine HCL 25 MG TABLET PO ×2 (09:11→20:54)
[2024-04-09] MEDS: Finasteride 5 MG TABLET PO (09:11)
--- NOTE | 2024-04-09 09:30 | P.PNNP_ITS ---
Subjective Subjective Date of Service: 04/09/24 Interval history: Pt is an 84-year-old male (Latvian-speaking) with a medical history of HTN, HLD, CKD 3, BPH, chronic back pain with degenerative arthritis, and GERD who presented to the ED from home with back pain. reduced PO intake, vomiting x1 in setting of continued ARB and diuretic use, developed BRENDA Creatinine on arrival was 3.4, which increased from 0.94 the day prior. He has been receiving hydration and continues to improve, creatinine at baseline today 0.89 anemia with thrombocytopenia schistocyte checked, were negative LDH and CK elevated, haptoglobin normal CT scan from 03/31 shows new retroperitoneal lymphadenopathy renal ultrasound was done 04/05 CT from 03/31 showed non-obstructing right renal calculus without hydronephrosis/obstruction. Physical Exam 2 Vital Signs: Vital Signs: Last Vital Signs Temp 98.1 F 04/09/24 08:00 Pulse 90 04/09/24 08:00 Resp 16 04/09/24 08:00 BP 166/77 H 04/09/24 08:00 Pulse Ox 96 04/09/24 08:00 O2 Del Method Room Air 04/09/24 08:00 BMI result Body Mass Index 21.9 Const: General: comfortable and no acute distress O rientation/consciousness: oriented to person, oriented to place and oriented to time Neck: Neck: Yes no JVD Resp: Effort & Inspection: able to speak in complete sentences A uscultation: clear to auscultation bilaterally Cardio: Jugular venous distension: no JVD Rate: regular rate Rhythm: r egular rhythm Heart sounds: S1 normal heart sound present and S2 normal heart sound present GI: Palpation (GI): Soft to palpation Rectal Exam - Male: No tenderness : General: Yes no CVA tenderness Back/Spine/Pelvis: Back: no CVA tenderness Skin: Rashes: no rashes Neuro: General: oriented to person, oriented to place and oriented to time Extrem: General: Yes normal to inspection, No edema and No pedal edema Objective Data Labs 04/09/24 05:19 04/09/24 05:19 Labs: Laboratory Results - last 24 hr 04/05/24 04/08/24 04/08/24 11:52 11:55 11:55 WBC 3.1 L RBC 3.42 L D Hgb 10.3 L D Hct 30.2 L D MCV 88.3 MCH 30.1 MCHC 34.1 RDW 15.2 Plt Count 61 L MPV 12.3 Absolute Nucleated RBC 0.040 H Nucleated RBC % (auto) 1.3 H Sodium 142 141 Potassium 3.6 Chloride Carbon Dioxide Anion Gap BUN Creatinine Estim Creat Clear Calc Estimated GFR Random Glucose Calcium Total Bilirubin AST ALT Alkaline Phosphatase Ammonia Total Creatine Kinase Total Protein Albumin HIV 1&2 Ab/P24 Ag 4thGn Nonreactive 04/08/24 04/08/24 04/08/24 11:55 11:55 11:55 WBC RBC Hgb Hct MCV MCH MCHC RDW Plt Count MPV Absolute Nucleated RBC Nucleated RBC % (auto) Sodium Potassium 3.6 Chloride 108 108 Carbon Dioxide 20 L 19 L Anion Gap 18 BUN Creatinine Estim Creat Clear Calc Estimated GFR Random Glucose Calcium Total Bilirubin AST ALT Alkaline Phosphatase Ammonia Total Creatine Kinase Total Protein Albumin HIV 1&2 Ab/P24 Ag 4thGn 04/08/24 04/08/24 04/08/24 11:55 11:55 11:55 WBC RBC Hgb Hct MCV MCH MCHC RDW Plt Count MPV Absolute Nucleated RBC Nucleated RBC % (auto) Sodium Potassium Chloride Carbon Dioxide Anion Gap 18 BUN 14 14 Creatinine 1.03 1.03 Estim Creat Clear Calc 45.2 Estimated GFR Random Glucose Calcium Total Bilirubin AST ALT Alkaline Phosphatase Ammonia Total Creatine Kinase Total Protein Albumin HIV 1&2 Ab/P24 Ag 4thGn 04/08/24 04/08/24 04/08/24 11:55 11:55 11:55 WBC RBC Hgb Hct MCV MCH MCHC RDW Plt Count MPV Absolute Nucleated RBC Nucleated RBC % (auto) Sodium Potassium Chloride Carbon Dioxide Anion Gap BUN Creatinine Estim Creat Clear Calc 45.2 Estimated GFR > 60 > 60 Random Glucose 150 H 150 H Calcium 10.0 D Total Bilirubin AST ALT Alkaline Phosphatase Ammonia Total Creatine Kinase Total Protein Albumin HIV 1&2 Ab/P24 Ag 4thGn 04/08/24 04/08/24 04/08/24 11:55 11:55 11:55 WBC RBC Hgb Hct MCV MCH MCHC RDW Plt Count MPV Absolute Nucleated RBC Nucleated RBC % (auto) Sodium Potassium Chloride Carbon Dioxide Anion Gap BUN Creatinine Estim Creat Clear Calc Estimated GFR Random Glucose Calcium 9.9 Total Bilirubin 1.3 H 1.4 H AST 78 H 78 H ALT 11 Alkaline Phosphatase Ammonia Total Creatine Kinase Total Protein Albumin HIV 1&2 Ab/P24 Ag 4thGn 04/08/24 04/08/24 04/08/24 11:55 11:55 11:55 WBC RBC Hgb Hct MCV MCH MCHC RDW Plt Count MPV Absolute Nucleated RBC Nucleated RBC % (auto) Sodium Potassium Chloride Carbon Dioxide Anion Gap BUN Creatinine Estim Creat Clear Calc Estimated GFR Random Glucose Calcium Total Bilirubin AST ALT 11 Alkaline Phosphatase 343 H 344 H Ammonia Total Creatine Kinase 835 H Total Protein 6.7 6.6 Albumin 4.1 HIV 1&2 Ab/P24 Ag 4thGn 04/08/24 04/09/24 11:55 05:19 WBC 2.9 L RBC 3.28 L Hgb 9.9 L Hct 28.5 L MCV 86.9 MCH 30.2 MCHC 34.7 RDW 15.0 Plt Count 55 L MPV 11.7 Absolute Nucleated RBC 0.030 H Nucleated RBC % (auto) 1.0 H Sodium 141 Potassium 3.5 Chloride 109 H Carbon Dioxide 21 L Anion Gap 15 BUN 11 Creatinine 0.89 Estim Creat Clear Calc 52.3 Estimated GFR > 60 Random Glucose 122 H Calcium 9.6 Total Bilirubin 1.2 H AST 74 H ALT 12 Alkaline Phosphatase 325 H Ammonia 26 Total Creatine Kinase Total Protein 6.4 L Albumin 4.1 3.9 HIV 1&2 Ab/P24 Ag 4thGn Microbiology Microbiology Results: Microbiology 04/04/24 Unknown Urine clean catch - Clean Catch Midstream Urine Culture - Final Procedures Date of Service Date of Service: 04/09/24 Assessment & Plan Assessment and plan (1) Acute kidney injury: Status: Acute (2) Chronic kidney disease, stage III (moderate): Status: Acute (3) Benign essential hypertension: Status: Acute (4) Anemia: Status: Acute Plan BRENDA on CKD3, due to tubular injury from hypoperfusion secondary to reduced PO intake, vomiting with continued use of diuretic and ARB. patient's renal function has normalized with hydration and holding diuretic/arb blood pressure remains suboptimal, agree with plan to increase amlodipine to 5mg daily for BP control worsening anemia with thrombocytopenia negative schistocytes make HUS less likely new retroperitoneal lymphadenopathy on recent CT raises concern for other hematologic process as underlying cause recommend monitoring I&O, continue to stay well-hydrated recommend monitoring blood pressures and follow up outpatient for continued optimization and monitoring recommend avoiding nephrotoxic substances/medications, including NSAIDs Discussed with Dr Nichole Time Spent With Patient Time: Total time managing care of this patient today ____ minutes. Progress Note: Quality Stroke Does the patient have a stroke diagnosis?: No
--- NOTE | 2024-04-09 11:32 | MHC.CM.PN ---
Per MD rounds patient not medically cleared for dc. DC plan remains home w/ services. [facility] updated. CM will continue to follow.
--- NOTE | 2024-04-09 13:10 | HO.PM.IMPN ---
Subjective Subjective Date of Service: 04/09/24 Interval History: pancytopenia ,brenda,rhabdo Review of Systems denies abd pain no fever some nausea Physical Exam Vital Signs: Vital Signs: Last Vital Signs Temp 98.1 F 04/09/24 08:00 Pulse 90 04/09/24 08:00 Resp 16 04/09/24 08:00 BP 166/77 H 04/09/24 08:00 Pulse Ox 96 04/09/24 08:00 O2 Del Method Room Air 04/09/24 08:00 BMI result Body Mass Index 21.9 General: AOx3,not in distress Resp: CTA bilaterally CVS: S1, S2, RRR GI: +BS, NT, no distention Skin: Warm, dry Neuro: nonfocal Extremities: No edema. Psych: Appropriate affect Objective Data Active Medications Acetaminophen (Acetaminophen 325 Mg Tablet) 650 mg PO Q6H PRN PRN Reason: Pain, Mild (Pain Scale 1-3), fever or headache Last Admin: 04/08/24 16:35 Dose: 650 mg Documented By: CRISTINA Benzonatate (Benzonatate 100 Mg Capsule) 100 mg PO TID PRN PRN Reason: Cough Calcium Carbonate (Calcium Carbonate 750 Mg Tab.Chew) 750 mg PO Q4H PRN PRN Reason: Heartburn Cyclobenzaprine HCl (Cyclobenzaprine Hcl 10 Mg Tablet) 10 mg PO TID PRN PRN Reason: muscle spasm Last Admin: 04/05/24 20:23 Dose: 10 mg Documented By: KIM Diphenhydramine HCl (Diphenhydramine Hcl 25 Mg Capsule) 25 mg PO TID PRN PRN Reason: itching Finasteride (Finasteride 5 Mg Tablet) 5 mg PO DAILY [facility] Last Admin: 04/09/24 09:11 Dose: 5 mg Documented By: CAROL Hydroxyzine HCl (Hydroxyzine Hcl 25 Mg Tablet) 25 mg PO BID [facility] Last Admin: 04/09/24 09:11 Dose: 25 mg Documented By: CAROL Lidocaine (Lidocaine 4 % Patch Adh..Patch) 1 patch TRANSDERMA DAILY [facility] Last Admin: 04/09/24 09:10 Dose: 1 patch Documented By: CAROL Magnesium Hydroxide (Milk Of Magnesia 30 Ml Oral.Susp) 30 ml PO DAILY PRN PRN Reason: Constipation Melatonin (Melatonin 3 Mg Tablet) 6 mg PO BEDTIME PRN PRN Reason: Insomnia Last Admin: 04/05/24 20:23 Dose: 6 mg Documented By: KIM Ondansetron HCl (Ondansetron Hcl 4 Mg/2 Ml Vial) 4 mg IVPUSH Q8H PRN PRN Reason: Nausea and Vomiting Sodium Chloride (0.9 % Sodium Chloride Flush 3 Ml Syringe) 3 ml IVFLUSH QSHIFT [facility] Last Admin: 04/09/24 09:11 Dose: 3 ml Documented By: CAROL Labs 04/09/24 05:19 04/09/24 05:19 Labs: Laboratory Results - last 24 hr 04/05/24 04/08/24 04/09/24 11:52 11:55 05:19 MCV 86.9 MCH 30.2 MCHC 34.7 RDW 15.0 Plt Count 55 L MPV 11.7 Absolute Nucleated RBC 0.030 H Nucleated RBC % (auto) 1.0 H Anion Gap 15 Estim Creat Clear Calc 52.3 Estimated GFR > 60 Random Glucose 122 H Calcium 9.6 Total Bilirubin 1.2 H AST 74 H ALT 12 Alkaline Phosphatase 325 H Ammonia 26 Total Creatine Kinase 835 H Total Protein 6.4 L Albumin 3.9 HIV 1&2 Ab/P24 Ag 4thGn Nonreactive Assessment and Plan (1) Dysphagia: Status: Acute (2) Pancytopenia: Status: Acute Plan 84-year-old primarily [place]an-speaking male with a PMH significant for?HTN, HLD, CKD 3, BPH, chronic back pain with degenerative arthritis, and GERD who presents to the ED from home with back pain. Patient was just discharged from the hospital yesterday after being admitted on 03/31 for generalized weakness in the setting of acute normocytic anemia with stool positive for occult blood. Pt will be admitted to the hospital for treatment and further evaluation of BRENDA likely secondary to dehydration from reduced p.o. intake, GI losses from vomiting, and continue diuretic use. BRENDA-Likely multifactorial: dehydration due to reduced p.o. intake, vomiting, and lasix,rhabdomylsis. improved with hydration moniter renal function/electrolytes closely plan: brenda improved ,hold lasix,losartan,avoid nephrotoxins nephro-less likely hus , continue hydration,moniter renal function Rhabdomylysis : improved significantly switched po intake and hydration-free water 300 mlq6hr moniter cpk. Lower back pain with generalized weakness,Ongoing x1 month. CT of cervical spine and x-ray of lumbar spine on 03/22 showing degenerative arthritis as well as new retroperitoneal lymphadenopathy. plan: continue Acetaminophen, cyclobenzaprine lidocaine patch PT consult noted, encouraged for ambulation. Pancytopenia h/h as above b12 , folate levels seems fine . ldh improving,haptoglobin levels normal. peripheral smear -1+ schistocytes elevated retic count ct abd new retroperitoneal lymphadenopathy(03/31/24) hiv ,[id number] activity and antibody. ldh improving as well as cpk hepaitis b,c screen-negative s/p 2 prbc during this admission h/h stable in 10 range,platlets slowly trending down no gross bleeding hematology following HTN Hold losartan, Lasix due to BRENDA Resume as warranted. Atherosclerotic disease CT from 03/22 showed extensive atherosclerotic disease, including bilateral renal artery stenosis and celiac and SMA stenosis Currently not on a statin (elevated lft's/rhabo) and deferred antiplatlets ( please see h&P dr holly 03/31) due to gi bleed ,also has now pancytopenia GERD Continue PPI BPH Continue finasteride Full Code DVT Prophylaxis: mech device . ongoing hospitalization need for treatment of?BRENDA /rhabdo,elevated ldh,- monitering renal function/electrolytes ,Pancytopenia workup and close monitoring of labs. Quality Stroke Does the patient have a stroke diagnosis?: No VTE Prior VTE?: No VTE Risk Level:: Medical - moderate - high VTE Device Contraindication: Treatment Not Indicated VTE Drug Contraindication: N/A - Med Ordered
[2024-04-09] MEDS: amLODIPine Besylate 5 MG TABLET PO (13:34)
[2024-04-09 15:58] VITALS: BP 131/84; PULSE 95; RESP 16; TEMP 36.8; O2SAT 94
[2024-04-09 17:44] LABS: ADAMTS13 Activity 1.07 IU/mL (0.68-1.63)
[2024-04-09 19:52] VITALS: BP 146/85; PULSE 99; RESP 17; TEMP 36.4; O2SAT 95
[2024-04-10 03:16] VITALS: BP 160/58; PULSE 94; RESP 17; TEMP 36.5; O2SAT 94
[2024-04-10 06:23] LABS: Mean Corpuscular Volume 86.7 fL (80.0-98.0); PLT CLUMP 1
[2024-04-10 06:25] LABS: Hemoglobin 10.4 g/dl (14.0-18.0); Mean Corpuscular HGB Conc 34.7 g/dl (31.0-36.0); Mean Corpuscular Hemoglobin 30.1 pg (27.0-33.0); Mean Platelet Volume 13.5 fL (9.4-12.4); Red Blood Count 3.46 X10*6/uL (4.60-5.80); Red Cell Distribution Width 14.8 % (11.0-16.0)
[2024-04-10 06:28] LABS: Alanine Aminotransferase 15 U/L (0-40); Albumin Level 3.8 g/dL (3.5-5.0); Alkaline Phosphatase 321 U/L (39-117); Anion Gap 16 (12-20); Aspartate Amino Transferase 75 U/L (5-37); Bilirubin Total 1.2 mg/dL (0.0-1.0); Blood Urea Nitrogen 11 mg/dL (9-16); Calcium 9.8 mg/dL (8.4-10.2); Carbon Dioxide 22 mmol/L (22-29); Chloride 107 mmol/L (96-108); Estimated Glomerular Filt Rate > 60; Glucose Random 124 mg/dL (60-115); Potassium 3.8 mmol/L (3.3-5.1); Sodium 141 mmol/L (135-145); Total Protein 6.5 g/dL (6.5-8.0)
[2024-04-10 06:40] LABS: NRBC Pct Auto 1.3 /100WBC (0.0-0.2)
[2024-04-10 06:41] LABS: Platelet Count 60 X10*3/uL (160-400)
--- NOTE | 2024-04-10 07:27 | PC.NURSE ---
Critical lab reported: Random glucose 468, & Potassium: 6.3 Telephone order form [facility] to, pause TPN, and stop LR and replace with normal saline for the time being. New blood draw from left arm done. POC taken results of 89 Pt has been sleeping, calm and cooperative in room, no apparent distress, respirations even and non-labored. MD at bedside.
[2024-04-10 07:58] VITALS: BP 156/73; PULSE 93; RESP 16; TEMP 37.1; O2SAT 94
[2024-04-10] MEDS: Lidocaine 4 % Patch ADH..PATCH 1 PATCH TRANSDERMA (08:27)
[2024-04-10] MEDS: Finasteride 5 MG TABLET PO (08:27)
[2024-04-10] MEDS: hydrOXYzine HCL 25 MG TABLET PO ×2 (08:27→20:04)
[2024-04-10] MEDS: amLODIPine Besylate 5 MG TABLET PO (08:27)
[2024-04-10] MEDS: 0.9 % Sodium Chloride Flush 3 ML SYRINGE IVFLUSH ×3 (08:30→20:04)
--- NOTE | 2024-04-10 11:05 | P.PNNP_ITS ---
Subjective Subjective Date of Service: 04/10/24 Interval history: Pt is an 84-year-old male ([place]anaian-speaking) with a medical history of HTN, HLD, CKD 3, BPH, chronic back pain with degenerative arthritis, and GERD who presented to the ED from home with back pain. reduced PO intake, vomiting x1 in setting of continued ARB and diuretic use, developed BRENDA Creatinine on arrival was 3.4, which increased from 0.94 the day prior. He has been receiving hydration and continues to improve, creatinine at baseline today 0.83 anemia with thrombocytopenia schistocyte checked, were negative LDH and CK elevated, haptoglobin normal CT scan from 03/31 shows new retroperitoneal lymphadenopathy renal ultrasound was done 04/05 CT from 03/31 showed non-obstructing right renal calculus without hydronephrosis/obstruction. Physical Exam 2 Vital Signs: Vital Signs: Last Vital Signs Temp 98.8 F 04/10/24 07:58 Pulse 93 04/10/24 07:58 Resp 16 04/10/24 07:58 BP 156/73 H 04/10/24 07:58 Pulse Ox 94 04/10/24 07:58 O2 Del Method Room Air 04/10/24 07:58 BMI result Body Mass Index 21.9 Const: General: comfortable and no acute distress O rientation/consciousness: oriented to person, oriented to place and oriented to time Neck: Neck: Yes no JVD Resp: Effort & Inspection: able to speak in complete sentences A uscultation: clear to auscultation bilaterally Cardio: Jugular venous distension: no JVD Rate: regular rate Rhythm: r egular rhythm Heart sounds: S1 normal heart sound present and S2 normal heart sound present GI: Palpation (GI): Soft to palpation Rectal Exam - Male: No tenderness : General: Yes no CVA tenderness Back/Spine/Pelvis: Back: no CVA tenderness Skin: Rashes: no rashes Neuro: General: oriented to person, oriented to place and oriented to time Extrem: General: Yes normal to inspection, No edema and No pedal edema Objective Data Labs 04/10/24 05:28 04/10/24 05:28 Labs: Laboratory Results - last 24 hr 04/05/24 04/10/24 14:29 05:28 WBC 3.0 L RBC 3.46 L Hgb 10.4 L Hct 30.0 L MCV 86.7 MCH 30.1 MCHC 34.7 RDW 14.8 Plt Count 60 L MPV 13.5 H Absolute Nucleated RBC 0.040 H Nucleated RBC % (auto) 1.3 H [id number] Activity Intrp 1.07 Sodium 141 Potassium 3.8 Chloride 107 Carbon Dioxide 22 Anion Gap 16 BUN 11 Creatinine 0.83 Estim Creat Clear Calc 56.0 Estimated GFR > 60 Random Glucose 124 H Calcium 9.8 Total Bilirubin 1.2 H AST 75 H ALT 15 Alkaline Phosphatase 321 H Total Protein 6.5 Albumin 3.8 Microbiology Microbiology Results: Microbiology 04/04/24 Unknown Urine clean catch - Clean Catch Midstream Urine Culture - Final Procedures Date of Service Date of Service: 04/10/24 Assessment & Plan Assessment and plan (1) Acute kidney injury: Status: Acute (2) Chronic kidney disease, stage III (moderate): Status: Acute (3) Benign essential hypertension: Status: Acute (4) Anemia: Status: Acute Plan BRENDA on CKD3, due to tubular injury from hypoperfusion secondary to reduced PO intake, vomiting with continued use of diuretic and ARB. patient's renal function has normalized with hydration and holding diuretic/arb blood pressure remains suboptimal on 5mg daily amlodipine, will increase to 10mg daily worsening anemia with thrombocytopenia negative schistocytes make HUS less likely new retroperitoneal lymphadenopathy on recent CT raises concern for other hematologic process as underlying cause recommend monitoring I&O, continue to stay well-hydrated recommend monitoring blood pressures and follow up outpatient for continued optimization and monitoring recommend avoiding nephrotoxic substances/medications, including NSAIDs Discussed with Dr Nichole Time Spent With Patient Time: Total time managing care of this patient today ____ minutes. Progress Note: Quality Stroke Does the patient have a stroke diagnosis?: No
--- NOTE | 2024-04-10 12:52 | P.PNIM_ITS ---
Subjective Subjective Date of Service: 04/10/24 Interval History: f/u on brenda, pancytopenia, rhabdom and retoperitoneal lymphadenopathy overall feeling better Physical Exam 2 Vital Signs: Vital Signs: Last Vital Signs Temp 98.8 F 04/10/24 07:58 Pulse 93 04/10/24 07:58 Resp 16 04/10/24 07:58 BP 156/73 H 04/10/24 07:58 Pulse Ox 94 04/10/24 07:58 O2 Del Method Room Air 04/10/24 07:58 BMI result Body Mass Index 21.9 Objective Data Active Medications Acetaminophen (Acetaminophen 325 Mg Tablet) 650 mg PO Q6H PRN PRN Reason: Pain, Mild (Pain Scale 1-3), fever or headache Last Admin: 04/08/24 16:35 Dose: 650 mg Documented By: CRISTINA Amlodipine Besylate (Amlodipine Besylate 10 Mg Tablet) 10 mg PO DAILY [facility]; Protocol Benzonatate (Benzonatate 100 Mg Capsule) 100 mg PO TID PRN PRN Reason: Cough Calcium Carbonate (Calcium Carbonate 750 Mg Tab.Chew) 750 mg PO Q4H PRN PRN Reason: Heartburn Cyclobenzaprine HCl (Cyclobenzaprine Hcl 10 Mg Tablet) 10 mg PO TID PRN PRN Reason: muscle spasm Last Admin: 04/05/24 20:23 Dose: 10 mg Documented By: KIM Diphenhydramine HCl (Diphenhydramine Hcl 25 Mg Capsule) 25 mg PO TID PRN PRN Reason: itching Finasteride (Finasteride 5 Mg Tablet) 5 mg PO DAILY [facility] Last Admin: 04/10/24 08:27 Dose: 5 mg Documented By: OSIRIS Hydroxyzine HCl (Hydroxyzine Hcl 25 Mg Tablet) 25 mg PO BID [facility] Last Admin: 04/10/24 08:27 Dose: 25 mg Documented By: OSIRIS Lidocaine (Lidocaine 4 % Patch Adh..Patch) 1 patch TRANSDERMA DAILY [facility] Last Admin: 04/10/24 08:27 Dose: 1 patch Documented By: OSIRIS Magnesium Hydroxide (Milk Of Magnesia 30 Ml Oral.Susp) 30 ml PO DAILY PRN PRN Reason: Constipation Melatonin (Melatonin 3 Mg Tablet) 6 mg PO BEDTIME PRN PRN Reason: Insomnia Last Admin: 04/05/24 20:23 Dose: 6 mg Documented By: KIM Ondansetron HCl (Ondansetron Hcl 4 Mg/2 Ml Vial) 4 mg IVPUSH Q8H PRN PRN Reason: Nausea and Vomiting Sodium Chloride (0.9 % Sodium Chloride Flush 3 Ml Syringe) 3 ml IVFLUSH QSHIFT [facility] Last Admin: 04/10/24 08:30 Dose: 3 ml Documented By: OSIRIS Labs 04/10/24 05:28 04/10/24 05:28 Labs: Laboratory Results - last 24 hr 04/05/24 04/10/24 14:29 05:28 MCV 86.7 MCH 30.1 MCHC 34.7 RDW 14.8 Plt Count 60 L MPV 13.5 H Absolute Nucleated RBC 0.040 H Nucleated RBC % (auto) 1.3 H [id number] Activity Intrp 1.07 Anion Gap 16 Estim Creat Clear Calc 56.0 Estimated GFR > 60 Random Glucose 124 H Calcium 9.8 Total Bilirubin 1.2 H AST 75 H ALT 15 Alkaline Phosphatase 321 H Total Protein 6.5 Albumin 3.8 Assessment and Plan (1) Dysphagia: Status: Acute (2) Pancytopenia: Status: Acute Plan 84/m [place]ander-speaking male with a PMH significant for?HTN, HLD, CKD 3, BPH, chronic back pain with degenerative arthritis, and GERD who presents to the ED from home with back pain. Patient was just discharged from the hospital yesterday after being admitted on 03/31 for generalized weakness in the setting of acute normocytic anemia with stool positive for occult blood. BRENDA-Likely multifactoria d/t dehydration, diuretics and rhabdo, resolved with IVF mild rhabdomylosis--cpk has trended down lower back > 1 month, CT from 03/22, showed DJD of spine and retroperitoneal lymph nodes -overall better with conservative management, CT recomends home with services Pancytopenia h/h as above b12 , folate levels seems fine . ldh improving,haptoglobin levels normal. peripheral smear -1+ schistocytes elevated retic count ct abd new retroperitoneal lymphadenopathy(03/31/24) hiv ,[id number] activity and antibody. 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 ongoing hospitalization need for treatment of?BRENDA /rhabdo,elevated ldh,- monitering renal function/electrolytes ,Pancytopenia workup and close monitoring of labs. Quality Stroke Does the patient have a stroke diagnosis?: No VTE Prior VTE?: No VTE Risk Level:: Medical - moderate - high VTE Device Contraindication: Treatment Not Indicated VTE Drug Contraindication: N/A - Med Ordered
[2024-04-10 15:21] VITALS: BP 165/76; PULSE 90; RESP 16; TEMP 36.6; O2SAT 95
[2024-04-10 19:11] VITALS: BP 157/74; PULSE 102; RESP 14; TEMP 36.3; O2SAT 95
[2024-04-11 03:36] VITALS: BP 157/71; PULSE 90; RESP 18; TEMP 36.4; O2SAT 96
[2024-04-11 06:30] LABS: Hematocrit 30.3 % (42.0-52.0); Hemoglobin 10.5 g/dl (14.0-18.0); Mean Corpuscular HGB Conc 34.7 g/dl (31.0-36.0); Mean Corpuscular Hemoglobin 29.8 pg (27.0-33.0); Mean Corpuscular Volume 86.1 fL (80.0-98.0); Mean Platelet Volume 12.3 fL (9.4-12.4); NRBC Pct Auto 0.7 /100WBC (0.0-0.2); Red Blood Count 3.52 X10*6/uL (4.60-5.80); Red Cell Distribution Width 14.6 % (11.0-16.0)
[2024-04-11 06:32] LABS: Platelet Count 65 X10*3/uL (160-400)
[2024-04-11 06:33] LABS: Anion Gap 18 (12-20); Blood Urea Nitrogen 13 mg/dL (9-16); Calcium 9.6 mg/dL (8.4-10.2); Carbon Dioxide 20 mmol/L (22-29); Chloride 107 mmol/L (96-108); Creatinine Clr Calc Pharmacy 58.9; Estimated Glomerular Filt Rate > 60; Glucose Random 112 mg/dL (60-115); Potassium 3.8 mmol/L (3.3-5.1); Sodium 141 mmol/L (135-145)
[2024-04-11 07:53] VITALS: BP 152/68; PULSE 83; RESP 18; TEMP 37; O2SAT 96
[2024-04-11] MEDS: hydrOXYzine HCL 25 MG TABLET PO (08:15)
[2024-04-11] MEDS: Lidocaine 4 % Patch ADH..PATCH 1 PATCH TRANSDERMA (08:15)
[2024-04-11] MEDS: amLODIPine Besylate 10 MG TABLET PO (08:15)
[2024-04-11] MEDS: Finasteride 5 MG TABLET PO (08:15)
[2024-04-11] MEDS: 0.9 % Sodium Chloride Flush 3 ML SYRINGE IVFLUSH (08:21)
--- NOTE | 2024-04-11 08:25 | P.PNNP_ITS ---
Subjective Subjective Date of Service: 04/11/24 Interval history: Pt is an 84-year-old male (Belarusian-speaking) with a medical history of HTN, HLD, CKD 3, BPH, chronic back pain with degenerative arthritis, and GERD who presented to the ED from home with back pain. reduced PO intake, vomiting x1 in setting of continued ARB and diuretic use, developed BRENDA Creatinine on arrival was 3.4, which increased from 0.[address] from 03/31 showed non-obstructing right renal calculus without hydronephrosis/obstruction. He has been receiving hydration and continues to improve, creatinine at baseline today 0.79 anemia with thrombocytopenia schistocyte checked, were negative LDH and CK elevated, haptoglobin normal CT scan from 03/31 shows new retroperitoneal lymphadenopathy hematology is following Patient states he is feeling well today, urinating regularly/comfortably states he is tired breathing is comfortable no additional complaints BP remains elevated 152/68 (new dose of 10mg amlodipine not yet administered today) Physical Exam 2 Vital Signs: Vital Signs: Last Vital Signs Temp 98.6 F 04/11/24 07:53 Pulse 83 04/11/24 07:53 Resp 18 04/11/24 07:53 BP 152/68 H 04/11/24 07:53 Pulse Ox 96 04/11/24 07:53 O2 Del Method Room Air 04/11/24 07:53 BMI result Body Mass Index 21.9 Const: General: comfortable and no acute distress O rientation/consciousness: oriented to person, oriented to place and oriented to time Neck: Neck: Yes no JVD Resp: Effort & Inspection: able to speak in complete sentences A uscultation: clear to auscultation bilaterally Cardio: Jugular venous distension: no JVD Rate: regular rate Rhythm: r egular rhythm Heart sounds: S1 normal heart sound present and S2 normal heart sound present GI: Palpation (GI): Soft to palpation Rectal Exam - Male: No tenderness : General: Yes no CVA tenderness Back/Spine/Pelvis: Back: no CVA tenderness Skin: Rashes: no rashes Neuro: General: oriented to person, oriented to place and oriented to time Extrem: General: Yes normal to inspection, No edema and No pedal edema Objective Data Labs 04/11/24 05:44 04/11/24 05:44 Labs: Laboratory Results - last 24 hr 04/11/24 05:44 WBC 3.0 L RBC 3.52 L Hgb 10.5 L Hct 30.3 L MCV 86.1 MCH 29.8 MCHC 34.7 RDW 14.6 Plt Count 65 L MPV 12.3 Absolute Nucleated RBC 0.020 H Nucleated RBC % (auto) 0.7 H Sodium 141 Potassium 3.8 Chloride 107 Carbon Dioxide 20 L Anion Gap 18 BUN 13 Creatinine 0.79 Estim Creat Clear Calc 58.9 Estimated GFR > 60 Random Glucose 112 Calcium 9.6 Microbiology Microbiology Results: Microbiology 04/04/24 Unknown Urine clean catch - Clean Catch Midstream Urine Culture - Final Procedures Date of Service Date of Service: 04/11/24 Assessment & Plan Assessment and plan (1) Acute kidney injury: Status: Acute (2) Chronic kidney disease, stage III (moderate): Status: Acute (3) Benign essential hypertension: Status: Acute (4) Anemia: Status: Inactive Plan BRENDA on CKD3, due to tubular injury from hypoperfusion secondary to reduced PO intake, vomiting with continued use of diuretic and ARB. patient's renal function has normalized with hydration and holding diuretic/arb blood pressure remains suboptimal, increased to 10mg daily amlodipine (new dose to be started this a.m.) worsening anemia with thrombocytopenia negative schistocytes make HUS less likely new retroperitoneal lymphadenopathy on recent CT raises concern for other hematologic process as underlying cause - hematology following recommend monitoring I&O, continue to stay well-hydrated recommend monitoring blood pressures and follow up outpatient for continued optimization and monitoring recommend avoiding nephrotoxic substances/medications, including NSAIDs Discussed with Dr Nichole Time Spent With Patient Time: Total time managing care of this patient today ____ minutes. Progress Note: Quality Stroke Does the patient have a stroke diagnosis?: No
--- NOTE | 2024-04-11 09:40 | MHC.CM.PN ---
This CM met with pt and his visitors per their request with the assistance of a healthcare interpreter. Pt would like to add his RISK CONSULTING TREASURY DIRECTOR as his alternate HCP. New HCP completed with pt, now on file.
--- NOTE | 2024-04-11 10:10 | MHC.CLN ---
F/U PATIENT IS NPO FOR CT TODAY. ALBUMIN NOW WITHIN NORMAL LIMITS FROM 04/07 THROUGH 04/10. WHEN DIET RESUMES, OK TO DISCONTINUE ENSURE TID.
--- NOTE | 2024-04-11 10:35 | P.PNHO-ONC_ITS ---
Medical Summary - Medical Summary Primary Care Provider: Neena Maguire MD Medical Summary: DIAGNOSIS: 1. ANEMIA. 2. THROMBOCYTOPENIA. 3. SCHISTOCYTES. He has remained stable overnight without bleeding. He is eating and drinking. He is alert and oriented and free of pain. Interval History Interval history: Dante Hawley is a 84 year old gentleman, admitted on 04/04 with back pain. Patient was just discharged from the hospital on04/03, after being admitted on 03/31 for generalized weakness in the setting of acute normocytic anemia with stool positive for occult blood. He had a 4 point drop in hemoglobin in the past 6 months.Was seen by GI and underwent endoscopy which found mild tortuous esophagitis without stricture; empiric balloon dilation was performed. Was also found to have moderate diffuse gastric erythema and treated with PPI. He was noted to have elevated ferritin and orders were placed for testing for hemochromatosis. Pt is a rather poor historian and it is unclear exactly what prompted re- presentation, though he believes his partner called EMS due to continued back pain. Reports lower back pain has been ongoing x1 month, seemingly at current baseline without worsening in the past 2 days. He denies fall at home or known trauma to the area. Denies numbness or tingling in extremities. He has only eaten a little which he vomited back up. Denies abdominal pain or hematemesis. Also reports drinking very little and only urinating once since he has been home. Reports continued weakness, ambulates at home with use of walker and/or cane. Denies chest pain/pressure, palpitations. No shortness a breath or difficulty breathing. In the ED pt with slightly soft BP of 133/57, vitals otherwise WNL. Labs were significant for pancytopenia of WBCs 3.5, H&H 9.8/26.3, platelets 100, similar to previous. BUN elevated at 23 in creatinine 3.40 (elevated from 0.94 yesterday). Pt was treated with 1L IVF. BRENDA likely secondary to dehydration from reduced p.o. intake, GI losses from vomiting, and continue diuretic use. Review of Systems 2 Review of Systems: Lower back pain x1 month Generalized weakness N/V x2 episodes Reduced p.o. intake Reduced urination No diarrhea or abdominal pain Denies chest pain/pressure, palpitations No fever, chills Denies hematemesis, hemoptysis, hematochezia, melena [facility] Medical History: [place]-speaking male with a PMH significant for?HTN, HLD, CKD 3, BPH, chronic back pain with degenerative arthritis, and GERD Hearing loss of both ears Chronic kidney disease, stage III (moderate) GERD without esophagitis Benign essential hypertension Pure hypercholesterolemia Varicose veins of right lower extremity with inflammation Arthritis HTN (hypertension) Surgical History: History of cataract extraction S/P ORIF (open reduction internal fixation) fracture Family History: Other Family history non-contributory Social History: Household Members: Friend(s) Housing: Apartment Are you a primary health care analyst to a significant other at home: No Do you presently have visiting nurse or other home services: Yes ([employer]) Patient Tobacco Use Status: Former Tobacco user Tobacco use type: Cigarette Review of Systems - Neurologic Denies focal weakness, Denies tingling, Denies tremor(s), Denies weakness [facility] Medical History: Medical History (Last Updated 04/05/24 @ 11:29 by Radha Dewey, DNP, TEST CAR DRIVER-BC) Anemia Arthritis Back pain Benign essential hypertension Chronic kidney disease, stage III (moderate) Degenerative arthritis of lumbar spine GERD without esophagitis Hearing loss of both ears HTN (hypertension) Pure hypercholesterolemia Varicose veins of right lower extremity with inflammation Functional capacity: wheelchair bound Family History: Family History (Last Reviewed 03/31/24 @ 22:13 by Emily Brandon MD) Other Family history non-contributory Surgical History: Surgical History (Last Reviewed 04/05/24 @ 10:29 by Sabrina Littlejohn, PT) History of cataract extraction S/P ORIF (open reduction internal fixation) fracture Social History: Social History (Last Reviewed 03/31/24 @ 22:13 by Emily Brandon MD) Living Situation History: Household Members: Friend(s) Housing: Apartment Are you a primary health care analyst to a significant other at home: No Do you presently have visiting nurse or other home services: Yes Do you presently have visiting nurse or other home services comment: [employer] Tobacco History: Patient Tobacco Use Status: Never used Tobacco Tobacco use type: Cigarette e-Cigarette/Vaping Use: Never Used Occupation Assessmet: service: No Current occupational status: retired Home Medications and Allergies Current Medications: Current Medications Acetaminophen (Acetaminophen 325 Mg Tablet) 650 mg PO Q6H PRN PRN Reason: Pain, Mild (Pain Scale 1-3), fever or headache Last Admin: 04/08/24 16:35 Dose: 650 mg Amlodipine Besylate (Amlodipine Besylate 10 Mg Tablet) 10 mg PO DAILY [facility]; Protocol Last Admin: 04/11/24 08:15 Dose: 10 mg Benzonatate (Benzonatate 100 Mg Capsule) 100 mg PO TID PRN PRN Reason: Cough Calcium Carbonate (Calcium Carbonate 750 Mg Tab.Chew) 750 mg PO Q4H PRN PRN Reason: Heartburn Cyclobenzaprine HCl (Cyclobenzaprine Hcl 10 Mg Tablet) 10 mg PO TID PRN PRN Reason: muscle spasm Last Admin: 04/05/24 20:23 Dose: 10 mg Diphenhydramine HCl (Diphenhydramine Hcl 25 Mg Capsule) 25 mg PO TID PRN PRN Reason: itching Finasteride (Finasteride 5 Mg Tablet) 5 mg PO DAILY [facility] Last Admin: 04/11/24 08:15 Dose: 5 mg Hydroxyzine HCl (Hydroxyzine Hcl 25 Mg Tablet) 25 mg PO BID [facility] Last Admin: 04/11/24 08:15 Dose: 25 mg Lidocaine (Lidocaine 4 % Patch Adh..Patch) 1 patch TRANSDERMA DAILY [facility] Last Admin: 04/11/24 08:15 Dose: 1 patch Magnesium Hydroxide (Milk Of Magnesia 30 Ml Oral.Susp) 30 ml PO DAILY PRN PRN Reason: Constipation Melatonin (Melatonin 3 Mg Tablet) 6 mg PO BEDTIME PRN PRN Reason: Insomnia Last Admin: 04/05/24 20:23 Dose: 6 mg Ondansetron HCl (Ondansetron Hcl 4 Mg/2 Ml Vial) 4 mg IVPUSH Q8H PRN PRN Reason: Nausea and Vomiting Sodium Chloride (0.9 % Sodium Chloride Flush 3 Ml Syringe) 3 ml IVFLUSH QSHIFT [facility] Last Admin: 04/11/24 08:21 Dose: 3 ml Home Medications ?Medication ?Instructions ?Recorded ?Confirmed ?Type hydroxyzine pamoate 25 mg capsule 25 mg PO BID itching 04/01/24 04/04/24 History Allergies Allergy/AdvReac Type Severity Reaction Status Date / Time No Known Allergies Allergy Verified 04/04/24 12:59 Exam Vital signs: Vital Signs Temp 98.6 F 04/11/24 07:53 Pulse 83 04/11/24 07:53 Resp 18 04/11/24 07:53 BP 152/68 H 04/11/24 07:53 Pulse Ox 96 04/11/24 07:53 O2 Del Method Room Air 04/11/24 07:53 Intake & Output 04/10/24 04/11/24 04/11/24 18:59 06:59 18:59 Intake Total 480 / 905 425 / 905 Output Total 100 / 450 350 / 450 Balance 380 / 455 75 / 455 Urine Output (Average ml/kg/hr) 0.14 0.50 Intake: Intake, Oral Amount 480 / 905 425 / 905 Output: Output, Urine Amount 100 / 450 350 / 450 Other: Meal Refused No No NPO No Yes Breakfast % Eaten 100% Lunch % Eaten 100% Dinner % Eaten 25% Eating (Feeding) Ability Independent Number of Incontinent Voids 1 Number of Unmeasured Voids 2 Number of Bowel Movements 0 Urine Urinal Urinal Urine Color Yellow Yellow Weight 57.8 kg BMI result Body Mass Index 21.9 - Constitutional Present: no acute distress, mild distress - Routine HEENT Exam Head: Present: atraumatic, normal inspection, normocephalic - Routine Neck Exam Present: full ROM - Routine Respiratory Exam Present: decreased breath sounds, CTAB - Routine Cardiovascular Exam Cardiovascular: Present: RRR, S1, S2 - Routine Abdominal Exam Present: diminished bowel sounds, soft, nontender - Routine Extremities Exam Present: nontender - Routine Skin Exam Present: intact, normal turgor - Routine Neurological Exam Present: alert, oriented X3 - Detailed Neurological Exam: Coma Scale Eye Opening: Spontaneous (4) Data - Labs CBC & Chem 7: 04/11/24 05:44 04/11/24 05:44 Assessment and Plan Patient Active problem list reviewed?: Yes
[2024-04-11 10:52] LABS: Lactate Dehydrogenase 2641 U/L (118-273)
--- NOTE | 2024-04-11 11:02 | PM.DS ---
DS: Providers Provider Date of Service: 04/11/24 Date of admission: 04/04/24 15:38 Primary care physician: Neena Maguire MD Consults: 04/05/24 08:39 Consult to Nephrology Routine Consulting Provider: [facility] Reason for consultation: brenda Has provider been notified: No 04/05/24 13:01 Consult to Hematology / Oncology Routine Consulting Provider: [facility] Oncology/Hematology Reason for consultation: pancytopenia /elevated ldh Has provider been notified: No 04/05/24 17:02 Consult to Gastroenterology Routine Consulting Provider: Elmer Marr Reason for consultation: Elevated LFTs, anemia DS: Diagnosis Discharge Diagnosis (1) Acute kidney injury: Status: Acute (2) Chronic kidney disease, stage III (moderate): Status: Acute (3) Benign essential hypertension: Status: Acute (4) Anemia: Status: Inactive DS: Summary Hospital Course Hospital Course: admission hpi Chief Complaint: Back pain Pt is an 84-year-old primarily Uruguayan-speaking male with a PMH significant for?HTN, HLD, CKD 3, BPH, chronic back pain with degenerative arthritis, and GERD who presents to the ED from home with back pain. Patient was just discharged from the hospital yesterday after being admitted on 03/31 for generalized weakness in the setting of acute normocytic anemia with stool positive for occult blood. Experienced a 4 point drop in hemoglobin in the past 6 months. Was seen by GI and underwent endoscopy which found mild tortuous esophagitis without stricture; empirirc balloon dilation was performed. Was also found to have moderate diffuse gastric erythema and treated with PPI. Also noted to have elevated ferritin and orders were placed for testing for hemochromatosis. Pt is a rather poor historian and it is unclear exactly what prompted re-presentation today, though he believes his partner called EMS due to continued back pain. Reports lower back pain has been ongoing x1 month, seemingly at current baseline without worsening in the past 2 days. Patient denies fall at home or known trauma to the area. Denies numbness or tingling in extremities. Patient states since discharge has only eaten a little which he vomited back up. Denies abdominal pain or hematemesis. Also reports drinking very little and only urinating once since he has been home. Reports continued weakness, ambulates at home with use of walker and/or cane. Denies chest pain/pressure, palpitations. No shortness a breath or difficulty breathing. In the ED pt with slightly soft BP of 133/57, vitals otherwise WNL. Labs were significant for pancytopenia of WBCs 3.5, H&H 9.8/26.3, platelets 100, similar to previous. BUN elevated at 23 in creatinine 3.40 (elevated from 0.94 yesterday). Pt was treated with 1L IVF. Pt will be admitted to the hospital for treatment and further evaluation of BRENDA likely secondary to dehydration from reduced p.o. intake, GI losses from vomiting, and continue diuretic use. hospital course: 84/m [place]ayan-speaking male with a PMH significant for?HTN, HLD, CKD 3, BPH, chronic back pain with degenerative arthritis, and GERD who presents to the ED from home with back pain. Patient was just discharged from the hospital the day before after being admitted on 03/31 for generalized weakness in the setting of acute normocytic anemia with stool positive for occult blood. Patient found have BRENDA, pancytopenia, mild rhabomylosis BRENDA-Likely multifactoria d/t dehydration, diuretics and rhabdo. Renal function has returned to nromlal with hydration, presently creatine 0.79 today, at peak 3.4 on 04/04/24 mild rhabdomylosis--cpk has trended down lower back > 1 month, CT from 03/22, showed DJD of spine and retroperitoneal lymph nodes.. -overall better with conservative management. Oncology is recommending biopsy which will be arrange on outpatient basis Pancytopenia. Has been evaluated by hematology. B12, folate within normal, LDH level is elevated, haptoglobin normal, peripheral smear shows 1+ schistocytes, retic count was high. HIV negative, hep b,c negative [id number] activity is normal, and inhibitor level is pending. He was transfused 2 units of RBC and H/H has been fairly stable, presently 05/02. Platlet count is around 60 and stable. HUS and DIC ruled out. 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 Currently not on a statin (elevated lft's/rhabo) and deferred antiplatlets ( please see h&P dr holly 03/31) due to gi bleed ,also has now pancytopenia GERD Continue PPI BPH Continue finasteride Full Code Time Attestation Discharge Coordination Time (in mins): 40 Quality: Safe Use of Opioids Does Pt have an Active Cancer Diagnosis on the Problem List?: No Quality: Stroke Does the patient have a stroke diagnosis?: No Physical Exam Vital Signs: Vital Signs: Last Vital Signs Temp 98.6 F 04/11/24 07:53 Pulse 83 04/11/24 07:53 Resp 18 04/11/24 07:53 BP 152/68 H 04/11/24 07:53 Pulse Ox 96 04/11/24 07:53 O2 Del Method Room Air 04/11/24 07:53 BMI result Body Mass Index 21.9 Const: Other: General: AO X 3, no acute distress Resp: CTA bilateral CVS: S1,S2,RRR GI: +BS, NT, no distention Skin: No rash Neuro: motor grossly intact Psych: appropriate affect DS: Data Data Completed and Pending Labs on day of discharge: Laboratory Results - last 24 hr 04/11/24 05:44 WBC 3.0 L RBC 3.52 L Hgb 10.5 L Hct 30.3 L MCV 86.1 MCH 29.8 MCHC 34.7 RDW 14.6 Plt Count 65 L MPV 12.3 Absolute Nucleated RBC 0.020 H Nucleated RBC % (auto) 0.7 H Sodium 141 Potassium 3.8 Chloride 107 Carbon Dioxide 20 L Anion Gap 18 BUN 13 Creatinine 0.79 Estim Creat Clear Calc 58.9 Estimated GFR > 60 Random Glucose 112 Calcium 9.6 Lactate Dehydrogenase 2641 H Discharge Plan Discharge Anticipated Discharge Date/Time: 04/11/24 11:00 Patient Disposition: Home Health Service Discharge Diagnosis: BRENDA, pancytopenia, retroperitoneal lymph nodes Referrals: [facility] [Outside] - 3-5 Days ([facility] will call you set up home services) Neena Maguire MD [Primary Care Provider] - 1 Week John Jones MD [Physician] - 1 Week Brenna Chery, [facility] [Nurse Practitioner] - 04/19/24 1:00 pm (Follow up w/ the [facility] at your PCP's office on 04/19/24 at 1pm. It is very important to keep this appointment.) Discharge Medications: New amlodipine 10 mg Tablet 10 mg PO DAILY Qty: 90 0RF Protocol: Hold for SBP< HOLD for SBP < : 90 Continued diphenhydramine HCl [Benadryl] 25 mg capsule 25 mg PO TID PRN (Reason: itching) 7 Days Qty: 21 0RF Rx Instructions: side effect is drowsiness. lidocaine [Lidoderm] 5 % adhesive patch,medicated 1 patch topical DAILY Qty: 15 0RF Rx Instructions: leave on most painful area for up to 12 hrs acetaminophen [Tylenol Extra Strength] 500 mg tablet 500 mg PO Q6H PRN (Reason: pain) Qty: 20 0RF cyclobenzaprine 10 mg tablet 10 mg PO TID PRN (Reason: muscle spasm) Qty: 20 0RF hydroxyzine pamoate 25 mg capsule 25 mg PO BID omeprazole 20 mg capsule,delayed release(DR/EC) 20 mg PO DAILY Qty: 30 0RF finasteride 5 mg tablet 5 mg PO DAILY 90 Days Qty: 90 1RF Discontinued furosemide 20 mg tablet 20 mg PO DAILY 90 Days Qty: 90 1RF losartan 100 mg tablet 100 mg PO DAILY 90 Days Qty: 90 1RF Discharge Orders: Discharge Order (Routine); Ordered 04/11/24 Ordered By: Aj Leach Diet: Advance to usual diet Activity on Discharge: As tolerated Stand Alone Forms: Patient Portal Discharge page Print Language: U[place]ayan Other Ambulatory Orders: US biopsy lymph node (Routine) Timeframe: 1 Day Facility: [facility] - Location: Ultrasound Ordered By: Aj Leach Care Plan Goals: recovery from kidney failure, weakness, pancytopenia Health Concerns: kidney failure, rhabomylosis, pancytopenia, retroperitoneal lymph node Plan of Treatment: follow up with oncology clinic you will need an biopsy of lymph node, this will be arrange on outaptient basis Assessment: see above
--- NOTE | 2024-04-11 11:06 | MHC.CM.PN ---
Second IMM given 04/11. Pt is medically cleared for discharge home wit new [facility] services, pts ITEM REPAIR MANAGER will transport him home.
--- NOTE | 2024-04-11 11:23 | W.MHC.F2F ---
Service Date Service Date: 04/11/24 Encounter Date of encounter: 04/11/24 Reasons for Services Signs and symptoms assessed: weakness from hospitalization Reason for halfway: teach disease management Reason for physical therapy: home safety and mobility, therapeutic exercises and energy conservation Homebound: Leaving the home is medically contraindicated at this time without the asist of a device and/or another person due th the listed conditions above and below. Reason homebound: weakness related to hospital stay Homebound supporting statement: homebound due to weakness related to hospitalization, anemia,frail unable to drive and therefore needs the assitance of another erson Certification: Based on the above findings, I certify that this patient is confined to the home and needs intermittent halfway care, physical therapy and/or speech therapy, or continues to need occupational therapy. The patient is under my care, and I have initiated the establishment of the plan of care. The patient will be followed by a physician who will periodically review the plan of care. Time Spent With Patient Time: Total time managing care of this patient today ____ minutes.
== END 2024-04-11 13:32 | disposition home health service (06) | DRG 683 ==
LOC: HO.ED 13:55 → HO.EDOVER 15:56 → HO.S3 16:30
PROVIDERS: Internal Medicine; Internal Medicine Medical Oncology; Nurse Practitioner Family; Admitting Provider Student in an Organized Health Care Education/Training Program; Emergency Provider Emergency Medicine; PCP Internal Medicine; Visit Provider Internal Medicine
DX: N17.9 Acute kidney failure, unspecified (principal); D61.818 Other pancytopenia; I77.4 Celiac artery compression syndrome; M62.82 Rhabdomyolysis; E88.09 Other disorders of plasma-protein metabolism, not elsewhere classified; E78.2 Mixed hyperlipidemia; I77.1 Stricture of artery; R13.10 Dysphagia, unspecified; K21.9 Gastro-esophageal reflux disease without esophagitis; N40.0 Benign prostatic hyperplasia without lower urinary tract symptoms; R59.0 Localized enlarged lymph nodes; E86.0 Dehydration; M47.819 Spondylosis without myelopathy or radiculopathy, site unspecified; I70.1 Atherosclerosis of renal artery; I12.9 Hypertensive chronic kidney disease with stage 1 through stage 4 chronic kidney disease, or unspecified chronic kidney disease; N18.30 Chronic kidney disease, stage 3 unspecified; Z20.822 Contact with and (suspected) exposure to COVID-19; Z79.899 Other long term (current) drug therapy
CPT/HCPCS: 36415; 76775; 80048; 80053; 80061; 80076; 81001; 82043; 82140; 82550; 82570; 82607; 82746; 83010; 83615; 84156; 85007; 85014; 85018; 85025; 85027; 85045; 85049; 85335; 85379; 85384; 85397; 85610; 85730; 86850; 86880; 86900; 86901; 86923; 87086; 87389; 87633; 97116; 97162; 99285; J1644; J2470; J7120; P9016; P9047

== ENCOUNTER → 2024-04-04 15:38 | Outpatient (BNV) | payer OTHER, SELFPAY | PROVIDERS: Admitting Provider Student in an Organized Health Care Education/Training Program; Emergency Provider Emergency Medicine; PCP Internal Medicine; Visit Provider Nurse Practitioner Family | DX: N17.0 Acute kidney failure with tubular necrosis (principal); I12.9 Hypertensive chronic kidney disease with stage 1 through stage 4 chronic kidney disease, or unspecified chronic kidney disease; N18.32 Chronic kidney disease, stage 3b; D61.818 Other pancytopenia; D62 Acute posthemorrhagic anemia | CPT/HCPCS: 99223; 99232 ==

== ENCOUNTER → 2024-04-04 15:38 | Outpatient (BNV) | payer OTHER, SELFPAY | PROVIDERS: Admitting Provider Student in an Organized Health Care Education/Training Program; Emergency Provider Emergency Medicine; PCP Internal Medicine; Visit Provider Internal Medicine Gastroenterology | DX: D64.9 Anemia, unspecified (principal); K21.9 Gastro-esophageal reflux disease without esophagitis; R13.10 Dysphagia, unspecified | CPT/HCPCS: 99232 ==

== ENCOUNTER → 2024-04-04 15:38 | Outpatient (BNV) | payer OTHER, SELFPAY | PROVIDERS: Admitting Provider Student in an Organized Health Care Education/Training Program; Emergency Provider Emergency Medicine; PCP Internal Medicine; Visit Provider Student in an Organized Health Care Education/Training Program | DX: N17.9 Acute kidney failure, unspecified (principal); I12.9 Hypertensive chronic kidney disease with stage 1 through stage 4 chronic kidney disease, or unspecified chronic kidney disease; N18.32 Chronic kidney disease, stage 3b; D63.1 Anemia in chronic kidney disease | CPT/HCPCS: 99223; 99231; 99232; 99239; G0180 ==

== ENCOUNTER → 2024-04-04 15:38 | Outpatient (BNV) | payer OTHER, SELFPAY | PROVIDERS: Admitting Provider Student in an Organized Health Care Education/Training Program; Emergency Provider Emergency Medicine; PCP Internal Medicine; Visit Provider Internal Medicine Medical Oncology | DX: R71.8 Other abnormality of red blood cells (principal) | CPT/HCPCS: 99222 ==

== ENCOUNTER 2024-04-14 13:50 | Inpatient (IN) | payer OTHER, SELFPAY ==
[2024-04-14 13:53] VITALS: BP 158/60; PULSE 120; O2SAT 97
[2024-04-14 13:57] VITALS: BMI 20.2
--- NOTE | 2024-04-14 14:30 | ED.BACK ---
HPI - Back Pain/Injury General Chief Complaint: Back Pain/Injury Stated Complaint: back pain Time Seen by Provider: 04/14/24 14:30 Source: patient, EMS, old records reviewed and education analyst Mode of arrival: EMS Limitations: no limitations History of Present Illness ED Provider: DR. Mccurdy HPI Narrative: This is a 84-year-old male with pertinent history of hypertension, CKD stage 3, mixed hyperlipidemia, gastroesophageal reflux disease, BPH, hypertension who presents to the emergency department for evaluation of weakness and low back pain. Patient states he was seen in the ER 9 days ago for low back pain and discharged home. patient continues to complain of low back pain. Also has been weak with easy fatigability. Also with poor p.o. intake. had a normal bowel movement today,No fever, chills, chest discomfort, palpitations, shortness of breath, abdominal pain, changes in urinary habits. Patient is Fijian speaking and history obtained with the help of behavior management specialist. patient had recent 2 admissions on 03/31 for acute anemia and positive stool for blood patient had upper endoscopy which was reported as unremarkable. And another admission on 04/04 for acute kidney failure. Patient is here today complaining of his chronic back pain, stated that he is having difficulty swallowing and he did not eat for the last 2 days patient was given drink and crackers in the ED was able to swallow with no problem. Related Data Home Medications ?Medication ?Instructions ?Recorded ?Confirmed hydroxyzine pamoate 25 mg capsule 25 mg PO BID itching 04/01/24 04/04/24 Previous Rx's ?Medication ?Instructions ?Recorded diphenhydramine HCl 25 mg capsule 25 mg PO TID PRN itching 7 days 09/06/22 (Benadryl) #21 caps finasteride 5 mg tablet 5 mg PO DAILY 90 days #90 tabs 02/01/24 acetaminophen 500 mg tablet 500 mg PO Q6H PRN pain #20 tabs 03/31/24 (Tylenol Extra Strength) cyclobenzaprine 10 mg tablet 10 mg PO TID PRN muscle spasm #20 03/31/24 tabs lidocaine 5 % topical patch 1 patch topical DAILY #15 ea 03/31/24 (Lidoderm) omeprazole 20 mg capsule,delayed 20 mg PO DAILY #30 caps 04/03/24 release amlodipine 10 mg tablet 10 mg PO DAILY #90 tabs 04/11/24 tramadol 50 mg tablet 25 mg (1/2 x 50 mg) PO Q6H PRN 04/11/24 pain (scale score 7-10) #15 tabs Allergies Allergy/AdvReac Type Severity Reaction Status Date / Time No Known Allergies Allergy Verified 04/14/24 13:59 Review of Systems Review of Systems: All other systems are reviewed and are negative Constitutional: Reports as per HPI and Reports no additional constitutional complaints Eyes: Reports as per HPI and Reports no additional eye complaints Reports system reviewed and no additional complaints, except as documented Cardiovascular: Reports as per HPI and Reports no additional cardiovascular complaints Respiratory: Reports as per HPI and Reports no additional respiratory complaints Gastrointestinal: Reports as per HPI and Reports no additional gastrointestinal complaints Genitourinary: Reports no additional female genitourinary complaints Musculoskeletal: Reports no additional musculoskeletal complaints Skin/Breast: Reports system reviewed and no additional complaints, except as docu Psychiatric: Reports no additional psychiatric complaints Endocrine: Reports no additional endocrine complaints Hematologic/Lymphatic: Reports no additional hematologic/lymphatic complaints Allergic/Immunologic: Reports no additional allergic/immunologic complaints Reports system reviewed and no additional complaints, except as documented and Reports Abnormal speech present [facility] Past Medical History Medical History (Updated 04/14/24 @ 16:27 by Alfredo Mccurdy MD) Anemia Back pain 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 Chronic kidney disease, stage III (moderate) GERD without esophagitis Benign essential hypertension Pure hypercholesterolemia Varicose veins of right lower extremity with inflammation Arthritis HTN (hypertension) Surgical History (Updated 04/05/24 @ 13:47 by John Jones MD) History of cataract extraction S/P ORIF (open reduction internal fixation) fracture Family History Family History Other Family history non-contributory Social History Social History Household Members: Friend(s) Housing: Apartment Are you a primary adult day care worker to a significant other at home: No Do you presently have visiting nurse or other home services: Yes ([employer] services) Patient Tobacco Use Status: Never used Tobacco Tobacco use type: Cigarette Smoked in Last 30 Days: No e-Cigarette/Vaping Use: Never Used Use of substances other than those prescribed or required for medical reasons: No Advance Directives: No Advance Directives Information Provided: No service: No Current occupational status: retired Cognitive needs: No Hearing needs: No Vision needs: No Physical Exam Vital Signs: Vital Signs: Last Vital Signs Temp 98.6 F 04/14/24 16:00 Pulse 112 H 04/14/24 16:00 Resp 22 H 04/14/24 16:00 BP 143/63 H 04/14/24 16:00 Pulse Ox 93 04/14/24 16:00 O2 Del Method Room Air 04/14/24 16:00 BMI result Body Mass Index 20.2 Vital signs have been reviewed and appear to be correct. Blood pressure elevated. Heart rate elevated Respiratory rate normal. Temperature normal. Oxygen saturation normal. Appearance: Alert. Oriented X3. No acute distress. Head: Normal external exam. Normocephalic. Atraumatic. No Mcclure signs noted. No raccoon eyes noted Eyes: PERRLA. EOMI. Conjunctiva and sclera normal. Eyelids normal. ENT: TM's Normal. Pharynx normal. Uvula midline. Moist mucous membranes. No trismus noted. No drooling noted. No muffled voice noted. Neck: Normal inspection. Neck supple. FROM. No adenopathy. Thyroid Normal. No meningeal signs. No neck mass noted. CVS: Normal heart rate and rhythm. Heart sound normal. No murmurs noted. Pulses normal throughout. Respiratory: No respiratory distress. Painless inspiration. Breath sounds normal. No wheezes/rales/rhonchi noted. Chest nontender. No accessory muscle usage noted or decreased air movement noted. Abdomen: Soft and nontender. Bowel sounds normal in all 4 quadrants. No distention noted. No organomegaly noted. No visible injury noted. Back: No CVA tenderness. Full range of motion noted. Skin: Skin warm and dry. Normal skin color. Normal skin turgor. No rashes/lesions/lacerations noted. Extremities: No lower extremity edema. Extremities exhibit normal range of motion. Extremities nontender. Neuro: Oriented X 3. Cranial nerve exam: II-XII are grossly intact No motor deficit. No sensory deficit. Reflexes normal. Course Reevaluation(s) Reevaluation #1: BRENDA due to dehydration, decreased p.o. intake at home, patient is tachycardic, had a recent EGD revealed no reason for his dysphagia. Time: 16:25 Medical Decision Making Differential Diagnosis Differential Diagnoses: The differential diagnosis associated with the presentation includes ( BRENDA, dehydration, electrolyte derangement, severe anemia, esophageal foreign body impaction.) Admission/Observation Consideration of admission/observation: Escalation of care including admission/observation considered Consult Healthcare Provider Management of the patient was discussed with: Hospitalist ( Dr. Leach) Lab Data MDM Lab Attestation statement: I reviewed the patient's lab results. 04/14/24 15:41 04/14/24 15:41 Labs: Lab Results 04/14/24 Range/Units 15:41 WBC 4.6 L (4.8-10.8) X10*3/uL RBC 3.46 L (4.60-5.80) X10*6/uL Hgb 10.2 L (14.0-18.0) g/dl Hct 29.8 L (42.0-52.0) % MCV 86.1 (80.0-98.0) fL MCH 29.5 (27.0-33.0) pg MCHC 34.2 (31.0-36.0) g/dl RDW 15.0 (11.0-16.0) % Immature Gran % (Auto) Cancelled Neut % (Auto) Cancelled Lymph % (Auto) Cancelled [place] % (Auto) Cancelled Eos % (Auto) Cancelled Baso % (Auto) Cancelled Lymph # (Auto) Cancelled [place] # (Auto) Cancelled Eos # (Auto) Cancelled Baso # (Auto) Cancelled Abs Immat Gran (auto) Cancelled Absolute Neuts (auto) Cancelled Absolute Nucleated RBC 0.070 H (0.0-0.012) X10*3/uL Nucleated RBC % (auto) 1.5 H (0.0-0.2) /100WBC Smear Tech's Comments MANUAL DIFF Sodium 140 (135-145) mmol/L Potassium 4.9 D (3.3-5.1) mmol/L Chloride 106 (96-108) mmol/L Carbon Dioxide 20 L (22-29) mmol/L Anion Gap 19 (12-20) BUN 42 H (9-16) mg/dL Creatinine 1.52 H (0.5-1.4) mg/dL Estim Creat Clear Calc 28.2 Estimated GFR 44 Random Glucose 171 H (60-115) mg/dL Calcium 9.7 (8.4-10.2) mg/dL Discharge Plan Discharge Clinical Impression: BRENDA (acute kidney injury), Dehydration Patient Disposition: Admitted As Inpatient Prescriptions: No Action diphenhydramine HCl [Benadryl] 25 mg capsule 25 mg PO TID PRN (Reason: itching) 7 Days Qty: 21 0RF Rx Instructions: side effect is drowsiness. amlodipine 10 mg Tablet 10 mg PO DAILY Qty: 90 0RF Protocol: Hold for SBP< HOLD for SBP < : 90 tramadol 50 mg tablet 25 mg PO Q6H PRN (Reason: pain (scale score 7-10)) Qty: 15 0RF lidocaine [Lidoderm] 5 % adhesive patch,medicated 1 patch topical DAILY Qty: 15 0RF Rx Instructions: leave on most painful area for up to 12 hrs acetaminophen [Tylenol Extra Strength] 500 mg tablet 500 mg PO Q6H PRN (Reason: pain) Qty: 20 0RF cyclobenzaprine 10 mg tablet 10 mg PO TID PRN (Reason: muscle spasm) Qty: 20 0RF hydroxyzine pamoate 25 mg capsule 25 mg PO BID omeprazole 20 mg capsule,delayed release(DR/EC) 20 mg PO DAILY Qty: 30 0RF finasteride 5 mg tablet 5 mg PO DAILY 90 Days Qty: 90 1RF Print Language: Fijian
[2024-04-14 14:31] VITALS: BP 142/75; PULSE 114; RESP 18; TEMP 36.8; O2SAT 95
[2024-04-14 15:48] LABS: Hematocrit 29.8 % (42.0-52.0); Hemoglobin 10.2 g/dl (14.0-18.0); Mean Corpuscular HGB Conc 34.2 g/dl (31.0-36.0); Mean Corpuscular Hemoglobin 29.5 pg (27.0-33.0); Mean Corpuscular Volume 86.1 fL (80.0-98.0); Red Blood Count 3.46 X10*6/uL (4.60-5.80); White Blood Count 4.6 X10*3/uL (4.8-10.8)
[2024-04-14 15:49] LABS: NRBC Pct Auto 1.5 /100WBC (0.0-0.2)
[2024-04-14 15:58] LABS: Anion Gap 19 (12-20); Blood Urea Nitrogen 42 mg/dL (9-16); Calcium 9.7 mg/dL (8.4-10.2); Carbon Dioxide 20 mmol/L (22-29); Chloride 106 mmol/L (96-108); Creatinine Clr Calc Pharmacy 28.2; Estimated Glomerular Filt Rate 44; Glucose Random 171 mg/dL (60-115); Potassium 4.9 mmol/L (3.3-5.1); Sodium 140 mmol/L (135-145)
[2024-04-14 16:00] VITALS: BP 143/63; PULSE 112; RESP 22; TEMP 37; O2SAT 93
[2024-04-14 16:06] LABS: SLIDE REVIEW MANUAL DIFF
[2024-04-14 16:17] LABS: Atypical Lymph Absolute Manual 0.2 x10*3/uL; Atypical Lymphs Percent Manual 4 % (0-6); Band Neutrophils Percent 7 % (3-5); Basophils Percent Manual 1 % (0-2); Eosinophils Absolute Manual 0.2 X10*3/uL (0.0-0.4); Eosinophils Percent Manual 4 % (0-4); Lymphocytes Absolute Manual 1.2 X10*3/uL (1.2-4.9); Lymphocytes Percent Manual 26 % (20-40); Metamyelocytes Absolute 0.2 X10*3/uL; Metamyelocytes Percent 4 %; Monocytes Absolute Manual 0.2 X10*3/uL (0.1-1.2); Monocytes Percent Manual 5 % (2-11); Neutrophils Absolute Manual 2.6 X10*3/uL (2.0-8.3); Neutrophils Percent Manual 49 % (45-73)
--- NOTE | 2024-04-14 16:17 | MHC.EDTECH ---
Patient incontinent of urine. This tech changed changed patient gown, and blankets. All current needs met.
[2024-04-14 16:18] LABS: Nucleated Red Blood Cells 1 /100WBC (0-0)
[2024-04-14 16:19] LABS: Burr Cells 1+ (0-2) /OIF; RBC Morphology NOTED
[2024-04-14 16:27] LABS: Schistocytes 1+ (0-2) /OIF
[2024-04-14 16:29] LABS: Howell Jolly Bodies PRESENT; Large Platelet PRESENT; Macrocytosis 1+ (5-14) /OIF; Platelet Estimate NORMAL (NORMAL); Platelet Morphology Comment NOTED
[2024-04-14 16:30] LABS: Mean Platelet Volume 10.8 fL (9.4-12.4); Platelet Count 105 X10*3/uL (160-400)
--- NOTE | 2024-04-14 16:35 | PM.IMHP ---
History of Present Illness Date of Service: 04/14/24 Chief Complaint: back pain An 84-year-old Spanish and Citizen Of [place]-speaking male with a past medical history significant for hypertension (HTN), hyperlipidemia (HLD), chronic kidney disease stage 3 (CKD 3), benign prostatic hyperplasia (BPH), chronic back pain with degenerative arthritis, gastroesophageal reflux disease (GERD), and a recent hospitalization from 04/04 to 04/11 for acute kidney injury (MARY), rhabdomyolysis, and pancytopenia. During that hospitalization, further workup revealed retroperitoneal lymphadenopathy, and an outpatient biopsy was recommended. His condition improved, and he was discharged home with home care services. He now returns to the emergency department with generalized functional decline at home, reporting worsening back pain radiating to his hip, difficulty with ambulation, and decreased oral intake. Labs show a creatinine of 1.52 (previously 0.79 at the time of last discharge) reportedly he has been taking Lasix which he was advised to stop taking. His pancytopenia is unchanged. No imaging was performed. He denies numbness in his feet, as well as urinary or stool incontinence. 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 Chronic kidney disease, stage III (moderate) GERD without esophagitis Benign essential hypertension Pure hypercholesterolemia Varicose veins of right lower extremity with inflammation Arthritis HTN (hypertension) Family History Other Family history non-contributory Surgical History History of cataract extraction S/P ORIF (open reduction internal fixation) fracture Social History Household Members: Significant Other Housing: Apartment Are you a primary medicare sales executive to a significant other at home: No Do you presently have visiting nurse or other home services: Yes Patient Tobacco Use Status: Never used Tobacco Tobacco use type: Cigarette Smoked in Last 30 Days: No e-Cigarette/Vaping Use: Never Used Use of substances other than those prescribed or required for medical reasons: No Currently Displaying Signs/Symptoms of Drug Intoxication Withdrawal: No Have you been hit, kicked, punched, or otherwise hurt by someone within the past year? If so, by whom?: No Do you feel safe in your current relationship?: Yes Is there a partner from a previous relationship who is making you feel unsafe now?: No Are you made to feel afraid or neglected: No Advance Directives: No Advance Directives Information Provided: No Do you have a plan to hurt others: No Plan Recently lost weight without trying: No How much weight loss: Not applicable Eating poorly because of decreased appetite: No Nutrition screen score: 0 Nutrition Risks: No Nutritional Risk service: No Current occupational status: retired Cognitive needs: No Hearing needs: No Vision needs: No Meds Allergies Allergy/AdvReac Type Severity Reaction Status Date / Time No Known Allergies Allergy Verified 04/14/24 13:59 Active Medications: Current Medications Sodium Chloride (Ns) 1,000 mls @ 999 mls/hr IV .Q1H1M ONE Stop: 04/14/24 17:15 Home Medications ?Medication ?Instructions ?Recorded ?Confirmed ?Last Taken ?Type hydroxyzine pamoate 25 mg capsule 25 mg PO TID itching 04/01/24 04/14/24 Unknown History furosemide 20 mg tablet 20 mg PO DAILY 04/14/24 04/14/24 Unknown History lidocaine 5 % topical patch 1 patch topical DAILY PRN Pain 04/14/24 04/14/24 Unknown History (Lidoderm) omeprazole 20 mg capsule,delayed 20 mg PO DAILY@0630 04/14/24 04/14/24 Unknown History release Physical Exam Vital Signs and Narrative: Vital Signs: Last Vital Signs Temp 98.6 F 04/14/24 16:00 Pulse 112 H 04/14/24 16:00 Resp 22 H 04/14/24 16:00 BP 143/63 H 04/14/24 16:00 Pulse Ox 93 04/14/24 16:00 O2 Del Method Room Air 04/14/24 16:00 BMI result Body Mass Index 20.2 Constitutional: Alert, in no distress, overweight. Mental Status: Oriented to person, place and time. Eyes: Pupils are equal, round and reactive to light. Ear, Nose and Throat: Oropharynx clear, mucous membranes moist. Ears and nose without eformities. Trachea midline. Respiratory: Clear to auscultation. No wheezing, rales or rhonchi. Cardiovascular: S1 S2 regular. No murmurs, rubs or gallops. Gastrointestinal: Abdomen soft, non-tender, non-distended. Normal bowel sounds.? MSK: no back tenderness Neurologic: Cranial nerves II-XII grossly intact. No focal neurological deficits. Moves all extremities spontaneously.? normal strenghts in both legs Skin: No rashes or lesions.? Musculoskeletal: No cyanosis or clubbing. Psychiatric: Normal mood and affect? Results Labs 04/14/24 15:41 04/15/24 06:16 Labs: Laboratory Results - last 24 hr 04/14/24 15:41 MCV 86.1 MCH 29.5 MCHC 34.2 RDW 15.0 Plt Count 105 L D MPV 10.8 Immature Gran % (Auto) Cancelled Neut % (Auto) Cancelled Lymph % (Auto) Cancelled [place] % (Auto) Cancelled Eos % (Auto) Cancelled Baso % (Auto) Cancelled Lymph # (Auto) Cancelled [place] # (Auto) Cancelled Eos # (Auto) Cancelled Baso # (Auto) Cancelled Abs Immat Gran (auto) Cancelled Absolute Neuts (auto) Cancelled Absolute Nucleated RBC 0.070 H Nucleated RBC % (auto) 1.5 H Neutrophils % (Manual) 49 Band Neutrophils % 7 H Lymphocytes % (Manual) 26 Atypical Lymphs % (Man) 4 Monocytes % (Manual) 5 Eosinophils % (Manual) 4 Basophils % (Manual) 1 Metamyelocytes % 4 Abs Neuts (Manual) 2.6 Lymphocytes # (Manual) 1.2 Atyp Lymphs # (Manual) 0.2 Monocytes # (Manual) 0.2 Eosinophils # (Manual) 0.2 Metamyelocytes # 0.2 Nucleated RBCs 1 H Platelet Estimate NORMAL Large Platelets PRESENT Plt Morphology Comment NOTED RBC Morphology NOTED Macrocytosis 1+ (5-14) [place] Bodies PRESENT Denis Cells 1+ (0-2) Schistocytes 1+ (0-2) Smear Tech's Comments MANUAL DIFF Anion Gap 19 Estim Creat Clear Calc 28.2 Estimated GFR 44 Random Glucose 171 H Calcium 9.7 Assessment and Plan (1) MARY (acute kidney injury): Status: Acute (2) Dehydration: Status: Acute (3) Retroperitoneal lymphadenopathy: Status: Acute Plan An 84-year-old Spanish and Citizen Of [place]-speaking male with a past medical history significant for hypertension (HTN), hyperlipidemia (HLD), chronic kidney disease stage 3 (CKD 3), benign prostatic hyperplasia (BPH), chronic back pain with degenerative arthritis, gastroesophageal reflux disease (GERD), and a recent hospitalization from 04/04 to 04/11 for acute kidney injury (MARY), rhabdomyolysis, and pancytopenia, back pain. He is coming 3 days later with essentially failing at home with back pain which is chronic and found to have MARY again. MARY-Likely from dehydration from decrease oral intake lower back > 1 month, CT from 03/22, showed DJD of spine and retroperitoneal lymph nodes. There are no neuro deficit to suggest spinal cord issues. -Conservative management for the pain -May need Bx of the back -consider MR of lumbar for better assessment Pancytopenia. Stable from recent hospitaliaztion, outpatient follow up with hematology HTN--resume home dose of Norvasc Atherosclerotic disease-stable GERD Continue PPI BPH Continue finasteride Adult failure to thrive, get PT eval and likely rehab following discharge this time Full Code At least 2 midnights admit for management of Mary, dehydration and adult failure to thrive. Quality Stroke Does the patient have a stroke diagnosis?: No VTE Prior VTE?: No VTE Risk Level:: Medical - moderate - high VTE Device Contraindication: N/A - Device Ordered VTE Drug Contraindication: N/A - Med Ordered
[2024-04-14] MEDS: Lactated Ringers 1,000 ML 125 ML IVCONT (16:52)
--- NOTE | 2024-04-14 16:52 | PC.NURSE ---
pt incontinent of urine. new pads placed. [place] catheter placed. 20gIV placed in the right AC - IVF infusing per provider order. pending admission at this time. respirations remain even/unlabored. plan of care ongoing. call hernandez placed within reach.
--- NOTE | 2024-04-14 17:30 | PC.NURSE ---
report given to AKHIL Adkins at this time. pt being transported to [facility].
--- NOTE | 2024-04-14 17:47 | PHA.MEDREC ---
Pharmacy Consult ? Medication Reconciliation Pharmacy has completed the medication reconciliation. Utilized claims packet from 04/11/24. Pt was a poor historian, could not name any medications, except he said he is on a water pill. Dr. Leach DC'd Lasix from recent admission, according to discharge packet. Left Lasix on the med rec, as pt says he is on this medication, and will make provider this medication was DC'd, but pt has continued to take it.
[2024-04-14 19:00] LABS: Appearance Urine Clear; Color Urine Dark Yellow; Glucose Urine UA Negative (Negative); Leukocyte Esterase Urine Negative (Negative); Nitrite Urine Negative (Negative); PH 5.5 (5.0-9.0); Specific Gravity - Urine 1.015 (1.005-1.025); UMIC TRIGGER UACC YES; Urine Blood Negative (Negative); Urine Ketones Negative (Negative); Urine Protein 30 (1+) mg/dL (Neg-Trace)
[2024-04-14 19:03] LABS: Bacteria Urine None Seen (None Seen); Hyaline Casts Urine 0-2 /LPF (0-2); RBC Urine 0-2 /HPF (0-2); Squamous Epithelial Cell Urine 0-2 /HPF (0-2); WBC Urine 0-5 /HPF (0-5)
[2024-04-14] MEDS: Acetaminophen 325 MG TABLET 650 MG PO (20:25)
[2024-04-14] MEDS: Melatonin 3 MG TABLET 6 MG PO (20:26)
[2024-04-14] MEDS: Heparin Sodium,Porcine 5,000 UNIT/ML VIAL 5000 UNIT SUBCUT (20:26)
[2024-04-14 21:28] VITALS: BMI 19.7
[2024-04-14 21:42] VITALS: BP 136/63; PULSE 105; RESP 18; TEMP 37; O2SAT 95
[2024-04-14] MEDS: Zolpidem Tartrate 5 MG TABLET PO (22:04)
[2024-04-14] MEDS: traMADoL HCL 50 MG TABLET 25 MG PO (22:04)
[2024-04-15] MEDS: Lactated Ringers 1,000 ML 125 ML IVCONT ×3 (01:00→17:25)
[2024-04-15 04:00] VITALS: BP 148/67; PULSE 88; RESP 16; TEMP 36.1; O2SAT 96
[2024-04-15 06:49] LABS: Anion Gap 14 (12-20); Blood Urea Nitrogen 30 mg/dL (9-16); Calcium 9.9 mg/dL (8.4-10.2); Carbon Dioxide 23 mmol/L (22-29); Chloride 105 mmol/L (96-108); Estimated Glomerular Filt Rate > 60; Glucose Random 130 mg/dL (60-115); Potassium 4.4 mmol/L (3.3-5.1); Sodium 138 mmol/L (135-145)
--- NOTE | 2024-04-15 07:22 | P.PNIM_ITS ---
Subjective Subjective Date of Service: 04/15/24 Interval History: follow-up on failure to thrive, , BRENDA BRENDA resolved. Still has some back pain but manageable Physical Exam 2 Vital Signs: Vital Signs: Last Vital Signs Temp 96.9 F 04/15/24 04:00 Pulse 88 04/15/24 04:00 Resp 16 04/15/24 04:00 BP 148/67 H 04/15/24 04:00 Pulse Ox 96 04/15/24 04:00 O2 Del Method Room Air 04/15/24 04:00 BMI result Body Mass Index 19.7 Const: Other: General: AO X 3, no acute distress Resp: CTA bilateral CVS: S1,S2,RRR GI: +BS, NT, no distention Skin: No rash Neuro: motor grossly intact Psych: appropriate affect Objective Data Active Medications Acetaminophen (Acetaminophen 325 Mg Tablet) 650 mg PO Q6H PRN PRN Reason: Pain, Mild (Pain Scale 1-3), fever or headache Last Admin: 04/14/24 20:25 Dose: 650 mg Documented By: KIM Al Hydroxide/Mg Hydroxide (Magnesium Hydrox/Alum Hydrox 30 Ml Oral.Susp) 30 ml PO Q4H PRN PRN Reason: Heartburn Calcium Carbonate (Calcium Carbonate 750 Mg Tab.Chew) 750 mg PO Q4H PRN PRN Reason: Heartburn Heparin Sodium (Porcine) (Heparin Sodium,Porcine 5,000 Unit/Ml Vial) 5,000 unit SUBCUT BID [facility] Last Admin: 04/14/24 20:26 Dose: 5,000 unit Documented By: KIM Lactated Ringer's (Lr) 1,000 mls @ 125 mls/hr IVCONT .Q8H [facility] Last Admin: 04/15/24 01:00 Dose: 125 mls/hr Documented By: ADELINA Magnesium Hydroxide (Milk Of Magnesia 30 Ml Oral.Susp) 30 ml PO DAILY PRN PRN Reason: Constipation Melatonin (Melatonin 3 Mg Tablet) 6 mg PO BEDTIME PRN PRN Reason: Insomnia Last Admin: 04/14/24 20:26 Dose: 6 mg Documented By: KIM Ondansetron HCl (Ondansetron Hcl 4 Mg/2 Ml Vial) 4 mg IVPUSH Q8H PRN PRN Reason: Nausea and Vomiting Polyethylene Glycol (Polyethylene Glycol 3350 17 Gm Powd.Pack) 17 gm PO DAILY PRN PRN Reason: Constipation Sodium Chloride (0.9 % Sodium Chloride Flush 3 Ml Syringe) 3 ml IVFLUSH QSHIFT DONNA Last Admin: 04/14/24 22:19 Dose: Not Given Documented By: ADELINA Non-Admin Reason: IV Running Tramadol HCl (Tramadol Hcl 50 Mg Tablet) 25 mg PO Q6H PRN PRN Reason: Pain, Severe (Pain Scale 7-10) Last Admin: 04/14/24 22:04 Dose: 25 mg Documented By: ADELINA Zolpidem Tartrate (Zolpidem Tartrate 5 Mg Tablet) 5 mg PO BEDTIME PRN PRN Reason: Insomnia Last Admin: 04/14/24 22:04 Dose: 5 mg Documented By: ADELINA Labs 04/15/24 06:16 04/15/24 06:16 Labs: Laboratory Results - last 24 hr 04/14/24 04/14/24 04/15/24 15:41 18:11 06:16 MCV 86.1 MCH 29.5 MCHC 34.2 RDW 15.0 Plt Count 105 L D MPV 10.8 Immature Gran % (Auto) Cancelled Neut % (Auto) Cancelled Lymph % (Auto) Cancelled [place] % (Auto) Cancelled Eos % (Auto) Cancelled Baso % (Auto) Cancelled Lymph # (Auto) Cancelled [place] # (Auto) Cancelled Eos # (Auto) Cancelled Baso # (Auto) Cancelled Abs Immat Gran (auto) Cancelled Absolute Neuts (auto) Cancelled Absolute Nucleated RBC 0.070 H Nucleated RBC % (auto) 1.5 H Neutrophils % (Manual) 49 Band Neutrophils % 7 H Lymphocytes % (Manual) 26 Atypical Lymphs % (Man) 4 Monocytes % (Manual) 5 Eosinophils % (Manual) 4 Basophils % (Manual) 1 Metamyelocytes % 4 Abs Neuts (Manual) 2.6 Lymphocytes # (Manual) 1.2 Atyp Lymphs # (Manual) 0.2 Monocytes # (Manual) 0.2 Eosinophils # (Manual) 0.2 Metamyelocytes # 0.2 Nucleated RBCs 1 H Platelet Estimate NORMAL Large Platelets PRESENT Plt Morphology Comment NOTED RBC Morphology NOTED Macrocytosis 1+ (5-14) [place] Bodies PRESENT [place] Cells 1+ (0-2) Schistocytes 1+ (0-2) Smear Tech's Comments MANUAL DIFF Anion Gap 19 14 Estim Creat Clear Calc 28.2 46.0 Estimated GFR 44 > 60 Random Glucose 171 H 130 H Calcium 9.7 9.9 Total Creatine Kinase 1892 H Urine Color Dark Yellow Urine Appearance Clear Urine pH 5.5 Ur Specific Gans 1.015 Urine Protein 30 (1+) H Urine Glucose (UA) Negative Urine Ketones Negative Urine Blood Negative Urine Nitrite Negative Ur Leukocyte Esterase Negative Urine RBC 0-2 Urine WBC 0-5 Ur Squamous Epith Cells 0-2 Urine Bacteria None Seen Hyaline Casts 0-2 Assessment and Plan (1) BRENDA (acute kidney injury): Status: Acute (2) Dehydration: Status: Acute Plan An 84-year-old Amharic and Stateless-speaking male with a past medical history significant for hypertension (HTN), hyperlipidemia (HLD), chronic kidney disease stage 3 (CKD 3), benign prostatic hyperplasia (BPH), chronic back pain with degenerative arthritis, gastroesophageal reflux disease (GERD), and a recent hospitalization from 04/04 to 04/11 for acute kidney injury (BRENDA), rhabdomyolysis, and pancytopenia, back pain. He is coming 3 days later with essentially failing at home with back pain which is chronic and found to have BRENDA again. BRENDA-Likely from dehydration from decrease oral intake -resolved with iv fluid lower back > 1 month, CT from 03/22, showed DJD of spine and retroperitoneal lymph nodes. There are no neuro deficit to suggest spinal cord issues. -Conservative management for the pain -May need Bx of the back -consider MR of lumbar for better assessment Pancytopenia. Stable, outpatient hematology consult HTN--continue norvasc Atherosclerotic disease-stable GERD Continue PPI BPH Continue finasteride Adult failure to thrive, get PT eval and likely rehab following discharge this time Full Code need for inpt: IVF for BRENDA, safe dispo, waiting for PT eval Quality Stroke Does the patient have a stroke diagnosis?: No VTE Prior VTE?: No VTE Risk Level:: Medical - moderate - high VTE Device Contraindication: N/A - Device Ordered VTE Drug Contraindication: N/A - Med Ordered
[2024-04-15 07:23] LABS: Hematocrit 28.6 % (42.0-52.0); Hemoglobin 9.5 g/dl (14.0-18.0); Mean Corpuscular HGB Conc 33.2 g/dl (31.0-36.0); Mean Corpuscular Hemoglobin 29.1 pg (27.0-33.0); Mean Corpuscular Volume 87.7 fL (80.0-98.0); NRBC Pct Auto 1.2 /100WBC (0.0-0.2); Platelet Count 94 X10*3/uL (160-400); Red Blood Count 3.26 X10*6/uL (4.60-5.80); Red Cell Distribution Width 14.7 % (11.0-16.0); White Blood Count 3.3 X10*3/uL (4.8-10.8)
[2024-04-15 08:00] VITALS: BP 157/71; PULSE 88; RESP 15; TEMP 36.3; O2SAT 92
[2024-04-15] MEDS: Heparin Sodium,Porcine 5,000 UNIT/ML VIAL 5000 UNIT SUBCUT ×2 (09:09→20:08)
[2024-04-15] MEDS: Omeprazole 20 MG CAPSULE.DR PO (12:36)
[2024-04-15] MEDS: amLODIPine Besylate 10 MG TABLET PO (12:36)
[2024-04-15] MEDS: Finasteride 5 MG TABLET PO (12:36)
--- NOTE | 2024-04-15 15:38 | MHC.CM.PN ---
[facility] PT WITH A PHYSICIAN INTENSIVIST HE REPORTS HE LIVES WITH HIS S/O HE HAS DAILY INVESTMENT UNDERWRITER SERVICES PT USES BOTH A CANE AND A WALKER PRN HE DECLINES TO COMPLETE A HCP PCP: NITHIN BRENNAN IMM DELIVERED DCP: HOME RESUME INVESTMENT UNDERWRITER PT WILL NEED ASSISTANCE WITH TRANSPORT HOME HE TYPICALLY TAKES THE SHUTTLE
[2024-04-15 15:49] VITALS: BP 144/64; PULSE 96; RESP 16; TEMP 36.2; O2SAT 92
[2024-04-15 20:00] VITALS: BP 144/65; PULSE 101; RESP 16; TEMP 37.2; O2SAT 94
[2024-04-15] MEDS: 0.9 % Sodium Chloride Flush 3 ML SYRINGE IVFLUSH (20:08)
[2024-04-15] MEDS: Melatonin 3 MG TABLET 6 MG PO (20:09)
[2024-04-15] MEDS: Zolpidem Tartrate 5 MG TABLET PO (20:09)
[2024-04-15] MEDS: hydrOXYzine HCL 25 MG TABLET PO (20:09)
[2024-04-15] MEDS: traMADoL HCL 50 MG TABLET 25 MG PO (20:09)
[2024-04-16] MEDS: Lactated Ringers 1,000 ML 125 ML IVCONT (01:35)
[2024-04-16 03:47] VITALS: BP 146/66; PULSE 94; RESP 16; TEMP 36.7; O2SAT 94
[2024-04-16 07:24] LABS: Anion Gap 14 (12-20); Blood Urea Nitrogen 16 mg/dL (9-16); Calcium 9.8 mg/dL (8.4-10.2); Carbon Dioxide 20 mmol/L (22-29); Chloride 105 mmol/L (96-108); Creatinine Clr Calc Pharmacy 53.7; Estimated Glomerular Filt Rate > 60; Glucose Random 136 mg/dL (60-115); Potassium 4.3 mmol/L (3.3-5.1); Sodium 135 mmol/L (135-145)
[2024-04-16 08:00] VITALS: BP 147/65; PULSE 95; RESP 12; TEMP 36.6; O2SAT 96
[2024-04-16 08:38] LABS: Hematocrit 24.9 % (42.0-52.0); Hemoglobin 8.5 g/dl (14.0-18.0); Mean Corpuscular HGB Conc 34.1 g/dl (31.0-36.0); Mean Corpuscular Hemoglobin 29.9 pg (27.0-33.0); Mean Corpuscular Volume 87.7 fL (80.0-98.0); NRBC Pct Auto 0.9 /100WBC (0.0-0.2); PLT CLUMP 1; Red Blood Count 2.84 X10*6/uL (4.60-5.80); Red Cell Distribution Width 14.2 % (11.0-16.0)
[2024-04-16 08:47] LABS: Band Neutrophils Percent 8 % (3-5); Basophils Percent Manual 2 % (0-2); Eosinophils Percent Manual 2 % (0-4); Lymphocytes Percent Manual 38 % (20-40); Metamyelocytes Percent 1 %; Monocytes Percent Manual 3 % (2-11); Myelocytes Percent 1 %; Neutrophils Percent Manual 45 % (45-73)
[2024-04-16 08:48] LABS: RBC Morphology NOTED
[2024-04-16 08:49] LABS: Ovalocytes 1+ (5-14) /OIF; Schistocytes 1+ (0-2) /OIF
[2024-04-16 08:50] LABS: Large Platelet PRESENT; Platelet Estimate DECREASED (NORMAL); Platelet Morphology Comment NOTED; Smudge Cells PRESENT
[2024-04-16 08:51] LABS: Basophils Abs Manual 0.1 X10*3/uL (0.0-0.2); Eosinophils Absolute Manual 0.1 X10*3/uL (0.0-0.4); Lymphocytes Absolute Manual 1.3 X10*3/uL (1.2-4.9); Monocytes Absolute Manual 0.1 X10*3/uL (0.1-1.2); Neutrophils Absolute Manual 1.7 X10*3/uL (2.0-8.3); Platelet Count 71 X10*3/uL (160-400); White Blood Count 3.3 X10*3/uL (4.8-10.8)
[2024-04-16 09:14] VITALS: BP 147/65
[2024-04-16] MEDS: amLODIPine Besylate 10 MG TABLET PO (09:14)
[2024-04-16] MEDS: Heparin Sodium,Porcine 5,000 UNIT/ML VIAL 5000 UNIT SUBCUT (09:15)
[2024-04-16] MEDS: Finasteride 5 MG TABLET PO (09:15)
[2024-04-16] MEDS: hydrOXYzine HCL 25 MG TABLET PO ×2 (09:15→15:37)
--- NOTE | 2024-04-16 09:52 | HO.PM.IMPN ---
Subjective Subjective Date of Service: 04/16/24 Interval History: follow-up on failure to thrive, , BRENDA reporting no pain, chocked on food Physical Exam Vital Signs: Vital Signs: Last Vital Signs Temp 98 F 04/16/24 08:00 Pulse 95 04/16/24 08:00 Resp 12 04/16/24 08:00 BP 147/65 H 04/16/24 09:14 Pulse Ox 96 04/16/24 08:00 O2 Del Method Room Air 04/16/24 08:00 BMI result Body Mass Index 19.7 Const: Other: General: AO X 3, no acute distress Resp: CTA bilateral CVS: S1,S2,RRR GI: +BS, NT, no distention Skin: No rash Neuro: motor grossly intact Psych: appropriate affect Objective Data Active Medications Acetaminophen (Acetaminophen 325 Mg Tablet) 650 mg PO Q6H PRN PRN Reason: Pain, Mild (Pain Scale 1-3), fever or headache Last Admin: 04/14/24 20:25 Dose: 650 mg Documented By: KIM Al Hydroxide/Mg Hydroxide (Magnesium Hydrox/Alum Hydrox 30 Ml Oral.Susp) 30 ml PO Q4H PRN PRN Reason: Heartburn Amlodipine Besylate (Amlodipine Besylate 10 Mg Tablet) 10 mg PO DAILY [facility]; Protocol Last Admin: 04/16/24 09:14 Dose: 10 mg Documented By: JHONY Calcium Carbonate (Calcium Carbonate 750 Mg Tab.Chew) 750 mg PO Q4H PRN PRN Reason: Heartburn Cyclobenzaprine HCl (Cyclobenzaprine Hcl 10 Mg Tablet) 10 mg PO TID PRN PRN Reason: muscle spasm Finasteride (Finasteride 5 Mg Tablet) 5 mg PO DAILY [facility] Last Admin: 04/16/24 09:15 Dose: 5 mg Documented By: JHONY Hydroxyzine HCl (Hydroxyzine Hcl 25 Mg Tablet) 25 mg PO TID [facility] Last Admin: 04/16/24 09:15 Dose: 25 mg Documented By: JHNOY Lactated Ringer's (Lr) 1,000 mls @ 125 mls/hr IVCONT .Q8H [facility] Last Admin: 04/16/24 01:35 Dose: 125 mls/hr Documented By: STANLEY Lidocaine (Lidocaine 4 % Patch Adh..Patch) 1 patch TRANSDERMA DAILY PRN PRN Reason: Pain Magnesium Hydroxide (Milk Of Magnesia 30 Ml Oral.Susp) 30 ml PO DAILY PRN PRN Reason: Constipation Melatonin (Melatonin 3 Mg Tablet) 6 mg PO BEDTIME PRN PRN Reason: Insomnia Last Admin: 04/15/24 20:09 Dose: 6 mg Documented By: LAYNE Omeprazole (Omeprazole 20 Mg Capsule.Dr) 20 mg PO DAILY@0630 [facility] Last Admin: 04/16/24 05:34 Dose: Not Given Documented By: STANLEY Non-Admin Reason: NPO Ondansetron HCl (Ondansetron Hcl 4 Mg/2 Ml Vial) 4 mg IVPUSH Q8H PRN PRN Reason: Nausea and Vomiting Polyethylene Glycol (Polyethylene Glycol 3350 17 Gm Powd.Pack) 17 gm PO DAILY PRN PRN Reason: Constipation Sodium Chloride (0.9 % Sodium Chloride Flush 3 Ml Syringe) 3 ml IVFLUSH QSHIFT [facility] Last Admin: 04/16/24 09:15 Dose: Not Given Documented By: JHONY Non-Admin Reason: IV Running Tramadol HCl (Tramadol Hcl 50 Mg Tablet) 25 mg PO Q6H PRN PRN Reason: Pain, Severe (Pain Scale 7-10) Last Admin: 04/15/24 20:09 Dose: 25 mg Documented By: LAYNE Zolpidem Tartrate (Zolpidem Tartrate 5 Mg Tablet) 5 mg PO BEDTIME PRN PRN Reason: Insomnia Last Admin: 04/15/24 20:09 Dose: 5 mg Documented By: LAYNE Labs 04/16/24 07:00 04/16/24 07:00 Labs: Laboratory Results - last 24 hr 04/16/24 07:00 MCV 87.7 MCH 29.9 MCHC 34.1 RDW 14.2 Plt Count 71 L MPV Not Reportable Immature Gran % (Auto) Cancelled Neut % (Auto) Cancelled Lymph % (Auto) Cancelled [place] % (Auto) Cancelled Eos % (Auto) Cancelled Baso % (Auto) Cancelled Lymph # (Auto) Cancelled [place] # (Auto) Cancelled Eos # (Auto) Cancelled Baso # (Auto) Cancelled Abs Immat Gran (auto) Cancelled Absolute Neuts (auto) Cancelled Absolute Nucleated RBC 0.030 H Nucleated RBC % (auto) 0.9 H Neutrophils % (Manual) 45 Band Neutrophils % 8 H Lymphocytes % (Manual) 38 Monocytes % (Manual) 3 Eosinophils % (Manual) 2 Basophils % (Manual) 2 Metamyelocytes % 1 Myelocytes % 1 Abs Neuts (Manual) 1.7 L Lymphocytes # (Manual) 1.3 Monocytes # (Manual) 0.1 Eosinophils # (Manual) 0.1 Basophils # (Manual) 0.1 [place] Cells PRESENT Platelet Estimate DECREASED Large Platelets PRESENT Plt Morphology Comment NOTED RBC Morphology NOTED Ovalocytes 1+ (5-14) Schistocytes 1+ (0-2) Hold Purple Top SEE NOTE Anion Gap 14 Estim Creat Clear Calc 53.7 Estimated GFR > 60 Random Glucose 136 H Calcium 9.8 Assessment and Plan (1) BRENDA (acute kidney injury): Status: Acute (2) Dehydration: Status: Acute Plan An 84-year-old Romansh and Lao-speaking male with a past medical history significant for hypertension (HTN), hyperlipidemia (HLD), chronic kidney disease stage 3 (CKD 3), benign prostatic hyperplasia (BPH), chronic back pain with degenerative arthritis, gastroesophageal reflux disease (GERD), and a recent hospitalization from 04/04 to 04/11 for acute kidney injury (BRENDA), rhabdomyolysis, and pancytopenia, back pain. He is coming 3 days later with essentially failing at home with back pain which is chronic and found to have BRENDA again. BRENDA-Likely from dehydration from decrease oral intake -resolved with iv fluid lower back > 1 month, CT from 03/22, showed DJD of spine and retroperitoneal lymph nodes. There are no neuro deficit to suggest spinal cord issues. -Conservative management for the pain -May need Bx of the back -consider MR of lumbar for better assessment Pancytopenia, H/H and platlet, slightly down today -stop heparin and continue to monitor, -hematology consult if worsening HTN--continue norvasc Atherosclerotic disease-stable GERD Continue PPI BPH Continue finasteride chocking on regular diet--[employer] eval today Adult failure to thrive, get PT eval and likely rehab following discharge this time Full Code need for inpt: IVF for BRENDA, safe dispo, waiting for PT eval DVT P: no heparin d/t low plat, anemia, compression devicie Quality Stroke Does the patient have a stroke diagnosis?: No VTE Prior VTE?: No VTE Risk Level:: Medical - moderate - high VTE Device Contraindication: N/A - Device Ordered VTE Drug Contraindication: N/A - Med Ordered
--- NOTE | 2024-04-16 11:16 | MHC.CM.PN ---
EMR reviewed, pt is not medically cleared for discharge today due to management of BRENDA, pt will also need a PT eval to assist with discharge disposition.
[2024-04-16 11:21] VITALS: BMI 19.7
[2024-04-16 12:43] VITALS: BP 147/65
--- NOTE | 2024-04-16 13:01 | MHC.CLN ---
NUTRITION DIET=REGULAR, GROUND WITH THIN LIQUIDS. REQUIRES 1:1 FEEDING ASSIST. SIGNIFICANT WEIGHT LOSS X 30 DAYS. RECENT HOSPITALIZATION 04/04- DUE TO BRENDA AND RHABDOMYOLYSIS. QUALIFIES MODERATELY MALNOURISHED DUE TO SIGNIFICANT WEIGHT LOSS WITH MILD DEPLETION OF BODY FAT AND MUSCLE MASS. ADDING ENSURE BID TO PROMOTE NUTRITIONAL INTAKE. SUPPLEMENT PROVIDES 700 KCALS, 40 G PROTEIN. FOLLOW FOR PO INTAKE AND DIET TOLERANCE. SEE CLINICAL NUTRITION ASSESSMENT 04/16/24.
[2024-04-16] MEDS: traMADoL HCL 50 MG TABLET 25 MG PO (15:37)
[2024-04-16] MEDS: 0.9 % Sodium Chloride Flush 3 ML SYRINGE IVFLUSH ×2 (15:38→20:20)
[2024-04-16 15:56] VITALS: BP 174/72; PULSE 99; RESP 18; TEMP 36.4; O2SAT 99
--- NOTE | 2024-04-16 15:56 | MHC.SL.SWA ---
Speech Pathologist Impression: Risk of aspiration, oropharygneal dysphagia Risk of Aspiration Due to: Poor PO Intake Dysphasia Diet Status: Start on NDD2/THIN Liquid Consistency and Strategies for Safe Swallow: Liquid Intake Recommendation: Thin Liquid Intake Strategies: Small Sips Solid Food Consistency: Dietary Recommendations: Grnd/Mech Altered (NDD2) Additional Modifications to Solid Foods: START on GROUND/MECH ALTERED (NDD2) diet and THIN liquids, pills WHOLE or CRUSHED in PUREE. Patient will need 1:1 assistance feeding. Oral Medication Intake: Whole with Puree Please contact the pharmacy regarding appropriate crushable or liquid drug formulations that are available whenever modified delivery is recommended. Compensatory Strategies and Precautions to be Taken for Safe Swallow: Sitting Upright (90 deg) Double Swallow Small Bites and Sips Alternate Liquids/Solids Rate of Ingestion Change Avoid Specific Foods Supervision While Eating and Drinking for Safe Swallow: Total Assistance (1:1) Foods to Avoid: Hard, tough to chew solids Swallowing Recommended Treatments: Compens. Strategy Educat. Recommendation for Speech: Inpatient Speech Therapy Comment: Frequency/Duration: PRN M-F Date Range for Service Req: Timeline to reassess: PRN Biomedical Repair Technician Clinican/Clinical Fellow: No Supervisory Statement: I have reviewed and agree with the student/clinical fellow's documentation: N/A Speech Language Pathologist: Rachelle Scott M.A., CCC-MANAGER SQL
[2024-04-16 19:53] VITALS: BP 154/20; PULSE 95; RESP 18; TEMP 36.6; O2SAT 92
[2024-04-17 03:27] VITALS: BP 153/67; PULSE 105; RESP 18; TEMP 36.8; O2SAT 93
[2024-04-17] MEDS: Omeprazole 20 MG CAPSULE.DR PO (05:45)
[2024-04-17 06:23] LABS: Anion Gap 17 (12-20); Blood Urea Nitrogen 14 mg/dL (9-16); Calcium 9.9 mg/dL (8.4-10.2); Carbon Dioxide 20 mmol/L (22-29); Chloride 106 mmol/L (96-108); Creatinine Clr Calc Pharmacy 48.7; Estimated Glomerular Filt Rate > 60; Glucose Random 141 mg/dL (60-115); Potassium 4.2 mmol/L (3.3-5.1); Sodium 139 mmol/L (135-145)
[2024-04-17 06:29] LABS: Hematocrit 25.1 % (42.0-52.0); Hemoglobin 8.8 g/dl (14.0-18.0); Mean Corpuscular HGB Conc 35.1 g/dl (31.0-36.0); Mean Corpuscular Hemoglobin 29.9 pg (27.0-33.0); Mean Corpuscular Volume 85.4 fL (80.0-98.0); Mean Platelet Volume 11.7 fL (9.4-12.4); Platelet Count 107 X10*3/uL (160-400); Red Blood Count 2.94 X10*6/uL (4.60-5.80); Red Cell Distribution Width 14.1 % (11.0-16.0); White Blood Count 3.9 X10*3/uL (4.8-10.8)
[2024-04-17 06:30] LABS: NRBC Pct Auto 1.6 /100WBC (0.0-0.2)
[2024-04-17 08:00] VITALS: BP 148/65; PULSE 102; RESP 18; TEMP 37.1; O2SAT 95
[2024-04-17 09:04] VITALS: BP 148/65
[2024-04-17] MEDS: amLODIPine Besylate 10 MG TABLET PO (09:04)
[2024-04-17] MEDS: hydrOXYzine HCL 25 MG TABLET PO (09:04)
[2024-04-17] MEDS: 0.9 % Sodium Chloride Flush 3 ML SYRINGE IVFLUSH ×2 (09:05→15:33)
[2024-04-17] MEDS: Finasteride 5 MG TABLET PO (09:05)
--- NOTE | 2024-04-17 09:21 | HO.PM.IMPN ---
Subjective Subjective Date of Service: 04/17/24 Interval History: follow-up on failure to thrive, , BRENDA has no pain, frail, no acute complaint Physical Exam Vital Signs: Vital Signs: Last Vital Signs Temp 98.8 F 04/17/24 08:00 Pulse 102 H 04/17/24 08:00 Resp 18 04/17/24 08:00 BP 148/65 H 04/17/24 09:04 Pulse Ox 95 04/17/24 08:00 O2 Del Method Room Air 04/17/24 08:00 BMI result Body Mass Index 19.7 Const: Other: General: AO X 3, no acute distress Resp: CTA bilateral CVS: S1,S2,RRR GI: +BS, NT, no distention Skin: No rash Neuro: motor grossly intact Psych: appropriate affect Objective Data Active Medications Acetaminophen (Acetaminophen 325 Mg Tablet) 650 mg PO Q6H PRN PRN Reason: Pain, Mild (Pain Scale 1-3), fever or headache Last Admin: 04/14/24 20:25 Dose: 650 mg Documented By: KIM Al Hydroxide/Mg Hydroxide (Magnesium Hydrox/Alum Hydrox 30 Ml Oral.Susp) 30 ml PO Q4H PRN PRN Reason: Heartburn Amlodipine Besylate (Amlodipine Besylate 10 Mg Tablet) 10 mg PO DAILY [facility]; Protocol Last Admin: 04/17/24 09:04 Dose: 10 mg Documented By: JORY Calcium Carbonate (Calcium Carbonate 750 Mg Tab.Chew) 750 mg PO Q4H PRN PRN Reason: Heartburn Cyclobenzaprine HCl (Cyclobenzaprine Hcl 10 Mg Tablet) 10 mg PO TID PRN PRN Reason: muscle spasm Finasteride (Finasteride 5 Mg Tablet) 5 mg PO DAILY [facility] Last Admin: 04/17/24 09:05 Dose: 5 mg Documented By: JORY Hydroxyzine HCl (Hydroxyzine Hcl 25 Mg Tablet) 25 mg PO TID [facility] Last Admin: 04/17/24 09:04 Dose: 25 mg Documented By: JORY Lidocaine (Lidocaine 4 % Patch Adh..Patch) 1 patch TRANSDERMA DAILY PRN PRN Reason: Pain Magnesium Hydroxide (Milk Of Magnesia 30 Ml Oral.Susp) 30 ml PO DAILY PRN PRN Reason: Constipation Melatonin (Melatonin 3 Mg Tablet) 6 mg PO BEDTIME PRN PRN Reason: Insomnia Last Admin: 04/15/24 20:09 Dose: 6 mg Documented By: LAYNE Omeprazole (Omeprazole 20 Mg Capsule.Dr) 20 mg PO DAILY@0630 [facility] Last Admin: 04/17/24 05:45 Dose: 20 mg Documented By: MARIBEL Ondansetron HCl (Ondansetron Hcl 4 Mg/2 Ml Vial) 4 mg IVPUSH Q8H PRN PRN Reason: Nausea and Vomiting Polyethylene Glycol (Polyethylene Glycol 3350 17 Gm Powd.Pack) 17 gm PO DAILY PRN PRN Reason: Constipation Sodium Chloride (0.9 % Sodium Chloride Flush 3 Ml Syringe) 3 ml IVFLUSH QSHIFT [facility] Last Admin: 04/17/24 09:05 Dose: 3 ml Documented By: JORY Tramadol HCl (Tramadol Hcl 50 Mg Tablet) 25 mg PO Q6H PRN PRN Reason: Pain, Severe (Pain Scale 7-10) Last Admin: 04/16/24 15:37 Dose: 25 mg Documented By: JHONY Zolpidem Tartrate (Zolpidem Tartrate 5 Mg Tablet) 5 mg PO BEDTIME PRN PRN Reason: Insomnia Last Admin: 04/15/24 20:09 Dose: 5 mg Documented By: LAYNE Labs 04/17/24 05:41 04/17/24 05:41 Labs: Laboratory Results - last 24 hr 04/17/24 05:41 MCV 85.4 MCH 29.9 MCHC 35.1 RDW 14.1 Plt Count 107 L D MPV 11.7 Absolute Nucleated RBC 0.060 H Nucleated RBC % (auto) 1.6 H Anion Gap 17 Estim Creat Clear Calc 48.7 Estimated GFR > 60 Random Glucose 141 H Calcium 9.9 Assessment and Plan (1) BRENDA (acute kidney injury): Status: Acute (2) Dehydration: Status: Acute Plan An 84-year-old Swedish and Maori-speaking male with a past medical history significant for hypertension (HTN), hyperlipidemia (HLD), chronic kidney disease stage 3 (CKD 3), benign prostatic hyperplasia (BPH), chronic back pain with degenerative arthritis, gastroesophageal reflux disease (GERD), and a recent hospitalization from 04/04 to 04/11 for acute kidney injury (BRENDA), rhabdomyolysis, and pancytopenia, back pain. He is coming 3 days later with essentially failing at home with back pain which is chronic and found to have BRENDA again. BRENDA-Likely from dehydration from decrease oral intake -resolved with iv fluid lower back > 1 month, CT from 03/22, showed DJD of spine and retroperitoneal lymph nodes. There are no neuro deficit to suggest spinal cord issues. -Conservative management for the pain -May need Bx of the back -consider MR of lumbar for better assessment Pancytopenia, H/H and platlet, slightly down today -stop heparin and continue to monitor, -hematology consult if worsening HTN--continue norvasc Atherosclerotic disease-stable GERD Continue PPI BPH Continue finasteride chocking on regular diet--COLOR MAKER eval today Adult failure to thrive, get PT eval and likely rehab following discharge this time Full Code need for inpt: IVF for BRENDA, safe dispo, waiting for PT eval DVT P: no heparin d/t low plat, anemia, compression device PT recommends STR Quality Stroke Does the patient have a stroke diagnosis?: No VTE Prior VTE?: No VTE Risk Level:: Medical - moderate - high VTE Device Contraindication: N/A - Device Ordered VTE Drug Contraindication: N/A - Med Ordered
[2024-04-17 10:15] LABS: Anion Gap 16 (12-20); Blood Urea Nitrogen 14 mg/dL (9-16); Carbon Dioxide 21 mmol/L (22-29); Chloride 105 mmol/L (96-108); Creatinine Clr Calc Pharmacy 49.2; Estimated Glomerular Filt Rate > 60; Glucose Random 136 mg/dL (60-115); Potassium 4.1 mmol/L (3.3-5.1); Sodium 138 mmol/L (135-145)
--- NOTE | 2024-04-17 13:45 | MHC.CM.PN ---
EMR REVIEWED AND PER MD ROUNDS, PT WILL NEED TO DC TO STR. PT IS AGREEABLE VIA [employer] AND HAS NO PREFERENCE OTHER THAN STAYING LOCAL TO [place]. REFERRALS SENT AND PT HAS CHOSEN [facility] [place]. [facility] HAS OFFERED A BED AND WILL SEEK AUTH FROM [facility]. CM WILL AWAIT AUTH FROM [facility].
--- NOTE | 2024-04-17 14:06 | MHC.SL.SWA ---
Speech Pathologist Impression: Risk of Aspiration, Oral Phase Dysphagia Risk of Aspiration Due to: Poor PO Intake Dysphasia Diet Status: No Change Liquid Consistency and Strategies for Safe Swallow: Liquid Intake Recommendation: Thin Liquid Intake Strategies: Small Sips Solid Food Consistency: Dietary Recommendations: Grnd/Mech Altered (NDD2) Additional Modifications to Solid Foods: START on GROUND/MECH ALTERED (NDD2) diet and THIN liquids, pills WHOLE or CRUSHED in PUREE. Patient will need 1:1 assistance feeding. Oral Medication Intake: Whole with Puree Please contact the pharmacy regarding appropriate crushable or liquid drug formulations that are available whenever modified delivery is recommended. Compensatory Strategies and Precautions to be Taken for Safe Swallow: Sitting Upright (90 deg) Small Bites and Sips Alternate Liquids/Solids Rate of Ingestion Change Avoid Specific Foods Supervision While Eating and Drinking for Safe Swallow: Total Supervision (1:1) Foods to Avoid: Hard, tough to chew solids Swallowing Recommended Treatments: Compens. Strategy Educat. Recommendation for Speech: Inpatient Speech Therapy Comment: Frequency/Duration: PRN M-F Date Range for Service Req: Timeline to reassess: PRN Companion Clinican/Clinical Fellow: No Supervisory Statement: I have reviewed and agree with the student/clinical fellow's documentation: N/A Speech Language Pathologist: Rachelle Scott M.A., CCC-MARINE TECHNICIAN
[2024-04-17] MEDS: Lactated Ringers 1,000 ML 100 ML IVCONT (15:32)
[2024-04-17 15:59] VITALS: BP 157/70; PULSE 107; RESP 18; TEMP 36.3; O2SAT 94
[2024-04-17 19:25] VITALS: BP 151/67; PULSE 106; RESP 18; TEMP 37.3; O2SAT 95
[2024-04-18] VITALS (7 sets, daily range): BP systolic 106–146; BP diastolic 65–76; PULSE 88–104; RESP 16–18; TEMP 36.4–38.4; O2SAT 93–98
[2024-04-18] MEDS: Lactated Ringers 1,000 ML 100 ML IVCONT ×2 (01:09→16:09)
[2024-04-18] MEDS: Omeprazole 20 MG CAPSULE.DR PO (05:43)
[2024-04-18 07:10] LABS: Hematocrit 22.3 % (42.0-52.0); Hemoglobin 7.6 g/dl (14.0-18.0); Mean Corpuscular HGB Conc 34.1 g/dl (31.0-36.0); Mean Corpuscular Hemoglobin 29.2 pg (27.0-33.0); Mean Corpuscular Volume 85.8 fL (80.0-98.0); Mean Platelet Volume 12.8 fL (9.4-12.4); NRBC Pct Auto 1.3 /100WBC (0.0-0.2); Platelet Count 102 X10*3/uL (160-400); White Blood Count 3.8 X10*3/uL (4.8-10.8)
[2024-04-18] MEDS: Finasteride 5 MG TABLET PO (07:13)
[2024-04-18] MEDS: traMADoL HCL 50 MG TABLET 25 MG PO ×2 (07:13→17:50)
[2024-04-18] MEDS: hydrOXYzine HCL 25 MG TABLET PO ×2 (07:13→20:45)
[2024-04-18] MEDS: amLODIPine Besylate 10 MG TABLET PO (07:13)
[2024-04-18 09:03] LABS: Immature Retic Fraction 19.3 % (2.3-13.4); Retic HGB Equivalent 31.7 pg (30.0-35.0); Reticulocyte Percent 0.9 % (0.5-1.8); Reticulocytes Absolute 0.026 X10*6/uL (0.026-0.095)
[2024-04-18 09:34] LABS: Alanine Aminotransferase 14 U/L (0-40); Albumin Level 3.4 g/dL (3.5-5.0); Alkaline Phosphatase 474 U/L (39-117); Anion Gap 14 (12-20); Aspartate Amino Transferase 89 U/L (5-37); Bilirubin Total 1.3 mg/dL (0.0-1.0); Blood Urea Nitrogen 11 mg/dL (9-16); Calcium 9.7 mg/dL (8.4-10.2); Carbon Dioxide 22 mmol/L (22-29); Chloride 105 mmol/L (96-108); Estimated Glomerular Filt Rate > 60; Glucose Random 140 mg/dL (60-115); Lactate Dehydrogenase 2293 U/L (118-273); Potassium 3.8 mmol/L (3.3-5.1); Sodium 137 mmol/L (135-145); Total Protein 6.2 g/dL (6.5-8.0); Uric Acid 6.7 mg/dL (3.4-7.0)
[2024-04-18 11:10] LABS: Haptoglobin 250 mg/dL (40-268)
--- NOTE | 2024-04-18 11:24 | MHC.CLN ---
F/U CONSULT FOR POOR PO. DIET=REGULAR, GROUND WITH THIN LIQUIDS. REQUIRES 1:1 FEEDING ASSIST. SEE BY AQUATIC LIFE LABORER 04/17 AND CONSISTENCY APPROPRIATE. PO 0-25%. ADDING ENSURE BID TO PROMOTE NUTRITIONAL INTAKE. SUPPLEMENT PROVIDES 700 KCALS, 40 G PROTEIN. FOLLOW FOR PO INTAKE AND DIET TOLERANCE.
--- NOTE | 2024-04-18 11:29 | P.PNIM_ITS ---
Subjective Subjective Date of Service: 04/18/24 Interval History: Follow up on failure to thrive, BRENDA, malnutrition, he remains frail, malnurished Physical Exam 2 Vital Signs: Vital Signs: Last Vital Signs Temp 97.5 F 04/18/24 08:00 Pulse 95 04/18/24 08:00 Resp 16 04/18/24 08:00 BP 146/66 H 04/18/24 08:00 Pulse Ox 97 04/18/24 08:00 O2 Del Method Room Air 04/18/24 08:00 BMI result Body Mass Index 19.7 Objective Data Active Medications Acetaminophen (Acetaminophen 325 Mg Tablet) 650 mg PO Q6H PRN PRN Reason: Pain, Mild (Pain Scale 1-3), fever or headache Last Admin: 04/14/24 20:25 Dose: 650 mg Documented By: KIM Al Hydroxide/Mg Hydroxide (Magnesium Hydrox/Alum Hydrox 30 Ml Oral.Susp) 30 ml PO Q4H PRN PRN Reason: Heartburn Amlodipine Besylate (Amlodipine Besylate 10 Mg Tablet) 10 mg PO DAILY [facility]; Protocol Last Admin: 04/18/24 07:13 Dose: 10 mg Documented By: YVAN Calcium Carbonate (Calcium Carbonate 750 Mg Tab.Chew) 750 mg PO Q4H PRN PRN Reason: Heartburn Cyclobenzaprine HCl (Cyclobenzaprine Hcl 10 Mg Tablet) 10 mg PO TID PRN PRN Reason: muscle spasm Finasteride (Finasteride 5 Mg Tablet) 5 mg PO DAILY [facility] Last Admin: 04/18/24 07:13 Dose: 5 mg Documented By: YVAN Hydroxyzine HCl (Hydroxyzine Hcl 25 Mg Tablet) 25 mg PO TID [facility] Last Admin: 04/18/24 07:13 Dose: 25 mg Documented By: YVAN Lactated Ringer's (Lr) 1,000 mls @ 100 mls/hr IVCONT .Q10H [facility] Last Admin: 04/18/24 01:09 Dose: 100 mls/hr Documented By: MARIBEL Lidocaine (Lidocaine 4 % Patch Adh..Patch) 1 patch TRANSDERMA DAILY PRN PRN Reason: Pain Magnesium Hydroxide (Milk Of Magnesia 30 Ml Oral.Susp) 30 ml PO DAILY PRN PRN Reason: Constipation Melatonin (Melatonin 3 Mg Tablet) 6 mg PO BEDTIME PRN PRN Reason: Insomnia Last Admin: 04/15/24 20:09 Dose: 6 mg Documented By: LAYNE Mirtazapine (Mirtazapine 7.5 Mg Tablet) 7.5 mg PO BEDTIME [facility] Last Admin: 04/17/24 20:11 Dose: Not Given Documented By: MARIBEL Non-Admin Reason: Patient Refused Omeprazole (Omeprazole 20 Mg Capsule.Dr) 20 mg PO DAILY@0630 [facility] Last Admin: 04/18/24 05:43 Dose: 20 mg Documented By: MARIBEL Ondansetron HCl (Ondansetron Hcl 4 Mg/2 Ml Vial) 4 mg IVPUSH Q8H PRN PRN Reason: Nausea and Vomiting Polyethylene Glycol (Polyethylene Glycol 3350 17 Gm Powd.Pack) 17 gm PO DAILY PRN PRN Reason: Constipation Sodium Chloride (0.9 % Sodium Chloride Flush 3 Ml Syringe) 3 ml IVFLUSH QSHIFT [facility] Last Admin: 04/18/24 07:13 Dose: Not Given Documented By: YVAN Non-Admin Reason: IV Running Tramadol HCl (Tramadol Hcl 50 Mg Tablet) 25 mg PO Q6H PRN PRN Reason: Pain, Severe (Pain Scale 7-10) Last Admin: 04/18/24 07:13 Dose: 25 mg Documented By: YVAN Zolpidem Tartrate (Zolpidem Tartrate 5 Mg Tablet) 5 mg PO BEDTIME PRN PRN Reason: Insomnia Last Admin: 04/15/24 20:09 Dose: 5 mg Documented By: LAYNE Labs 04/18/24 05:38 04/18/24 08:51 Labs: Laboratory Results - last 24 hr 04/18/24 04/18/24 04/18/24 05:38 08:17 08:51 MCV 85.8 MCH 29.2 MCHC 34.1 RDW 14.0 Plt Count 102 L MPV 12.8 H Absolute Nucleated RBC 0.050 H Nucleated RBC % (auto) 1.3 H Absolute Retic 0.026 Percent Retic 0.9 Immature Retic Fraction 19.3 H Retic Hgb Equivalent 31.7 Anion Gap 14 Estim Creat Clear Calc 53.0 Estimated GFR > 60 Random Glucose 140 H Haptoglobin 250 Uric Acid 6.7 Calcium 9.7 Total Bilirubin 1.3 H AST 89 H ALT 14 Alkaline Phosphatase 474 H Lactate Dehydrogenase 2293 H Total Protein 6.2 L Albumin 3.4 L Blood Type A Negative Antibody Screen NEGATIVE Assessment and Plan (1) BRENDA (acute kidney injury): Status: Acute (2) Dehydration: Status: Acute Plan An 84-year-old [place] and Afghan-speaking male with a past medical history significant for hypertension (HTN), hyperlipidemia (HLD), chronic kidney disease stage 3 (CKD 3), benign prostatic hyperplasia (BPH), chronic back pain with degenerative arthritis, gastroesophageal reflux disease (GERD), and a recent hospitalization from 04/04 to 04/11 for acute kidney injury (BRENDA), rhabdomyolysis, and pancytopenia, back pain. He is coming 3 days later with essentially failing at home with back pain which is chronic and found to have BRENDA again. BRENDA-Likely from dehydration from decrease oral intake -resolved with iv fluid lower back > 1 month, CT from 03/22, showed DJD of spine and retroperitoneal lymph nodes. There are no neuro deficit to suggest spinal cord issues. -Conservative management for the pain -May need Bx of the back -consider MR of lumbar for better assessment Pancytopenia, H/H and platlet, slightly down today -stop heparin and continue to monitor, -hematology consult if worsening -transfuse 2 units HTN--continue norvasc Atherosclerotic disease-stable GERD Continue PPI BPH Continue finasteride chocking on regular diet--SURVEILLANCE OPERATOR eval today Adult failure to thrive, get PT eval and likely rehab following discharge this time Full Code need for inpt: IVF for BRENDA, safe dispo, waiting for PT eval DVT P: no heparin d/t low plat, anemia, compression device PT recommends STR Quality Stroke Does the patient have a stroke diagnosis?: No VTE Prior VTE?: No VTE Risk Level:: Medical - moderate - high VTE Device Contraindication: N/A - Device Ordered VTE Drug Contraindication: N/A - Med Ordered
--- NOTE | 2024-04-18 11:41 | MHC.SL.SWA ---
Speech Pathologist Impression:Hx of dysphagia secondary to esophageal involvement Risk of Aspiration Due to: Poor PO Intake Dysphasia Diet Status: no changes Liquid Consistency and Strategies for Safe Swallow: Liquid Intake Recommendation: Thin Liquid Intake Strategies: Small Sips Solid Food Consistency: Dietary Recommendations: Grnd/Mech Altered (NDD2) Additional Modifications to Solid Foods: START on GROUND/MECH ALTERED (NDD2) diet and THIN liquids, pills WHOLE or CRUSHED in PUREE. Patient will need 1:1 assistance feeding. Oral Medication Intake: Whole with Puree Please contact the pharmacy regarding appropriate crushable or liquid drug formulations that are available whenever modified delivery is recommended. Compensatory Strategies and Precautions to be Taken for Safe Swallow: Sitting Upright (90 deg) Small Bites and Sips Alternate Liquids/Solids Rate of Ingestion Change Avoid Specific Foods Supervision While Eating and Drinking for Safe Swallow: Total Supervision (1:1) Foods to Avoid: Hard, tough to chew solids Swallowing Recommended Treatments: Compens. Strategy Educat. Recommendation for Speech: Inpatient Speech Therapy Comment: Pt appetite poor, refusing food this morning. INSERTER to followup as indicated, INSERTER communicated with RD Frequency/Duration: PRN M-F Date Range for Service Req: Timeline to reassess: PRN Cutter Banana Room Clinican/Clinical Fellow: No Supervisory Statement: I have reviewed and agree with the student/clinical fellow's documentation: N/A Speech Language Pathologist: Peggy Pires M.S., [facility]
--- NOTE | 2024-04-18 14:13 | MHC.CM.PN ---
EMR REVIEWED AND PER MD ROUNDS , PT IS NOT MEDICALLY CLEARED FOR DC TODAY. [facility] HAS OBTAINED INSURANCE AUTH AND IS AWARE PT WILL NOT DC TODAY. UPDATES PROVIDED VIA [facility]. CM WILL CONTINUE TO FOLLOW FOR ANY CHANGE TO PLAN/NEEDS.
--- NOTE | 2024-04-18 15:31 | P.CNPS_ITS ---
History of Present Illness Date of Service: t Chief Complaint: BRENDA, gen weakness Reason for Consult: Assessment of depression Requesting physician: Aj Leach Discussed with referring provider: Yes Sources of Information: patient interviewed, chart reviewed and crisis/core team assessment reviewed HPI Narrative: The patient is an 84-year-old Salvadorean male, bilingual, living with his family with a past history of hypertension (HTN), hyperlipidemia (HLD), chronic kidney disease stage 3 (CKD 3), benign prostatic hyperplasia (BPH), chronic back pain with degenerative arthritis, gastroesophageal reflux disease (GERD), and a recent hospitalization from 04/04 to 04/11 for acute kidney injury (BRENDA), rhabdomyolysis, and pancytopenia, back pain. He is coming 3 days later with essentially failing at home with back pain which is chronic and found to have BRENDA again. He was admitted into the medical [facility] for stabilization for failure to thrive. The primarily team consulted us for assessment of depression since the patient had been hypoactive. On interview the patient denies depressed mood, or lack of energy or any safety concerns such as psychotic symptoms or suicidality but he admitted that he was feeling more weak with poor sleep, poor appetite and mild anhedonia. He adamantly denies any suicidal thoughts. Apparently, at baseline the patient is highly functional but in the last weeks he feels more weak. Past Psychiatric History: He adamantly denies prior psychiatric history, he admitted that he used to abuse drugs in the remote past. 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 Chronic kidney disease, stage III (moderate) GERD without esophagitis Benign essential hypertension Pure hypercholesterolemia Varicose veins of right lower extremity with inflammation Arthritis HTN (hypertension) Surgical History History of cataract extraction S/P ORIF (open reduction internal fixation) fracture Family History: Denies Social History: Lives with family Substance History: Reported remote history of substance abuse Trauma History: Denies Diagnostics Vital Signs (24Hr): Vital Signs - 24 hr 04/17/24 15:59 04/17/24 19:25 04/18/24 03:00 Temperature 97.3 F 99.1 F 98.1 F Pulse Rate 107 H 106 H 95 Respiratory Rate 18 18 16 Blood Pressure 157/70 H 151/67 H 106/66 Pulse Oximetry 94 95 93 Oxygen Delivery Method Room Air Room Air Room Air 04/18/24 08:00 04/18/24 12:53 04/18/24 13:08 Temperature 97.5 F 98.0 F 97.8 F Pulse Rate 95 88 100 Respiratory Rate 16 18 18 Blood Pressure 146/66 H 110/76 128/72 Pulse Oximetry 97 Oxygen Delivery Method Room Air 04/18/24 15:05 Temperature 97.7 F Pulse Rate 98 Respiratory Rate 18 Blood Pressure 146/65 H Pulse Oximetry 97 Oxygen Delivery Method Room Air BMI result Body Mass Index 19.7 Labs 04/18/24 05:38 04/18/24 08:51 Labs: Laboratory Results - last 48 hr 04/17/24 04/17/24 04/18/24 05:41 09:25 05:38 WBC 3.9 L 3.8 L RBC 2.94 L 2.60 L Hgb 8.8 L 7.6 L Hct 25.1 L 22.3 L MCV 85.4 85.8 MCH 29.9 29.2 MCHC 35.1 34.1 RDW 14.1 14.0 Plt Count 107 L D 102 L MPV 11.7 12.8 H Absolute Nucleated RBC 0.060 H 0.050 H Nucleated RBC % (auto) 1.6 H 1.3 H Absolute Retic Percent Retic Immature Retic Fraction Retic Hgb Equivalent Sodium 139 138 Potassium 4.2 4.1 Chloride 106 105 Carbon Dioxide 20 L 21 L Anion Gap 17 16 BUN 14 14 Creatinine 0.86 0.85 Estim Creat Clear Calc 48.7 49.2 Estimated GFR > 60 > 60 Random Glucose 141 H 136 H Haptoglobin Uric Acid Calcium 9.9 10.0 Total Bilirubin AST ALT Alkaline Phosphatase Lactate Dehydrogenase Total Protein Albumin Blood Type Antibody Screen Crossmatch 04/18/24 04/18/24 08:17 08:51 WBC RBC Hgb Hct MCV MCH MCHC RDW Plt Count MPV Absolute Nucleated RBC Nucleated RBC % (auto) Absolute Retic 0.026 Percent Retic 0.9 Immature Retic Fraction 19.3 H Retic Hgb Equivalent 31.7 Sodium 137 Potassium 3.8 Chloride 105 Carbon Dioxide 22 Anion Gap 14 BUN 11 Creatinine 0.79 Estim Creat Clear Calc 53.0 Estimated GFR > 60 Random Glucose 140 H Haptoglobin 250 Uric Acid 6.7 Calcium 9.7 Total Bilirubin 1.3 H AST 89 H ALT 14 Alkaline Phosphatase 474 H Lactate Dehydrogenase 2293 H Total Protein 6.2 L Albumin 3.4 L Blood Type A Negative Antibody Screen NEGATIVE Crossmatch See Detail Mental Status Exam Mental Status Exam Patient Appearance: Appropriate (On hospital gowns) Patient Orientation: Person and Situation Level of Consciousness: Awake and Appropriate Patient Behavior: Guarded and Passive Mood Description: Withdrawn Affect Description: Constricted Patient Cognition Impaired: Yes Ability to Follow Directions: Good Speech Pattern: Clear Hallucinations: None Delusions: Not Present Thought Process: Distracted and Slowed Thinking Thought Content: positive for [place] and positive for Poverty of Content Judgement: Fair Medications Medications Current Medications Acetaminophen (Acetaminophen 325 Mg Tablet) 650 mg PO Q6H PRN PRN Reason: Pain, Mild (Pain Scale 1-3), fever or headache Last Admin: 04/14/24 20:25 Dose: 650 mg Al Hydroxide/Mg Hydroxide (Magnesium Hydrox/Alum Hydrox 30 Ml Oral.Susp) 30 ml PO Q4H PRN PRN Reason: Heartburn Amlodipine Besylate (Amlodipine Besylate 10 Mg Tablet) 10 mg PO DAILY [facility]; Protocol Last Admin: 04/18/24 07:13 Dose: 10 mg Calcium Carbonate (Calcium Carbonate 750 Mg Tab.Chew) 750 mg PO Q4H PRN PRN Reason: Heartburn Cyclobenzaprine HCl (Cyclobenzaprine Hcl 10 Mg Tablet) 10 mg PO TID PRN PRN Reason: muscle spasm Finasteride (Finasteride 5 Mg Tablet) 5 mg PO DAILY [facility] Last Admin: 04/18/24 07:13 Dose: 5 mg Hydroxyzine HCl (Hydroxyzine Hcl 25 Mg Tablet) 25 mg PO TID [facility] Last Admin: 04/18/24 14:38 Dose: Not Given Lactated Ringer's (Lr) 1,000 mls @ 100 mls/hr IVCONT .Q10H [facility] Last Infusion: 04/18/24 11:33 Dose: Infused Lidocaine (Lidocaine 4 % Patch Adh..Patch) 1 patch TRANSDERMA DAILY PRN PRN Reason: Pain Magnesium Hydroxide (Milk Of Magnesia 30 Ml Oral.Susp) 30 ml PO DAILY PRN PRN Reason: Constipation Melatonin (Melatonin 3 Mg Tablet) 6 mg PO BEDTIME PRN PRN Reason: Insomnia Last Admin: 04/15/24 20:09 Dose: 6 mg Mirtazapine (Mirtazapine 7.5 Mg Tablet) 7.5 mg PO BEDTIME [facility] Last Admin: 04/17/24 20:11 Dose: Not Given Omeprazole (Omeprazole 20 Mg Capsule.Dr) 20 mg PO DAILY@0630 [facility] Last Admin: 04/18/24 05:43 Dose: 20 mg Ondansetron HCl (Ondansetron Hcl 4 Mg/2 Ml Vial) 4 mg IVPUSH Q8H PRN PRN Reason: Nausea and Vomiting Polyethylene Glycol (Polyethylene Glycol 3350 17 Gm Powd.Pack) 17 gm PO DAILY PRN PRN Reason: Constipation Sodium Chloride (0.9 % Sodium Chloride Flush 3 Ml Syringe) 3 ml IVFLUSH QSHIFT [facility] Last Admin: 04/18/24 15:12 Dose: Not Given Tramadol HCl (Tramadol Hcl 50 Mg Tablet) 25 mg PO Q6H PRN PRN Reason: Pain, Severe (Pain Scale 7-10) Last Admin: 04/18/24 07:13 Dose: 25 mg Zolpidem Tartrate (Zolpidem Tartrate 5 Mg Tablet) 5 mg PO BEDTIME PRN PRN Reason: Insomnia Last Admin: 04/15/24 20:09 Dose: 5 mg Allergies Allergies Allergy/AdvReac Type Severity Reaction Status Date / Time No Known Allergies Allergy Verified 04/14/24 13:59 Assessment & Plan Assessment & Plan (1) Depressive disorder: Status: Acute Code(s): F32.A - Depression, unspecified (2) Dehydration: Status: Acute Code(s): E86.0 - Dehydration (3) BRENDA (acute kidney injury): Status: Acute Code(s): N17.9 - Acute kidney failure, unspecified (4) Retroperitoneal lymphadenopathy: Status: Acute Code(s): R59.0 - Localized enlarged lymph nodes (5) Pancytopenia: Status: Acute Code(s): D61.818 - Other pancytopenia (6) Dysphagia: Status: Acute Code(s): R13.10 - Dysphagia, unspecified (7) Schistocytes on peripheral blood smear: Status: Acute Code(s): R71.8 - Other abnormality of red blood cells (8) HTN (hypertension): Status: Acute Code(s): I10 - Essential (primary) hypertension (9) Acute kidney injury: Status: Acute Code(s): N17.9 - Acute kidney failure, unspecified (10) Anemia: Status: Acute Code(s): D64.9 - Anemia, unspecified (11) Cognitive decline: Status: Acute Code(s): R41.89 - Other symptoms and signs involving cognitive functions and awareness Plan The patient is an elderly Salvad[place] male with several medical comorbidities who was admitted for failure to thrive. On interview the patient adamantly denies active suicidal ideation but he looks dysphoric. Also he looks slightly cognitively impaired. Diagnosis 1. Depressive disorder. 2. Rule out mild cognitive impairment. 3. Failure to thrive. Plan 1. At this moment the patient does not have inpatient level of care criteria for hospitalization. 2. The patient was started on Remeron 7.5 mg p.o. q.h.s. to target insomnia, poor appetite and dysphoria. If the patient tolerates well it can be increased up to 15 mg p.o. q.h.s. to target poor appetite, insomnia and dysphoria. 3. Reassessment as demand Total time managing care of this patient today __45__ minutes. Patient educated on: diagnosis and therapeutic strategies Informed Consent: understands
[2024-04-18] MEDS: Mirtazapine 7.5 MG TABLET PO (20:45)
[2024-04-19] MEDS: Lactated Ringers 1,000 ML 100 ML IVCONT (02:12)
[2024-04-19 03:43] VITALS: BP 153/68; PULSE 98; RESP 16; TEMP 36.4; O2SAT 96
[2024-04-19 06:24] LABS: Hematocrit 26.7 % (42.0-52.0); Hemoglobin 9.5 g/dl (14.0-18.0); Mean Corpuscular HGB Conc 35.6 g/dl (31.0-36.0); Mean Corpuscular Hemoglobin 30.7 pg (27.0-33.0); Mean Corpuscular Volume 86.4 fL (80.0-98.0); Mean Platelet Volume 12.6 fL (9.4-12.4); NRBC Pct Auto 0.7 /100WBC (0.0-0.2); Red Blood Count 3.09 X10*6/uL (4.60-5.80); White Blood Count 4.1 X10*3/uL (4.8-10.8)
[2024-04-19 06:25] LABS: Platelet Count 91 X10*3/uL (160-400)
[2024-04-19] MEDS: Omeprazole 20 MG CAPSULE.DR PO (06:27)
[2024-04-19 07:49] VITALS: BP 151/67; PULSE 90; RESP 16; TEMP 36.6; O2SAT 98
[2024-04-19 07:51] VITALS: BP 151/67; PULSE 90; RESP 16; TEMP 36.6; O2SAT 97
[2024-04-19 09:46] VITALS: BP 152/67
[2024-04-19] MEDS: amLODIPine Besylate 10 MG TABLET PO (09:46)
[2024-04-19] MEDS: hydrOXYzine HCL 25 MG TABLET PO ×3 (09:46→21:21)
[2024-04-19] MEDS: Finasteride 5 MG TABLET PO (09:46)
--- NOTE | 2024-04-19 10:18 | MHC.SL.SWA ---
Speech Pathologist Impression: Risk of Aspiration Due to: Poor PO Intake Dysphasia Diet Status: Ground Mechanical (NDD2) with THIN liquids, Pills whole with liquid. Liquid Consistency and Strategies for Safe Swallow: Liquid Intake Recommendation: Thin Liquid Intake Strategies: Small Sips Solid Food Consistency: Dietary Recommendations: Grnd/Mech Altered (NDD2) Additional Modifications to Solid Foods: START on GROUND/MECH ALTERED (NDD2) diet and THIN liquids, pills WHOLE with liquid. Patient will need 1:1 assistance feeding. Oral Medication Intake: Whole with Liquid Please contact the pharmacy regarding appropriate crushable or liquid drug formulations that are available whenever modified delivery is recommended. Compensatory Strategies and Precautions to be Taken for Safe Swallow: Sitting Upright (90 deg) Small Bites and Sips Alternate Liquids/Solids Rate of Ingestion Change Avoid Specific Foods Supervision While Eating and Drinking for Safe Swallow: Total Supervision (1:1) Foods to Avoid: Hard, tough to chew solids Swallowing Recommended Treatments: Compens. Strategy Educat. Recommendation for Speech: Inpatient Speech Therapy Comment: Pt seen with RN this morning to evaluate toleration of pills whole with liquid (which patient requested and refused to take any other way). Patient was awake, sitting in chair beside bed, with cup of coffee and various nutritional shakes on table. Patient was pleasant when interacted with in Icelandic, reported he didn't like the coffee as it wasn't to his taste. RN presented patient with cup and three pills, INFORMATION MANAGER advised patient to take them one by one, however patient tipped all pills from cup into mouth, then accepted water, taking two sips to swallow all pills, which he did without difficulty. Patient then took single fourth pill in the same manner, with no difficulty and full clearance of the pill. Patient has use of R hand only due to arthiritis, puts pills in mouth with right hand, then needs cup handed to him to wash them down. Recommend UPGRADE method of medication delivery to pills whole with liquid. Frequency/Duration: PRN M-F Date Range for Service Req: Timeline to reassess: PRN Kettle Coordinator Clinican/Clinical Fellow: No Supervisory Statement: I have reviewed and agree with the student/clinical fellow's documentation: N/A Speech Language Pathologist: Peggy Pires M.S., CCC-INFORMATION MANAGER
[2024-04-19 15:06] VITALS: BP 151/67; PULSE 96; RESP 20; TEMP 36.6; O2SAT 99
--- NOTE | 2024-04-19 16:02 | P.PNIM_ITS ---
Subjective Subjective Date of Service: 04/19/24 Interval History: Follow up on failure to thrive, BRENDA, malnutrition, Patient is feeling much better today, following ivf and blood products Physical Exam 2 Vital Signs: Vital Signs: Last Vital Signs Temp 97.8 F 04/19/24 15:06 Pulse 96 04/19/24 15:06 Resp 20 04/19/24 15:06 BP 151/67 H 04/19/24 15:06 Pulse Ox 99 04/19/24 15:06 O2 Del Method Room Air 04/19/24 15:06 BMI result Body Mass Index 19.7 Const: Other: General: AO X 3, no acute distress Resp: CTA bilateral CVS: S1,S2,RRR GI: +BS, NT, no distention Skin: No rash Neuro: motor grossly intact Psych: appropriate affect Objective Data Active Medications Acetaminophen (Acetaminophen 325 Mg Tablet) 650 mg PO Q6H PRN PRN Reason: Pain, Mild (Pain Scale 1-3), fever or headache Last Admin: 04/14/24 20:25 Dose: 650 mg Documented By: KIM Al Hydroxide/Mg Hydroxide (Magnesium Hydrox/Alum Hydrox 30 Ml Oral.Susp) 30 ml PO Q4H PRN PRN Reason: Heartburn Amlodipine Besylate (Amlodipine Besylate 10 Mg Tablet) 10 mg PO DAILY ON LICENSE OF [facility]; Protocol Last Admin: 04/19/24 09:46 Dose: 10 mg Documented By: KAR Calcium Carbonate (Calcium Carbonate 750 Mg Tab.Chew) 750 mg PO Q4H PRN PRN Reason: Heartburn Cyclobenzaprine HCl (Cyclobenzaprine Hcl 10 Mg Tablet) 10 mg PO TID PRN PRN Reason: muscle spasm Finasteride (Finasteride 5 Mg Tablet) 5 mg PO DAILY ON LICENSE OF [facility] Last Admin: 04/19/24 09:46 Dose: 5 mg Documented By: KAR Hydroxyzine HCl (Hydroxyzine Hcl 25 Mg Tablet) 25 mg PO TID ON LICENSE OF [facility] Last Admin: 04/19/24 15:42 Dose: 25 mg Documented By: KAR Lidocaine (Lidocaine 4 % Patch Adh..Patch) 1 patch TRANSDERMA DAILY PRN PRN Reason: Pain Magnesium Hydroxide (Milk Of Magnesia 30 Ml Oral.Susp) 30 ml PO DAILY PRN PRN Reason: Constipation Melatonin (Melatonin 3 Mg Tablet) 6 mg PO BEDTIME PRN PRN Reason: Insomnia Last Admin: 04/15/24 20:09 Dose: 6 mg Documented By: LAYNE Mirtazapine (Mirtazapine 7.5 Mg Tablet) 7.5 mg PO BEDTIME ON LICENSE OF [facility] Last Admin: 04/18/24 20:45 Dose: 7.5 mg Documented By: MARIBEL Omeprazole (Omeprazole 20 Mg Capsule.Dr) 20 mg PO DAILY@0630 ON LICENSE OF [facility] Last Admin: 04/19/24 06:27 Dose: 20 mg Documented By: MARIBEL Ondansetron HCl (Ondansetron Hcl 4 Mg/2 Ml Vial) 4 mg IVPUSH Q8H PRN PRN Reason: Nausea and Vomiting Polyethylene Glycol (Polyethylene Glycol 3350 17 Gm Powd.Pack) 17 gm PO DAILY PRN PRN Reason: Constipation Sodium Chloride (0.9 % Sodium Chloride Flush 3 Ml Syringe) 3 ml IVFLUSH QSHIFT ON LICENSE OF [facility] Last Admin: 04/19/24 15:46 Dose: Not Given Documented By: KAR Non-Admin Reason: Previously Administered Tramadol HCl (Tramadol Hcl 50 Mg Tablet) 25 mg PO Q6H PRN PRN Reason: Pain, Severe (Pain Scale 7-10) Last Admin: 04/18/24 17:50 Dose: 25 mg Documented By: EBER Zolpidem Tartrate (Zolpidem Tartrate 5 Mg Tablet) 5 mg PO BEDTIME PRN PRN Reason: Insomnia Last Admin: 04/15/24 20:09 Dose: 5 mg Documented By: LAYNE Labs 04/19/24 05:42 04/18/24 08:51 Labs: Laboratory Results - last 24 hr 04/18/24 04/19/24 08:17 05:42 MCV 86.4 MCH 30.7 MCHC 35.6 RDW 14.0 Plt Count 91 L MPV 12.6 H Absolute Nucleated RBC 0.030 H Nucleated RBC % (auto) 0.7 H Crossmatch See Detail Assessment and Plan (1) BRENDA (acute kidney injury): Status: Acute (2) Dehydration: Status: Acute Plan An 84-year-old Guinean and Bolivian-speaking male with a past medical history significant for hypertension (HTN), hyperlipidemia (HLD), chronic kidney disease stage 3 (CKD 3), benign prostatic hyperplasia (BPH), chronic back pain with degenerative arthritis, gastroesophageal reflux disease (GERD), and a recent hospitalization from 04/04 to 04/11 for acute kidney injury (BRENDA), rhabdomyolysis, and pancytopenia, back pain. He is coming 3 days later with essentially failing at home with back pain which is chronic and found to have BRENDA again. 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 There are no neuro deficit to suggest spinal cord issues. -Conservative management for the pain -May need Bx of the back -consider MR of lumbar for better assessment Pancytopenia, H/H and platlet, slightly down today -stopped heparin and continue to monitor, -hematology consult if worsening -transfused 2 units of rbc on 04/18 and h/h is better HTN--continue norvasc Atherosclerotic disease-stable GERD Continue PPI BPH Continue finasteride chocking on regular diet--END USER CONSULTANT eval today Adult failure to thrive, get PT eval and likely rehab following discharge this time Full Code need for inpt: IVF for BRENDA, safe dispo, waiting for PT eval DVT P: no heparin d/t low plat, anemia, compression device PT recommends STR Quality Stroke Does the patient have a stroke diagnosis?: No VTE Prior VTE?: No VTE Risk Level:: Medical - moderate - high VTE Device Contraindication: N/A - Device Ordered VTE Drug Contraindication: N/A - Med Ordered
--- NOTE | 2024-04-19 18:08 | P.CDIM_ITS ---
PROVIDER RESPONSE TEXT: To clarify, the appropriate diagnosis supported by the clinical indicators: Malnutrition: moderate QUERY TEXT: PHYSICIAN'S DOCUMENTATION REQUEST Date of Query: 04/17/2024 10:25 AM EDT Patient Name: Dante Khan Admit Date: 04/14/2024 Dear Aj Leach MD, A review of the medical record indicates additional documentation may be needed. Please review below and update the documentation accordingly. Clinical Indicators: Clinical nutrition note: Patient qualifies as moderately malnourished due to significant weight loss with mild depletion of body fat and muscle mass. Adding Ensure BID to promote nutritional intake. Unplanned weight loss > 10% 6 months. If possible, please provide an associated diagnosis related to the abnormal BMI, such as: Malnutrition mild, moderate, severe Cachexia Anorexia Other (explain) Clinically unable to determine (explain) Thank you, Zaida Chapa, CCS, CDIS Use of terms such as suspected, likely, concern for, or probable (associated with a specific diagnosi s that is being evaluated, monitored, or treated as if it exists) are acceptable and can be coded in the inpatient se tting, when documented at the time of discharge. Please use your independent medical judgment in providing your response. THIS QUERY IS PART OF THE PERMANENT MEDICAL RECORD
[2024-04-19 19:24] VITALS: BP 145/67; PULSE 104; RESP 18; TEMP 36.6; O2SAT 98
[2024-04-19] MEDS: Acetaminophen 325 MG TABLET 650 MG PO (21:20)
[2024-04-19] MEDS: Cyclobenzaprine HCl 10 MG TABLET PO (21:21)
[2024-04-19] MEDS: Mirtazapine 7.5 MG TABLET PO (21:21)
[2024-04-19] MEDS: 0.9 % Sodium Chloride Flush 3 ML SYRINGE IVFLUSH (21:22)
[2024-04-20 00:38] LABS: Beta-2 Microglobulin, Serum 3.67 mg/L (< OR = 2.51)
[2024-04-20 03:08] VITALS: BP 131/58; PULSE 89; RESP 18; TEMP 36.4; O2SAT 93
[2024-04-20] MEDS: Omeprazole 20 MG CAPSULE.DR PO (06:08)
[2024-04-20 06:58] LABS: Hematocrit 25.4 % (42.0-52.0); Hemoglobin 8.9 g/dl (14.0-18.0); Mean Corpuscular Hemoglobin 30.4 pg (27.0-33.0); Mean Corpuscular Volume 86.7 fL (80.0-98.0); Mean Platelet Volume 12.6 fL (9.4-12.4); NRBC Pct Auto 0.8 /100WBC (0.0-0.2); Red Blood Count 2.93 X10*6/uL (4.60-5.80); Red Cell Distribution Width 14.2 % (11.0-16.0); White Blood Count 3.6 X10*3/uL (4.8-10.8)
[2024-04-20 07:03] LABS: Platelet Count 80 X10*3/uL (160-400)
[2024-04-20 08:00] VITALS: BP 158/68; PULSE 100; RESP 17; TEMP 37.5; O2SAT 100
[2024-04-20] MEDS: Finasteride 5 MG TABLET PO (08:26)
[2024-04-20] MEDS: hydrOXYzine HCL 25 MG TABLET PO ×2 (08:26→14:14)
[2024-04-20] MEDS: amLODIPine Besylate 10 MG TABLET PO (08:26)
[2024-04-20] MEDS: Cyclobenzaprine HCl 10 MG TABLET PO (08:33)
--- NOTE | 2024-04-20 10:36 | MHC.CM.PN ---
Addendum entered by Tawanna Rebolledo 04/20/24 11:15: [facility] AUTH OBTAINED # [id number] Original Note: DP: PT HAS BEEN MEDICALLY CLEARED FOR DC TO STR AT [facility]. BLS TRANSPORT BOOKED FOR 3 PM VIA [facility]. RN UPDATED. PT REQUESTS CM NOTIFY HCP [facility] CENTER AWARE OF DC.
--- NOTE | 2024-04-20 11:14 | MHC.CLN ---
Addendum entered by Jenn Bains, FAISAL 04/20/24 11:18: PATIENT ATE WELL AT [facility] TODAY. Original Note: F/U CONTINUES WITH VERY POOR PO, 0-25%. DIET=REGULAR, GROUND WITH THIN LIQUIDS. REQUIRES 1:1 FEEDING ASSIST. SEE BY EXERCISE INSTRUCTOR 04/17 AND CONSISTENCY APPROPRIATE. ENCOURAGE PO AND ASSIST WITH MEALS. ENSURE TID TO PROMOTE NUTRITIONAL INTAKE. SUPPLEMENT PROVIDES 1050 KCALS, 60 G PROTEIN. CONTINUE TO FOLLOW FOR PO INTAKE AND DIET TOLERANCE.
--- NOTE | 2024-04-20 11:17 | PM.DS ---
DS: Providers Provider Date of Service: 04/20/24 Date of admission: 04/14/24 16:54 Date of discharge: 04/20/24 Primary care physician: Neena Maguire MD Consults: 04/17/24 16:32 Consult to Hematology / Oncology Routine Consulting Provider: [facility] Oncology/Hematology Reason for consultation: pancytopenia, retroperitoneal lymph nobes, ? need biopsy now, worse 04/17/24 16:35 Consult to Psychiatry Routine Consulting Provider: Psych Covering Reason for consultation: depression Has provider been notified: No DS: Diagnosis Discharge Diagnosis (1) BRENDA (acute kidney injury): Status: Acute (2) Dehydration: Status: Acute DS: Summary Hospital Course Hospital Course: 84-year-old Indonesian and Cameroonian-speaking male with a past medical history significant for hypertension (HTN), hyperlipidemia (HLD), chronic kidney disease stage 3 (CKD 3), benign prostatic hyperplasia (BPH), chronic back pain with degenerative arthritis, gastroesophageal reflux disease (GERD), and a recent hospitalization from 04/04 to 04/11 for acute kidney injury (BRENDA), rhabdomyolysis, and pancytopenia, back pain. He is coming 3 days later with essentially failing at home with back pain which is chronic and found to have BRENDA again. Hospital course Admitted to general medical floor; BRENDA responded to volume repletion. Noted to have some difficulty regular diet; seen by speech who recommended NDD2 diet with thin liquids. On the day of discharge patient voice concerned that he wished to regular diet. Speech eval can be obtained at receiving facility when deemed appropriate. Patient was noted to have pancytopenia as well as some retroperitoneal lymph nodes. Seen by Oncology who recommended outpatient workup; this will need to be arranged as outpatient. At this point he is medically acceptable for discharge to short-term rehab. Further plans as per the receiving facility Time Attestation Discharge Coordination Time (in mins): 35 Quality: Safe Use of Opioids Does Pt have an Active Cancer Diagnosis on the Problem List?: No Quality: Stroke Does the patient have a stroke diagnosis?: No Physical Exam Vital Signs: Vital Signs: Last Vital Signs Temp 99.5 F 04/20/24 08:00 Pulse 100 04/20/24 08:00 Resp 17 04/20/24 08:00 BP 158/68 H 04/20/24 08:00 Pulse Ox 100 04/20/24 08:00 O2 Del Method Room Air 10/18/24 08:00 BMI result Body Mass Index 19.7 Const: Other: Awake alert no acute distress Resp: Other: Clear to auscultation bilaterally no rales rhonchi or wheezes Cardio: Other: No S4; positive S1-S2; no S3 murmurs rubs or gallops GI: Other: Soft nontender nondistended normoactive bowel sounds Extrem: Other: No edema bilaterally DS: Data Data Completed and Pending Labs on day of discharge: Laboratory Results - last 24 hr 04/18/24 04/20/24 08:51 06:31 WBC 3.6 L RBC 2.93 L Hgb 8.9 L Hct 25.4 L MCV 86.7 MCH 30.4 MCHC 35.0 RDW 14.2 Plt Count 80 L MPV 12.6 H Absolute Nucleated RBC 0.030 H Nucleated RBC % (auto) 0.8 H [id number] 3.67 H Discharge Plan Discharge Anticipated Discharge Date/Time: 04/20/24 11:10 Patient Disposition: er [facility] Discharge Diagnosis: Acute kidney injury Referrals: [facility] [Outside] - 1 Week (TRANSFER FOR SHORT TERM REHAB) Neena Maguire MD [Primary Care Provider] - 1 Week Discharge Medications: New mirtazapine 7.5 mg Tablet 7.5 mg PO BEDTIME Qty: 30 0RF Continued diphenhydramine HCl [Benadryl] 25 mg capsule 25 mg PO TID PRN (Reason: itching) 7 Days Qty: 21 0RF Rx Instructions: side effect is drowsiness. amlodipine 10 mg Tablet 10 mg PO DAILY Qty: 90 0RF Protocol: Hold for SBP< HOLD for SBP < : 90 acetaminophen [Tylenol Extra Strength] 500 mg tablet 500 mg PO Q6H PRN (Reason: pain) Qty: 20 0RF cyclobenzaprine 10 mg tablet 10 mg PO TID PRN (Reason: muscle spasm) Qty: 20 0RF hydroxyzine pamoate 25 mg capsule 25 mg PO TID furosemide 20 mg tablet 20 mg PO DAILY lidocaine [Lidoderm] 5 % adhesive patch,medicated 1 patch topical DAILY PRN (Reason: Pain) Rx Instructions: leave on most painful area for up to 12 hrs omeprazole 20 mg capsule,delayed release(DR/EC) 20 mg PO DAILY@0630 finasteride 5 mg tablet 5 mg PO DAILY 90 Days Qty: 90 1RF Discharge Orders: Discharge Order (Routine); Ordered 04/20/24 Ordered By: Bear Meléndez Diet: Advance to usual diet Activity on Discharge: As tolerated Stand Alone Forms: Patient Portal Discharge page Print Language: Cameroonian Care Plan Goals: Meds as ordered Health Concerns: Patient will require repeat speech eval in determination of appropriate diet at facility Plan of Treatment: As per receiving facility Assessment: See discharge summary
--- NOTE | 2024-04-20 12:08 | MHC.SL.SWA ---
Speech Pathologist Impression: Risk of aspiration, oral phase dysphagia Risk of Aspiration Due to: Poor PO Intake Dysphasia Diet Status: No change Liquid Consistency and Strategies for Safe Swallow: Liquid Intake Recommendation: Thin Liquid Intake Strategies: Small Sips Solid Food Consistency: Dietary Recommendations: Grnd/Mech Altered (NDD2) Oral Medication Intake: Whole with Liquid Please contact the pharmacy regarding appropriate crushable or liquid drug formulations that are available whenever modified delivery is recommended. Compensatory Strategies and Precautions to be Taken for Safe Swallow: Sitting Upright (90 deg) Small Bites and Sips Alternate Liquids/Solids Rate of Ingestion Change Avoid Specific Foods Supervision While Eating and Drinking for Safe Swallow: Total Supervision (1:1) Foods to Avoid: Hard, tough to chew solids Swallowing Recommended Treatments: Compens. Strategy Educat. Recommendation for Speech: Inpatient Speech Therapy Comment: Frequency/Duration: PRN M-F Date Range for Service Req: Timeline to reassess: PRN Catcher Filter Tip Clinican/Clinical Fellow: No Supervisory Statement: I have reviewed and agree with the student/clinical fellow's documentation: N/A Speech Language Pathologist: Rachelle Scott M.A., CCC-SUPERVISOR SH[employer]TERS
[2024-04-20 19:34] LABS: IgA 278 mg/dL (70-320); IgG 617 mg/dL (600-1540); IgM 31 mg/dL (50-300)
== END 2024-04-20 15:36 | disposition skilled nursing facility (03) | DRG 641 ==
LOC: HO.ED 16:27 → HO.EDOVER 17:02 → HO.S3 20:00
PROVIDERS: Internal Medicine; Admitting Provider Internal Medicine; Emergency Provider Emergency Medicine; PCP Internal Medicine; Visit Provider Hospitalist
DX: E86.0 Dehydration (principal); N17.9 Acute kidney failure, unspecified; E44.0 Moderate protein-calorie malnutrition; Z68.1 Body mass index [BMI] 19.9 or less, adult; D61.818 Other pancytopenia; R13.10 Dysphagia, unspecified; R59.0 Localized enlarged lymph nodes; N40.0 Benign prostatic hyperplasia without lower urinary tract symptoms; K21.9 Gastro-esophageal reflux disease without esophagitis; I12.9 Hypertensive chronic kidney disease with stage 1 through stage 4 chronic kidney disease, or unspecified chronic kidney disease; N18.30 Chronic kidney disease, stage 3 unspecified; E78.2 Mixed hyperlipidemia; Z79.899 Other long term (current) drug therapy
CPT/HCPCS: 36415; 80048; 80053; 81001; 82232; 82550; 82784; 83010; 83615; 84550; 85007; 85025; 85027; 85045; 86334; 86850; 86900; 86901; 86923; 92526; 92610; 97116; 97162; 99285; J1644; J7120; P9016

== ENCOUNTER → 2024-04-14 16:54 | Outpatient (BNV) | payer OTHER, SELFPAY | PROVIDERS: Admitting Provider Internal Medicine; Emergency Provider Emergency Medicine; Visit Provider Internal Medicine | DX: N17.9 Acute kidney failure, unspecified (principal); E86.0 Dehydration | CPT/HCPCS: 99223; 99232; 99239 ==

== ENCOUNTER → 2024-04-14 16:54 | Outpatient (BNV) | payer OTHER, SELFPAY | PROVIDERS: Admitting Provider Internal Medicine; Emergency Provider Emergency Medicine; PCP Internal Medicine; Visit Provider Psychiatry & Neurology Psychiatry | DX: F32.1 Major depressive disorder, single episode, moderate (principal); R41.89 Other symptoms and signs involving cognitive functions and awareness | CPT/HCPCS: 99232 ==

== ENCOUNTER 2024-05-02 10:34 | Inpatient (IN) | payer OTHER, SELFPAY ==
[2024-05-02] VITALS (12 sets, daily range): BP systolic 122–153; BP diastolic 47–68; PULSE 82–95; RESP 14–20; TEMP 36.4–37.3; O2SAT 94–100; BMI 16.8; BMI 18.5
--- NOTE | ~2024-05-02 | US_ITS ---
EXAMINATION: US ABDOMEN LIMITED CLINICAL INFORMATION: Elevated LFTs. COMPARISON: Renal ultrasound 04/05/2024. CT abdomen and pelvis without contrast 03/31/2024. TECHNIQUE: Real-time imaging of the right upper quadrant abdominal viscera. FINDINGS: LIVER: Normal. The liver is normal in size. The liver contour is normal. Parenchymal echogenicity is normal. No focal hepatic lesion. There is no intrahepatic biliary duct dilatation seen. GALLBLADDER: Physiologically distended with echogenic sludge. No gallstones, wall thickening or pericholecystic fluid collection seen. Gallbladder wall thickness is 0.3 cm. The gallbladder is physiologically distended without evidence of stones, polyps, wall thickening or pericholecystic fluid. COMMON BILE DUCT: Normal in caliber measuring 0.8 cm in diameter. US/US abdomen limited IMPRESSION: 1. Echogenic sludge in the gallbladder without wall thickening or pericholecystic fluid. 2. The liver is unremarkable. Electronically signed by: Sha Raines MD 05/06/2024 03:55 PM EST
--- NOTE | ~2024-05-02 | CT_ITS ---
EXAMINATION: CT ABDOMEN AND PELVIS WITH AND WITHOUT CONTRAST: CT GI BLEEDING STUDY CLINICAL INFORMATION: low hgb, concern for GI bleed. COMPARISON: No pertinent prior studies are available for comparison. TECHNIQUE: Multidetector volumetric imaging was performed from the lung bases to the pubic symphysis before and after the administration of: Intravenous contrast: 85 mL Omnipaque 350 No contrast reaction reported MIP coronal, sagittal and coronal reformatted images were obtained on the technologist workstation. This CT examination was performed using dose optimization techniques as appropriate, variously including the following: *Automated exposure control *Adjustment of mA and/or kV according to patient size (this includes techniques or standardized protocols for targeted exams where dose is matched to indication/reason for exam; i.e. extremities or head) *Use of iterative reconstruction technique Total exam dose-length product 879 mGy-cm FINDINGS: STOMACH: No abnormal wall thickening or mass. No intraluminal contrast accumulation to suggest hemorrhage. SMALL BOWEL: No abnormal wall thickening or dilation. No intraluminal contrast accumulation to suggest hemorrhage. COLON: No intraluminal contrast accumulation to suggest hemorrhage. No colonic wall thickening or pericolonic inflammatory changes. Diverticulosis without evidence of diverticulitis. Normal appendix. LUNG BASES: No nodules, mass, or focal consolidation. PLEURA: There is a new small to moderate-sized left pleural effusion present LIVER, GALLBLADDER, AND BILIARY TREE: The liver is normal in size, shape, and attenuation. The common bile duct is mildly dilated at 9 mm. No filling defects are seen. There is mild distention of the gallbladder unchanged. A few small scattered hepatic hypodensities are seen consistent with benign cysts. There is no concerning solid focal hepatic lesion or intrahepatic biliary ductal dilatation is present. The gallbladder is unremarkable with no evidence of radiopaque gallstones, gallbladder wall thickening, or obvious pericholecystic inflammatory changes. PANCREAS: Normal; no mass or surrounding fluid. SPLEEN: Normal size. No focal lesion. ADRENAL GLANDS: Normal; no mass. KIDNEYS AND URETERS: The right kidney is significantly smaller than the left.. There is a nonobstructing pole 6 mm calculus again noted. No hydronephrosis, hydroureter, or additional calculi seen. No perinephric stranding. On the delayed imaging, there is irregularity in the nephrogram with heterogeneity and some areas of striation (for example 10:29). Some small renal hypodensities are seen consistent with benign cysts which need no additional follow-up. ABDOMINAL WALL: Small left inguinal hernia seen containing only fat. LYMPH NODES: Retroperitoneal lymphadenopathy is again seen which was new at the time of the prior exam. The largest node remains at 1.2 cm in the left para-aortic region (9:40 compare prior 2:38). VASCULAR: Extensive atherosclerotic change is again seen in the aorta. There are bilateral renal artery stenoses present with calcium much of the proximal lumen bilaterally. There are significant stenoses involving the celiac and SMA ostia as well. BLADDER: Detail is obscured by the right hip prosthesis. There is a question of a lobular mass within the bladder (9:73) not seen at the time of the prior study and bladder ultrasound is recommended for further evaluation PELVIC VISCERA: There is mild BPH with calcifications. Seminal vesicles appear normal. OSSEOUS STRUCTURES: No acute or suspicious osseous abnormality. Marked degenerative change present at L4-L5. CT/CT gi bleed abd pel wo/w IVcon IMPRESSION: 1. No evidence of active GI bleeding. 2. New small to moderate-sized left pleural effusion. 3. Stable new retroperitoneal lymphadenopathy. 4. Question of a lobular mass in the bladder. Bladder ultrasound is recommended for further evaluation. 5. Striated nephrogram in the left kidney raises the question of pyelonephritis. Please correlate with urinalysis and culture. 6. Other incidental findings as described above including mild dilatation of the common bile duct, nonobstructing right renal calculus, diverticulosis without diverticulitis and extensive atherosclerotic disease with stenoses involving the celiac, SMA and bilateral renal arteries. Electronically signed by: Jan Flores MD 05/02/2024 02:07 PM EDT
--- NOTE | ~2024-05-02 | NM_ITS ---
EXAMINATION: NM BONE SCAN OF THE WHOLE BODY CLINICAL INFORMATION: 84-year-old male with bladder mass. For evaluation of bony involvement. COMPARISON: CT of the abdomen and pelvis done on 05/02/2024 and 03/31/2024. TECHNIQUE: Multiple gamma scintillation camera images of the whole body were performed 3 hours following the intravenous administration of 20 mCi Tc-99m MDP. The radiotracer was injected through a right arm superficial vein without complications. FINDINGS: In the head, slight heterogenous increased tracer activity is noted along the posterior midline of the calvarium, suspicious for early subtle bony involvement. In the thoracic cage and upper extremities, extensive diffuse heterogenous tracer activity is noted throughout the entire thoracic cage with superimposed patchy multifocal variable intense tracer avid disease, highly suspicious for diffuse bony involvement with involvement of sternum as well. Both humeri, both clavicle as well as both scapulae also show variable tracer avid disease. In the spine, heterogenous diffuse tracer avid disease associated with superimposed variable patchy areas of increased tracer activity also consistent with diffuse osseous involvement. In the pelvis, patchy areas of heterogenous increased tracer activity is noted involving both iliac as well as the superior pubic rami region. In the lower extremities, photopenic defect is noted involving the right proximal femur, consistent with presence of underlying right femoral/hip joint prosthesis. Heterogenous increased tracer activity within the intratrochanteric region of the left femur is suspicious for osseous involvement. Evaluation of both lower extremities somewhat limited due to motion artifacts. No other definite bony abnormalities are noted. The urinary bladder is visualized. The left kidney is well-visualized and morphologically appear unremarkable. The right kidney appears significantly smaller, consistent with atrophy. Right kidney however is still functioning. NM/NM bone scan whole body IMPRESSION: Abnormal study showing diffuse bony involvement, given the history of known bladder mass, highly suspicious for diffuse osseous metastasis. Specific note is made of relative atrophy of the right kidney. Electronically signed by: Harriet Torres MD 05/10/2024 02:24 PM [facility] [place]
--- NOTE | 2024-05-02 10:55 | PC.NURSE ---
pt biba from [facility] d/t abnormal labs after having labs completed within the past 1 hour (Hbg 5.5 & Hct 15.6). pt reports multiple episodes of nonbloody vomiting and nausea. upon ED arrival - a&ox4. vss and up to date. nsr on the cardiac exercise physiologist. pt states he is here d/t abnormal labs. denies abd pain/diarrhea/bloody stool/dizziness/lightheadedness/fever/chills. 18gIV placed in the right AC - labs obtained/sent to lab. no sob/wob noted. respirations even/unlabored. plan of care ongoing. call hernandez placed within reach.
[2024-05-02 10:57] LABS: MANUAL DIFF FLAG NO
[2024-05-02 11:05] LABS: INTERNATIONAL NORM RATIO 1.3 (0.9-1.1); Prothrombin Time 15.2 SEC (10.9-12.4)
[2024-05-02 11:07] LABS: Partial Thromboplastin Time 24.1 SEC (26.0-36.8)
[2024-05-02 11:09] LABS: Basophils Percent Auto 0.9 % (0-2); Eosinophils Percent Auto 0.9 % (0-4); Imm Gran Abs Auto 0.16 X10*3/uL (0.00-0.03); Imm Gran Pct Auto 3.5 % (0.0-0.4); Lymphocytes Absolute Auto 1.4 X10*3/uL (1.2-4.9); Lymphocytes Percent Auto 30.2 % (20-40); Mean Corpuscular HGB Conc 36.3 g/dl (31.0-36.0); Mean Corpuscular Hemoglobin 30.6 pg (27.0-33.0); Mean Corpuscular Volume 84.4 fL (80.0-98.0); Mean Platelet Volume 11.6 fL (9.4-12.4); Monocytes Absolute Auto 0.3 X10*3/uL (0.1-1.2); Monocytes Percent Auto 6.9 % (2-11); NRBC Pct Auto 0.9 /100WBC (0.0-0.2); Neutrophils Absolute Auto 2.7 x10*3/uL (2.0-8.3); Neutrophils Percent Auto 57.6 % (45-73); Red Blood Count 1.86 X10*6/uL (4.60-5.80); Red Cell Distribution Width 14.4 % (11.0-16.0); White Blood Count 4.6 X10*3/uL (4.8-10.8)
[2024-05-02 11:16] LABS: Hemoglobin 5.7 g/dl (14.0-18.0)
[2024-05-02 11:17] LABS: Hematocrit 15.7 % (42.0-52.0); Platelet Count 52 X10*3/uL (160-400)
[2024-05-02 11:20] LABS: Alanine Aminotransferase 11 U/L (0-40); Albumin Level 3.1 g/dL (3.5-5.0); Alkaline Phosphatase 447 U/L (39-117); Anion Gap 19 (12-20); Aspartate Amino Transferase 164 U/L (5-37); Bilirubin Total 1.5 mg/dL (0.0-1.0); Blood Urea Nitrogen 25 mg/dL (9-16); Calcium 8.5 mg/dL (8.4-10.2); Carbon Dioxide 19 mmol/L (22-29); Chloride 97 mmol/L (96-108); Creatinine Clr Calc Pharmacy 39.2; Estimated Glomerular Filt Rate > 60; Glucose Random 145 mg/dL (60-115); Magnesium 2.3 mg/dL (1.6-2.6); Sodium 131 mmol/L (135-145); Total Protein 6.4 g/dL (6.5-8.0)
--- NOTE | 2024-05-02 11:23 | ED_ITS ---
HPI - General Adult General Chief complaint: Recheck/Abnormal Lab/Rx Stated complaint: ABN H&H,VOMITED 1 TIME,FROM SNF PER EMS Time Seen by Provider: 05/02/24 11:22 Source: patient, EMS and financial wellness coach ( all interactions with this patient were facilitated with an [facility] nut dehydrator operator) Mode of arrival: EMS Limitations: language barrier ( all interactions with this patient were facilitated with an [facility] dehydrator operator) History of Present Illness ED Provider: Edda Hansen PA-C HPI narrative: Patient is an 84 year old assigned male at with a history of HTN, CKD stage 3, hyperlipidemia, GERD, BPH, and anemia requiring admission presenting to the emergency department today with nausea, vomiting, and decreased hemoglobin. Patient states that over the last day he has had multiple episodes of nausea and vomiting. Patient states that [facility] did lab work and told him his hemoglobin was low so he needed to come to the ER immediately. Patient denies any dizziness, lightheadedness, abdominal pain, fever, chills, blurry vision, double vision, loss of vision, chest pain, difficulty breathing, shortness of breath, back pain, night sweats, pain with urination, increased urinary frequency, increased urinary urgency, blood in his urine or stool, syncope or a near syncopal episode, recent trauma or falls, bowel incontinence, bladder incontinence, or any other complaints at this time. Relieving factors: none Exacerbating factors: none Associated symptoms: nausea/vomiting Treatments prior to arrival: none Related Data Home Medications ?Medication ?Instructions ?Recorded ?Confirmed hydroxyzine pamoate 25 mg capsule 25 mg PO TID itching 04/01/24 04/14/24 furosemide 20 mg tablet 20 mg PO DAILY 04/14/24 04/14/24 lidocaine 5 % topical patch 1 patch topical DAILY PRN Pain 04/14/24 04/14/24 (Lidoderm) omeprazole 20 mg capsule,delayed 20 mg PO DAILY@0630 04/14/24 04/14/24 release Previous Rx's ?Medication ?Instructions ?Recorded diphenhydramine HCl 25 mg capsule 25 mg PO TID PRN itching 7 days 09/06/22 (Benadryl) #21 caps finasteride 5 mg tablet 5 mg PO DAILY 90 days #90 tabs 02/01/24 acetaminophen 500 mg tablet 500 mg PO Q6H PRN pain #20 tabs 03/31/24 (Tylenol Extra Strength) cyclobenzaprine 10 mg tablet 10 mg PO TID PRN muscle spasm #20 03/31/24 tabs amlodipine 10 mg tablet 10 mg PO DAILY #90 tabs 04/11/24 mirtazapine 7.5 mg tablet 7.5 mg PO BEDTIME #30 tabs 04/20/24 Allergies Allergy/AdvReac Type Severity Reaction Status Date / Time No Known Allergies Allergy Verified 05/02/24 10:40 Review of Systems 2 Constitutional: Constitutional: Reports no additional constitutional complaints, Denies chills, Denies fever(s) and Denies night sweats Eyes: Eyes: Reports no additional eye complaints, Denies blurry vision, Denies change in vision, Denies diplopia, Denies eye discharge, Denies loss of vision and Denies eye pain ENT: Denies dizziness Cardiovascular: Cardiovascular: Reports no additional cardiovascular complaints, Denies chest pain, Denies lightheadedness, Denies Loss of Consciousness and Denies dyspnea Respiratory: Respiratory: Reports no additional respiratory complaints and Denies dyspnea Gastrointestinal: Gastrointestinal: Reports no additional gastrointestinal complaints, Denies abdominal pain, Denies melena, Denies hematochezia, Denies change in bowel habits, Denies change in stool character, Reports nausea and Reports vomiting Genitourinary: Genitourinary: Reports no additional male genitourinary complaints, Denies hematuria, Denies oliguria, Denies difficulty urinating, Denies dysuria, Denies urinary frequency, Denies urinary hesitancy, Denies urinary incontinence and Denies urinary urgency Musculoskeletal: Musculoskeletal: Reports no additional musculoskeletal complaints, Denies numbness and Denies tingling Neurologic: Denies dizziness, Denies loss of vision, Denies numbness and Denies tingling Psychiatric: Psychiatric: Reports no additional psychiatric complaints Endocrine: Endocrine: Reports no additional endocrine complaints Hematologic/Lymphatic: Hematologic/Lymphatic: Reports no additional hematologic/lymphatic complaints Allergic/Immunologic: Allergic/Immunologic: Reports no additional allergic/immunologic complaints PMFSH Past Medical History Attestation statement: The following information was validated with the patient. 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 Chronic kidney disease, stage III (moderate) GERD without esophagitis Benign essential hypertension Pure hypercholesterolemia Varicose veins of right lower extremity with inflammation Arthritis HTN (hypertension) Surgical History History of cataract extraction S/P ORIF (open reduction internal fixation) fracture Family History Family History Other Family history non-contributory Social History Social History Household Members: Significant Other Housing: Apartment Are you a primary physician locums urgent care to a significant other at home: No Do you presently have visiting nurse or other home services: Yes Patient Tobacco Use Status: Never used Tobacco Tobacco use type: Cigarette Smoked in Last 30 Days: No e-Cigarette/Vaping Use: Never Used Use of substances other than those prescribed or required for medical reasons: No Advance Directives: Yes Advance Directives on File: No Do you have a plan to hurt others: No Plan service: No Current occupational status: retired Cognitive needs: No Hearing needs: No Vision needs: No Physical Exam ED Vital Signs: Vital Signs - 24 hr 05/02/24 10:47 05/02/24 11:33 05/02/24 11:59 Temperature 98.7 F 98.8 F 98.4 F Pulse Rate 94 93 86 Respiratory Rate 14 16 16 Blood Pressure 126/51 L 122/50 L 128/47 L Pulse Oximetry 98 100 Oxygen Delivery Method Room Air Room Air 05/02/24 12:24 05/02/24 12:47 05/02/24 14:18 Temperature 98.5 F 97.5 F 98.6 F Pulse Rate 84 86 82 Respiratory Rate 18 16 14 Blood Pressure 131/47 L 134/47 L 135/53 L Pulse Oximetry 97 Oxygen Delivery Method Room Air BMI result Body Mass Index 16.8 Const General: cooperative, no acute distress, alert and awake Nutritional Appearance: well nourished Orientation/consciousness: patient oriented x3 Limitations: no limitations HENMT Head: Yes normal to inspection and Yes atraumatic Ears: hearing grossly normal bilaterally and external ears normal General nose exam: Normal external nose present, no nasal discharge noted and no epistaxis Face and sinus: Yes normal facial exam, No abrasion and No laceration Mouth: Normal oral and palatal mucosa present, no drooling and no muffled voice Eyes General: appearance normal, both eyes and all related structures Periorbital: periorbital findings normal Eyelids: Yes eyelids normal Conjunctivae: conjunctivae normal Pupils: Equal, round and reactive pupils present EOM: EOMs intact bilaterally Neck Neck: Yes normal visual inspection, Yes full ROM and Yes no lymphadenopathy Chest Chest palpation & inspection: normal inspection of the chest Resp Effort & Inspection: normal respiratory effort and able to speak in complete sentences GI Inspection: Yes normal to inspection Palpation (GI): Soft to palpation, not firm, nontender, no guarding and not rigid Neuro General: patient oriented x3 and moves all extremities Cranial nerves: Yes Equal, round and reactive pupils present Cognition (Neuro): normal cognition Extrem General: Yes normal to inspection, Yes full ROM and Yes capillary refill normal Psych Appearance: grossly normal Mental Status: mental status grossly normal Affect: normal affect Attitude: cooperative Thought process: Normal thought process present Thought content: Normal thought content present Insight: Good insight present (Psych) Medications Administered Discontinued Medications Generic Name Dose Route Start Last Admin Trade Name Freq PRN Reason Stop Dose Admin Iohexol 100 ml 05/02/24 12:02 05/02/24 12:02 Iohexol 350 Mg/Ml 100 Ml Infus..Btl IV 05/02/24 12:03 85 ml ONCE ONE Administration Medical Decision Making Medical Decision Making [facility] Narrative: Patient is an 84 year old assigned male at with a history of HTN, CKD stage 3, hyperlipidemia, GERD, BPH, and anemia requiring admission presenting to the emergency department today with nausea, vomiting, and decreased hemoglobin. Patient's physical exam was unremarkable. Patient's blood work showed a hgb of 5.7 and HCT of 15.7. Patient's urine showed no acute process. Patient's EKG was unremarkable. Patient's CT abd/pelvis had multiple findings, the most notable a possible bladder mass and diverticulosis. Patient was given 1 unit of blood. I spoke to the hospitalist team who agreed to admission. Patient's clinical presentation is not consistent with sepsis (@1445). I explained my physical exam findings as well as all test results to the patient. I answered all questions asked by the patient. Patient verbalized agreement and understanding with this treatment plan and admission. Differential Diagnosis Differential Diagnoses: The differential diagnosis associated with the presentation includes Anemia GI bleeding Bladder mass Admission/Observation Consideration of admission/observation: Escalation of care including admission/observation considered Patient admitted Consult Healthcare Provider Management of the patient was discussed with: Hospitalist (agreed to admission as noted in the MDM Rationale portion of this note) Lab Data [facility] Lab Attestation statement: I reviewed the patient's lab results. My interpretation of these results are in the MDM Rationale portion of this note. 05/02/24 10:52 05/02/24 10:52 Labs: Lab Results 05/02/24 05/02/24 05/02/24 Range/Units 10:51 10:52 11:30 WBC 4.6 L (4.8-10.8) X10*3/uL RBC 1.86 L D (4.60-5.80) X10*6/uL Hgb 5.7 L* D (14.0-18.0) g/dl Hct 15.7 L* D (42.0-52.0) % MCV 84.4 (80.0-98.0) fL MCH 30.6 (27.0-33.0) pg MCHC 36.3 H (31.0-36.0) g/dl RDW 14.4 (11.0-16.0) % Plt Count 52 L D (160-400) X10*3/uL MPV 11.6 (9.4-12.4) fL Immature Gran % (Auto) 3.5 H (0.0-0.4) % Neut % (Auto) 57.6 (45-73) % Lymph % (Auto) 30.2 (20-40) % Jerome % (Auto) 6.9 (2-11) % Eos % (Auto) 0.9 (0-4) % Baso % (Auto) 0.9 (0-2) % Lymph # (Auto) 1.4 (1.2-4.9) X10*3/uL Jerome # (Auto) 0.3 (0.1-1.2) X10*3/uL Eos # (Auto) 0.0 (0.0-0.4) X10*3/uL Baso # (Auto) 0.0 (0.0-0.2) X10*3/uL Abs Immat Gran (auto) 0.16 H (0.00-0.03) X10*3/uL Absolute Neuts (auto) 2.7 (2.0-8.3) x10*3/uL Absolute Nucleated RBC 0.040 H (0.0-0.012) X10*3/uL Nucleated RBC % (auto) 0.9 H (0.0-0.2) /100WBC PT 15.2 H (10.9-12.4) SEC INR 1.3 H (0.9-1.1) APTT 24.1 L D (26.0-36.8) SEC Sodium 131 L (135-145) mmol/L Potassium 4.0 (3.3-5.1) mmol/L Chloride 97 (96-108) mmol/L Carbon Dioxide 19 L (22-29) mmol/L Anion Gap 19 (12-20) BUN 25 H (9-16) mg/dL Creatinine 0.97 (0.5-1.4) mg/dL Estim Creat Clear Calc 39.2 Estimated GFR > 60 Random Glucose 145 H (60-115) mg/dL Calcium 8.5 D (8.4-10.2) mg/dL Magnesium 2.3 (1.6-2.6) mg/dL Total Bilirubin 1.5 H (0.0-1.0) mg/dL AST 164 H (5-37) U/L ALT 11 (0-40) U/L Alkaline Phosphatase 447 H (39-117) U/L Total Protein 6.4 L (6.5-8.0) g/dL Albumin 3.1 L (3.5-5.0) g/dL Urine Color Yellow Urine Appearance Clear Urine pH 5.5 (5.0-9.0) Ur Specific [place] 1.010 (1.005-1.025) Urine Protein 30 (1+) H (Neg-Trace) mg/dL Urine Glucose (UA) Negative (Negative) mg/dL Urine Ketones 15 (Negative) mg/dL Urine Blood Negative (Negative) Urine Nitrite Negative (Negative) Ur Leukocyte Esterase Small (1+) H (Negative) Urine RBC 0-2 (0-2) /HPF Urine WBC 11-20 H (0-5) /HPF Ur Squamous Epith Cells 0-2 (0-2) /HPF Urine Bacteria None Seen (None Seen) Hyaline Casts 0-2 (0-2) /LPF Influenza Type A (PCR) NEGATIVE (Negative) Influenza Type B (PCR) NEGATIVE (Negative) RSV RNA Qual (PCR) NEGATIVE (Negative) SARS-CoV-2 RNA (RT-PCR) NEGATIVE (Negative) Blood Type A Negative Antibody Screen NEGATIVE Crossmatch See Detail Independent Interpretation I performed an independent interpretation of an: CT Scan Interpretation: My interpretation is in agreement with the radiologist's impression of this imaging study. L EXAMINATION: CT ABDOMEN AND PELVIS WITH AND WITHOUT CONTRAST: CT GI BLEEDING STUDY CLINICAL INFORMATION: low hgb, concern for GI bleed. COMPARISON: No pertinent prior studies are available for comparison. TECHNIQUE: Multidetector volumetric imaging was performed from the lung bases to the pubic symphysis before and after the administration of: Intravenous contrast: 85 mL Omnipaque 350 No contrast reaction reported. MIP coronal, sagittal and coronal reformatted images were obtained on the technologist workstation. This CT examination was performed using dose optimization techniques as appropriate, variously including the following: *Automated exposure control *Adjustment of mA and/or kV according to patient size (this includes techniques or standardized protocols for targeted exams where dose is matched to indication/reason for exam; i.e. extremities or head) *Use of iterative reconstruction technique Total exam dose-length product 879 mGy-cm FINDINGS: STOMACH: No abnormal wall thickening or mass. No intraluminal contrast accumulation to suggest hemorrhage. SMALL BOWEL: No abnormal wall thickening or dilation. No intraluminal contrast accumulation to suggest hemorrhage. COLON: No intraluminal contrast accumulation to suggest hemorrhage. No colonic wall thickening or pericolonic inflammatory changes. Diverticulosis without evidence of diverticulitis. Normal appendix. LUNG BASES: No nodules, mass, or focal consolidation. PLEURA: There is a new small to moderate-sized left pleural effusion present LIVER, GALLBLADDER, AND BILIARY TREE: The liver is normal in size, shape, and attenuation. The common bile duct is mildly dilated at 9 mm. No filling defects are seen. There is mild distention of the gallbladder unchanged. A few small scattered hepatic hypodensities are seen consistent with benign cysts. There is no concerning solid focal hepatic lesion or intrahepatic biliary ductal dilatation is present. The gallbladder is unremarkable with no evidence of radiopaque gallstones, gallbladder wall thickening, or obvious pericholecystic inflammatory changes. PANCREAS: Normal; no mass or surrounding fluid. SPLEEN: Normal size. No focal lesion. ADRENAL GLANDS: Normal; no mass. KIDNEYS AND URETERS: The right kidney is significantly smaller than the left. There is a nonobstructing pole 6 mm calculus again noted. No hydronephrosis, hydroureter, or additional calculi seen. No perinephric stranding. On the delayed imaging, there is irregularity in the nephrogram with heterogeneity and some areas of striation (for example 10:29). Some small renal hypodensities are seen consistent with benign cysts which need no additional follow-up. ABDOMINAL WALL: Small left inguinal hernia seen containing only fat. LYMPH NODES: Retroperitoneal lymphadenopathy is again seen which was new at the time of the prior exam. The largest node remains at 1.2 cm in the left para- aortic region (9:40 compare prior 2:38). VASCULAR: Extensive atherosclerotic change is again seen in the aorta. There are bilateral renal artery stenoses present with calcium much of the proximal lumen bilaterally. There are significant stenoses involving the celiac and SMA ostia as well. BLADDER: Detail is obscured by the right hip prosthesis. There is a question of a lobular mass within the bladder (9:73) not seen at the time of the prior study and bladder ultrasound is recommended for further evaluation PELVIC VISCERA: There is mild BPH with calcifications. Seminal vesicles appear normal. OSSEOUS STRUCTURES: No acute or suspicious osseous abnormality. Marked degenerative change present at L4-L5. CT/CT gi bleed abd pel wo/w IVcon IMPRESSION: 1. No evidence of active GI bleeding. 2. New small to moderate-sized left pleural effusion. 3. Stable new retroperitoneal lymphadenopathy. 4. Question of a lobular mass in the bladder. Bladder ultrasound is recommended for further evaluation. 5. Striated nephrogram in the left kidney raises the question of pyelonephritis. Please correlate with urinalysis and culture. 6. Other incidental findings as described above including mild dilatation of the common bile duct, nonobstructing right renal calculus, diverticulosis without diverticulitis and extensive atherosclerotic disease with stenoses involving the celiac, SMA and bilateral renal arteries. Electronically signed by: Jan Flores MD 05/02/2024 02:07 PM EDT Dictated By: Jan Flores MD Signed By: Electronically signed by Jan Flores MD 05/02/24 1407 Radiology Impression Discussion of test interpretation with radiology: I have reviewed the radiologist's reading. Independent Historian Clinical information obtained from an independent historian. History obtained from or confirmed by: EMS (EMS provided additional history and confirmed the history provided by the patient.) Critical Care Time Critical Care Time Critical Care Time: Yes Total Critical Care Time: 56 Attestation: I spent 56 minutes of Critical Care Time with this patient. This does not include time spent on separately reported billable procedures. Discharge Plan Discharge Clinical Impression: Acute anemia Patient Disposition: Admitted As Inpatient Prescriptions: No Action diphenhydramine HCl [Benadryl] 25 mg capsule 25 mg PO TID PRN (Reason: itching) 7 Days Qty: 21 0RF Rx Instructions: side effect is drowsiness. amlodipine 10 mg Tablet 10 mg PO DAILY Qty: 90 0RF Protocol: Hold for SBP< HOLD for SBP < : 90 acetaminophen [Tylenol Extra Strength] 500 mg tablet 500 mg PO Q6H PRN (Reason: pain) Qty: 20 0RF cyclobenzaprine 10 mg tablet 10 mg PO TID PRN (Reason: muscle spasm) Qty: 20 0RF hydroxyzine pamoate 25 mg capsule 25 mg PO TID furosemide 20 mg tablet 20 mg PO DAILY lidocaine [Lidoderm] 5 % adhesive patch,medicated 1 patch topical DAILY PRN (Reason: Pain) Rx Instructions: leave on most painful area for up to 12 hrs omeprazole 20 mg capsule,delayed release(DR/EC) 20 mg PO DAILY@0630 mirtazapine 7.5 mg Tablet 7.5 mg PO BEDTIME Qty: 30 0RF finasteride 5 mg tablet 5 mg PO DAILY 90 Days Qty: 90 1RF Print Language: Finnish
--- NOTE | 2024-05-02 11:23 | PC.NURSE ---
urine obtained/sent to lab. [place] catheter applied to pt. another 18gIV placed in the wrist/right forearm. pt still denies any pain/n/v. no sob/wob noted. respirations remain even/unlabored. plan of care ongoing. call hernandez placed within reach.
[2024-05-02 11:36] LABS: Influenza A PCR NEGATIVE (Negative); Influenza B PCR NEGATIVE (Negative); Resp Syncy Virus RNA Qual PCR NEGATIVE (Negative); SARS COV2 PCR INHOUSE NEGATIVE (Negative)
[2024-05-02 11:40] LABS: Appearance Urine Clear; Color Urine Yellow; Glucose Urine UA Negative (Negative); Leukocyte Esterase Urine Small (1+) (Negative); Nitrite Urine Negative (Negative); PH 5.5 (5.0-9.0); UMIC TRIGGER UACC YES; Urine Blood Negative (Negative); Urine Ketones 15 mg/dL (Negative); Urine Protein 30 (1+) mg/dL (Neg-Trace)
[2024-05-02 11:43] LABS: Bacteria Urine None Seen (None Seen); Hyaline Casts Urine 0-2 /LPF (0-2); RBC Urine 0-2 /HPF (0-2); Squamous Epithelial Cell Urine 0-2 /HPF (0-2); UACC Culture Trigger YES
[2024-05-02] MEDS: iohexoL 350 MG/ML 100 ML INFUS..BTL IV (12:02)
--- NOTE | 2024-05-02 12:12 | PC.NURSE ---
unit of PRBC retrieved from blood bank. blood verified w/ AKHIL Meneses. 1st unit of PRBCs infusing @ 160mls/hr at this time. pt tolerating infusion well. no signs of reactions noted. vital signs remain stable/up to date. nsr on the advertising project manager. no sob/wob noted. respirations even/unlabored. plan of care ongoing.
--- NOTE | 2024-05-02 12:26 | PC.NURSE ---
pt tolerated first 15 min of PRBC infusion well. no complications noted. infusion titrated to 180mls/hr at this time. pt otherwise resting in no apparent distress w/ eyes closed/has tv playing. no sob/wob noted. respirations even/unlabored. plan of care ongoing. call hernandez placed within reach.
--- NOTE | 2024-05-02 15:28 | P.HPHOSP_ITS ---
History of Present Illness Date of Service: 05/02/24 Attending physician on admission: Argelia Blanco Chief Complaint: severe anemia, vomiting, melena Patient is an 84-year-old male with a past medical history significant for hypertension, CKD 3, HLD, GERD, BPH, anemia with a recent admission discharged on 04/20 for BRENDA and pancytopenia, who presented to the ED today from [facility] due to nausea and vomiting for the past 2 days and low blood count. He reports melena for the past week. Denies any shortness of breath, chest pain, palpitations, abdominal pain, fever, chills, hematemesis. He also denies any urinary symptoms including urinary frequency, hesitancy or dysuria. He continues to have chronic weight loss but does not track his weights. A Durant catheter was placed in the ED, he reports that he urinates normally at home. Review of Systems 2 Constitutional: Constitutional: Denies chills, Denies fatigue, Denies fever(s), Denies headache(s) and Reports weight loss Eyes: Eyes: Denies change in vision ENT: Denies headache(s), Denies nasal congestion and Denies nasal discharge Cardiovascular: Cardiovascular: Denies chest pain, Denies rapid heart rate, Denies lightheadedness and Denies dyspnea Respiratory: Respiratory: Denies cough and Denies dyspnea Gastrointestinal: Gastrointestinal: Denies coffee ground emesis, Denies constipation, Denies diarrhea, Reports nausea and Reports vomiting Comments: melena Genitourinary: Genitourinary: Denies dysuria, Denies urinary frequency, Denies urinary hesitancy and Denies urinary urgency Musculoskeletal: Musculoskeletal: Denies myalgias and Denies muscle weakness Integumentary/Breasts: Skin/Breast: Denies rash Neurologic: Denies confusion, Denies headache(s) and Denies memory loss Psychiatric: Psychiatric: Denies confusion and Denies memory loss Endocrine: Endocrine: Denies fatigue [facility] Medical History Depressive disorder Pancytopenia Schistocytes on peripheral blood smear Anemia Cognitive decline Anemia Back pain 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 Chronic kidney disease, stage III (moderate) GERD without esophagitis Benign essential hypertension Pure hypercholesterolemia Varicose veins of right lower extremity with inflammation Arthritis HTN (hypertension) Family History Other Family history non-contributory Surgical History History of cataract extraction S/P ORIF (open reduction internal fixation) fracture Social History Household Members: Significant Other Housing: Apartment Are you a primary personal care assistant to a significant other at home: No Do you presently have visiting nurse or other home services: Yes Patient Tobacco Use Status: Never used Tobacco Tobacco use type: Cigarette Smoked in Last 30 Days: No e-Cigarette/Vaping Use: Never Used Use of substances other than those prescribed or required for medical reasons: No Advance Directives: Yes Advance Directives on File: No Do you have a plan to hurt others: No Plan service: No Current occupational status: retired Cognitive needs: No Hearing needs: No Vision needs: No Meds Allergies Allergy/AdvReac Type Severity Reaction Status Date / Time No Known Allergies Allergy Verified 05/02/24 10:40 Active Medications: Current Medications Pantoprazole Sodium 80 mg/ (Sodium Chloride) 100 mls @ 10 mls/hr IV .Q10H DONNA Home Medications ?Medication ?Instructions ?Recorded ?Confirmed ?Last Taken ?Type hydroxyzine pamoate 25 mg capsule 25 mg PO TID 04/01/24 05/02/24 Unknown History furosemide 20 mg tablet 20 mg PO DAILY 04/14/24 05/02/24 Unknown History lidocaine 5 % topical patch 1 patch topical DAILY Pain 04/14/24 05/02/24 Unknown History (Lidoderm) omeprazole 20 mg capsule,delayed 40 mg PO DAILY@0630 04/14/24 05/02/24 Unknown History release acetaminophen 325 mg tablet 650 mg PO Q4H PRN Pain/Discomfort 05/02/24 05/02/24 Unknown History (Tylenol) acetaminophen 650 mg rectal 650 mg AK Q4H PRN Pain/Fever 05/02/24 05/02/24 Unknown History suppository bisacodyl 10 mg rectal suppository 10 mg AK DAILY PRN bowel movement 05/02/24 05/02/24 Unknown History cyclobenzaprine 10 mg tablet 10 mg PO Q8H PRN muscle spasm 05/02/24 05/02/24 Unknown History diclofenac sodium 1 % topical gel 1 g topical BID 05/02/24 05/02/24 Unknown History diphenhydramine HCl 25 mg capsule 25 mg PO Q8H PRN itching 05/02/24 05/02/24 Unknown History (Benadryl) famotidine 20 mg tablet 20 mg PO DAILY@1200 05/02/24 05/02/24 Unknown History finasteride 5 mg tablet 5 mg PO DAILY 05/02/24 05/02/24 Unknown History magnesium hydroxide 400 mg/5 mL 30 ml PO DAILY PRN Bowel Movement 05/02/24 05/02/24 Unknown History oral suspension (Milk of Magnesia) mirtazapine 15 mg tablet 15 mg PO DAILY 05/02/24 05/02/24 Unknown History multivitamin with minerals 1 tab PO DAILY 05/02/24 05/02/24 Unknown History (Multiple Vitamin-Minerals tablet) naloxone 0.4 mg/mL injection 0.4 mg subcut Q3M PRN Opioid 05/02/24 05/02/24 Unknown History solution Overdose ondansetron HCl 4 mg tablet 4 mg PO DAILY Nausea/Vomiting 05/02/24 05/02/24 Unknown History sennosides 8.6 mg tablet (senna) 17.2 mg PO BEDTIME 05/02/24 05/02/24 Unknown History sodium phosphates 19 gram-7 118 ml AK DAILY PRN Constipation 05/02/24 05/02/24 Unknown History gram/118 mL enema (Fleet Enema) Physical Exam 2 Vital Signs and Narrative: Vital Signs: Last Vital Signs Temp 98.6 F 05/02/24 14:18 Pulse 82 05/02/24 14:18 Resp 14 05/02/24 14:18 BP 135/53 L 05/02/24 14:18 Pulse Ox 97 05/02/24 12:47 O2 Del Method Room Air 05/02/24 12:47 BMI result Body Mass Index 16.8 General: AOx3, no acute distress, frail, seen with surgical instrument mechanic Resp: CTA bilaterally CVS: S1, S2, RRR GI: +BS, NT, no distention Skin: Warm, dry Extremities: No edema Psych: Flat affect Const: General: No confusion Orientation/consciousness: No confusion Neuro: General: No confusion Results Labs 05/02/24 10:52 05/02/24 10:52 Labs: Laboratory Results - last 24 hr 05/02/24 05/02/24 05/02/24 10:51 10:52 11:30 MCV 84.4 MCH 30.6 MCHC 36.3 H RDW 14.4 Plt Count 52 L D MPV 11.6 Immature Gran % (Auto) 3.5 H Neut % (Auto) 57.6 Lymph % (Auto) 30.2 Lamb % (Auto) 6.9 Eos % (Auto) 0.9 Baso % (Auto) 0.9 Lymph # (Auto) 1.4 Lamb # (Auto) 0.3 Eos # (Auto) 0.0 Baso # (Auto) 0.0 Abs Immat Gran (auto) 0.16 H Absolute Neuts (auto) 2.7 Absolute Nucleated RBC 0.040 H Nucleated RBC % (auto) 0.9 H PT 15.2 H INR 1.3 H APTT 24.1 L D Anion Gap 19 Estim Creat Clear Calc 39.2 Estimated GFR > 60 Random Glucose 145 H Calcium 8.5 D Magnesium 2.3 Total Bilirubin 1.5 H AST 164 H ALT 11 Alkaline Phosphatase 447 H Total Protein 6.4 L Albumin 3.1 L Urine Color Yellow Urine Appearance Clear Urine pH 5.5 Ur Specific [place] 1.010 Urine Protein 30 (1+) H Urine Glucose (UA) Negative Urine Ketones 15 Urine Blood Negative Urine Nitrite Negative Ur Leukocyte Esterase Small (1+) H Urine RBC 0-2 Urine WBC 11-20 H Ur Squamous Epith Cells 0-2 Urine Bacteria None Seen Hyaline Casts 0-2 Influenza Type A (PCR) NEGATIVE Influenza Type B (PCR) NEGATIVE RSV RNA Qual (PCR) NEGATIVE SARS-CoV-2 RNA (RT-PCR) NEGATIVE Blood Type A Negative Antibody Screen NEGATIVE Crossmatch See Detail Imaging Radiologist's Impressions: Impressions Abdomen/Pelvis CT 05/02/24 11:37 IMPRESSION: 1. No evidence of active GI bleeding. 2. New small to moderate-sized left pleural effusion. 3. Stable new retroperitoneal lymphadenopathy. 4. Question of a lobular mass in the bladder. Bladder ultrasound is recommended for further evaluation. 5. Striated nephrogram in the left kidney raises the question of pyelonephritis. Please correlate with urinalysis and culture. 6. Other incidental findings as described above including mild dilatation of the common bile duct, nonobstructing right renal calculus, diverticulosis without diverticulitis and extensive atherosclerotic disease with stenoses involving the celiac, SMA and bilateral renal arteries. Electronically signed by: Jan Flores MD 05/02/2024 02:07 PM EDT RP Assessment and Plan (1) Acute anemia: Status: Acute (2) Helicobacter pylori gastritis: Status: Acute (3) Hyponatremia: Status: Acute Plan Patient is an 84-year-old male with a past medical history significant for hypertension, CKD 3, HLD, GERD, BPH, anemia with a recent admission discharged on 04/20 for BRENDA and pancytopenia, who presented to the ED today from [facility] due to nausea and vomiting for the past 2 days and low blood count. Reviewed labs, hemoglobin and ED 5.7/15.7 Acute anemia - patient given 1 unit PRBC in ED, we will add 1 additional unit and recheck H&H again tonight - recent endoscopy on 04/02 with H pylori gastritis and esophageal stricture s/p balloon dilation - pantoprazole drip - hold diclofenac topical due to likely upper GI bleed - GI consult - discussed case with Hematology who suggested consult with GI, HUS was ruled out at last admission - CBC tomorrow - clear liquid diet for now, will make patient NPO after midnight in case of EGD tomorrow Acute mild hypovolemic hyponatremia - check serum osmolality - will likely improve with blood transfusion - continue to monitor electrolytes ?Bladder mass and ?Pyelonephritis on A/P CT - no urinary symptoms - Durant without hematuria - no bacteria on UA, urine culture pending - urology consult Elevated LFTs and mild CBD dilation - GI consult as above - LFTs similar to previous CKD 3 - creatinine stable, no BRENDA GERD - pantoprazole drip as above BPH - continue finasteride HTN - BP is low, hold amlodipine and furosemide DNR/DNI VTE prophylaxis: Pneumoboots, anticoagulation contraindicated due to severe anemia Patient with severe anemia, likely due to repeat upper GI bleed, requiring admission for blood transfusion, monitoring and further workup for at least 2 midnights stay. Quality Stroke Does the patient have a stroke diagnosis?: No VTE Prior VTE?: No VTE Risk Level:: Medical - moderate - high VTE Device Contraindication: N/A - Device Ordered VTE Drug Contraindication: Treatment Not Indicated
--- NOTE | 2024-05-02 15:34 | PHA.MEDREC ---
Addendum entered by Hailey Hernandez RPh 05/02/24 15:54: reviewed by [facility]. Original Note: Pharmacy Consult ? Medication Reconciliation Pharmacy has completed the medication reconciliation. confirmed medications with list from [place].
--- NOTE | 2024-05-02 16:06 | PC.NURSE ---
2nd unit of PRBCs infusing at this time. pt tolerating infusion well w/o issues. vital signs remain stable/up to date. nsr on the rn cardiac. pt continues to rest comfortably in no apparent distress. still denies any abd pain/episodes of n/v/d. no sob/wob noted. respirations even/unlabored. pending admission at this time. plan of care ongoing. call hernandez placed within reach.
[2024-05-02] MEDS: Pantoprazole Sodium 80 MG in 0.9 % Sodium Chloride 80 ML 10 MG IV (16:14)
--- NOTE | 2024-05-02 16:17 | PC.NURSE ---
Addendum entered by Mitzy Villegas 05/02/24 16:20: hospitalist bedside speaking w/ pt in regards to plan of care/being admitted. Original Note: medication delivered from pharmacy/administered.
[2024-05-02 17:11] LABS: Prostate Specific Antigen 32.98 ng/mL (<0.05-4.0)
--- NOTE | 2024-05-02 19:48 | PM.EVENT ---
Event Note Date of Service: 05/02/24 Event Note: GI Consult-Covering [facility] [place] [place] [facility]-Full note dictated-History from the patient who does not seem reliable, his RN, the EMR, and with the medical receptionist medical assistant. Imp: Worsening anemia from his baseline anemia with the questionable report of dark or burgundy stools, although none witnessed here thus far. His EGD 1 month ago was negative for PUD or neoplasm, and only showed some gastritis with H.pylori. He denies any abdominal pain and his abdominal exam is benign. His abd/pelvic CT is negative for GI pathology, but does show lymphadenopathy and possible bladder mass. He also has an elevated PSA > 30 and Alk phos > 400. It's not entirely clear if he has had an UGI bleed, but he presently appears stable in that regard. Given the negative EGD 1 month ago, a repeat EGD may be of low yield. His anemia could be due to a colonic source but he does not seem to be a good candidate for a bowel prep and colonoscopy at this time. An underlying neoplasm may be contributing to the anemia as well. Rec: Observe, continue IV PPI, F/U Hgb after transfusions and maintain Hgb > 8. Dose of Vit K ordered. I have put him on the add on schedule for an EGD with [facility] [place] [place] [facility] for tomorrow, but depending on his clinical course the EGD could be canceled if there is no sign of active GI bleeding overnight. I would recommend a Urology consult to evaluate the abnormal bladder CT and elevated PSA if not already done, as well as a F/U Hematology/Oncology consult. His GI care will be assumed by [facility] [place] [place] [facility] tomorrow. Thanks. Time Spent With Patient Time: Total time managing care of this patient today ____ minutes.
[2024-05-02 21:10] LABS: Osmolality, Serum 280 mosm/kg (281-305)
[2024-05-02] MEDS: hydrOXYzine HCL 25 MG TABLET PO (22:07)
[2024-05-02] MEDS: Sennosides 8.6 MG TABLET 17.2 MG PO (22:07)
[2024-05-02] MEDS: 0.9 % Sodium Chloride Flush 3 ML SYRINGE IVFLUSH (22:07)
[2024-05-02] MEDS: Phytonadione (Vit K1) 10 MG in 0.9 % Sodium Chloride 50 ML 51 MG IV (22:36)
[2024-05-03] VITALS (7 sets, daily range): BP systolic 126–161; BP diastolic 60–72; PULSE 78–87; RESP 18–20; TEMP 36.3–37; O2SAT 94–100; BMI 18.5
[2024-05-03] MEDS: Pantoprazole Sodium 80 MG in 0.9 % Sodium Chloride 80 ML 10 MG IV ×2 (01:26→11:29)
[2024-05-03] MEDS: Acetaminophen 325 MG TABLET 650 MG PO ×2 (06:28→15:44)
[2024-05-03 06:33] LABS: MANUAL DIFF FLAG NO
[2024-05-03 07:00] LABS: Alanine Aminotransferase 6 U/L (0-40); Albumin Level 2.9 g/dL (3.5-5.0); Alkaline Phosphatase 389 U/L (39-117); Anion Gap 19 (12-20); Aspartate Amino Transferase 114 U/L (5-37); Bilirubin Total 2.4 mg/dL (0.0-1.0); Blood Urea Nitrogen 22 mg/dL (9-16); Calcium 8.6 mg/dL (8.4-10.2); Carbon Dioxide 17 mmol/L (22-29); Chloride 99 mmol/L (96-108); Creatinine Clr Calc Pharmacy 44.1; Estimated Glomerular Filt Rate > 60; Glucose Random 139 mg/dL (60-115); Potassium 3.5 mmol/L (3.3-5.1); Sodium 131 mmol/L (135-145); Total Protein 5.9 g/dL (6.5-8.0)
[2024-05-03 07:05] LABS: INTERNATIONAL NORM RATIO 1.1 (0.9-1.1); Prothrombin Time 12.6 SEC (10.9-12.4)
[2024-05-03 07:13] LABS: Basophils Percent Auto 1.1 % (0-2); Eosinophils Percent Auto 1.1 % (0-4); Hematocrit 28.2 % (42.0-52.0); Hemoglobin 10.3 g/dl (14.0-18.0); Imm Gran Abs Auto 0.19 X10*3/uL (0.00-0.03); Lymphocytes Absolute Auto 1.1 X10*3/uL (1.2-4.9); Lymphocytes Percent Auto 28.8 % (20-40); Mean Corpuscular HGB Conc 36.5 g/dl (31.0-36.0); Mean Corpuscular Hemoglobin 30.3 pg (27.0-33.0); Mean Corpuscular Volume 82.9 fL (80.0-98.0); Mean Platelet Volume 11.2 fL (9.4-12.4); Monocytes Absolute Auto 0.3 X10*3/uL (0.1-1.2); Monocytes Percent Auto 6.9 % (2-11); NRBC Pct Auto 0.8 /100WBC (0.0-0.2); Neutrophils Absolute Auto 2.2 x10*3/uL (2.0-8.3); Neutrophils Percent Auto 57.1 % (45-73); Red Cell Distribution Width 14.8 % (11.0-16.0); White Blood Count 3.8 X10*3/uL (4.8-10.8)
[2024-05-03 07:21] LABS: Platelet Count 40 X10*3/uL (160-400)
--- NOTE | 2024-05-03 08:38 | MHC.CM.PN ---
Patient is documented to be a poor Historian and to seem like there is a Cognitive Impairment; CM spoke with /HCP/Camryn @ [phone] and addressed IMM with her (per Camryn's request, the original will be left at bedside and a copy has been placed on the chart). Per Camryn, Patient was at [facility] ([facility]) for STR and returning there is the goal. [facility] has initiated and will follow for dc planning.
[2024-05-03] MEDS: 0.9 % Sodium Chloride Flush 3 ML SYRINGE IVFLUSH ×3 (08:55→20:13)
--- NOTE | 2024-05-03 10:37 | MHC.CLN ---
PT IS MODERATELY MALNOURISHED PT WITH MILDLY DEPLETED SUBCUTANEOUS FAT AND MUSCLE MASS WITH BMI 18.5 AND CHRONIC POOR PO INTAKE WITH ESOPHAGEAL STRICTURE AND H. PYLORI CURRENTLY NPO WHEN DIET TO ADVANCE, RECOMMEND ADDING NUTRITION SUPPLEMENT TO INCREASE KCALS MONITOR PO INTAKE AND ENCOURAGE SUPPLEMENTS SEE ALSO FULL CLINICAL NUTRITION ASSESSMENT
[2024-05-03] MEDS: Cyclobenzaprine HCl 10 MG TABLET PO (11:29)
[2024-05-03] MEDS: Lidocaine 4 % Patch ADH..PATCH 1 PATCH TRANSDERMA (11:29)
[2024-05-03] MEDS: Multivitamin TABLET 1 TAB PO (11:29)
[2024-05-03] MEDS: Mirtazapine 15 MG TABLET PO (11:29)
[2024-05-03] MEDS: hydrOXYzine HCL 25 MG TABLET PO ×3 (11:29→20:12)
[2024-05-03] MEDS: Finasteride 5 MG TABLET PO (11:30)
--- NOTE | 2024-05-03 11:56 | P.PNIM_ITS ---
Subjective Subjective Date of Service: 05/03/24 Interval History: Seen and examined this morning Follow-up for anemia patient is awake and alert, a little vague with history denies abdominal pain, denies any rectal bleeding Review of Systems Review of Systems: Yes all other systems are reviewed and are negative Constitutional Constitutional: Denies chills and Denies fever(s) Cardiovascular Cardiovascular: Denies chest pain, Denies palpitations and Denies dyspnea Respiratory Respiratory: Denies cough and Denies dyspnea Gastrointestinal Gastrointestinal: Denies abdominal pain, Denies nausea and Denies vomiting Endocrine Endocrine: Denies palpitations Physical Exam 2 Vital Signs: Vital Signs: Last Vital Signs Temp 98.6 F 05/03/24 08:00 Pulse 83 05/03/24 08:00 Resp 20 05/03/24 08:00 BP 126/60 05/03/24 08:00 Pulse Ox 100 05/03/24 08:00 O2 Del Method Room Air 05/03/24 08:00 BMI result Body Mass Index 18.5 Const: General: cooperative, comfortable, no acute distress, alert and awake Orientation/consciousness: oriented to person and oriented to place Resp: Effort & Inspection: normal respiratory effort, able to speak in complete sentences, no respiratory distress and no use of accessory muscles Cardio: Rate: regular rate GI: Inspection: No distended Palpation (GI): Soft to palpation and nontender Neuro: General: oriented to person, oriented to place, moves all extremities and CN's II-XI intact bilaterally Extrem: General: Yes no pedal edema Objective Data Active Medications Acetaminophen (Acetaminophen 325 Mg Tablet) 650 mg PO Q6H PRN PRN Reason: Pain, Mild (Pain Scale 1-3), fever or headache Last Admin: 05/03/24 06:28 Dose: 650 mg Documented By: LAYNE Calcium Carbonate (Calcium Carbonate 750 Mg Tab.Chew) 750 mg PO Q4H PRN PRN Reason: Heartburn Cyclobenzaprine HCl (Cyclobenzaprine Hcl 10 Mg Tablet) 10 mg PO Q8H PRN PRN Reason: muscle spasm Last Admin: 05/03/24 11:29 Dose: 10 mg Documented By: KIRSTIE Diphenhydramine HCl (Diphenhydramine Hcl 25 Mg Capsule) 25 mg PO Q8H PRN PRN Reason: itching Finasteride (Finasteride 5 Mg Tablet) 5 mg PO DAILY [facility] Last Admin: 05/03/24 11:30 Dose: 5 mg Documented By: KIRSTIE Hydroxyzine HCl (Hydroxyzine Hcl 25 Mg Tablet) 25 mg PO TID [facility] Last Admin: 05/03/24 11:29 Dose: 25 mg Documented By: KIRSTIE Pantoprazole Sodium 80 mg/ (Sodium Chloride) 100 mls @ 10 mls/hr IV .Q10H [facility] Last Admin: 05/03/24 11:29 Dose: 8 mg/hr, 10 mls/hr Documented By: KIRSTIE Lidocaine (Lidocaine 4 % Patch Adh..Patch) 1 patch TRANSDERMA DAILY [facility] Last Admin: 05/03/24 11:29 Dose: 1 patch Documented By: KIRSTIE Magnesium Hydroxide (Milk Of Magnesia 30 Ml Oral.Susp) 30 ml PO DAILY PRN PRN Reason: Constipation Melatonin (Melatonin 3 Mg Tablet) 6 mg PO BEDTIME PRN PRN Reason: Insomnia Mirtazapine (Mirtazapine 15 Mg Tablet) 15 mg PO DAILY [facility] Last Admin: 05/03/24 11:29 Dose: 15 mg Documented By: KIRSTIE Multivitamins/Vitamin C (Multivitamin Tablet) 1 tab PO DAILY [facility] Last Admin: 05/03/24 11:29 Dose: 1 tab Documented By: KIRSTIE Ondansetron HCl (Ondansetron Hcl 4 Mg/2 Ml Vial) 4 mg IVPUSH Q8H PRN PRN Reason: Nausea and Vomiting Senna (Sennosides 8.6 Mg Tablet) 17.2 mg PO BEDTIME [facility] Last Admin: 05/02/24 22:07 Dose: 17.2 mg Documented By: LAYNE Sodium Chloride (0.9 % Sodium Chloride Flush 3 Ml Syringe) 3 ml IVFLUSH QSHIFT [facility] Last Admin: 05/03/24 08:55 Dose: 3 ml Documented By: KIRSTIE Labs 05/03/24 06:00 05/03/24 06:00 Labs: Laboratory Results - last 24 hr 05/02/24 05/02/24 05/02/24 10:51 10:52 20:29 MCV MCH MCHC RDW Plt Count MPV Immature Gran % (Auto) Neut % (Auto) Lymph % (Auto) [place] % (Auto) Eos % (Auto) Baso % (Auto) Lymph # (Auto) [place] # (Auto) Eos # (Auto) Baso # (Auto) Abs Immat Gran (auto) Absolute Neuts (auto) Absolute Nucleated RBC Nucleated RBC % (auto) PT INR Anion Gap Estim Creat Clear Calc Estimated GFR Random Glucose Osmolality 280 L Calcium Total Bilirubin AST ALT Alkaline Phosphatase Total Protein Albumin Prostate Specific Ag 32.98 H Blood Type A Negative Antibody Screen NEGATIVE Crossmatch See Detail 05/03/24 06:00 MCV 82.9 MCH 30.3 MCHC 36.5 H RDW 14.8 Plt Count 40 L MPV 11.2 Immature Gran % (Auto) 5.0 H Neut % (Auto) 57.1 Lymph % (Auto) 28.8 [place] % (Auto) 6.9 Eos % (Auto) 1.1 Baso % (Auto) 1.1 Lymph # (Auto) 1.1 L [place] # (Auto) 0.3 Eos # (Auto) 0.0 Baso # (Auto) 0.0 Abs Immat Gran (auto) 0.19 H Absolute Neuts (auto) 2.2 Absolute Nucleated RBC 0.030 H Nucleated RBC % (auto) 0.8 H PT 12.6 H INR 1.1 Anion Gap 19 Estim Creat Clear Calc 44.1 Estimated GFR > 60 Random Glucose 139 H Osmolality Calcium 8.6 Total Bilirubin 2.4 H AST 114 H ALT 6 Alkaline Phosphatase 389 H Total Protein 5.9 L Albumin 2.9 L Prostate Specific Ag Blood Type Antibody Screen Crossmatch Assessment and Plan (1) Anemia: Status: Acute Plan Patient is an 84-year-old male with a past medical history significant for hypertension, CKD 3, HLD, GERD, BPH, anemia with a recent admission discharged on 04/20 for BRENDA and pancytopenia, who presented to the ED today from [facility] due to nausea and vomiting for the past 2 days and low blood count. Reviewed labs, hemoglobin and ED 5.7/15.7 Acute normocytic anemia on a background of chronic pancytopenia - patient given 1 unit PRBC in ED, we will add 1 additional unit; improvement in H/H, no active bleeding noted - recent endoscopy on 04/02 with H pylori gastritis and esophageal stricture s/p balloon dilation - IV pantoprazole BID - seen by GI- consideration for EGD and colonoscopy - discussed case with Hematology who suggested consult with GI, HUS was ruled out at last admission - clear liquid diet for now, possible EGD and colonoscopy tomorrow as above Acute mild hypovolemic hyponatremia sodium 131 follow BMP ?Bladder mass and ?Pyelonephritis on A/P CT no urinary symptoms, no bacteria on UA, urine culture pending formal urology consult pending -PSA 32.98; likely metastatic prostate cancer, rec biopsy - will discuss with family Elevated LFTs and mild CBD dilation bili trending up, no abdominal pain Gi consult follow LFTs CKD 3 - creatinine stable, no BRENDA GERD PPI as above BPH continue finasteride HTN - BP is low, hold amlodipine and furosemide DNR/DNI VTE prophylaxis: Pneumoboots, anticoagulation contraindicated due to severe anemia Patient requires ongoing inpatient stay for severe anemia, likely due to repeat upper GI bleed, requiring admission for blood transfusion, monitoring and further workup Quality Stroke Does the patient have a stroke diagnosis?: No VTE Prior VTE?: No VTE Risk Level:: Medical - moderate - high VTE Device Contraindication: N/A - Device Ordered VTE Drug Contraindication: Treatment Not Indicated
--- NOTE | 2024-05-03 13:11 | P.CDIM_ITS ---
PROVIDER RESPONSE TEXT: To clarify, the appropriate diagnosis supported by the clinical indicators: Malnutrition: moderate QUERY TEXT: PHYSICIAN'S DOCUMENTATION REQUEST Date of Query: 05/03/2024 12:57 PM EDT Patient Name: Dante Khan Admit Date: 05/02/2024 Dear Carmita GUY, A review of the medical record indicates additional documentation may be needed. Please review below and update the documentation accordingly. Clinical Indicators: Clinical nutrition notes patient is moderately malnourished with BMI 18.5 Patient with mildly depleted subcutaneous fat and muscle mass. Recommend adding nutrition supplement to increase Kcals. If possible, please provide an associated diagnosis related to the abnormal BMI, such as: Malnutrition mild, moderate, severe Anorexia Other (explain) Clinically unable to determine (explain) Thank you, Zaida Chapa, CCS, CDIS Use of terms such as suspected, likely, concern for, or probable (associated with a specific diagnosi s that is being evaluated, monitored, or treated as if it exists) are acceptable and can be coded in the inpatient se tting, when documented at the time of discharge. Please use your independent medical judgment in providing your response. THIS QUERY IS PART OF THE PERMANENT MEDICAL RECORD
[2024-05-03] MEDS: Pantoprazole Sodium 40 MG/10 ML VIAL IVPUSH (15:42)
[2024-05-03] MEDS: bisacodyL 5 MG TABLET.DR 10 MG PO (17:40)
[2024-05-03] MEDS: PEG 3350/Na Sulf,Bicarb,Cl/KCL 4,000 ML SOLN.RECON 240 ML PO ×12 (17:41→23:58)
[2024-05-03] MEDS: Melatonin 3 MG TABLET 6 MG PO (20:13)
[2024-05-03] MEDS: Sennosides 8.6 MG TABLET 17.2 MG PO (20:13)
--- NOTE | 2024-05-03 23:28 | CONS_ITS ---
DATE OF SERVICE: 05/02/2024 REASON FOR CONSULTATION: Anemia and question of GI bleeding. HISTORY OF PRESENT ILLNESS: This has been obtained from the patient who is not particularly reliable, and from the medical record, and his RN. A hospital medical assistant was present for the interview with the patient. The patient is an 84-year-old male who was transferred to the ER today for evaluation of anemia and a reported history of some GI bleeding. The patient was just discharged from the hospital on April 20, after what looked like a hospitalization for anemia, the finding of an abnormal CT scan of the abdomen with associated lymphadenopathy and question of bladder mass. During that hospitalization 2 weeks ago, he also had some renal insufficiency, which responded to rehydration. He had also been admitted in early April for evaluation of anemia and troubles eating. At that time, he was seen by Dr. Marr and underwent an upper endoscopy and dilation of the gastroesophageal junction. However, the endoscopy report does not describe any definitive esophageal disease such as a stricture or mass. There was some gastritis with positive H pylori on the biopsy. There was no sign of any ulcer disease nor any other significant pathology. During that hospitalization, his hemoglobin had been as low as 7.6. The patient was transferred to the ER from his long-term care facility with a hemoglobin of 5.7 and a question of report of some black stool, however, this could not be determined definitively. The patient himself denied any recent signs of black stool or any vomiting. He denied any abdominal pain. Since admission to the medical floor, he has had no signs of bleeding as well. In discussion with the patient, he denies any problems swallowing or with significant heartburn. PRESENT MEDICATIONS: Include acetaminophen p.r.n., Tums p.r.n., cyclobenzaprine p.r.n., Benadryl p.r.n., finasteride, Atarax, lidocaine patch, melatonin p.r.n., milk of magnesia p.r.n., Remeron, vitamins, Zofran p.r.n., IV pantoprazole, and Senokot p.r.n. PAST MEDICAL HISTORY: Anemia as above. Upper endoscopy at the end of March with Dr. Marr as described above without any significant findings other than some H pylori gastritis. He does have a history of significant anemia as well as thrombocytopenia. Arthritis. Renal insufficiency. Hypertension. Hyperlipidemia. He has had bilateral arm surgery. There is report of some cognitive decline. There is no documented history of GA or diabetes. SOCIAL HISTORY: He reports that he had been a former smoker and drinker of alcohol, but presently does not do either of those habits. He is residing at a long-term care facility. FAMILY HISTORY: Noncontributory. REVIEW OF SYSTEMS: CONSTITUTIONAL: He describes that he is eating fairly well. He does feel weak and tired. CARDIAC: No chest pain. PULMONARY: No coughing or hemoptysis. GI: As above. PHYSICAL EXAMINATION: GENERAL: The patient is an elderly and chronically ill-appearing male. He is alert. He knows his location at [facility], but does not know the year. SKIN: Warm and dry. HEENT: Nonjaundiced. Anicteric sclerae. NECK: Supple. CHEST: Reveals some slightly diminished breath sounds, but without wheezing. CARDIAC: Normal S1, S2. ABDOMEN: Soft, nondistended and nontender without palpable mass. LABORATORY DATA: Hemoglobin on admission was 5.7. His most recent hemoglobin prior to that was 8.9 on April 20. MCV now is 85. Platelets 52,000 and white blood cell count of 4.6. PT was 15.2 with INR 1.3. Sodium 131, potassium 4.0, BUN 25, creatinine 0.97, total bilirubin 1.5, AST 164, ALT 11, alkaline phosphatase 447, albumin 3.1, PSA 32.98. He did have a CT scan of the abdomen and pelvis, which was negative for any sign of GI bleeding or GI pathology. The main finding on the scan is that of some retroperitoneal lymphadenopathy with the largest node measuring over 1 cm, question of a lobular urinary bladder mass. There was no evidence of any obvious bony disease. IMPRESSION: In regard to the patient's anemia, it is not entirely clear as to whether or not he actually had any significant GI bleeding. Given the basically negative upper endoscopy just over 1 month ago, I doubt he had any significant upper GI bleed at this time. Other possibilities would be a colonic source of his anemia, but at this time, I do not think he would be a good candidate for a bowel prep or colonoscopy. Given what appears to be possibly some underlying neoplasm, he may have some anemia in relation to that, particularly if he has something such as a lymphoma in regard to the lymphadenopathy. He does have the elevated PSA and questionable bladder mass as well. At this point, I have tentatively scheduled him for an upper endoscopy tomorrow with either Dr. Marr or one of her coverage. However, I think it might be reasonable to see how he is doing in the morning and if his blood count has improved after transfusions and there remains no definitive evidence of bleeding, then maybe hold off on the upper endoscopy since the yield would be low since he had the basically negative endoscopy about a month ago. I would certainly recommend a Urology consultation if not already done given the elevated PSA and questionable bladder mass. The elevated alkaline phosphatase may be from a skeletal source if indeed, he has prostate cancer. I will continue his IV PPI for the time being. I will continue to follow his hemoglobin. I did order a dose of vitamin K to see if that can help improve his slightly elevated INR. I would also recommend followup with Hematology and Oncology consultation as well. His GI care will be assumed by an [facility] group in the morning. This has been discussed with the patient as best as possible and he seems comfortable with the plan. Thank you for the consultation. MD TREV Rosales/TRAE / [phone]
[2024-05-04] VITALS (14 sets, daily range): BP systolic 130–160; BP diastolic 46–75; PULSE 77–92; RESP 16–20; TEMP 36.3–36.8; O2SAT 93–100
--- NOTE | 2024-05-04 00:01 | PC.NURSE ---
Pt having difficulty finishing bowel prep. Pt has consumed a little more than half of the bowel prep. Pt stating that he is full and it's hard to drink much more. Pt has had three stools, the last two have been liquid.
[2024-05-04] MEDS: Pantoprazole Sodium 40 MG/10 ML VIAL IVPUSH ×2 (06:19→17:39)
[2024-05-04 06:50] LABS: Alanine Aminotransferase 6 U/L (0-40); Alkaline Phosphatase 378 U/L (39-117); Anion Gap 19 (12-20); Aspartate Amino Transferase 88 U/L (5-37); Bilirubin Direct 0.7 mg/dL (0.0-0.5); Bilirubin Total 1.3 mg/dL (0.0-1.0); Blood Urea Nitrogen 18 mg/dL (9-16); Calcium 9.3 mg/dL (8.4-10.2); Carbon Dioxide 19 mmol/L (22-29); Chloride 102 mmol/L (96-108); Creatinine Clr Calc Pharmacy 43.2; Estimated Glomerular Filt Rate > 60; Glucose Random 123 mg/dL (60-115); Potassium 3.3 mmol/L (3.3-5.1); Sodium 137 mmol/L (135-145); Total Protein 6.1 g/dL (6.5-8.0)
[2024-05-04 07:00] LABS: Hematocrit 28.9 % (42.0-52.0); Hemoglobin 10.8 g/dl (14.0-18.0); Mean Corpuscular HGB Conc 37.4 g/dl (31.0-36.0); Mean Corpuscular Hemoglobin 30.5 pg (27.0-33.0); Mean Corpuscular Volume 81.6 fL (80.0-98.0); Mean Platelet Volume 11.9 fL (9.4-12.4); Platelet Count 37 X10*3/uL (160-400); Red Blood Count 3.54 X10*6/uL (4.60-5.80); Red Cell Distribution Width 15.3 % (11.0-16.0); White Blood Count 3.1 X10*3/uL (4.8-10.8)
[2024-05-04 07:27] LABS: Band Neutrophils Percent 4 % (3-5); Eosinophils Percent Manual 1 % (0-4); Lymphocytes Absolute Manual 0.9 X10*3/uL (1.2-4.9); Lymphocytes Percent Manual 28 % (20-40); Metamyelocytes Percent 1 %; Monocytes Absolute Manual 0.1 X10*3/uL (0.1-1.2); Monocytes Percent Manual 2 % (2-11); Neutrophils Absolute Manual 2.1 X10*3/uL (2.0-8.3); Neutrophils Percent Manual 64 % (45-73)
[2024-05-04 07:29] LABS: Burr Cells 1+ (0-2) /OIF; Hypochromasia 1+ (5-14) /OIF; Platelet Estimate DECREASED (NORMAL); Platelet Morphology Comment NORMAL; RBC Morphology NOTED; Schistocytes 1+ (0-2) /OIF
[2024-05-04] MEDS: hydrOXYzine HCL 25 MG TABLET PO ×3 (08:36→21:41)
[2024-05-04] MEDS: Mirtazapine 15 MG TABLET PO (08:36)
[2024-05-04] MEDS: 0.9 % Sodium Chloride Flush 3 ML SYRINGE IVFLUSH ×4 (08:36→21:46)
[2024-05-04] MEDS: Multivitamin TABLET 1 TAB PO (08:36)
[2024-05-04] MEDS: Lidocaine 4 % Patch ADH..PATCH 1 PATCH TRANSDERMA (08:36)
[2024-05-04] MEDS: Finasteride 5 MG TABLET PO (08:36)
--- NOTE | 2024-05-04 09:41 | MHC.CLN ---
F/U PT IS MODERATELY MALNOURISHED SEE FULL CLINICAL NUTRITION ASSESSMENT DATED 05/03/24 REMAINS NPO WHEN DIET TO ADVANCE, RECOMMEND ADDING NUTRITION SUPPLEMENT TO INCREASE KCALS FOLLOWING FOR DIET ADVANCEMENT
[2024-05-04] MEDS: Sodium Phosphate,Mono-Dibasic 133 ML ENEMA PR (10:00)
--- NOTE | 2024-05-04 10:26 | MHC.CM.PN ---
Per ROUNDS discussion, Patient is not yet medically cleared for dc (IV Protonix);returning to [facility] is the plan and CM will continue to follow.
--- NOTE | 2024-05-04 12:34 | P.PNIM_ITS ---
Subjective Subjective Date of Service: 05/04/24 Interval History: Seen and examined this morning Follow-up for anemia, bladder mass Awake, alert, oriented to person Denies abdominal pain Review of Systems Review of Systems: Yes all other systems are reviewed and are negative Cardiovascular Cardiovascular: Denies chest pain, Denies palpitations and Denies dyspnea Respiratory Respiratory: Denies cough and Denies dyspnea Endocrine Endocrine: Denies palpitations Physical Exam 2 Vital Signs: Vital Signs: Last Vital Signs Temp 98.0 F 05/04/24 11:53 Pulse 89 05/04/24 11:53 Resp 20 05/04/24 11:53 BP 151/69 H 05/04/24 11:53 Pulse Ox 98 05/04/24 11:53 O2 Del Method Room Air 05/04/24 11:53 BMI result Body Mass Index 18.5 Const: General: cooperative, comfortable, no acute distress, alert and awake Orientation/consciousness: oriented to person Resp: Effort & Inspection: normal respiratory effort, able to speak in complete sentences, no respiratory distress and no use of accessory muscles Cardio: Rate: regular rate GI: Inspection: No distended Palpation (GI): Soft to palpation and nontender Neuro: General: oriented to person, moves all extremities and CN's II-XI intact bilaterally Extrem: General: Yes no pedal edema Objective Data Active Medications Acetaminophen (Acetaminophen 325 Mg Tablet) 650 mg PO Q6H PRN PRN Reason: Pain, Mild (Pain Scale 1-3), fever or headache Last Admin: 05/03/24 15:44 Dose: 650 mg Documented By: KIRSTIE Calcium Carbonate (Calcium Carbonate 750 Mg Tab.Chew) 750 mg PO Q4H PRN PRN Reason: Heartburn Cyclobenzaprine HCl (Cyclobenzaprine Hcl 10 Mg Tablet) 10 mg PO Q8H PRN PRN Reason: muscle spasm Last Admin: 05/03/24 11:29 Dose: 10 mg Documented By: KIRSTIE Diphenhydramine HCl (Diphenhydramine Hcl 25 Mg Capsule) 25 mg PO Q8H PRN PRN Reason: itching Finasteride (Finasteride 5 Mg Tablet) 5 mg PO DAILY [facility] Last Admin: 05/04/24 08:36 Dose: 5 mg Documented By: ЕКАТЕРИНА Hydroxyzine HCl (Hydroxyzine Hcl 25 Mg Tablet) 25 mg PO TID [facility] Last Admin: 05/04/24 08:36 Dose: 25 mg Documented By: ЕКАТЕРИНА Lactated Ringer's (Lr) 1,000 mls @ 50 mls/hr IVCONT .Q20H [facility] Lidocaine (Lidocaine 4 % Patch Adh..Patch) 1 patch TRANSDERMA DAILY [facility] Last Admin: 05/04/24 08:36 Dose: 1 patch Documented By: ЕКАТЕРИНА Magnesium Hydroxide (Milk Of Magnesia 30 Ml Oral.Susp) 30 ml PO DAILY PRN PRN Reason: Constipation Melatonin (Melatonin 3 Mg Tablet) 6 mg PO BEDTIME PRN PRN Reason: Insomnia Last Admin: 05/03/24 20:13 Dose: 6 mg Documented By: DARA Mirtazapine (Mirtazapine 15 Mg Tablet) 15 mg PO DAILY [facility] Last Admin: 05/04/24 08:36 Dose: 15 mg Documented By: ЕКАТЕРИНА Multivitamins/Vitamin C (Multivitamin Tablet) 1 tab PO DAILY [facility] Last Admin: 05/04/24 08:36 Dose: 1 tab Documented By: ЕКАТЕРИНА Naloxone HCl (Naloxone Hcl 0.4 Mg/Ml Vial) 0.04 mg IVPUSH Q5M PRN PRN Reason: Excessive sedation or RR < 8 Ondansetron HCl (Ondansetron Hcl 4 Mg/2 Ml Vial) 4 mg IVPUSH Q8H PRN PRN Reason: Nausea and Vomiting Pantoprazole Sodium (Pantoprazole Sodium 40 Mg/10 Ml Vial) 40 mg IVPUSH BID@0630,1630 [facility] Last Admin: 05/04/24 06:19 Dose: 40 mg Documented By: DARA Senna (Sennosides 8.6 Mg Tablet) 17.2 mg PO BEDTIME [facility] Last Admin: 05/03/24 20:13 Dose: 17.2 mg Documented By: DARA Sodium Biphosphate/Sodium Phosphate (Sodium Phosphate,Grant-Dibasic 133 Ml Enema) 133 ml NC ONCE PRN PRN Reason: Poor Colonoscopy Prep Results Last Admin: 05/04/24 10:00 Dose: 133 ml Documented By: ЕКАТЕРИНА Sodium Chloride (0.9 % Sodium Chloride Flush 3 Ml Syringe) 3 ml IVFLUSH QSHIFT [facility] Last Admin: 05/04/24 08:36 Dose: 3 ml Documented By: ЕКАТЕРИНА Labs 05/04/24 05:52 05/04/24 05:52 Labs: Laboratory Results - last 24 hr 05/02/24 05/04/24 10:51 05:52 MCV 81.6 MCH 30.5 MCHC 37.4 H RDW 15.3 Plt Count 37 L MPV 11.9 Immature Gran % (Auto) Cancelled Neut % (Auto) Cancelled Lymph % (Auto) Cancelled Grant % (Auto) Cancelled Eos % (Auto) Cancelled Baso % (Auto) Cancelled Lymph # (Auto) Cancelled Grant # (Auto) Cancelled Eos # (Auto) Cancelled Baso # (Auto) Cancelled Abs Immat Gran (auto) Cancelled Absolute Neuts (auto) Cancelled Absolute Nucleated RBC 0.030 H Nucleated RBC % (auto) 1.0 H Neutrophils % (Manual) 64 Band Neutrophils % 4 Lymphocytes % (Manual) 28 Monocytes % (Manual) 2 Eosinophils % (Manual) 1 Metamyelocytes % 1 Abs Neuts (Manual) 2.1 Lymphocytes # (Manual) 0.9 L Monocytes # (Manual) 0.1 Platelet Estimate DECREASED Plt Morphology Comment NORMAL RBC Morphology NOTED Hypochromasia 1+ (5-14) [place] Cells 1+ (0-2) Schistocytes 1+ (0-2) Anion Gap 19 Estim Creat Clear Calc 43.2 Estimated GFR > 60 Random Glucose 123 H Calcium 9.3 D Total Bilirubin 1.3 H Direct Bilirubin 0.7 H AST 88 H ALT 6 Alkaline Phosphatase 378 H Total Protein 6.1 L Albumin 3.0 L Crossmatch See Detail Microbiology Microbiology Results: Microbiology 05/02/24 Unknown Urine Culture - Final Urine clean catch - Clean Catch Midstream Assessment and Plan (1) Pancytopenia: Status: Acute (2) Bladder mass: Status: Acute Plan Patient is an 84-year-old male with a past medical history significant for hypertension, CKD 3, HLD, GERD, BPH, anemia with a recent admission discharged on 04/20 for BRENDA and pancytopenia, who presented to the ED today from [facility] due to nausea and vomiting for the past 2 days and low blood count. Reviewed labs, hemoglobin and ED 5.7/15.7 Acute normocytic anemia on a background of chronic pancytopenia s/p 2 units RBC; improvement in H/H, no active bleeding noted recent endoscopy on 04/02 with H pylori gastritis and esophageal stricture s/p balloon dilation IV pantoprazole BID seen by GI- plan for colonoscopy discussed case with Hematology who suggested consult with GI, HUS was ruled out at last admission. recommend outpatient follow up with hematology platelets trending down possible dilution from blood transfusion, will transfuse 1 unit of platelets prior to procedure, follow CBC Acute mild hypovolemic hyponatremia resolved ?Bladder mass on A/P CT no urinary symptoms, no bacteria on UA, urine culture negative formal urology consult pending -PSA 32.98; concern for metastatic prostate cancer, urology rec biopsy for hormonal therapy - likely Tuesday also rec bone scan Elevated LFTs and mild CBD dilation similar to previous GI consult follow LFTs CKD 3 - creatinine stable, no BRENDA GERD PPI as above BPH continue finasteride HTN BP is low, hold amlodipine and furosemide moderate protein calorie malnutrition BMI 18.5 Add supplements when able to take p.o. DNR/DNI VTE prophylaxis: Pneumoboots, anticoagulation contraindicated due to severe anemia Patient requires ongoing inpatient stay for severe anemia, requiring admission for blood transfusion, monitoring and further workup due to concern over advance cancer Quality Stroke Does the patient have a stroke diagnosis?: No VTE Prior VTE?: No VTE Risk Level:: Medical - moderate - high VTE Device Contraindication: N/A - Device Ordered VTE Drug Contraindication: Treatment Not Indicated
[2024-05-04 15:27] LABS: Platelet Count 62 X10*3/uL (160-400)
[2024-05-04] MEDS: 0.9 % Sodium Chloride 1,000 ML 80 ML IVCONT (15:40)
--- NOTE | 2024-05-04 15:45 | HO.ANESPROP2 ---
HPI - Anesthesia Eval Consult details Narrative: 84 yo M admitted with anemia and pancytopenia. DNR/DNI. Platelets were 37 earlier today, now s/p platelet transfusion. PMFSH Active Problems Active Problems: All Active Problems Bladder mass (Acute) Pancytopenia (Acute) Anemia (Acute) Hyponatremia (Acute) Helicobacter pylori gastritis (Acute) Acute anemia (Acute) Colon cancer screening (Acute) Elevated PSA, greater than or equal to 20 ng/ml (Acute) Annual physical exam (Acute) Hearing loss of both ears (Acute) Varicose veins of right lower extremity with inflammation (Acute) Pure hypercholesterolemia (Acute) COVID-19 (Acute) Past Medical History Medical History (Updated 05/04/24 @ 12:44 by MALENA White) Pancytopenia Anemia Depressive disorder Schistocytes on peripheral blood smear Cognitive decline Anemia Back pain 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 Chronic kidney disease, stage III (moderate) GERD without esophagitis Benign essential hypertension Pure hypercholesterolemia Varicose veins of right lower extremity with inflammation Arthritis HTN (hypertension) Family History Family History Other Family history non-contributory Family history of problems with anesthesia: No Surgical History Surgical History History of cataract extraction S/P ORIF (open reduction internal fixation) fracture History of Problems with Anesthesia: No Social History Social History Household Members: Other Housing: Retirement Housing Other:: [facility] Are you a primary infant caregiver to a significant other at home: No Do you presently have visiting nurse or other home services: No Patient Tobacco Use Status: Former Tobacco user Tobacco use type: Cigarette e-Cigarette/Vaping Use: Never Used Advance Directives Date on File: 05/02/24 service: No Current occupational status: retired Cognitive needs: No Hearing needs: No Vision needs: No Meds Allergies Allergy/AdvReac Type Severity Reaction Status Date / Time No Known Allergies Allergy Verified 05/04/24 15:42 Active Medications: Current Medications Acetaminophen (Acetaminophen 325 Mg Tablet) 650 mg PO Q6H PRN PRN Reason: Pain, Mild (Pain Scale 1-3), fever or headache Last Admin: 05/03/24 15:44 Dose: 650 mg Calcium Carbonate (Calcium Carbonate 750 Mg Tab.Chew) 750 mg PO Q4H PRN PRN Reason: Heartburn Cyclobenzaprine HCl (Cyclobenzaprine Hcl 10 Mg Tablet) 10 mg PO Q8H PRN PRN Reason: muscle spasm Last Admin: 05/03/24 11:29 Dose: 10 mg Diphenhydramine HCl (Diphenhydramine Hcl 25 Mg Capsule) 25 mg PO Q8H PRN PRN Reason: itching Finasteride (Finasteride 5 Mg Tablet) 5 mg PO DAILY [facility] Last Admin: 05/04/24 08:36 Dose: 5 mg Hydroxyzine HCl (Hydroxyzine Hcl 25 Mg Tablet) 25 mg PO TID [facility] Last Admin: 05/04/24 08:36 Dose: 25 mg Lactated Ringer's (Lr) 1,000 mls @ 50 mls/hr IVCONT .Q20H [facility] Lidocaine (Lidocaine 4 % Patch Adh..Patch) 1 patch TRANSDERMA DAILY [facility] Last Admin: 05/04/24 08:36 Dose: 1 patch Magnesium Hydroxide (Milk Of Magnesia 30 Ml Oral.Susp) 30 ml PO DAILY PRN PRN Reason: Constipation Melatonin (Melatonin 3 Mg Tablet) 6 mg PO BEDTIME PRN PRN Reason: Insomnia Last Admin: 05/03/24 20:13 Dose: 6 mg Mirtazapine (Mirtazapine 15 Mg Tablet) 15 mg PO DAILY [facility] Last Admin: 05/04/24 08:36 Dose: 15 mg Multivitamins/Vitamin C (Multivitamin Tablet) 1 tab PO DAILY [facility] Last Admin: 05/04/24 08:36 Dose: 1 tab Naloxone HCl (Naloxone Hcl 0.4 Mg/Ml Vial) 0.04 mg IVPUSH Q5M PRN PRN Reason: Excessive sedation or RR < 8 Ondansetron HCl (Ondansetron Hcl 4 Mg/2 Ml Vial) 4 mg IVPUSH Q8H PRN PRN Reason: Nausea and Vomiting Pantoprazole Sodium (Pantoprazole Sodium 40 Mg/10 Ml Vial) 40 mg IVPUSH BID@0630,1630 [facility] Last Admin: 05/04/24 06:19 Dose: 40 mg Senna (Sennosides 8.6 Mg Tablet) 17.2 mg PO BEDTIME [facility] Last Admin: 05/03/24 20:13 Dose: 17.2 mg Sodium Biphosphate/Sodium Phosphate (Sodium Phosphate,[place]-Dibasic 133 Ml Enema) 133 ml [place] ONCE PRN PRN Reason: Poor Colonoscopy Prep Results Last Admin: 05/04/24 10:00 Dose: 133 ml Sodium Chloride (0.9 % Sodium Chloride Flush 3 Ml Syringe) 3 ml IVFLUSH QSHIFT [facility] Last Admin: 05/04/24 08:36 Dose: 3 ml Home Medications ?Medication ?Instructions ?Recorded ?Confirmed ?Last Taken ?Type hydroxyzine pamoate 25 mg capsule 25 mg PO TID 04/01/24 05/02/24 Unknown History furosemide 20 mg tablet 20 mg PO DAILY 04/14/24 05/02/24 Unknown History lidocaine 5 % topical patch 1 patch topical DAILY Pain 04/14/24 05/02/24 Unknown History (Lidoderm) omeprazole 20 mg capsule,delayed 40 mg PO DAILY@0630 04/14/24 05/02/24 Unknown History release acetaminophen 325 mg tablet 650 mg PO Q4H PRN Pain/Discomfort 05/02/24 05/02/24 Unknown History (Tylenol) acetaminophen 650 mg rectal 650 mg [place] Q4H PRN Pain/Fever 05/02/24 05/02/24 Unknown History suppository bisacodyl 10 mg rectal suppository 10 mg [place] DAILY PRN bowel movement 05/02/24 05/02/24 Unknown History cyclobenzaprine 10 mg tablet 10 mg PO Q8H PRN muscle spasm 05/02/24 05/02/24 Unknown History diclofenac sodium 1 % topical gel 1 g topical BID 05/02/24 05/02/24 Unknown History diphenhydramine HCl 25 mg capsule 25 mg PO Q8H PRN itching 05/02/24 05/02/24 Unknown History (Benadryl) famotidine 20 mg tablet 20 mg PO DAILY@1200 05/02/24 05/02/24 Unknown History finasteride 5 mg tablet 5 mg PO DAILY 05/02/24 05/02/24 Unknown History magnesium hydroxide 400 mg/5 mL 30 ml PO DAILY PRN Bowel Movement 05/02/24 05/02/24 Unknown History oral suspension (Milk of Magnesia) mirtazapine 15 mg tablet 15 mg PO DAILY 05/02/24 05/02/24 Unknown History multivitamin with minerals 1 tab PO DAILY 05/02/24 05/02/24 Unknown History (Multiple Vitamin-Minerals tablet) naloxone 0.4 mg/mL injection 0.4 mg subcut Q3M PRN Opioid 05/02/24 05/02/24 Unknown History solution Overdose ondansetron HCl 4 mg tablet 4 mg PO DAILY Nausea/Vomiting 05/02/24 05/02/24 Unknown History sennosides 8.6 mg tablet (senna) 17.2 mg PO BEDTIME 05/02/24 05/02/24 Unknown History sodium phosphates 19 gram-7 118 ml [place] DAILY PRN Constipation 05/02/24 05/02/24 Unknown History gram/118 mL enema (Fleet Enema) Exam Exam Date and Time: 05/04/24 1545 Height,Weight and Vital Signs: Height 5 ft 6 in Weight 52.1 kg Last Vital Signs Temp 97.5 F 05/04/24 14:33 Pulse 83 05/04/24 14:33 Resp 18 05/04/24 14:33 BP 150/67 H 05/04/24 14:33 Pulse Ox 98 05/04/24 11:53 O2 Del Method Room Air 05/04/24 11:53 Oxygen Flow Rate 2 05/04/24 09:17 Pertinent Lab Results Pertinent Lab Results: Laboratory Tests 05/02/24 05/02/24 05/02/24 10:51 10:52 11:30 WBC 4.6 L RBC 1.86 L D Hgb 5.7 L* D Hct 15.7 L* D MCV 84.4 MCH 30.6 MCHC 36.3 H RDW 14.4 Plt Count 52 L D MPV 11.6 Immature Gran % (Auto) 3.5 H Neut % (Auto) 57.6 Lymph % (Auto) 30.2 [place] % (Auto) 6.9 Eos % (Auto) 0.9 Baso % (Auto) 0.9 Lymph # (Auto) 1.4 [place] # (Auto) 0.3 Eos # (Auto) 0.0 Baso # (Auto) 0.0 Abs Immat Gran (auto) 0.16 H Absolute Neuts (auto) 2.7 Absolute Nucleated RBC 0.040 H Nucleated RBC % (auto) 0.9 H Neutrophils % (Manual) Band Neutrophils % Lymphocytes % (Manual) Monocytes % (Manual) Eosinophils % (Manual) Metamyelocytes % Abs Neuts (Manual) Lymphocytes # (Manual) Monocytes # (Manual) Platelet Estimate Plt Morphology Comment RBC Morphology Hypochromasia [place] Cells Schistocytes PT 15.2 H INR 1.3 H APTT 24.1 L D Sodium 131 L Potassium 4.0 Chloride 97 Carbon Dioxide 19 L Anion Gap 19 BUN 25 H Creatinine 0.97 Estim Creat Clear Calc 39.2 Estimated GFR > 60 Random Glucose 145 H Osmolality Calcium 8.5 D Magnesium 2.3 Total Bilirubin 1.5 H Direct Bilirubin AST 164 H ALT 11 Alkaline Phosphatase 447 H Total Protein 6.4 L Albumin 3.1 L Prostate Specific Ag 32.98 H Urine Color Yellow Urine Appearance Clear Urine pH 5.5 Ur Specific [place] 1.010 Urine Protein 30 (1+) H Urine Glucose (UA) Negative Urine Ketones 15 Urine Blood Negative Urine Nitrite Negative Ur Leukocyte Esterase Small (1+) H Urine RBC 0-2 Urine WBC 11-20 H Ur Squamous Epith Cells 0-2 Urine Bacteria None Seen Hyaline Casts 0-2 Influenza Type A (PCR) NEGATIVE Influenza Type B (PCR) NEGATIVE RSV RNA Qual (PCR) NEGATIVE SARS-CoV-2 RNA (RT-PCR) NEGATIVE Blood Type A Negative Antibody Screen NEGATIVE Crossmatch See Detail 05/02/24 05/03/24 05/04/24 20:29 06:00 05:52 WBC 3.8 L 3.1 L RBC 3.40 L D 3.54 L Hgb 10.3 L D 10.8 L Hct 28.2 L D 28.9 L MCV 82.9 81.6 MCH 30.3 30.5 MCHC 36.5 H 37.4 H RDW 14.8 15.3 Plt Count 40 L 37 L MPV 11.2 11.9 Immature Gran % (Auto) 5.0 H Cancelled Neut % (Auto) 57.1 Cancelled Lymph % (Auto) 28.8 Cancelled [place] % (Auto) 6.9 Cancelled Eos % (Auto) 1.1 Cancelled Baso % (Auto) 1.1 Cancelled Lymph # (Auto) 1.1 L Cancelled [place] # (Auto) 0.3 Cancelled Eos # (Auto) 0.0 Cancelled Baso # (Auto) 0.0 Cancelled Abs Immat Gran (auto) 0.19 H Cancelled Absolute Neuts (auto) 2.2 Cancelled Absolute Nucleated RBC 0.030 H 0.030 H Nucleated RBC % (auto) 0.8 H 1.0 H Neutrophils % (Manual) 64 Band Neutrophils % 4 Lymphocytes % (Manual) 28 Monocytes % (Manual) 2 Eosinophils % (Manual) 1 Metamyelocytes % 1 Abs Neuts (Manual) 2.1 Lymphocytes # (Manual) 0.9 L Monocytes # (Manual) 0.1 Platelet Estimate DECREASED Plt Morphology Comment NORMAL RBC Morphology NOTED Hypochromasia 1+ (5-14) [place] Cells 1+ (0-2) Schistocytes 1+ (0-2) PT 12.6 H INR 1.1 APTT Sodium 131 L 137 Potassium 3.5 3.3 Chloride 99 102 Carbon Dioxide 17 L 19 L Anion Gap 19 19 BUN 22 H 18 H Creatinine 0.95 0.97 Estim Creat Clear Calc 44.1 43.2 Estimated GFR > 60 > 60 Random Glucose 139 H 123 H Osmolality 280 L Calcium 8.6 9.3 D Magnesium Total Bilirubin 2.4 H 1.3 H Direct Bilirubin 0.7 H AST 114 H 88 H ALT 6 6 Alkaline Phosphatase 389 H 378 H Total Protein 5.9 L 6.1 L Albumin 2.9 L 3.0 L Prostate Specific Ag Urine Color Urine Appearance Urine pH Ur Specific [place] Urine Protein Urine Glucose (UA) Urine Ketones Urine Blood Urine Nitrite Ur Leukocyte Esterase Urine RBC Urine WBC Ur Squamous Epith Cells Urine Bacteria Hyaline Casts Influenza Type A (PCR) Influenza Type B (PCR) RSV RNA Qual (PCR) SARS-CoV-2 RNA (RT-PCR) Blood Type Antibody Screen Crossmatch 05/04/24 15:12 WBC RBC Hgb Hct MCV MCH MCHC RDW Plt Count 62 L D MPV Immature Gran % (Auto) Neut % (Auto) Lymph % (Auto) [place] % (Auto) Eos % (Auto) Baso % (Auto) Lymph # (Auto) [place] # (Auto) Eos # (Auto) Baso # (Auto) Abs Immat Gran (auto) Absolute Neuts (auto) Absolute Nucleated RBC Nucleated RBC % (auto) Neutrophils % (Manual) Band Neutrophils % Lymphocytes % (Manual) Monocytes % (Manual) Eosinophils % (Manual) Metamyelocytes % Abs Neuts (Manual) Lymphocytes # (Manual) Monocytes # (Manual) Platelet Estimate Plt Morphology Comment RBC Morphology Hypochromasia [place] Cells Schistocytes PT INR APTT Sodium Potassium Chloride Carbon Dioxide Anion Gap BUN Creatinine Estim Creat Clear Calc Estimated GFR Random Glucose Osmolality Calcium Magnesium Total Bilirubin Direct Bilirubin AST ALT Alkaline Phosphatase Total Protein Albumin Prostate Specific Ag Urine Color Urine Appearance Urine pH Ur Specific [place] Urine Protein Urine Glucose (UA) Urine Ketones Urine Blood Urine Nitrite Ur Leukocyte Esterase Urine RBC Urine WBC Ur Squamous Epith Cells Urine Bacteria Hyaline Casts Influenza Type A (PCR) Influenza Type B (PCR) RSV RNA Qual (PCR) SARS-CoV-2 RNA (RT-PCR) Blood Type Antibody Screen Crossmatch Airway Mallampati Class: II TM Dist: >3cm Neck ROM: Limited Denture: Upper and Lower Heart: S1S2 Lungs: CTAB Assessment and Plan Assessment Anesthesia Assessment: Anesthesia Plan Discussed and Chart Reviewed Final Anesthetic Review Family History of Problems with Anesthesia: No History of Problems with Anesthesia: No NPO: Yes ASA Class: IV Final Preanesthetic Review: No Changes in Pt Med Stat, Meds/Allgs Chart Reviewed, Consent Obtained/Reviewed (telephone consent with Camryn Heller - and HCP), Anes Risks/Benef Reviewed and DNR Form (If Appl.) (DNR/DNI suspended until discharge from PACU) Patient Risk: High Procedure Risk: Low Anesthetic Plan Anesthetic Plan: MAC: and Agree w/ Assess. and Plan Disposition: Standard PACU
--- NOTE | 2024-05-04 15:45 | PM.EVENT ---
Event Note Date of Service: 05/04/24 Event Note: Pt admitted with recurrent anemia. 04/02/24 EGD showed H Pylori gastritis and no clear source for anemia. PLAN: proceed with Colonoscopy. Procedure and potential complications including bleeding, perforation, reaction to anesthetic were reviewed with the patient's , Camryn, an informed verbal consent was obtained Time Spent With Patient Time: Total time managing care of this patient today ____ minutes.
--- NOTE | 2024-05-04 16:53 | HO.OPN-COLON ---
Colonoscopy Operative Note Operative Note Date of Service: 05/04/24 Narrative: COLONOSCOPY TILL CECUM WITH SNARE POLYPECTOMY AND APC OF RIGHT COLON AVMS Pre-op diagnosis: Recurrent anemia. Post-op diagnosis:? Colon polyps, Diverticulosis, AVMs right colon Endoscopist:? Elmer Marr MD Anesthesia:?MAC Consent: Indications for the procedure and potential complications of bleeding, perforation, reaction to medications and missed diagnosis were discussed with the patient and informed consent was obtained. Instrument: Olympus PCF H 190 L variable stiffness pediatric colonoscope Monitoring: Vital signs and clinical assessment, intermittent blood pressure monitoring, continuous EKG monitoring, Pulse oximetry and Carbon Dioxide monitoring were done throughout the procedure. Please see anesthesia flowsheet. Colon withdrawl time was 32 minutes. Procedure: The patient was placed in the left lateral decubitis position and pre-procedure medications were administered. After a digital rectal examination of the ano-rectum, the video colonoscope was inserted into the rectum and advanced through the colon to the cecum. The colonoscope was slowly withdrawn in a retrograde panoramic fashion and the colon mucosa was carefully examined including a retroflexed view of the rectum. Findings and interventions are described below. Procedure Difficulty: without difficulty Findings: Terminal Ileum: Not evaluated Cecum: Normal Ascending Colon: A 10 mm sessile polyp in the distal ascending colon - removed with a stiff hot snare Three 4-5 mm non-bleeding AVMs in the distal ascending colon - ablated with APC Transverse Colon: Normal Descending Colon: Moderate diverticulosis Sigmoid Colon: Severe diverticulosis with luminal narrowing Rectum: Normal Ano-rectum: Normal Colon preparation: Good after 2 irrigation. [place] Bowel Preparation Scale Right colon; 2 Transverse colon: 2 Left colon; 2 (0 = Unprepared colon segment with mucosa not seen due to solid stool that cannot be cleared. 1 = Portion of mucosa of the colon segment seen, but other areas of the colon segment not well seen due to staining, residual stool and/or opaque liquid. 2 = Minor amount of residual staining, small fragments of stool and/or opaque liquid, but mucosa of colon segment seen well. 3 = Entire mucosa of colon segment seen well with no residual staining, small fragments of stool or opaque liquid) Impression and Post Procedure Diagnosis: Colonoscopy Findings: Two small to medium sized polyps were removed Three 4-5 mm non-bleeding AVMs in the distal ascending colon - ablated with APC Moderate to severe diverticulosis seen in the left colon No clear etiology found to explain severe anemia Plan: Ok to resume previous diet. Pt can FU with Heme-Onc for further workup versus conservative management. Repeat Colonoscopy is not recommended given advanced age and dementia. Above findings were reviewed with the patient and relevant handouts were given and the discharge area.
[2024-05-04] MEDS: Acetaminophen 325 MG TABLET 650 MG PO (17:42)
[2024-05-04] MEDS: ondansetron HCL 4 MG/2 ML VIAL IVPUSH (18:06)
[2024-05-05] VITALS (8 sets, daily range): BP systolic 123–172; BP diastolic 50–67; PULSE 80–97; RESP 16–20; TEMP 36.2–37.1; O2SAT 94–99
[2024-05-05] MEDS: Acetaminophen 325 MG TABLET 650 MG PO ×2 (03:24→15:57)
--- NOTE | 2024-05-05 04:21 | PC.NURSE ---
Pt AO to self, sometimes to place. He does not remember why he is here or why he has had tests done. He able to make his needs known. Call hernandez within reach, bed alarm on.
[2024-05-05] MEDS: Pantoprazole Sodium 40 MG/10 ML VIAL IVPUSH (05:24)
[2024-05-05 06:57] LABS: Basophils Percent Auto 0.6 % (0-2); Eosinophils Percent Auto 1.2 % (0-4); Hemoglobin 8.9 g/dl (14.0-18.0); Imm Gran Abs Auto 0.14 X10*3/uL (0.00-0.03); Imm Gran Pct Auto 4.2 % (0.0-0.4); Lymphocytes Absolute Auto 0.9 X10*3/uL (1.2-4.9); Lymphocytes Percent Auto 25.9 % (20-40); MANUAL DIFF FLAG SCAN; Mean Corpuscular HGB Conc 37.1 g/dl (31.0-36.0); Mean Corpuscular Hemoglobin 30.9 pg (27.0-33.0); Mean Corpuscular Volume 83.3 fL (80.0-98.0); Mean Platelet Volume 12.6 fL (9.4-12.4); Monocytes Absolute Auto 0.2 X10*3/uL (0.1-1.2); Monocytes Percent Auto 5.4 % (2-11); NRBC Pct Auto 1.2 /100WBC (0.0-0.2); Neutrophils Absolute Auto 2.1 x10*3/uL (2.0-8.3); Neutrophils Percent Auto 62.7 % (45-73); Platelet Count 58 X10*3/uL (160-400); Red Blood Count 2.88 X10*6/uL (4.60-5.80); Red Cell Distribution Width 15.4 % (11.0-16.0); SCAN SMEAR FLAG 1; White Blood Count 3.3 X10*3/uL (4.8-10.8)
[2024-05-05 07:08] LABS: Alanine Aminotransferase < 6 U/L (0-40); Albumin Level 2.8 g/dL (3.5-5.0); Alkaline Phosphatase 314 U/L (39-117); Anion Gap 20 (12-20); Aspartate Amino Transferase 243 U/L (5-37); Bilirubin Total 1.2 mg/dL (0.0-1.0); Blood Urea Nitrogen 17 mg/dL (9-16); Calcium 8.2 mg/dL (8.4-10.2); Carbon Dioxide 16 mmol/L (22-29); Chloride 101 mmol/L (96-108); Creatinine Clr Calc Pharmacy 48.8; Estimated Glomerular Filt Rate > 60; Glucose Random 125 mg/dL (60-115); Sodium 134 mmol/L (135-145); Total Protein 5.6 g/dL (6.5-8.0)
[2024-05-05 07:29] LABS: SLIDE REVIEW VERIFIED
[2024-05-05] MEDS: Lidocaine 4 % Patch ADH..PATCH 1 PATCH TRANSDERMA (08:52)
[2024-05-05] MEDS: hydrOXYzine HCL 25 MG TABLET PO ×3 (08:53→20:50)
[2024-05-05] MEDS: Potassium Chloride Packet 20 MEQ PACKET 40 MEQ PO ×2 (08:53→20:50)
[2024-05-05] MEDS: Mirtazapine 15 MG TABLET PO (08:53)
[2024-05-05] MEDS: Multivitamin TABLET 1 TAB PO (08:53)
[2024-05-05] MEDS: Finasteride 5 MG TABLET PO (08:53)
--- NOTE | 2024-05-05 11:36 | HO.POSTANES ---
Post Anesthesia Evaluation Post Anesthesia Evaluation Date of Service: 05/05/24 Vital Signs: Vital Signs Temp Pulse Resp BP Pulse Ox O2 Del Method 05/05/24 11:04 97.1 F 87 20 144/65 H 99 Room Air 05/05/24 07:08 97.5 F 80 18 145/64 H 99 Room Air 05/05/24 03:20 97.4 F 82 18 123/50 L 98 Room Air Anesthesia: TIVA Mental Status: Awake Pain Control: Satisfactory Nausea/Vomiting: None Hydration: Adequate Anesthesia-Related Issues: No Anes. Related Issues
--- NOTE | 2024-05-05 12:49 | P.PNIM_ITS ---
Subjective Subjective Date of Service: 05/05/24 Interval History: Seen and examined this morning Follow-up for anemia No overnight events Patient awake, alert more interactive today. No specific complaints Review of Systems Review of Systems: Yes all other systems are reviewed and are negative Constitutional Constitutional: Denies chills and Denies fever(s) ENT Ears, Nose, Mouth, and Throat: Denies dizziness Cardiovascular Cardiovascular: Denies chest pain, Denies palpitations and Denies dyspnea Respiratory Respiratory: Denies cough and Denies dyspnea Neurologic Neurologic: Denies dizziness Endocrine Endocrine: Denies palpitations Physical Exam 2 Vital Signs: Vital Signs: Last Vital Signs Temp 97.1 F 05/05/24 11:04 Pulse 87 05/05/24 11:04 Resp 20 05/05/24 11:04 BP 144/65 H 05/05/24 11:04 Pulse Ox 99 05/05/24 11:04 O2 Del Method Room Air 05/05/24 11:04 Oxygen Flow Rate 2 05/04/24 09:17 BMI result Body Mass Index 18.5 Const: Other: thin, frail appearing General: cooperative, comfortable, no acute distress, alert and awake O rientation/consciousness: oriented to person and oriented to place Resp: Effort & Inspection: normal respiratory effort, able to speak in complete sentences, no respiratory distress and no use of accessory muscles Cardio: Rate: regular rate GI: Inspection: No distended Palpation (GI): Soft to palpation and nontender Neuro: General: oriented to person, oriented to place, moves all extremities and CN's II-XI intact bilaterally Extrem: General: Yes no pedal edema Objective Data Active Medications Acetaminophen (Acetaminophen 325 Mg Tablet) 650 mg PO Q6H PRN PRN Reason: Pain, Mild (Pain Scale 1-3), fever or headache Last Admin: 05/05/24 03:24 Dose: 650 mg Documented By: LAYNE Calcium Carbonate (Calcium Carbonate 750 Mg Tab.Chew) 750 mg PO Q4H PRN PRN Reason: Heartburn Cyclobenzaprine HCl (Cyclobenzaprine Hcl 10 Mg Tablet) 10 mg PO Q8H PRN PRN Reason: muscle spasm Last Admin: 05/03/24 11:29 Dose: 10 mg Documented By: KIRSTIE Diphenhydramine HCl (Diphenhydramine Hcl 25 Mg Capsule) 25 mg PO Q8H PRN PRN Reason: itching Finasteride (Finasteride 5 Mg Tablet) 5 mg PO DAILY [facility] Last Admin: 05/05/24 08:53 Dose: 5 mg Documented By: ЕКАТЕРИНА Hydroxyzine HCl (Hydroxyzine Hcl 25 Mg Tablet) 25 mg PO TID [facility] Last Admin: 05/05/24 08:53 Dose: 25 mg Documented By: ЕКАТЕРИНА Sodium Chloride (Ns) 1,000 mls @ 80 mls/hr IVCONT .[id number] [facility] Last Infusion: 05/05/24 11:52 Dose: Infused Documented By: ЕКАТЕРИНА Lidocaine (Lidocaine 4 % Patch Adh..Patch) 1 patch TRANSDERMA DAILY [facility] Last Admin: 05/05/24 08:52 Dose: 1 patch Documented By: ЕКАТЕРИНА Magnesium Hydroxide (Milk Of Magnesia 30 Ml Oral.Susp) 30 ml PO DAILY PRN PRN Reason: Constipation Melatonin (Melatonin 3 Mg Tablet) 6 mg PO BEDTIME PRN PRN Reason: Insomnia Last Admin: 05/03/24 20:13 Dose: 6 mg Documented By: DARA Mirtazapine (Mirtazapine 15 Mg Tablet) 15 mg PO DAILY [facility] Last Admin: 05/05/24 08:53 Dose: 15 mg Documented By: ЕКАТЕРИНА Multivitamins/Vitamin C (Multivitamin Tablet) 1 tab PO DAILY [facility] Last Admin: 05/05/24 08:53 Dose: 1 tab Documented By: ЕКАТЕРИНА Naloxone HCl (Naloxone Hcl 0.4 Mg/Ml Vial) 0.04 mg IVPUSH Q5M PRN PRN Reason: Excessive sedation or RR < 8 Ondansetron HCl (Ondansetron Hcl 4 Mg/2 Ml Vial) 4 mg IVPUSH Q8H PRN PRN Reason: Nausea and Vomiting Last Admin: 05/04/24 18:06 Dose: 4 mg Documented By: ЕКАТЕРИНА Pantoprazole Sodium (Pantoprazole Sodium 40 Mg/10 Ml Vial) 40 mg IVPUSH BID@0630,1630 [facility] Last Admin: 05/05/24 05:24 Dose: 40 mg Documented By: LAYNE Potassium Chloride (Potassium Chloride Packet 20 Meq Packet) 40 meq PO BID [facility] Stop: 05/05/24 21:01 Last Admin: 05/05/24 08:53 Dose: 40 meq Documented By: ЕКАТЕРИНА Senna (Sennosides 8.6 Mg Tablet) 17.2 mg PO BEDTIME [facility] Last Admin: 05/04/24 21:47 Dose: Not Given Documented By: LAYNE Non-Admin Reason: Patient Refused Sodium Biphosphate/Sodium Phosphate (Sodium Phosphate,[place]-Dibasic 133 Ml Enema) 133 ml [place] ONCE PRN PRN Reason: Poor Colonoscopy Prep Results Last Admin: 05/04/24 10:00 Dose: 133 ml Documented By: ЕКАТЕРИНА Sodium Chloride (0.9 % Sodium Chloride Flush 3 Ml Syringe) 3 ml IVFLUSH QSHIFT [facility] Last Admin: 05/04/24 21:46 Dose: 3 ml Documented By: LAYNE Labs 05/05/24 06:03 05/05/24 06:03 Labs: Laboratory Results - last 24 hr 05/02/24 05/04/24 05/05/24 10:51 15:12 06:03 MCV 83.3 MCH 30.9 MCHC 37.1 H RDW 15.4 Plt Count 62 L D 58 L MPV 12.6 H Immature Gran % (Auto) 4.2 H Neut % (Auto) 62.7 Lymph % (Auto) 25.9 [place] % (Auto) 5.4 Eos % (Auto) 1.2 Baso % (Auto) 0.6 Lymph # (Auto) 0.9 L [place] # (Auto) 0.2 Eos # (Auto) 0.0 Baso # (Auto) 0.0 Abs Immat Gran (auto) 0.14 H Absolute Neuts (auto) 2.1 Absolute Nucleated RBC 0.040 H Nucleated RBC % (auto) 1.2 H Smear Tech's Comments VERIFIED Anion Gap 20 Estim Creat Clear Calc 48.8 Estimated GFR > 60 Random Glucose 125 H Calcium 8.2 L D Total Bilirubin 1.2 H AST 243 H ALT < 6 Alkaline Phosphatase 314 H Total Protein 5.6 L Albumin 2.8 L Blood Type A Negative Antibody Screen NEGATIVE Crossmatch See Detail Assessment and Plan (1) Bladder mass: Status: Acute (2) Pancytopenia: Status: Acute (3) Anemia: Status: Acute (4) Elevated PSA, greater than or equal to 20 ng/ml: Status: Acute Plan Patient is an 84-year-old male with a past medical history significant for hypertension, CKD 3, HLD, GERD, BPH, anemia with a recent admission discharged on 04/20 for BRENDA and pancytopenia, who presented to the ED today from [facility] due to nausea and vomiting for the past 2 days and low blood count. Reviewed labs, hemoglobin and ED 5.7/15.7 Acute normocytic anemia on a background of chronic pancytopenia s/p 2 units RBC on admission with initial improvement in H/H, no active bleeding noted recent endoscopy on 04/02 with H pylori gastritis and esophageal stricture s/p balloon dilation IV pantoprazole BID seen by GI- s/p colonoscopy 05/05 discussed case with Hematology who suggested consult with GI, HUS was ruled out at last admission. recommend outpatient follow up with hematology platelets trending down possible dilution from blood transfusion, will transfuse 1 unit of platelets prior to procedure H/H trending down after procedure - follow CBC hypokalemia replace and follow Acute mild hypovolemic hyponatremia resolved Bladder mass on A/P CT no urinary symptoms, no bacteria on UA, urine culture negative formal urology consult pending - PSA 32.98; concern for metastatic prostate cancer, urology rec biopsy for hormonal therapy - likely Tuesday also rec bone scan -ordered formal urology consult pending given frailty, malnutrition we will discuss goals of care with family Elevated LFTs and mild CBD dilation similar to previous GI consult CKD 3 - creatinine stable, no BRENDA GERD PPI as above BPH continue finasteride HTN BP is low, hold amlodipine and furosemide moderate protein calorie malnutrition BMI 18.5 Add supplements when able to take p.o. DNR/DNI VTE prophylaxis: Pneumoboots, anticoagulation contraindicated due to severe anemia Patient requires ongoing inpatient stay for severe anemia, requiring admission for blood transfusion, monitoring and further workup due to concern over advanced cancer. possible biopsy Quality Stroke Does the patient have a stroke diagnosis?: No VTE Prior VTE?: No VTE Risk Level:: Medical - moderate - high VTE Device Contraindication: N/A - Device Ordered VTE Drug Contraindication: Treatment Not Indicated
[2024-05-05] MEDS: 0.9 % Sodium Chloride Flush 3 ML SYRINGE IVFLUSH ×2 (14:51→20:53)
[2024-05-05] MEDS: Sennosides 8.6 MG TABLET 17.2 MG PO (20:50)
[2024-05-06] VITALS (7 sets, daily range): BP systolic 146–153; BP diastolic 64–70; PULSE 89–102; RESP 17–20; TEMP 36.4–37.7; O2SAT 96–98
[2024-05-06] MEDS: Omeprazole 40 MG CAPSULE.DR PO (05:00)
[2024-05-06 06:38] LABS: Hemoglobin 9.4 g/dl (14.0-18.0); Mean Corpuscular HGB Conc 36.2 g/dl (31.0-36.0); Mean Corpuscular Volume 83.1 fL (80.0-98.0); Mean Platelet Volume 11.1 fL (9.4-12.4); Red Blood Count 3.13 X10*6/uL (4.60-5.80); Red Cell Distribution Width 15.9 % (11.0-16.0); White Blood Count 4.2 X10*3/uL (4.8-10.8)
[2024-05-06 06:39] LABS: Platelet Count 52 X10*3/uL (160-400)
[2024-05-06 06:52] LABS: Anion Gap 15 (12-20); Blood Urea Nitrogen 12 mg/dL (9-16); Carbon Dioxide 21 mmol/L (22-29); Chloride 103 mmol/L (96-108); Creatinine Clr Calc Pharmacy 49.3; Estimated Glomerular Filt Rate > 60; Glucose Random 130 mg/dL (60-115); Potassium 3.5 mmol/L (3.3-5.1); Sodium 135 mmol/L (135-145)
[2024-05-06] MEDS: Mirtazapine 15 MG TABLET PO (09:05)
[2024-05-06] MEDS: Multivitamin TABLET 1 TAB PO (09:05)
[2024-05-06] MEDS: hydrOXYzine HCL 25 MG TABLET PO ×3 (09:05→20:52)
[2024-05-06] MEDS: 0.9 % Sodium Chloride Flush 3 ML SYRINGE IVFLUSH ×3 (09:05→20:52)
[2024-05-06] MEDS: Finasteride 5 MG TABLET PO (09:05)
[2024-05-06] MEDS: Lidocaine 4 % Patch ADH..PATCH 1 PATCH TRANSDERMA (09:05)
[2024-05-06] MEDS: Acetaminophen 325 MG TABLET 650 MG PO ×2 (09:05→20:56)
--- NOTE | 2024-05-06 12:40 | HO.PM.IMPN ---
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 No abdominal pain, no nausea, no vomiting Review of Systems Review of Systems: Yes all other systems are reviewed and are negative Constitutional Constitutional: Denies chills and Denies fever(s) Cardiovascular Cardiovascular: Denies chest pain, Denies palpitations and Denies dyspnea Respiratory Respiratory: Denies cough and Denies dyspnea Gastrointestinal Gastrointestinal: Denies abdominal pain, Denies nausea and Denies vomiting Endocrine Endocrine: Denies palpitations Physical Exam Vital Signs: Vital Signs: Last Vital Signs Temp 97.6 F 05/06/24 10:52 Pulse 92 05/06/24 10:52 Resp 18 05/06/24 10:52 BP 146/64 H 05/06/24 10:52 Pulse Ox 97 05/06/24 10:52 O2 Del Method Room Air 05/06/24 10:52 Oxygen Flow Rate 2 05/04/24 09:17 BMI result Body Mass Index 18.5 Const: Other: thin, frail appearing General: cooperative, comfortable, no acute distress, alert and awake Orientation/consciousness: oriented to person and oriented to place Resp: Effort & Inspection: normal respiratory effort, able to speak in complete sentences, no respiratory distress and no use of accessory muscles Cardio: Rate: regular rate GI: Inspection: No distended Palpation (GI): Soft to palpation and nontender Neuro: General: oriented to person, oriented to place, moves all extremities and CN's II-XI intact bilaterally Extrem: General: Yes no pedal edema Objective Data Active Medications Acetaminophen (Acetaminophen 325 Mg Tablet) 650 mg PO Q6H PRN PRN Reason: Pain, Mild (Pain Scale 1-3), fever or headache Last Admin: 05/06/24 09:05 Dose: 650 mg Documented By: ЕКАТЕРИНА Calcium Carbonate (Calcium Carbonate 750 Mg Tab.Chew) 750 mg PO Q4H PRN PRN Reason: Heartburn Cyclobenzaprine HCl (Cyclobenzaprine Hcl 10 Mg Tablet) 10 mg PO Q8H PRN PRN Reason: muscle spasm Last Admin: 05/03/24 11:29 Dose: 10 mg Documented By: KIRSTIE Diphenhydramine HCl (Diphenhydramine Hcl 25 Mg Capsule) 25 mg PO Q8H PRN PRN Reason: itching Finasteride (Finasteride 5 Mg Tablet) 5 mg PO DAILY [facility] Last Admin: 05/06/24 09:05 Dose: 5 mg Documented By: ЕКАТЕРИНА Hydroxyzine HCl (Hydroxyzine Hcl 25 Mg Tablet) 25 mg PO TID [facility] Last Admin: 05/06/24 09:05 Dose: 25 mg Documented By: ЕКАТЕРИНА Lidocaine (Lidocaine 4 % Patch Adh..Patch) 1 patch TRANSDERMA DAILY [facility] Last Admin: 05/06/24 09:05 Dose: 1 patch Documented By: ЕКАТЕРИНА Magnesium Hydroxide (Milk Of Magnesia 30 Ml Oral.Susp) 30 ml PO DAILY PRN PRN Reason: Constipation Melatonin (Melatonin 3 Mg Tablet) 6 mg PO BEDTIME PRN PRN Reason: Insomnia Last Admin: 05/03/24 20:13 Dose: 6 mg Documented By: DARA Mirtazapine (Mirtazapine 15 Mg Tablet) 15 mg PO DAILY [facility] Last Admin: 05/06/24 09:05 Dose: 15 mg Documented By: ЕКАТЕРИНА Multivitamins/Vitamin C (Multivitamin Tablet) 1 tab PO DAILY [facility] Last Admin: 05/06/24 09:05 Dose: 1 tab Documented By: ЕКАТЕРИНА Naloxone HCl (Naloxone Hcl 0.4 Mg/Ml Vial) 0.04 mg IVPUSH Q5M PRN PRN Reason: Excessive sedation or RR < 8 Omeprazole (Omeprazole 40 Mg Capsule.Dr) 40 mg PO DAILY@0630 [facility] Last Admin: 05/06/24 05:00 Dose: 40 mg Documented By: PHILOMENA Ondansetron HCl (Ondansetron Hcl 4 Mg/2 Ml Vial) 4 mg IVPUSH Q8H PRN PRN Reason: Nausea and Vomiting Last Admin: 05/04/24 18:06 Dose: 4 mg Documented By: ЕКАТЕРИНА Senna (Sennosides 8.6 Mg Tablet) 17.2 mg PO BEDTIME [facility] Last Admin: 05/05/24 20:50 Dose: 17.2 mg Documented By: PHILOMENA Sodium Biphosphate/Sodium Phosphate (Sodium Phosphate,[place]-Dibasic 133 Ml Enema) 133 ml LA ONCE PRN PRN Reason: Poor Colonoscopy Prep Results Last Admin: 05/04/24 10:00 Dose: 133 ml Documented By: ЕКАТЕРИНА Sodium Chloride (0.9 % Sodium Chloride Flush 3 Ml Syringe) 3 ml IVFLUSH QSHIFT [facility] Last Admin: 05/06/24 09:05 Dose: 3 ml Documented By: ЕКАТЕРИНА Labs 05/06/24 05:52 05/06/24 05:52 Labs: Laboratory Results - last 24 hr 05/06/24 05:52 MCV 83.1 MCH 30.0 MCHC 36.2 H RDW 15.9 Plt Count 52 L MPV 11.1 Absolute Nucleated RBC 0.040 H Nucleated RBC % (auto) 1.0 H Anion Gap 15 Estim Creat Clear Calc 49.3 Estimated GFR > 60 Random Glucose 130 H Calcium 9.0 D Magnesium 2.0 Assessment and Plan (1) Bladder mass: Status: Acute (2) Pancytopenia: Status: Acute Plan Patient is an 84-year-old male with a past medical history significant for hypertension, CKD 3, HLD, GERD, BPH, anemia with a recent admission discharged on 04/20 for BRENDA and pancytopenia, who presented to the ED today from [facility] due to nausea and vomiting for the past 2 days and low blood count. 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, ablated with APC discussed case with Hematology outpatient follow up for pancytopenia, but no need for inpatient eval as had extensive work up on previous admissions platelets trending down likely dilution from blood transfusions, 1 unit of platelets transfused prior to colonoscopy, now platelet level stable H/H stable Bladder mass on A/P CT no urinary symptoms, no bacteria on UA, urine culture negative PSA 32.98; concern for metastatic prostate cancer seen by urology rec biopsy for diagnosis in order to be treated with palliative hormonal therapy, planned for Tuesday bone scan, pending discussed with pt, family and HCP at bedside - they are all in agreement to move forward with biopsy and bone scan Elevated LFTs and mild CBD dilation LFTs up and down, similar to previous no abdominal pain abdominal US pending hypokalemia resolved with replacement Acute mild hypovolemic hyponatremia resolved HTN BP initially low but now rebounding will resume lower dose of oral Norvasc Consider resuming furosemide after biopsy CKD 3 creatinine stable, no BRENDA GERD PPI as above BPH continue finasteride moderate protein calorie malnutrition BMI 18.5 dietary supplements added DNR/DNI VTE prophylaxis: Pneumoboots, anticoagulation contraindicated due to severe anemia dispo - will need PT evaluation, likely return to SNF Patient requires ongoing inpatient stay for severe anemia, requiring admission for blood transfusion, monitoring and further workup due to concern over advanced cancer, biopsy Quality Stroke Does the patient have a stroke diagnosis?: No VTE Prior VTE?: No VTE Risk Level:: Medical - moderate - high VTE Device Contraindication: N/A - Device Ordered VTE Drug Contraindication: Treatment Not Indicated
[2024-05-06] MEDS: Sennosides 8.6 MG TABLET 17.2 MG PO (20:52)
[2024-05-06] MEDS: Cyclobenzaprine HCl 10 MG TABLET PO (20:56)
[2024-05-07 03:37] VITALS: BP 144/64; PULSE 93; RESP 20; TEMP 36.7; O2SAT 96
[2024-05-07 08:00] VITALS: BP 161/71; PULSE 89; RESP 16; TEMP 36.3; O2SAT 98
[2024-05-07] MEDS: Omeprazole 40 MG CAPSULE.DR PO (09:45)
[2024-05-07] MEDS: amLODIPine Besylate 5 MG TABLET PO (09:45)
[2024-05-07] MEDS: Finasteride 5 MG TABLET PO (09:45)
[2024-05-07] MEDS: Lidocaine 4 % Patch ADH..PATCH 1 PATCH TRANSDERMA (09:46)
[2024-05-07] MEDS: hydrOXYzine HCL 25 MG TABLET PO ×3 (09:46→20:22)
[2024-05-07] MEDS: Multivitamin TABLET 1 TAB PO (09:46)
[2024-05-07] MEDS: Mirtazapine 15 MG TABLET PO (09:46)
[2024-05-07] MEDS: 0.9 % Sodium Chloride Flush 3 ML SYRINGE IVFLUSH ×3 (10:05→20:22)
--- NOTE | 2024-05-07 10:25 | MHC.CM.PN ---
Per ROUNDS discussion, Patient is not yet medically cleared for dc (Pending bladder biopsy and bone scan); returning to [facility] is the plan and CM will continue to follow.
[2024-05-07 11:10] VITALS: BP 161/71; PULSE 93; RESP 16; TEMP 36.4; O2SAT 96
--- NOTE | 2024-05-07 11:52 | HO.PM.IMPN ---
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 No abdominal pain, no nausea, no vomiting Review of Systems Review of Systems: Yes all other systems are reviewed and are negative Constitutional Constitutional: Denies chills and Denies fever(s) Cardiovascular Cardiovascular: Denies chest pain, Denies palpitations and Denies dyspnea Respiratory Respiratory: Denies cough and Denies dyspnea Gastrointestinal Gastrointestinal: Denies abdominal pain, Denies nausea and Denies vomiting Endocrine Endocrine: Denies palpitations Physical Exam Vital Signs: Vital Signs: Last Vital Signs Temp 97.6 F 05/07/24 11:10 Pulse 93 05/07/24 11:10 Resp 16 05/07/24 11:10 BP 161/71 H 05/07/24 11:10 Pulse Ox 96 05/07/24 11:10 O2 Del Method Room Air 05/07/24 11:10 Oxygen Flow Rate 2 05/04/24 09:17 BMI result Body Mass Index 18.5 Appearing in no acute distress lung sounds are clear to auscultation heart regular rate rhythm, clear S1, S2 positive bowel sounds, abdomen is soft, nontender neuro patient is alert x3, no focal deficits Objective Data Active Medications Acetaminophen (Acetaminophen 325 Mg Tablet) 650 mg PO Q6H PRN PRN Reason: Pain, Mild (Pain Scale 1-3), fever or headache Last Admin: 05/06/24 20:56 Dose: 650 mg Documented By: LAYNE Amlodipine Besylate (Amlodipine Besylate 5 Mg Tablet) 5 mg PO DAILY [facility]; Protocol Last Admin: 05/07/24 09:45 Dose: 5 mg Documented By: RATNA Calcium Carbonate (Calcium Carbonate 750 Mg Tab.Chew) 750 mg PO Q4H PRN PRN Reason: Heartburn Cyclobenzaprine HCl (Cyclobenzaprine Hcl 10 Mg Tablet) 10 mg PO Q8H PRN PRN Reason: muscle spasm Last Admin: 05/06/24 20:56 Dose: 10 mg Documented By: LAYNE Diphenhydramine HCl (Diphenhydramine Hcl 25 Mg Capsule) 25 mg PO Q8H PRN PRN Reason: itching Finasteride (Finasteride 5 Mg Tablet) 5 mg PO DAILY [facility] Last Admin: 05/07/24 09:45 Dose: 5 mg Documented By: RATNA Hydroxyzine HCl (Hydroxyzine Hcl 25 Mg Tablet) 25 mg PO TID [facility] Last Admin: 05/07/24 09:46 Dose: 25 mg Documented By: RATNA Lidocaine (Lidocaine 4 % Patch Adh..Patch) 1 patch TRANSDERMA DAILY [facility] Last Admin: 05/07/24 09:46 Dose: 1 patch Documented By: RATNA Magnesium Hydroxide (Milk Of Magnesia 30 Ml Oral.Susp) 30 ml PO DAILY PRN PRN Reason: Constipation Melatonin (Melatonin 3 Mg Tablet) 6 mg PO BEDTIME PRN PRN Reason: Insomnia Last Admin: 05/03/24 20:13 Dose: 6 mg Documented By: DARA Mirtazapine (Mirtazapine 15 Mg Tablet) 15 mg PO DAILY [facility] Last Admin: 05/07/24 09:46 Dose: 15 mg Documented By: RATNA Multivitamins/Vitamin C (Multivitamin Tablet) 1 tab PO DAILY [facility] Last Admin: 05/07/24 09:46 Dose: 1 tab Documented By: RATNA Naloxone HCl (Naloxone Hcl 0.4 Mg/Ml Vial) 0.04 mg IVPUSH Q5M PRN PRN Reason: Excessive sedation or RR < 8 Omeprazole (Omeprazole 40 Mg Capsule.Dr) 40 mg PO DAILY@0630 [facility] Last Admin: 05/07/24 09:45 Dose: 40 mg Documented By: RATNA Ondansetron HCl (Ondansetron Hcl 4 Mg/2 Ml Vial) 4 mg IVPUSH Q8H PRN PRN Reason: Nausea and Vomiting Last Admin: 05/04/24 18:06 Dose: 4 mg Documented By: ЕКАТЕРИНА Senna (Sennosides 8.6 Mg Tablet) 17.2 mg PO BEDTIME [facility] Last Admin: 05/06/24 20:52 Dose: 17.2 mg Documented By: LAYNE Sodium Biphosphate/Sodium Phosphate (Sodium Phosphate,[place]-Dibasic 133 Ml Enema) 133 ml AR ONCE PRN PRN Reason: Poor Colonoscopy Prep Results Last Admin: 05/04/24 10:00 Dose: 133 ml Documented By: ЕКАТЕРИНА Sodium Chloride (0.9 % Sodium Chloride Flush 3 Ml Syringe) 3 ml IVFLUSH QSHIFT [facility] Last Admin: 05/07/24 10:05 Dose: 3 ml Documented By: RATNA Labs 05/06/24 05:52 05/06/24 05:52 Assessment and Plan (1) Bladder mass: Status: Acute (2) Pancytopenia: Status: Acute Plan Patient is an 84-year-old male with a past medical history significant for hypertension, CKD 3, HLD, GERD, BPH, anemia with a recent admission discharged on 04/20 for BRENDA and pancytopenia, who presented to the ED today from [facility] due to nausea and vomiting for the past 2 days and low blood count. Reviewed labs, hemoglobin and ED 5.7/15.7 Bladder mass on A/P CT no urinary symptoms, no bacteria on UA, urine culture negative PSA 32.98; concern for metastatic prostate cancer seen by urology rec biopsy for diagnosis in order to be treated with palliative hormonal therapy, planned for Tuesday bone scan, pending discussed with pt, family and HCP at bedside - they are all in agreement to move forward with biopsy and bone scan Acute normocytic anemia on a background of chronic pancytopenia s/p 2 units RBC on admission with initial improvement in H/H, no active bleeding noted recent endoscopy on 04/02 with H pylori gastritis and esophageal stricture s/p balloon dilation seen by GI- s/p colonoscopy 05/05: showing sessile polyp in the ascending colon, removed with hot snare, 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, ablated with APC discussed case with Hematology outpatient follow up for pancytopenia, but no need for inpatient eval as had extensive work up on previous admissions platelets trending down likely dilution from blood transfusions, 1 unit of platelets transfused prior to colonoscopy, now platelet level stable H/H stable Elevated LFTs and mild CBD dilation LFTs up and down, similar to previous no abdominal pain abdominal US pending hypokalemia resolved with replacement Acute mild hypovolemic hyponatremia resolved HTN BP initially low but now rebounding will resume lower dose of oral Norvasc Consider resuming furosemide after biopsy CKD 3 creatinine stable, no BRENDA GERD PPI as above BPH continue finasteride moderate protein calorie malnutrition BMI 18.5 dietary supplements added DNR/DNI VTE prophylaxis: Pneumoboots, anticoagulation contraindicated due to severe anemia Attending Dr. Hinkle dispo - will need PT evaluation, likely return to SNF Patient requires ongoing inpatient stay for severe anemia, requiring admission for blood transfusion, monitoring and further workup due to concern over advanced cancer, biopsy Quality Stroke Does the patient have a stroke diagnosis?: No VTE Prior VTE?: No VTE Risk Level:: Medical - moderate - high VTE Device Contraindication: N/A - Device Ordered VTE Drug Contraindication: Treatment Not Indicated
--- NOTE | 2024-05-07 13:21 | MHC.CLN ---
F/U PT IS MODERATELY MALNOURISHED VARIABLE PO INTAKE OVER WEEKEND DIET RETURNED TO NPO WHEN DIET TO ADVANCE, RECOMMEND ADDING ENSURE BID TO INCREASE KCALS SUPP TO PROVIDE 700KCALS, 40G PROTEIN FOLLOWING FOR DIET ADVANCEMENT
[2024-05-07 14:55] VITALS: BP 172/72; PULSE 96; RESP 16; TEMP 37.5; O2SAT 97
[2024-05-07 16:00] VITALS: O2SAT 98
[2024-05-07 19:50] VITALS: BP 148/67; PULSE 99; RESP 14; TEMP 36.8; O2SAT 97
[2024-05-07] MEDS: Sennosides 8.6 MG TABLET 17.2 MG PO (20:21)
[2024-05-08] VITALS: BP 148/63; PULSE 95; RESP 12; TEMP 36.4; O2SAT 96
[2024-05-08 03:50] VITALS: BP 145/69; PULSE 94; RESP 12; TEMP 36.9; O2SAT 95
[2024-05-08 07:27] VITALS: BP 168/70; PULSE 88; RESP 16; TEMP 36.9; O2SAT 100
[2024-05-08] MEDS: 0.9 % Sodium Chloride Flush 3 ML SYRINGE IVFLUSH (08:09)
[2024-05-08] MEDS: Lidocaine 4 % Patch ADH..PATCH 1 PATCH TRANSDERMA (08:24)
[2024-05-08 11:28] VITALS: BP 198/81; PULSE 88; RESP 16; TEMP 36.2; O2SAT 98
--- NOTE | 2024-05-08 11:43 | MHC.CM.PN ---
Per LEAN MANAGER,Patient is medically cleared for dc to [facility] today. Patient will return to [facility] @ [facility] [place] today at 1:30 PM, via [facility].(CM called for [facility] auth for transport but Patient did not show up in ther system/CM Side Panel Hanger has been made aware). CM spoke with /HCP/Camryn at [phone], addressed IMM and informed her of the dc plan.
--- NOTE | 2024-05-08 12:59 | PM.DS ---
DS: Providers Provider Date of Service: 05/08/24 Date of admission: 05/02/24 15:25 Primary care physician: Diego Ovalle MD Consults: 05/02/24 15:22 Consult to Gastroenterology Routine Consulting Provider: Justo Brito Reason for consultation: severe anemia, recent h pylori gastritis Has provider been notified: Yes 05/02/24 15:23 Consult to Urology Routine Consulting Provider: Jerson Jordan Reason for consultation: ?bladder mass on CT, ?pyelo Has provider been notified: No DS: Diagnosis Discharge Diagnosis (1) Bladder mass: Status: Acute (2) Pancytopenia: Status: Acute DS: Summary Hospital Course Hospital Course: History and physical as per admitting provider. Patient is an 84-year-old male with a past medical history significant for hypertension, CKD 3, HLD, GERD, BPH, anemia with a recent admission discharged on 04/20 for BRENDA and pancytopenia, who presented to the ED today from [facility] due to nausea and vomiting for the past 2 days and low blood count. He reports melena for the past week. Denies any shortness of breath, chest pain, palpitations, abdominal pain, fever, chills, hematemesis. He also denies any urinary symptoms including urinary frequency, hesitancy or dysuria. He continues to have chronic weight loss but does not track his weights. A Durant catheter was placed in the ED, he reports that he urinates normally at home. 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 no abdominal pain hypokalemia resolved with replacement Acute mild hypovolemic hyponatremia resolved HTN BP initially low but rebounded, continue norvasc, lasix CKD 3 creatinine stable, no BRENDA GERD PPI BPH continue finasteride moderate protein calorie malnutrition BMI 18.5 dietary supplements Time Attestation Discharge Coordination Time (in mins): 40 Quality: Safe Use of Opioids Does Pt have an Active Cancer Diagnosis on the Problem List?: No Quality: Stroke Does the patient have a stroke diagnosis?: No Physical Exam Vital Signs: Vital Signs: Last Vital Signs Temp 97.1 F 05/08/24 11:28 Pulse 88 05/08/24 11:28 Resp 16 05/08/24 11:28 BP 198/81 H 05/08/24 11:28 Pulse Ox 98 05/08/24 11:28 O2 Del Method Room Air 05/08/24 11:28 Oxygen Flow Rate 2 05/04/24 09:17 BMI result Body Mass Index 18.5 Appearing in no acute distress head is normocephalic atraumatic eyes pupils are PERRLA sclera is anicteric mouth throat mucous membranes are intact and moist neck is supple no lymphadenopathy, no JVD noted lung sounds are clear to auscultation heart regular rate rhythm, clear S1, S2 positive bowel sounds, abdomen is soft, nontender neuro patient is alert, confused DS: Data Data Completed and Pending Completed studies during hospitalization [Text1]: Pending at discharge 05/04/24 16:25 Surgical [PTH] Routine Procedures Transfusion of Nonautologous Red Blood Cells into Peripheral Vein, Percutaneous Approach (04/14/24) Discharge Plan Discharge Anticipated Discharge Date/Time: 05/08/24 12:43 Patient Disposition: Xfer [facility] Discharge Diagnosis: Bladder mass Acute normocytic anemia chronic pancytopenia Transaminitis Hypokalemia Hypovolemic hyponatremia Referrals: [facility] [Outside] - 1 Week Diego Oavlle MD [Primary Care Provider] - 1 Week Discharge Medications: Continued amlodipine 10 mg Tablet 10 mg PO DAILY Qty: 90 0RF Protocol: Hold for SBP< HOLD for SBP < : 90 acetaminophen [Tylenol Extra Strength] 500 mg tablet 500 mg PO Q6H PRN (Reason: pain) Qty: 20 0RF hydroxyzine pamoate 25 mg capsule 25 mg PO TID furosemide 20 mg tablet 20 mg PO DAILY lidocaine [Lidoderm] 5 % adhesive patch,medicated 1 patch topical DAILY Rx Instructions: leave on most painful area for up to 12 hrs omeprazole 20 mg capsule,delayed release(DR/EC) 40 mg PO DAILY@0630 sennosides [senna] 8.6 mg Tablet 17.2 mg PO BEDTIME acetaminophen [Tylenol] 325 mg Tablet 650 mg PO Q4H PRN (Reason: Pain/Discomfort) ondansetron HCl 4 mg Tablet 4 mg PO DAILY famotidine 20 mg Tablet 20 mg PO DAILY@1200 magnesium hydroxide [Milk of Magnesia] 400 mg/5 mL Suspension 30 ml PO DAILY PRN (Reason: Bowel Movement) bisacodyl 10 mg Suppository 10 mg [place] DAILY PRN (Reason: bowel movement) Fleet Enema 19-7 gram/118 mL Enema 118 ml TX DAILY PRN (Reason: Constipation) mirtazapine 15 mg Tablet 15 mg PO DAILY Multiple Vitamin-Minerals Tablet 1 tab PO DAILY diclofenac sodium 1 % Gel 1 g topical BID Rx Instructions: apply to single elbow, wrist or hand; for hand includes palm/fingers/back of hand cyclobenzaprine 10 mg tablet 10 mg PO Q8H PRN (Reason: muscle spasm) finasteride 5 mg tablet 5 mg PO DAILY acetaminophen 650 mg Suppository 650 mg TX Q4H PRN (Reason: Pain/Fever) naloxone 0.4 mg/mL Solution 0.4 mg SUBCUT Q3M PRN (Reason: Opioid Overdose) Rx Instructions: NTExceed 10 mg total dose/episode diphenhydramine HCl [Benadryl] 25 mg capsule 25 mg PO Q8H PRN (Reason: itching) Rx Instructions: side effect is drowsiness. Discharge Orders: Discharge Order (Routine); Ordered 05/08/24 Ordered By: Rosi Redmond Diet: Advance to usual diet Activity on Discharge: As tolerated Stand Alone Forms: Patient Portal Discharge page Print Language: [place] Citizen Other Ambulatory Orders: Complete Blood Count no Diff (Routine) Timeframe: 2 Days Facility: [facility] - Location: Laboratory Ordered By: Rosi Redmond IRON PROFILE (Routine) Timeframe: 2 Days Facility: [facility] - Location: Laboratory Ordered By: Rosi Redmond Care Plan Goals: Check iron studies in 1 week Health Concerns: Bladder mass Acute normocytic anemia chronic pancytopenia Transaminitis Hypokalemia Hypovolemic hyponatremia Plan of Treatment: Follow-up with primary care provider as needed Take all medications as prescribed Assessment: See discharge summary Discharge Date/Time: 05/08/24 13:08
--- NOTE | 2024-05-08 13:41 | MHC.CM.PN ---
dc summary has been faxed to Andrew @ [phone].
== END 2024-05-08 13:08 | disposition skilled nursing facility (03) | DRG 377 ==
LOC: HO.ED 15:16 → HO.EDOVER 16:15 → HO.IMC 16:37
PROVIDERS: Internal Medicine; Internal Medicine Gastroenterology; Internal Medicine Medical Oncology; Physician Assistant Medical; Admitting Provider Physician Assistant; Emergency Provider Emergency Medicine Emergency Medical Services; PCP Family Medicine; Visit Provider Nurse Practitioner Acute Care
PROC: 0DBK8ZX Excision of Ascending Colon, Via Natural or Artificial Opening Endoscopic, Diagnostic (ICD-10-PCS; principal; 2024-05-04 12:40)
DX: K55.21 Angiodysplasia of colon with hemorrhage (principal); K20.91 Esophagitis, unspecified with bleeding; D62 Acute posthemorrhagic anemia; E87.1 Hypo-osmolality and hyponatremia; E44.0 Moderate protein-calorie malnutrition; Z68.1 Body mass index [BMI] 19.9 or less, adult; D61.818 Other pancytopenia; K57.31 Diverticulosis of large intestine without perforation or abscess with bleeding; Z66 Do not resuscitate; E87.6 Hypokalemia; E86.1 Hypovolemia; I12.9 Hypertensive chronic kidney disease with stage 1 through stage 4 chronic kidney disease, or unspecified chronic kidney disease; N18.30 Chronic kidney disease, stage 3 unspecified; D12.2 Benign neoplasm of ascending colon; N32.9 Bladder disorder, unspecified; B96.81 Helicobacter pylori [H. pylori] as the cause of diseases classified elsewhere; K29.61 Other gastritis with bleeding; E78.5 Hyperlipidemia, unspecified; N40.0 Benign prostatic hyperplasia without lower urinary tract symptoms; Z20.822 Contact with and (suspected) exposure to COVID-19; Z87.891 Personal history of nicotine dependence; Z79.899 Other long term (current) drug therapy
CPT/HCPCS: 0241U; 36415; 74178; 76705; 78306; 80048; 80053; 81001; 82248; 83735; 83930; 84153; 85007; 85025; 85027; 85049; 85610; 85730; 86850; 86900; 86901; 86923; 87086; 88305; 97162; 99285; A9503; J2003; J2371; J2405; J2470; J2704; J3430; P9016; P9073; Q9967

== ENCOUNTER → 2024-05-02 15:25 | Outpatient (BNV) | payer OTHER, SELFPAY | PROVIDERS: Admitting Provider Physician Assistant; Emergency Provider Emergency Medicine Emergency Medical Services; PCP Family Medicine; Visit Provider Internal Medicine Gastroenterology | DX: D64.9 Anemia, unspecified (principal); D12.3 Benign neoplasm of transverse colon; D12.2 Benign neoplasm of ascending colon; Q27.33 Arteriovenous malformation of digestive system vessel; K57.30 Diverticulosis of large intestine without perforation or abscess without bleeding | CPT/HCPCS: 45385; 45388; 99499 ==

== ENCOUNTER → 2024-05-02 15:25 | Outpatient (BNV) | payer OTHER, SELFPAY | PROVIDERS: Admitting Provider Physician Assistant; Emergency Provider Emergency Medicine Emergency Medical Services; PCP Family Medicine; Visit Provider Physician Assistant | DX: N32.89 Other specified disorders of bladder (principal); D61.818 Other pancytopenia | CPT/HCPCS: 99223; 99232; 99239 ==